=== PATIENT | female | born 1965 | race African-American/Black ===

== ENCOUNTER 2017-05-21 15:28 | Outpatient (CLI) | payer MEDICARE, MEDICAID ==
[2017-05-21 17:06] LABS: #Basophils 0.1 thou/uL (0.0-0.2); #Eosinphils 0.1 thou/uL (0.0-0.7); #Lymphocytes 2.8 thou/uL (1.20-3.40); #Monocytes 0.7 thou/uL (0.11-0.59); #Neutrophils 4.6 thou/uL (1.40-6.50); %Basophils 1.2 % (0.0-1.0); %Eosinophils 1.4 % (0.0-10.0); %Lymphocytes 33.3 % (21.0-51.0); %Monocytes 8.7 % (0.0-10.0); Hematocrit 37.4 % (36.0-47.0); Red Blood Cell (RBC) Count 3.72 mill/uL (4.20-5.40); White Blood Cell (WBC) Count 8.4 thou/uL (4.8-10.8)
[2017-05-21 17:27] LABS: Anion Gap 13 mmol/L (10-20); BUN (Urea Nitrogen) 23 mg/dL (9.8-20.1); Calc. Creatinine Clearance 0 mL/min (70-130); Calcium 8.7 mg/dL (7.8-10.44); Carbon Dioxide 30 mmol/L (22-29); Chloride 98 mmol/L (98-107); Estimated GFR-MDRD 5
== END 2017-05-21 15:29 | disposition home or self-care (01) ==
LOC: LABBT 15:28
PROVIDERS: ATTEND Specialist
DX: Z01.818 Encounter for other preprocedural examination (principal); T85.611A Breakdown (mechanical) of intraperitoneal dialysis catheter, initial encounter
CPT/HCPCS: 80048; 85025; 93005; 93010

== ENCOUNTER → 2017-05-23 | Day surgery (SDC) | payer MEDICARE, MEDICAID ==
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
[2017-05-21 15:40] VITALS: BMI 31.9
[~2017-05-23] MED LIST: Bupivacaine HCl 0.5%/Epinephrine 1:200,000/PF 30 ml Vial ONE; Fentanyl 100 MCG/2 ML VIAL ONE; Midazolam HCl 2 mg/2 ml Vial ONE; Propofol 500 MG/50 ML VIAL ONE
[2017-05-23 08:22] LABS: Prothrombin Time 13.1 SEC (12.0-14.7)
--- NOTE | 2017-05-23 12:40 | OP ---
DATE OF PROCEDURE: 05/23/2017 PREOPERATIVE DIAGNOSIS: Dysfunctional peritoneal dialysis catheter with extruded external cuff. POSTOPERATIVE DIAGNOSIS: Dysfunctional peritoneal dialysis catheter with extruded external cuff. PROCEDURE: Revision of peritoneal dialysis catheter external portion subcutaneous tissue, splicing a new segment of the catheter and retunneling it to a new exit site. SURGEON: Dr. Alan Rivera ANESTHESIA: TIVA. Local 0.5% Marcaine with epinephrine 30 mL mixed with 2% Xylocaine, 10 mL, 20 mL volume mixture used. PROCEDURE IN DETAIL: The patient was taken to the operating room where under intravenous sedation, her abdomen was prepared with chloraprep, draped in routine fashion. Local anesthetic infiltrated i nto skin and subcutaneous tissue about the operative site. Incision was made overlying the peritone al dialysis catheter in the subcutaneous tissue, left paramedian. Incision carried down through the skin and subcutaneous tissue and the tunnel catheter in the subcutaneous tissue, identified, dissec latoya free, and then transected and external portion removed and area reprepared with ChloraPrep. I t hen gained a new segment of catheter and spliced these together with a titanium splicer device secur ing both ends of the new catheter over the splicer device, securing them with 2-0 Prolene sutures. I then made a counter incision more superiorly and laterally, tunneling the catheter to this site an d then more inferiorly and laterally to a new exit site tunneling the catheter out the new exit site , closing the subcutaneous tissues with 3-0 Monocryl, skin with subdermal 4-0 Monocryl and DermaGlue applied. The catheter was then connected to the peritoneal dialysis extension and then flushed wit h heparinized saline solution. Sterile dressings applied. The patient tolerated the procedure well .
== END ==
LOC: SDC 07:38
PROVIDERS: ATTEND Specialist
PROC: 0WHG03Z Insertion of Infusion Device into Peritoneal Cavity, Open Approach (ICD-10-PCS; principal; 2017-05-23)
DX: T85.611A Breakdown (mechanical) of intraperitoneal dialysis catheter, initial encounter (principal); I12.0 Hypertensive chronic kidney disease with stage 5 chronic kidney disease or end stage renal disease; N18.6 End stage renal disease; D64.9 Anemia, unspecified; K21.9 Gastro-esophageal reflux disease without esophagitis; Z91.041 Radiographic dye allergy status; Z79.01 Long term (current) use of anticoagulants; Z79.899 Other long term (current) drug therapy; Z98.891 History of uterine scar from previous surgery; Z98.890 Other specified postprocedural states; Z99.2 Dependence on renal dialysis
CPT/HCPCS: 36415; 85610; J0131; J0670; J1642; J2250; J2704; J3010

== ENCOUNTER 2017-06-08 11:35 | Emergency (ER) | payer MEDICARE, MEDICAID ==
--- OUTSIDE RECORDS SUMMARY | 2017-06-08 11:37 | XMS | Clinical Summary ---
:1965 Author Organization [facility] Address [address] [place] [address] Phone Care Team Providers Name Role Phone , Primary Care Provider Unavailable Allergies Active Allergy Reactions Severity Noted Date Comments Iodine And Iodide Containing Products Rash High 10/11/2013 Current Medications Not on file Active Problems Patient Care Coordination Note Dr. Rowell, Family Medicine and [facility] [phone] Tel. 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
[2017-06-08 12:15] LABS: #Basophils 0.1 thou/uL (0.0-0.2); #Eosinphils 0.3 thou/uL (0.0-0.7); #Lymphocytes 3.3 thou/uL (1.20-3.40); #Monocytes 0.7 thou/uL (0.11-0.59); #Neutrophils 5.7 thou/uL (1.40-6.50); %Basophils 1.2 % (0.0-1.0); %Eosinophils 3.4 % (0.0-10.0); %Lymphocytes 32.5 % (21.0-51.0); %Monocytes 6.9 % (0.0-10.0); Hematocrit 32.4 % (36.0-47.0); Mean Platelet Volume 9.9 fL (7.4-10.4); Red Blood Cell (RBC) Count 3.12 mill/uL (4.20-5.40); White Blood Cell (WBC) Count 10.1 thou/uL (4.8-10.8)
[2017-06-08 12:37] LABS: ALT (SGPT) Less than 7 U/L (8-55); AST (SGOT) 16 U/L (5-34); Alkaline Phosphatase 81 U/L (40-150); Anion Gap 17 mmol/L (10-20); BUN (Urea Nitrogen) 49 mg/dL (9.8-20.1); Bilirubin, Total 0.6 mg/dL (0.2-1.2); CK (CPK) 103 U/L (29-168); Calc. Creatinine Clearance 0 mL/min (70-130); Calcium 9.1 mg/dL (7.8-10.44); Carbon Dioxide 22 mmol/L (22-29); Chloride 104 mmol/L (98-107); Estimated GFR-MDRD 3; Globulin 4.2 g/dL (2.4-3.5); Lipase 4 U/L (8-78); Protein, Total 7.3 g/dL (6.0-8.3)
[2017-06-08 12:42] LABS: Troponin I 0.012 ng/mL (< 0.028)
--- NOTE | 2017-06-08 12:42 | RAD ---
PORTABLE CHEST: Date: 06/08/17 HISTORY: Shortness of breath. Assess for fluid overload. Dialysis patient. COMPARISON: 06/07/15. FINDINGS: There is cardiomegaly. There is vascular engorgement. Some interstitial prominence is suspicious for mild interstitial edema/congestion. I cannot exclude small effusions. IMPRESSION: Cardiomegaly and mild congestive change noted. POS: [facility]
[2017-06-08] MEDS ORDERED: Nitroglycerin 0.1mg/Hour PATCH TOP SCH (14:45)
[2017-06-08] MEDS ORDERED: Ondansetron HCl/PF 4 MG/2 ML Vial ONE (14:59)
== END 2017-06-08 15:10 | disposition home or self-care (01) ==
LOC: ERS 11:35
DX: E87.70 Fluid overload, unspecified (principal); I10 Essential (primary) hypertension; F17.220 Nicotine dependence, chewing tobacco, uncomplicated; F31.9 Bipolar disorder, unspecified; Z79.899 Other long term (current) drug therapy
CPT/HCPCS: 71010; 80053; 82550; 82553; 83690; 83880; 84484; 85025; 93005; 96374; J2405

== ENCOUNTER 2017-06-09 19:34 | Observation (INO) | payer MEDICARE, MEDICAID ==
--- OUTSIDE RECORDS SUMMARY | 2017-06-09 19:36 | XMS | Clinical Summary ---
:[address] [facility] Address [address] [place] [address] Phone Care Team Providers Name Role Phone , Primary Care Provider Unavailable Allergies Active Allergy Reactions Severity Noted Date Comments Iodine And Iodide Containing Products Rash High 10/11/2013 Current Medications Not on file Active Problems Patient Care Coordination Note Dr. Rowell, Family Medicine and [facility] [phone] Tel. 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
[2017-06-09 20:28] LABS: #Basophils 0.1 thou/uL (0.0-0.2); #Eosinphils 0.4 thou/uL (0.0-0.7); #Lymphocytes 2.5 thou/uL (1.20-3.40); #Monocytes 0.7 thou/uL (0.11-0.59); #Neutrophils 4.8 thou/uL (1.40-6.50); %Basophils 1.6 % (0.0-1.0); %Eosinophils 4.2 % (0.0-10.0); %Lymphocytes 29.6 % (21.0-51.0); %Monocytes 7.9 % (0.0-10.0); Hematocrit 31.5 % (36.0-47.0); Mean Platelet Volume 10.2 fL (7.4-10.4); Red Blood Cell (RBC) Count 3.04 mill/uL (4.20-5.40); White Blood Cell (WBC) Count 8.5 thou/uL (4.8-10.8)
[2017-06-09 20:49] LABS: ALT (SGPT) Less than 7 U/L (8-55); AST (SGOT) 17 U/L (5-34); Alkaline Phosphatase 81 U/L (40-150); Anion Gap 15 mmol/L (10-20); BUN (Urea Nitrogen) 51 mg/dL (9.8-20.1); Bilirubin, Total 0.6 mg/dL (0.2-1.2); Calc. Creatinine Clearance 0 mL/min (70-130); Carbon Dioxide 23 mmol/L (22-29); Chloride 104 mmol/L (98-107); Estimated GFR-MDRD 3; Globulin 4.1 g/dL (2.4-3.5); Protein, Total 7.2 g/dL (6.0-8.3)
[2017-06-09 20:54] LABS: Troponin I 0.017 ng/mL (< 0.028)
--- NOTE | 2017-06-09 21:05 | RAD ---
SINGLE VIEW OF THE CHEST: Indication: High blood pressure, shortness of breath. Comparison: 06-08-16 IMPRESSION: Since the comparison examination the cardiomegaly, pulmonary vasculature congestion and small pleura l effusions persist. No pneumothorax is evident. ACDF is similar. Osseous structures are unchanged. POS: [facility]
[2017-06-09] MEDS ORDERED: Acetaminophen 500 MG TAB ONE (21:21)
[2017-06-09] MEDS ORDERED: Nitroglycerin 2% Ointment 1 INCH/1 GM Packet ONE (22:22)
[2017-06-09 22:51] LABS: Bilirubin Negative (Negative); Blood, Urine Trace (Negative); Glucose, Urine (Dipstick) Negative (Negative); Ketone, Urine Negative (Negative); Nitrite Negative (Negative); Protein, Urine (Dipstick) 100 mg/dL (Neg-Trace); Urobilinogen 0.2 mg/dL (0.2-1.0)
[2017-06-09 22:56] LABS: Bacteria/HPF Rare-Few HPF (None Seen); Hyaline Casts/LPF 0-3 HYALINE CAST LPF (0-3 Hyaline)
[2017-06-09] MEDS ORDERED: Dextrose 50% Abboject 50 ML SYRINGE ONE (23:57)
[2017-06-09] MEDS ORDERED: hydrALAZINE 25 MG TAB ONE (23:57)
[2017-06-09] MEDS ORDERED: Insulin Regular 300 UNITS/3 ML VIAL ONE (23:57)
[2017-06-10] MEDS ORDERED: Ondansetron ODT 4 MG TAB SL PRN (02:01)
[2017-06-10] MEDS ORDERED: Ondansetron HCl/PF 4 MG/2 ML Vial IVP PRN ×2 (02:01→02:15)
[2017-06-10] MEDS ORDERED: Acetaminophen 650 MG Suppository PR PRN (02:15)
[2017-06-10] MEDS ORDERED: Enoxaparin Sodium 40 MG/0.4 ML SYRINGE SC SCH (02:15)
[2017-06-10] MEDS ORDERED: Bisacodyl 10 MG SUPP PR PRN (02:15)
[2017-06-10] MEDS ORDERED: Bisacodyl 5 MG TAB PO PRN (02:15)
[2017-06-10] MEDS ORDERED: Nitroglycerin 0.4 MG TAB (25 Tab Bottle) SL PRN (02:15)
[2017-06-10] MEDS ORDERED: Ondansetron ODT 4 MG TAB PO PRN (02:15)
[2017-06-10 02:17] LABS: Troponin I 0.028 ng/mL (< 0.028)
[2017-06-10] MEDS ORDERED: Dextrose 50% Abboject 50 ML SYRINGE ONE ×2 (02:21→03:34)
[2017-06-10 03:36] LABS: #Basophils 0.2 thou/uL (0.0-0.2); #Eosinphils 0.4 thou/uL (0.0-0.7); #Lymphocytes 4.9 thou/uL (1.20-3.40); %Basophils 1.7 % (0.0-1.0); %Eosinophils 3.4 % (0.0-10.0); %Lymphocytes 42.9 % (21.0-51.0); Hematocrit 31.4 % (36.0-47.0); Mean Platelet Volume 10.2 fL (7.4-10.4); Red Blood Cell (RBC) Count 3.06 mill/uL (4.20-5.40); White Blood Cell (WBC) Count 11.5 thou/uL (4.8-10.8)
[2017-06-10 03:50] LABS: Anion Gap 19 mmol/L (10-20); BUN (Urea Nitrogen) 50 mg/dL (9.8-20.1); Calc. Creatinine Clearance 0 mL/min (70-130); Calcium 9.4 mg/dL (7.8-10.44); Carbon Dioxide 21 mmol/L (22-29); Chloride 105 mmol/L (98-107); Estimated GFR-MDRD 3
[2017-06-10 07:02] LABS: Troponin I 0.035 ng/mL (< 0.028)
[2017-06-10] MEDS: Sevelamer Carbonate 800 MG TAB PO SCH ×3 (08:05→18:53)
[2017-06-10] MEDS: hydrALAZINE 25 MG TAB PO SCH ×3 (08:43→21:29)
[2017-06-10] MEDS: Aspirin 81 mg Enteric Coated Tablet PO SCH (08:44)
[2017-06-10] MEDS: cloNIDine 0.2 MG TAB PO SCH ×2 (08:45→21:29)
[2017-06-10] MEDS: Potassium Chloride 20 MEQ TAB PO SCH ×2 (08:46→21:29)
[2017-06-10] MEDS: Folic Acid/Vit B Comp W-C PO SCH (08:46)
[2017-06-10] MEDS ORDERED: hydrALAZINE 25 MG TAB PO SCH (09:00)
[2017-06-10] MEDS ORDERED: Atenolol 50 MG TAB PO SCH (09:00)
[2017-06-10] MEDS ORDERED: VITAMIN B COMP W C PO SCH (09:00)
[2017-06-10] MEDS ORDERED: FOLIC ACID PO SCH (09:00)
[2017-06-10] MEDS ORDERED: Aspirin 325 MG TAB PO SCH (09:00)
--- NOTE | 2017-06-10 09:07 | HP-2 ---
DATE OF ADMISSION: 06/09/2017 CODE STATUS: Full. PRIMARY CARE PHYSICIAN: [facility] ATTENDING PHYSICIAN: Dr. Robert Phelps RESIDENT: Vishnu Gentile M.D., PGY1 SPECIALIST: Dr. Flores, Nephrology. CHIEF COMPLAINT: Shortness of breath and headaches. HISTORY OF PRESENT ILLNESS: This is a 52-year-old female that comes in with chief complaint of shortness of breath, hardly being able to breathe. She said that she was also having h eadaches. She said with every little movements at home, felt like her head was going to explode. S he said she had pain in her chest, did not radiate anywhere. Reported also having some nausea and h aving some chills, reported being dizzy as well. She said that her blood pressure was elevated, but she was told not to take her blood pressure medications for some reason. Per ER, she did put some nitro, but did swallow instead of keeping it under her tongue. Denies any other symptoms at this ti me. PAST MEDICAL HISTORY: Hypertension, kidney failure, end-stage renal disease on peritoneal dialysis, chronic anemia and bipolar. PAST SURGICAL HISTORY: Screws in her neck and she just had a new port put in her abdomen 2-3 weeks ago. ALLERGIES: She has allergy to IODINE in which she develops a rash. MEDICATIONS: She takes clonidine 0.2 mg 2 times a day, isosorbide mononitrate 30 mg 1 tab a day, se rtraline 50 mg 1 time a day, Diuride 1 tab daily; Renvela 800 mg daily, hydralazine 100 mg 3 times a day, pantoprazole 40 mg, KCl 20 mEq 2 times a day, atenolol 50 mg daily. FAMILY HISTORY: Mom and dad both had hypertension. SOCIAL HISTORY: No tobacco use, no alcohol use, no drug use. REVIEW OF SYSTEMS: All review of systems not listed in the HPI are otherwise negative at this time. PHYSICAL EXAMINATION: VITAL SIGNS: Blood pressure is 137/81, pulse 67, respirations 22, temperature 98.4, pulse ox 90% on 2 liters. Current weight is 86.64 kilograms. GENERAL: She is alert and oriented x3. Well-developed, obese, appropriately interactive. EYES: Conjunctivae within normal limits. ENT: Oropharynx within normal limits. NECK: Supple, no lymphadenopathy, no thyromegaly. No bruits. CARDIOVASCULAR: Regular rate and rhythm. No murmurs, no gallops. Radial pulses, pedal pulses palp ated bilaterally. RESPIRATORY: Normal breathing effort, no retractions. Lungs are clear to auscultation bilaterally. SKIN: Warm and dry. ABDOMEN: Soft, nontender to palpation. Bowel sounds heard in all 4 quadrants. MUSCULOSKELETAL: Structure normal, tone normal. She has full range of motion. NEUROLOGIC: No focal deficits. Sensation within normal limits. PSYCHIATRIC: Appropriate. LABORATORY DATA: White blood cell 8.5, hemoglobin 10.2, hematocrit 31.5, platelets 167, MCV 104. S odium 137, potassium 5.4, chloride 104, bicarbonate 23, BUN 51, creatinine 14.17, glucose 89, total protein 7.2, albumin 3.1, calcium 7.0, total bilirubin 0.6, alkaline phosphatase 81, AST is 17, ALT is less than 7. UA; trace blood, protein was 100, 4-6 white blood cells, squamous epithelial 7-11, CK-MB was 1.4, troponin was 0.17, everything else was negative. Chest x-ray showed cardiomegaly and pulmonary vascular congestion and small pleural effusions persist from last. No pneumothorax and o sseous structures unchanged. ASSESSMENT AND PLAN: 1. Atypical chest pain. We will admit her to tele observation overnight. We will keep her n.p.o. for now. We will get a stress test in the morning. We will start her on some aspirin. Give her ni tro p.r.n. Continue to keep the nitropatch on her for now. We will continue to trend troponins. 2. Hypertension emergency. We will restart home medications as she did not take them yesterday. W e will continue to monitor blood pressures and treat as needed. 3. End-stage renal disease on peritoneal dialysis. For her peritoneal dialysis we will consult Dr. Flores for help with management. 4. Hyperkalemia. She was given insulin and sugar in the ER. She is on peritoneal dialysis and dulce l continue to follow BMPs as we will need to correct. 5. Chronic anemia likely secondary to end-stage renal disease. She is on folic acid and B12. We w ill continue to monitor and adjust medicines as needed. Dr. Flores has been consulted as well. 6. Bipolar. We will continue her sertraline at this time.
[2017-06-10 10:30] LABS: Troponin I 0.015 ng/mL (< 0.028)
[2017-06-10] MEDS ORDERED: Calcium Carbonate 500 MG ChewTAB PO PRN (11:16)
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
--- NOTE | 2017-06-10 11:55 | PRG ---
DATE OF SERVICE: 06/10/2017 SUBJECTIVE: Manuela Estrada is a 52-year-old black female admitted this hospitalization today by Hospitalist because of dyspnea. She is having chest pain and headache. She is scheduled for a stre ss test today. I have been asked to see her regarding leakage around her peritoneal dialysis cathet er site. On 05/23/2017, for a dysfunctional peritoneal dialysis catheter with extruded external cuf f, I revised this with a new segment of catheter splicing it and retunneling it to a new exit site. She resumed dialysis immediately. She states she had some drainage from the catheter site initiall y, but this is diminished, thus it is minimal. OBJECTIVE: ABDOMEN: Soft, nontender and nondistended. Peritoneal dialysis catheter exit site is healthy. The re is no indication of infection. The old exit site is almost completely healed. The cuff of the new catheter is in proper positioning. ASSESSMENT AND PLAN: Recently revised peritoneal dialysis catheter. There is no indication of comp lication. No intervention necessary at this point. I will see the patient as needed this [facility] and she can follow up with me as needed.
[2017-06-10 11:59] VITALS: BMI 35.5
[2017-06-10 12:06] LABS: Amphetamine Not Detected (NotDetected); Methadone Not Detected (NotDetected); Methamphetamine Not Detected (NotDetected)
--- NOTE | 2017-06-10 12:39 | HP ---
I have reviewed the history and physical of Dr. Gentile and agree with his assessment and plan. PRESENT ILLNESS: Ms. Chavarria is a pleasant 52-year-old black female who was admitted through the [facility] room with shortness of breath and some atypical chest pain. PHYSICAL EXAMINATION: VITAL SIGNS: Her blood pressure was 140/80, pulse rate is 67, temperature 98.4, and pulse ox 90% on 2 liters. Respirations 16. GENERAL: She is awake, alert, in no distress. HEENT: Ears, nose and throat within normal limits. No JVD. CARDIAC: Heart rhythm regular, S4 gallop. No murmur or rub noted. LUNGS: Clear. No rales, rhonchi or wheezes. ABDOMEN: Flat and soft. NEUROLOGIC: No deficits. LABORATORY DATA: CBC: White count 8500, hemoglobin 10.2, hematocrit 31.5 with an MCV 104. Sodium 137, potassium 5.4, chloride 104, bicarbonate 23, BUN 51, creatinine is 14.17 as she is on peritonea l dialysis. Glucose was 89. EKG shows no acute ischemic changes. Her chest x-ray shows some degree of cardiomegaly, pulmonary vascular congestion. ASSESSMENT: Atypical chest pain and mild pulmonary congestion. PLAN: The patient will be admitted. We will trend her troponins and schedule a stress test. This morning she is pleasant, alert and chest pain free.
[2017-06-10] MEDS ORDERED: ADENOSINE 60 MG/20 ML VIAL ONE (15:36)
[2017-06-10] MEDS: Acetaminophen 325 MG TAB PO PRN (18:53)
[2017-06-11] MEDS: Acetaminophen 325 MG TAB PO PRN (00:59)
[2017-06-11 05:14] VITALS: TEMP 99.1
[2017-06-11] MEDS: Sevelamer Carbonate 800 MG TAB PO SCH ×2 (08:03→12:34)
[2017-06-11] MEDS: Aspirin 81 mg Enteric Coated Tablet PO SCH (08:04)
[2017-06-11] MEDS: cloNIDine 0.2 MG TAB PO SCH (08:04)
[2017-06-11] MEDS: Folic Acid/Vit B Comp W-C PO SCH (08:04)
[2017-06-11] MEDS: Potassium Chloride 20 MEQ TAB PO SCH (08:05)
[2017-06-11] MEDS: hydrALAZINE 25 MG TAB PO SCH (08:05)
--- NOTE | 2017-06-11 08:36 | PDOC.FM ---
- Subjective Subjective: Pt feels very well this morning and states that her headache and chest pain have resolved. All other symptoms in ROS were denied. Over night she was bradycardic, but stable and asymptomatic. She had the first day of her 2 day stress test yesterday without issue. - Objective MAR Reviewed: Yes Vital Signs & Weight: Vital Signs (12 hours) Temp Pulse Resp BP BP Pulse Ox 06/11/17 08:05 56 L 06/11/17 08:04 135/76 06/11/17 07:42 99.1 F 56 L 18 06/11/17 07:25 98.4 F 53 L 20 121/84 93 L 06/11/17 04:00 99.1 F 56 L 18 135/76 96 06/11/17 00:58 99.4 F 57 L 20 142/89 H 96 06/10/17 21:29 55 L 133/67 Weight Weight 100.743 kg I&O: 06/10/17 06/11/17 06/12/17 06:59 06:59 06:59 Intake Total 120 760 Output Total 300 Balance 120 460 Result Diagrams: 06/10/17 01:24 06/10/17 01:24 EKG Reviewed by me: Yes (sinus chelita) Phys Exam - Physical Examination Constitutional: NAD HEENT: PERRLA, moist MMs, oral pharynx no lesions Neck: no nodes, no JVD Respiratory: clear to auscultation bilateral Cardiovascular: RRR, no significant murmur Gastrointestinal: soft, non-tender, no distention, positive bowel sounds Musculoskeletal: no edema Neurological: non-focal, normal sensation, moves all 4 limbs Lymphatic: no nodes Psychiatric: normal affect, A&O x 3 Skin: no rash Dx/Plan (1) Chest pain Code(s): R07.9 - CHEST PAIN, UNSPECIFIED Status: Resolved Qualifiers: Chest pain type: other chest pain Qualified Code(s): R07.89 - Other chest pain (2) Hypertensive urgency Code(s): I16.0 - HYPERTENSIVE URGENCY Status: Resolved (3) Chronic anemia Code(s): D64.9 - ANEMIA, UNSPECIFIED Status: Chronic (4) ESRD on peritoneal dialysis Code(s): N18.6 - END STAGE RENAL DISEASE; Z99.2 - DEPENDENCE ON RENAL DIALYSIS Status: Chronic (5) Hypertension Code(s): I10 - ESSENTIAL (PRIMARY) HYPERTENSION Status: Chronic Qualifiers: Hypertension type: essential hypertension Qualified Code(s): I10 - Essential (primary) hypertension (6) Obesity (BMI 30.0-34.9) Code(s): E66.9 - OBESITY, UNSPECIFIED Status: Chronic (7) Hypoglycemia Code(s): E16.2 - HYPOGLYCEMIA, UNSPECIFIED Status: Resolved (8) Bipolar disorder in remission Code(s): F31.70 - BIPOLAR DISORD, CURRENTLY IN REMIS, MOST RECENT EPISODE UNSP Status: Chronic (9) Hyperkalemia Code(s): E87.5 - HYPERKALEMIA Status: Resolved - Plan Plan: 1. Chest pain -pain has resolved since admission. Most likely assd with her hypertensive urgency -troponins did have a slight bump, but trended down -on tele with no concerning patterns -will finish her stress test today and pending results will be ready for dc home. 2. Hypertensive urgency -resolved. Pt had not taken her meds on the day of admission and presented w/a BP over 200 -All systolic BP's have been at 160 or below since yesterday. Todays have been 120-130's systolic -Continue home meds and discuss importance of compliance with her meds 3. ESRD -On PD -Has been seen by Dr Flores -There was initially concern for a leaking catheter, however this was evaluate by gen surg and determined to not be an issue 4. Anemia -likely chronic 2/2 ESRD -Stable and asymptomatic 5. Bradycardia -Pt has generally been in the 50s since admission with a few drops into the 40s -She is asymptomatic, however this warrants following outpatient and a possible work up by cardiology -WV interval is 166 ms 6. Bipolar Disorder -Pt is currently controlled -Continue home meds 7. Hypoglycemia -Pt has been stable since the initial event -Continue checks ACHS 8. Hyperkalemia -Has resolved since admission -supplementation has been help by Dr Flores 9.HTN -currently controlled -continue home meds 10. Obesity -kaibab on weight loss
--- NOTE | 2017-06-11 09:20 | PRG ---
DATE OF SERVICE: 06/11/2017 RENAL MEDICINE SUBJECTIVE: Ms. Chavarria was admitted for chest pain. She is undergoing a cardiac stress test at the present time. She also had PD leak around the catheter site. Surgery has evaluated her. The plan is to continue conservative management. Continue low volume PD fluid infusion. No new complaints today. Denies any chest pain, shortness of breath. PHYSICAL EXAMINATION: VITAL SIGNS: Blood pressure is 135/76, heart rate 56, respiratory rate 18, temperature 99.1, and pu lse ox 93%. GENERAL: Awake, alert, comfortable, not in distress. SKIN: Adequate turgor. HEENT: Pinkish conjunctivae. Anicteric sclerae. LUNGS: Clear breath sounds. HEART: Normal sinus rhythm. No murmurs, no gallops, no rubs. ABDOMEN: Globular, soft, nontender, no masses. Positive for PD catheter. Dressing is dry and inta ct around the PD catheter site. EXTREMITIES: No edema. MEDICATIONS: Medications of 06/11/2017 was reviewed. LABORATORY DATA: Laboratories of 06/10/2017; hemoglobin 9.6. On 06/10/2017, glucose 95. ASSESSMENT AND PLAN: 1. Hyperkalemia, off potassium supplementation. 2. End-stage renal disease, stable. Tolerating current peritoneal dialysis regimen. Using 1 liter fill volume. No leakage noted around the peritoneal dialysis catheter site. Continue current felipe gement. Using 4.5% peritoneal dialysis solution/2.5% peritoneal dialysis solution. 3. Shortness of breath/congestive heart failure much improved. 4. Chest pain, resolved. Awaiting results of the cardiac stress test. Overall, agree with current management.
--- NOTE | 2017-06-11 11:18 | ADD-PRG ---
DATE OF SERVICE: 06/11/2017 ADDENDUM This is an addendum to the note of Dr. Harpal Fontana Ms. Chavarria is resting quietly in bed, undergoing her peritoneal dialysis. She is on day [address]s Myoview test with results pending. She has had some asymptomatic episodes of sinus bradycardia into the mid 40s and had been taking atenolol, but for reasons unknown to her. If the atenolol was used strictly for blood pressure control, I would recommend switching her to perhaps a nondihydropy ridine calcium channel shelia such as amlodipine. In the event if her stress Myoview is negative, she will be discharged later today.
[2017-06-11 12:54] VITALS: BP 121/77
--- NOTE | 2017-06-11 14:56 | NM ---
MYOCARDIAL PERFUSION SCAN: HISTORY: Chest pain. TECHNIQUE: The patient was given 31 millicuries of technetium sestamibi for rest imaging and 29 millicuries for stress imaging. The patient was stressed according to adenosine protocol. The left ventricle was imaged with SPECT imaging with CT attenuation. FINDINGS: No evidence of reversible ischemia. Wall motion appears normal. Ejection fraction recorded at 59%. IMPRESSION: No evidence of reversible ischemia. POS: GI
--- NOTE | 2017-06-12 12:01 | DIS-2 ---
DATE OF ADMISSION: 06/10/2017 DATE OF DISCHARGE: 06/11/2017 ADMITTING ATTENDING: Robert Phelps M.D. DISCHARGE ATTENDING: Robert Phelps M.D. RESIDENT PHYSICIAN: Harpal Fontana D.O. CONSULTATIONS: 1. Dr. Flores, Nephrology. 2. Dr. Alan Rivera PROCEDURES: 1. Peritoneal dialysis. 2. Nuclear stress test. DISCONTINUED MEDICATIONS: None. DISCHARGE MEDICATIONS: Clonidine 0.2 mg p.o. b.i.d. Renvela 800 mg p.o. t.i.d., pantoprazole 40 mg p.o. daily, atenolol 50 mg p.o. daily, potassium chloride 20 mEq p.o. b.i.d., sertraline 50 mg p.o. daily, folic acid and vitamin B complex p.o. daily, hydralazine 100 mg p.o. t.i.d., isosorbide monon itrate 30 mg p.o. daily. HOSPITAL COURSE: The patient was admitted for shortness of breath and atypical chest pain. While a dmitted the patient had an up trending troponins, one of which was positive at 0.035, it then trende d down. She also had complaint of a headache and very high blood pressures at home. She apparently had not taking blood pressure meds and had a systolic blood pressure over 200. The patient was wor ked up for her chest pain to rule out acute coronary syndrome. She while admitted underwent a nucle ar stress test. The findings on nuclear stress test were no irreversible ischemia with normal wall motion and ejection fraction of 59%. ACS was ruled out with the likely source of the chest pain carlos alberto ng her hypertension. While admitted the patient remained on peritoneal dialysis and was seen by her spent grain dryer, Dr. Flores. There was some concern that maybe her peritoneal dialysis catheter was leak ing. This was evaluated by Dr. Rivera who determined that no intervention needed to be had. While admitted the patient was given her meds and her blood pressure remained stable. Chest pain resolved as did all other symptoms and the patient was discharged home. DISCHARGE STATUS: Stable. DISCHARGE INSTRUCTIONS: 1. Location: Home. 2. Diet: As previously instructed a renal diet. 3. Activity: Ad ailyn. 4. Followup: Follow up with Dr. Flores within 1 week and with PCP within 1 week.
--- NOTE | 2017-06-14 18:14 | EKG ---
Test Reason : HTN CRISIS Blood Pressure : / mmHG Vent. Rate : 057 BPM Atrial Rate : 057 BPM P-R Int : 144 ms QRS Dur : 078 ms QT Int : 674 ms P-R-T Axes : 024 -23 127 degrees QTc Int : 656 ms Sinus bradycardia T wave abnormality, consider lateral ischemia Prolonged QT Abnormal ECG Confirmed by JOSE MIGUEL CASTILLO M.D. ([id number]), art editor JENNIFER SOLOMON ([id number]) on 06/14/2017 6:13:34 PM Referred By: Confirmed By:JOSE MIGUEL CASTILLO M.D.
--- NOTE | 2017-06-25 13:26 | STRESS ---
Acquisition Time: 2017-06-10 12:25:24 Total Exercise Time: 00:00:22 Test Indications: CHEST PAIN Medications: Protocol: ADENOSINE Max HR: 056 BPM 33% of Pred: 168 BPM Max BP: 140/092 mmHG Max Work Load: 1.0 METS RESTING ECG: SINUS BRADYCARDIA AT 56 BPM WITH NON-SPECIFIC T WAVE CHANGES SYMPTOMS: CHEST PAIN NORMAL BP RESPONSE ECTOPY: NONE ECG STRESS: NO SIGNIFICANT CHANGES INTERPRETATION: AWAIT NUCLEAR IMAGES FOR DEFINITIVE DIAGNOSIS Confirmed by SHAYY NORWOOD ([id number]), assistant editor RYAN JOHNSON ([id number]) on 06/25/2017 1:26:24 PM Referred By: MD Griselda HIGH Confirmed By:SHAYY NORWOOD
== END 2017-06-11 15:35 | disposition home or self-care (01) ==
LOC: ERS 19:34 → 2SW 06-10 00:52
PROVIDERS: ADMIT Family Medicine; ATTEND Family Medicine
DX: R07.89 Other chest pain (principal); R06.02 Shortness of breath; I12.0 Hypertensive chronic kidney disease with stage 5 chronic kidney disease or end stage renal disease; N18.6 End stage renal disease; F31.9 Bipolar disorder, unspecified; Z91.041 Radiographic dye allergy status; Z79.899 Other long term (current) drug therapy; Z82.49 Family history of ischemic heart disease and other diseases of the circulatory system; Z99.2 Dependence on renal dialysis
CPT/HCPCS: 71020; 78452; 80048; 80053; 80306; 82553 ×2; 82962; 84443; 84484 ×3; 85025 ×2; 87040; 93005; 93017; 96372; 96374; 96375; 96376; 99285; A9500; G0378; 36415; 36416; 81003; 81015; 90945; G0257; J0153; J1650; J1815; Q0162

== ENCOUNTER 2017-06-22 00:36 | Inpatient (IN) | payer MEDICARE, MEDICAID ==
--- OUTSIDE RECORDS SUMMARY | 2017-06-22 00:39 | XMS | Clinical Summary ---
:1965 Author Organization [facility] Address [address] [place] [address] Phone Care Team Providers Name Role Phone , Primary Care Provider Unavailable Allergies Active Allergy Reactions Severity Noted Date Comments Iodine And Iodide Containing Products Rash High 10/11/2013 Current Medications Not on file Active Problems Patient Care Coordination Note Dr. Rowell, Family Medicine and [facility] [phone] Tel. #: [phone] Problem Noted Date ESRD (end stage renal [...] Taken Blood Pressure 138/81 09/30/2013 10:12 AM LEACH TANK TENDER Pulse 55 09/30/2013 10:12 AM LEACH TANK TENDER Temperature 36.2 C (97.2 F) 09/30/2013 10:12 AM LEACH TANK TENDER Respiratory Rate 18 09/30/2013 10:12 AM LEACH TANK TENDER Oxygen Saturation - - Inhaled Oxygen Concentration - - Weight 88.9 kg (196 lb) 05/04/2014 10:00 AM CDT Height 165.1 cm (5' 5") 05/04/2014 10:00 AM CDT Body Mass Index 32.62 05/04/2014 10:00 AM CDT Plan of Treatment Health Maintenance Due Date Last Done Comments INFLUENZA VACCINE 05/11/2017 Results Not on filefrom Last 3 Months
[2017-06-22 03:08] LABS: #Basophils 0.1 thou/uL (0.0-0.2); #Eosinphils 0.2 thou/uL (0.0-0.7); #Lymphocytes 2.3 thou/uL (1.20-3.40); #Monocytes 1.5 thou/uL (0.11-0.59); #Neutrophils 7.5 thou/uL (1.40-6.50); %Basophils 0.5 % (0.0-1.0); %Eosinophils 1.6 % (0.0-10.0); %Lymphocytes 19.9 % (21.0-51.0); %Monocytes 12.9 % (0.0-10.0); Hematocrit 27.7 % (36.0-47.0); Mean Platelet Volume 10.3 fL (7.4-10.4); Red Blood Cell (RBC) Count 2.74 mill/uL (4.20-5.40); White Blood Cell (WBC) Count 11.6 thou/uL (4.8-10.8)
[2017-06-22 03:09] LABS: Lipase Less than 4 U/L (8-78)
[2017-06-22 03:22] LABS: Lactic Acid - Sepsis 0.8 mmol/L (0.5-2.2)
[2017-06-22 03:33] LABS: ALT (SGPT) Less than 7 U/L (8-55); AST (SGOT) 13 U/L (5-34); Alkaline Phosphatase 76 U/L (40-150); Anion Gap 17 mmol/L (10-20); BUN (Urea Nitrogen) 53 mg/dL (9.8-20.1); Bilirubin, Total 0.4 mg/dL (0.2-1.2); Calc. Creatinine Clearance 0 mL/min (70-130); Calcium 8.8 mg/dL (7.8-10.44); Carbon Dioxide 25 mmol/L (22-29); Chloride 97 mmol/L (98-107); Estimated GFR-MDRD 3; Protein, Total 6.8 g/dL (6.0-8.3)
[2017-06-22] MEDS ORDERED: Morphine 10 MG/ML VIAL ONE (03:41)
[2017-06-22] MEDS ORDERED: Ondansetron HCl/PF 4 MG/2 ML Vial ONE (03:56)
[2017-06-22] MEDS ORDERED: cefTRIAXone\\ROCEPHIN 2 GM in Sodium Chloride 0.9% 100 ML IVPB SCH (04:00)
[2017-06-22] MEDS ORDERED: Ondansetron ODT 4 MG TAB SL PRN (05:47)
[2017-06-22] MEDS ORDERED: Ondansetron HCl/PF 4 MG/2 ML Vial IVP PRN ×2 (05:47→19:34)
[2017-06-22 06:07] LABS: BF Reference Range Comment Note:
--- NOTE | 2017-06-22 06:26 | HP-2 ---
CODE STATUS: FULL. PRIMARY CARE PHYSICIAN: [facility]. ATTENDING: Dr. Mann. RESIDENT: Nithin Burch MD HISTORIAN: Patient. CHIEF COMPLAINT: Abdominal pain. HISTORY OF PRESENT ILLNESS: Manuela Chavarria is a 52-year-old female with past medical history of CKD, stage 5; hypertension; GERD; and depression; who presents with abdominal pain. The patient states that the pain started on Friday and she describes it as crampy or aching in nature. The patient also states that Dr. Rivera replaced her peritoneal dialysis catheter 3 weeks ago. Since then, she has not been feeling very well. The pain began yesterday, while she was watching TV. She states that it felt like her stomach balled up and got really crampy. The pain is located worse right in the middle of her abdomen. She denies any fevers, nausea, or vomiting. She states that she has been constipated. She has not had a bowel movement in 2.5 days. She tried MiraLax and had a very small bowel movement today. She states that massages and heat pads helped with the pain a little bit and the pain comes and goes and is 10/10 at its worst. PAST MEDICAL HISTORY: 1. Chronic kidney disease, stage 5, on peritoneal dialysis. 2. Hypertension. 3. Gastroesophageal reflux disease. 4. Depression. PAST SURGICAL HISTORY: 1. Peritoneal dialysis catheter placement x2. 2. Neck surgery. 3. x3. ALLERGIES: IODINE. MEDICATIONS: We will need home medication reconciliation, as the patient did not bring meds to the hospital and does not know what medication she takes. FAMILY HISTORY: Hypertension in mother and father. SOCIAL HISTORY: Denies tobacco and drug use. States that she occasionally drinks alcohol. She is not and she has 4 children. REVIEW OF SYSTEMS: Twelve-point review of systems including general, HEENT, respiratory, CV, GI, , skin, musculoskeletal, neuro, and psych were all negative with the exception of 2.5 days of constipation and abdominal pain as well as depression that was chronic. PHYSICAL EXAMINATION: VITAL SIGNS: Blood pressure 167/115, pulse 109, respiratory rate 16, T-max 98.8 , pulse ox 98% on room air, current weight is 94 kilograms. GENERAL: The patient is alert and oriented, in no acute distress. She is obese , appropriately interactive. HEENT: Pupils equal, round, reactive to light and accommodation. Extraocular muscles intact. Conjunctivae within normal limits. ENT: Tympanic membranes pearly stern without bulging or erythema. Nasal mucosa and oropharynx within normal limits. NECK: Supple, without lymphadenopathy or thyromegaly. CARDIOVASCULAR: Regular rate and rhythm. No murmurs or gallops. Radial pulses and pedal pulses equal. RESPIRATORY: Normal effort, no retraction. LUNGS: Clear to auscultation bilaterally. SKIN: Warm and dry without cyanosis or lesions. ABDOMEN: Soft, slightly distended. Diffuse tenderness to palpation. Bowel sounds x4 with no mass and no obvious masses and peritoneal dialysis catheter in place with no signs of cutaneous infection. EXTREMITIES: No cyanosis or edema or clubbing. MUSCULOSKELETAL: Structure and tone within normal limits. Full range of motion. NEUROLOGIC: No focal deficits. Sensation within normal limits. PSYCHIATRIC: Appropriate. LABORATORY DATA: White blood cell count 11.6, hemoglobin 8.9, hematocrit 27.7, MCV 101, and platelets 222. Sodium 134, potassium 5.2, chloride 97, bicarbonate 25, BUN 53, creatinine 14.51. Glucose 66, calcium 8.8, total protein 6.8, albumin 2.8, total bilirubin 0.4, AST 13, ALT less than 7, alkaline phosphatase 76, lactate 0.8. CRP 18.9, lipase less than 4. ASSESSMENT AND PLAN: Manuela Chavarria is a 52-year-old female with past medical history of chronic kidney disease, stage 5; hypertension; GERD; and depression; who presents with abdominal pain. 1. Constipation versus early onset peritonitis. Admit to medical inpatient. Symptoms began after placement of peritoneal dialysis catheter. Has not had a real bowel movement in 2.5 days. She has got an elevated CRP, but a normal lactate and normal white blood cell count. Start Dulcolax and docusate as well as MiraLax. Start Rocephin. Check blood and peritoneal fluid cultures, fluid gram stain, cell count. Consider consulting Dr. Rivera, as it seems that there is a scheduled procedure on Friday dealing with the peritoneal dialysis catheter. 2. Chronic kidney disease, stage 4. Consult Nephrology in the morning for peritoneal dialysis. 3. Hypertension. Continue home medications. Will need home medication reconciliation. 4. Macrocytic anemia. Check red blood cell, folate, and B12. 5. Gastroesophageal reflux disease. Continue home medications. 6. Depression. Continue home medications. 7. Activity: Ad ailyn. 8. Deep vein thrombosis prophylaxis, sequential compression devices. 9. Code status: FULL. DISPOSITION AND LENGTH OF HOSPITAL STAY: 2 days. Symptomatic medications will be provided. History and physical exam as well as management discussed with Dr. Mann. Patient seen on rounds. I agree with collado portions of H&P above and have written a brief note in the chart. Aspirate from catheter shows white cells and gram positive rods. I think she has peritonitis. We will consult Surgery, Nephrology and ID. Continue Rocephin for now. KRISTOFERD
[2017-06-22 07:59] VITALS: BMI 34.0
[2017-06-22 08:19] LABS: BF Color Yellow
[2017-06-22 08:39] LABS: Number Cells Counted-Fluids 100
[2017-06-22] MEDS: Polyethylene Glycol 3350 17 GM Packet PO SCH ×2 (08:46)
[2017-06-22] MEDS: Docusate 100 MG CAP PO SCH ×3 (08:46→19:52)
[2017-06-22] MEDS: Bisacodyl 10 MG SUPP PR SCH (08:48)
--- NOTE | 2017-06-22 09:35 | RAD ---
ABDOMEN 2 VIEWS AND CHEST 1 VIEW: HISTORY: A 52-year-old female with nausea and vomiting and abdominal pain. FINDINGS: There is cardiomegaly with bilateral vascular congestion and bilateral pleural effusions showing lit tle change from 103/0/17. Thee is a peritoneal dialysis catheter overlying the pelvis region. Ther e is scattered gas in the colon and nondilated small bowel. No evidence for bowel obstruction or fr ee intraperitoneal air or overt calculus or other acute process. IMPRESSION: Stable-appearing chest with cardiomegaly, vascular congestion, interstitial edema, and pleural effus ions. Nonspecific gas pattern with a few scattered air fluid levels in nondilated small bowel and r ight colon. Peritoneal dialysis catheter. No evidence for bowel obstruction. POS: O[facility]LL[facility]
[2017-06-22] MEDS ORDERED: Epoetin (ESRD) 20,000 UNITS/ML SC SCH (11:00)
--- NOTE | 2017-06-22 11:40 | PRG ---
DATE OF SERVICE: 06/22/2017 SERVICE: Renal Medicine. SUBJECTIVE: Ms. Chavarria is a 52-year-old black female with ESRD and admitted for abdominal pain. Angela lamar was found to have peritonitis. She has been empirically treated with IV ceftriaxone. In addition , IV vancomycin is to be added. Please note that this patient currently has an abdominal hernia caity und the PD catheter site area. There is a planned surgery to be done this coming week with her. Angela lamar is currently using a low-volume peritoneal dialysis fluid. My plan is to continue the low volume PD fluid exchanges due to the current abdominal hernia. Abdominal pain is actually improved. PHYSICAL EXAMINATION: VITAL SIGNS: BP is 156/89, heart rate 58, respiratory rate 20, temperature 98.6, pulse ox 93%. GENERAL EXAM: Noted to be awake, alert, comfortable, not in distress. SKIN: Adequate turgor. HEENT: Slightly pale conjunctivae. Anicteric sclerae. NECK: No neck mass. No carotid bruits. No JVD. CHEST: No deformities. LUNGS: Clear breath sounds. No wheezing and no crackles. HEART: Normal sinus rhythm. No murmur, no gallops, and no rubs. ABDOMEN: Globular, soft, nontender, no masses. Positive for PD catheter. Positive for mild abdomi nal hernia -- near the incision site. EXTREMITIES: No edema. MEDICATIONS: Medications of 06/22/2017 were reviewed. LABORATORY DATA: Laboratories of 06/22/2017, white count 11.6, hemoglobin 8.9, hematocrit 27.7. PD fluid shows WBC of 441 -- noted to be hazy. PD fluid culture is pending, but the Gram stain showed gram-positive rods. Chemistries of 06/22/2017, sodium 134, potassium 5.2, chloride 97, carbon diox mamadou 25, BUN 53, creatinine 14.51, calcium 8.8, albumin 2.8, lipase less than 4. ASSESSMENT AND PLAN: 1. Gram-positive benito peritonitis -- currently on IV ceftriaxone and IV vancomycin. Continue suppor tive care. Awaiting culture and sensitivity. 2. Abdominal hernia -- the patient has a planned surgery where the hernia will be repaired and PD c atheter will be placed on hold. She will be converted temporarily on hemodialysis. 3. End-stage renal disease. For the moment, continue low volume infusion -- 1 liter fill volume. We will be using alternating 4.25% and 2.5% PD solution with this patient. 4. Anemia -- resume Epogen 10,000 units subcutaneous every week. Overall, agree with current management.
[2017-06-22] MEDS ORDERED: Vancomycin HCl 1.5 GM in Sodium Chloride 0.9% 250 ML 300 ML IVPB SCH (12:00)
[2017-06-22] MEDS ORDERED: Epoetin (ESRD) 10,000 UNITS/ML VIAL SC SCH (12:00)
[2017-06-22] MEDS: cefTRIAXone\\ROCEPHIN 2 GM in Sodium Chloride 0.9% 100 ML IVPB SCH (16:53)
[2017-06-22] MEDS ORDERED: cefTRIAXone\\ROCEPHIN 2 GM, Admixture Fee 1 EACH in Sodium Chloride 0.9% 100 ML IVPB SCH (17:00)
[2017-06-22] MEDS ORDERED: Vancomycin HCl 1 GM in Premix Bag 1 BAG IVPB SCH (17:30)
[2017-06-22] MEDS ORDERED: hydrALAZINE 20 MG/ML VIAL SLOW IVP PRN (18:33)
[2017-06-22] MEDS ORDERED: Ibuprofen 600 MG TAB PO PRN (18:36)
[2017-06-22] MEDS ORDERED: cloNIDine 0.1 MG TAB PO SCH (18:45)
[2017-06-22] MEDS ORDERED: Atenolol 50 MG TAB PO SCH (18:45)
[2017-06-22] MEDS: Acetaminophen 325 MG TAB PO PRN (18:47)
[2017-06-22] MEDS: cloNIDine 0.1 MG TAB PO SCH (19:51)
[2017-06-22] MEDS ORDERED: Vancomycin HCl 1.25 GM in Sodium Chloride 0.9% 250 ML 250 ML IVPB SCH (21:00)
[2017-06-23] MEDS: Acetaminophen 325 MG TAB PO PRN (01:40)
[2017-06-23 05:06] LABS: #Basophils 0.1 thou/uL (0.0-0.2); #Eosinphils 0.2 thou/uL (0.0-0.7); #Lymphocytes 2.4 thou/uL (1.20-3.40); #Monocytes 1.2 thou/uL (0.11-0.59); #Neutrophils 5.8 thou/uL (1.40-6.50); %Basophils 0.7 % (0.0-1.0); %Eosinophils 1.6 % (0.0-10.0); %Lymphocytes 24.6 % (21.0-51.0); %Monocytes 12.7 % (0.0-10.0); Hematocrit 23.7 % (36.0-47.0); Mean Platelet Volume 9.1 fL (7.4-10.4); Red Blood Cell (RBC) Count 2.34 mill/uL (4.20-5.40); White Blood Cell (WBC) Count 9.6 thou/uL (4.8-10.8)
[2017-06-23] MEDS: cefTRIAXone\\ROCEPHIN 2 GM in Sodium Chloride 0.9% 100 ML IVPB SCH ×2 (05:06→16:13)
[2017-06-23] MEDS: Bisacodyl 10 MG SUPP PR SCH (05:06)
[2017-06-23] MEDS ORDERED: Sodium Chloride 0.9% 10 ML ONE (05:12)
[2017-06-23 05:27] LABS: Anion Gap 16 mmol/L (10-20); BUN (Urea Nitrogen) 53 mg/dL (9.8-20.1); Calc. Creatinine Clearance 7 mL/min (70-130); Calcium 8.2 mg/dL (7.8-10.44); Carbon Dioxide 24 mmol/L (22-29); Chloride 99 mmol/L (98-107); Estimated GFR-MDRD 3
[2017-06-23] MEDS: Docusate 100 MG CAP PO SCH ×3 (08:34→20:05)
[2017-06-23] MEDS: Polyethylene Glycol 3350 17 GM Packet PO SCH ×2 (08:34→09:33)
--- NOTE | 2017-06-23 08:51 | PDOC.FM ---
- Subjective Subjective: No acute events overnight. Pt still reports abdominal pain, but improved from yesterday. Denies CP, SOB, NVDC. - Objective Vital Signs & Weight: Vital Signs (12 hours) Temp Pulse Resp BP Pulse Ox 06/23/17 07:22 98.3 F 51 L 16 147/88 H 99 Weight Weight 95.799 kg I&O: 06/22/17 06/23/17 06/24/17 06:59 06:59 06:59 Intake Total 100 Balance 100 Result Diagrams: 06/23/17 04:27 06/23/17 04:27 <Morgan Milan - Last Filed: 06/23/17 08:49> - Objective Vital Signs & Weight: Vital Signs (12 hours) Temp Pulse Resp BP BP Pulse Ox 06/23/17 10:24 54 L 146/84 H 06/23/17 08:00 98.3 F 51 L 16 06/23/17 07:22 98.3 F 51 L 16 147/88 H 99 Weight Weight 95.799 kg I&O: 06/22/17 06/23/17 06/24/17 06:59 06:59 06:59 Intake Total 100 Balance 100 Result Diagrams: 06/23/17 04:27 06/23/17 04:27 <Yvon Wan - Last Filed: 06/23/17 12:33> Phys Exam - Physical Examination Constitutional: NAD HEENT: PERRLA, moist MMs, sclera anicteric Neck: no nodes, no JVD Respiratory: no wheezing, no rales, no rhonchi, clear to auscultation bilateral Cardiovascular: RRR, no significant murmur, no rub Gastrointestinal: soft, no distention, positive bowel sounds diffuse ttp, no rebound or guarding Musculoskeletal: no edema, pulses present Neurological: non-focal, normal sensation, moves all 4 limbs Psychiatric: normal affect <Morgan Milan - Last Filed: 06/23/17 08:49> Dx/Plan (1) Peritonitis associated with peritoneal dialysis Status: Acute (2) Chronic anemia Code(s): D64.9 - ANEMIA, UNSPECIFIED Status: Chronic (3) ESRD on peritoneal dialysis Code(s): N18.6 - END STAGE RENAL DISEASE; Z99.2 - DEPENDENCE ON RENAL DIALYSIS Status: Chronic - Plan Plan: culture growing corynebacterium; numerous WBCs and evidence for peritonitis pt was scheduled to have hernia repair @ PD site by Dr. Rivera this week, will consult surg today for ESRD on PD, Dr Flores has been consulted, appreciate recommendations for now, continue rocephin and Vancomycin VSS, afebrile and mild leukocytosis has resolved <Morgan Milan - Last Filed: 06/23/17 08:49> Attending Addendum - Attending Addendum I personally evaluated the patient and discussed the management with Dr. Milan. I agree with the History, Examination, Assessment and Plan documented above with any addition or exceptions noted below. Patient reports some improvement in pain this morning. Her WBC is improved and has been afebrile. She continues on Vanc and Rocephin. Due to her ESRD state, will have to monitor Vanc dosing very closely to prevent toxicity. Will check random vanc level today and adjust dose as necessary. Her neutrophil count is equivocal for peritonitis, but with her PD catheter placement, symptoms, and now positive cultures, will treat as such. Corynobacterium growing in culture, should be sensitive to current therapy. Awaiting further recs from Nephro and Gen Surg. <Yvon Wan - Last Filed: 06/23/17 12:33>
[2017-06-23] MEDS ORDERED: traMADol HCl 50 MG TAB PO SCH (09:15)
[2017-06-23] MEDS: cloNIDine 0.1 MG TAB PO SCH ×3 (09:33→20:05)
[2017-06-23] MEDS ORDERED: cefTRIAXone\\ROCEPHIN 2 GM in Sodium Chloride 0.9% 100 ML IVPB SCH (10:00)
[2017-06-23] MEDS: Atenolol 50 MG TAB PO SCH ×2 (10:24→20:58)
--- NOTE | 2017-06-23 10:40 | PRG ---
DATE OF SERVICE: 06/23/2017 RENAL MEDICINE SUBJECTIVE: Ms. hCavarria is a 52-year-old black female with ESRD - on maintenance peritoneal dialysis and admitted for abdominal pain. Initial PD fluid culture has showed gram positive cocci - growing corynebacterium at the present time. She has been empirically treated with IV antibiotics. She vo ices no new complaints today. She had tolerated peritoneal dialysis. Please note we are using [address] filled volume only with this patient due to the PD catheter site leak. In addition, she has als o abdominal hernia. Surgery has been consulted for a possible repair of the hernia as well as placi ng a temporary cuffed hemodialysis catheter. PHYSICAL EXAMINATION: VITAL SIGNS: Blood pressure is 147/88, heart rate 51, respiratory rate 16, temperature 98.3, pulse ox 97%. GENERAL: Awake, alert, comfortable, not in distress. SKIN: Adequate turgor. HEENT: Slightly pale conjunctivae, anicteric sclerae. No neck mass, no carotid bruits, no JVD. CHEST: No deformities. LUNGS: Clear breath sounds. No wheezing, no crackles. HEART: Normal sinus rhythm. No murmur, no gallops, no rubs. ABDOMEN: Globular, soft, nontender, no masses. Positive for PD catheter. EXTREMITIES: Trace edema. MEDICATIONS: Medications of 06/23/2017 was reviewed. LABORATORY DATA: Laboratories of 06/23/2017; white count 9.6, hemoglobin 7.7, sodium 134, potassium 4.9, chloride 99, carbon dioxide 24, BUN 53, creatinine 14.6, calcium 8.2. ASSESSMENT AND PLAN: 1. ? peritonitis - on empiric IV vancomycin. Recheck vancomycin level in a.m. Please note that th e patient's cultures showed corynebacterium suggesting this might be a contaminant. Continue empiri c treatment. 2. Abdominal hernia/peritoneal dialysis catheter leak - surgery consult. Possible repair of abdomi nal hernia and placement of a temporary hemodialysis catheter. 3. End-stage renal disease, tolerating current peritoneal dialysis regimen. We are only using low fill volume of 1 liter due to peritoneal dialysis like site as well as abdominal hernia. She eventu ally may be placed temporarily on hemodialysis after the hernia repair. 4. Anemia, continuing weekly Epogen. P.r.n. blood transfusion.
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
[2017-06-23] MEDS ORDERED: Morphine 4 MG/ML VIAL SLOW IVP SCH (11:45)
[2017-06-23] MEDS ORDERED: Sodium Chloride 0.9% 20 ML ONE (11:50)
[2017-06-23] MEDS ORDERED: Lidocaine 2% w/Epinephrine 1:200K 20 ML VIAL ONE (11:50)
[2017-06-23] MEDS ORDERED: Heparin 10,000 UNITS/1 ML VIAL ONE (11:50)
[2017-06-23] MEDS ORDERED: Bupivacaine 0.25% HCL 30 ML VIAL ONE (11:50)
[2017-06-23 12:15] LABS: Vancomycin, Trough 18.2 ug/mL
[2017-06-23] MEDS ORDERED: Propofol 500 MG/50 ML VIAL ONE (12:22)
[2017-06-23] MEDS ORDERED: Midazolam HCl 2 mg/2 ml Vial ONE (12:22)
[2017-06-23] MEDS ORDERED: Fentanyl 100 MCG/2 ML VIAL ONE ×2 (12:22→14:05)
[2017-06-23] MEDS ORDERED: Lidocaine 2% PF 10 ML AMP (For Epidural Use) ONE (12:44)
[2017-06-23] MEDS ORDERED: Propofol 200 MG/20 ML VIAL ONE (12:44)
[2017-06-23] MEDS ORDERED: Vancomycin HCl 500 MG in Sodium Chloride 0.9% 100 ML IVPB SCH (13:00)
[2017-06-23] MEDS ORDERED: Acetaminophen 500 MG TAB PO PRN (13:25)
[2017-06-23] MEDS ORDERED: traMADol HCl 50 MG TAB PO PRN (13:25)
[2017-06-23] MEDS ORDERED: Promethazine HCl 25 MG/ML VIAL SLOW IVP PRN (13:45)
[2017-06-23] MEDS ORDERED: Ondansetron HCl/PF 4 MG/2 ML Vial IVP PRN (13:45)
[2017-06-23] MEDS ORDERED: Promethazine HCl 25 MG/ML VIAL IM PRN (13:45)
--- NOTE | 2017-06-23 14:13 | ULT ---
BILATERAL UPPER EXTREMITY VENOUS ULTRASOUND FOR DIALYSIS ACCESS: Date: 06/23/17 HISTORY: End-stage renal disease. Vein mapping requested. COMPARISON: None. TECHNIQUE: Alfaro scale, color flow, and Doppler imaging with spectral waveforms performed of the left and right upper extremity venous system. FINDINGS: RIGHT UPPER EXTREMITY BRACHIAL ARTERY: 3.0 mm RADIAL ARTERY: 1.5 mm ULNAR ARTERY: 1.0 mm CEPHALIC VEIN Proximal Humerus: 2.8 mm Mid Humerus: 2.6 mm Distal Humerus: 2.1 mm Antecubital Fossa: 0.8 mm Proximal Forearm: Clot Mid Forearm: 2.1 mm Distal Forearm: 1.7 mm BASILIC VEIN Proximal Humerus: 3.9 mm Mid Humerus: 3.7 mm Distal Humerus: 3.5 mm Antecubital Fossa: 2.1 mm Proximal Forearm: 2.0 mm Mid Forearm: 1.5 mm Distal Forearm: 1.4 mm LEFT UPPER EXTREMITY BRACHIAL ARTERY: 3.0 mm RADIAL ARTERY: 2.0 mm ULNAR ARTERY: 1.2 mm CEPHALIC VEIN Proximal Humerus: 1.7 mm Mid Humerus: 1.7 mm Distal Humerus: 1.5 mm Antecubital Fossa: 1.2 mm Proximal Forearm: 2.3 mm Mid Forearm: 1.9 mm Distal Forearm: 1.6 mm BASILIC VEIN Proximal Humerus: 3.9 mm Mid Humerus: 3.9 mm Distal Humerus: 3.9 mm Antecubital Fossa: 2.2 mm Proximal Forearm: 1.8 mm Mid Forearm: 1.1 mm Distal Forearm: 1.0 mm IMPRESSION: Clot in the right cephalic vein at the level of the proximal forearm. POS: [facility]
--- NOTE | 2017-06-23 15:19 | HP ---
Manuela Chavarria is a 52-year-old black female with peritoneal dialysis, who I saw in my office on the 06/19/2017 because of dysfunctional peritoneal dialysis catheter. Patient had laparoscopic peritone al dialysis catheter placed in 01/2008 and this has been used for peritoneal dialysis since that . She has never had attempted a fistula. I saw her in my office on 06/19/2017, followup after rev ision of her PD catheter. She had an extruded external cuff. She had undergone revision of the PD catheter with splicing of a new segment with a new exit site. She developed swelling at the left lo wer quadrant paramedian surgical site occurring during dialysis, suspected to be leak at the spliced segment. She wished to have that peritoneal dialysis catheter removed and laparoscopic placement o f a new one and a hemodialysis catheter placed tomorrow. She, however, was admitted yesterday with peritonitis. Plain abdominal x-rays were obtained, but a CAT scan was not obtained. With her perit onitis would cultures reveal presumptive Corynebacterium species. At this point, I would recommend removal of her PD catheter, both the new and old segment, placement of hemodialysis catheter. I did obtain ultrasound vein mapping both arms. The patient initially was resistant to have a fistula, b ut she states that she would have one if indicated. Review of her official report is not back, but review of the ultrasound images revealed veins are po or. Unfortunately, this hospitalization, she has had phlebotomy draw blood from her antecubital are a where her veins are the best. Clinically, her vein is thrombosed. I have reiterated to the patie nt that all CKD patients and end stage renal disease patients should not allow phlebotomy blood acce ss in their ACs. Currently, I would not recommend exploration of her veins for fistula, as she is a t high risk for having to have a prosthetic graft. She wants to return to peritoneal dialysis and a t this time recommend removal of her old PD catheter, placed her hemodialysis catheter and return in the next [address] a laparoscopic new peritoneal dialysis catheter. She understands risks a nd benefits.
--- NOTE | 2017-06-23 16:33 | OP ---
DATE OF PROCEDURE: 06/23/2017 PREOPERATIVE DIAGNOSES: End-stage renal disease, poor veins for dialysis fistula, [place] vein; dysf unctional peritoneal dialysis catheter. POSTOPERATIVE DIAGNOSES: End-stage renal disease, poor veins for dialysis fistula, [place] vein; dys functional peritoneal dialysis catheter with occluded right and left internal jugular veins from pre vious dialysis access (both veins could be cannulated, but the J wire would not thread indicating re troclavicular occlusion). SURGEON: Alan Rivera M.D. ANESTHESIA: IV sedation, local 0.25% Marcaine with epinephrine, 30 mL, mixed with 2% Xylocaine, 10 mL. PROCEDURE PERFORMED: Removal of dysfunctional peritoneal dialysis catheter (leaking at the splice s ite due to catheter fracture). Plan was to place a hemodialysis catheter, but inventory was not pre sent to do that for femoral vein catheter today, will have to return to the operating room tomorrow when the catheters available. PROCEDURE IN DETAIL: Patient was taken to the operating room under intravenous sedation, neck and c hest, and abdomen were prepared with ChloraPrep, draped in routine fashion. Local anesthetic infilt rated into skin and subcutaneous tissue at the operative site. Under ultrasonic guidance, right and left internal jugular vein was cannulated with trocar catheter. J-wire could not be threaded. I loc branham turned my attention to removal of the PD catheter. The PD catheter was removed by anesthetizing the recent incision for revision and carried down through the skin and subcutaneous tissue and cath eter identified, dissected free, and removed. Where the splice had been performed, the catheter was fractured. The old and new catheters were removed. Skin approximated with interrupted subdermal 4 -0 Monocryl and sterile dressing applied. The patient tolerated the procedure well. Groins were then clipped of hair, groins, thighs and abdomen were prepared with ChloraPrep, draped i n routine fashion. It was at this point that it was realized that the femoral vein hemodialysis cat heter was not available in our inventory. Thus, this portion of the procedure was aborted and the p atient will have to be returned to the operating room tomorrow for placement of the catheter.
--- NOTE | 2017-06-23 16:57 | RAD ---
PORTABLE UPRIGHT FRONTAL CHEST RADIOGRAPH: 06/23/2017 COMPARISON: 06/08/2017 and 06/22/2017. HISTORY: Nausea, vomiting, and abdominal pain. FINDINGS: Since the 06/22/2017 exam, aeration within the perihilar regions in both lung bases has improved sig nificantly. Minimal residual pleural fluid suspected bilaterally. Cardiac silhouette is prominent. There is mild pulmonary vascular congestion, improved with mild interstitial prominence in the per ihilar regions which may signify mild residual interstitial edema. IMPRESSION: Prominent cardiac silhouette with findings suggesting improving interstitial pulmonary edema. POS: [facility]
[2017-06-23] MEDS: Sevelamer Carbonate 800 MG TAB PO SCH (17:10)
[2017-06-23] MEDS ORDERED: Morphine 4 MG/ML VIAL IV SCH (18:15)
[2017-06-23] MEDS: predniSONE 50 MG TAB PO SCH (18:16)
[2017-06-23] MEDS: hydrALAZINE 25 MG TAB PO SCH (20:04)
[2017-06-24] MEDS ORDERED: Sodium Chloride 0.9% 500 ML IV SCH (00:15)
[2017-06-24] MEDS: traMADol HCl 50 MG TAB PO PRN (00:31)
[2017-06-24] MEDS: predniSONE 50 MG TAB PO SCH ×2 (00:32→06:29)
--- NOTE | 2017-06-24 02:53 | PDOC.EVN ---
Event Note - Event Note Event Note: Patient has had consistently elevated HRs in the 120s since 1930, when they had been in the 50s to 60s. EKG was taken. EKG showed sinus tachycardia. Patient denies any chest pain, dyspnea, leg pain. Patient is in no distress on exam, relaxing comfortably in bed. No calf tenderness, lungs CTAB, tachycardic. O2 sats 93-94, which is consistent with O2 sats on admission. Wells Score: 1.5- low probability for PE Plan: resume home atenolol, 50 mg TID. Continue to monitor symptoms closely.
[2017-06-24] MEDS: Bisacodyl 10 MG SUPP PR SCH (03:19)
[2017-06-24 04:55] LABS: #Lymphocytes 0.7 thou/uL (1.20-3.40); #Monocytes 0.1 thou/uL (0.11-0.59); #Neutrophils 7.3 thou/uL (1.40-6.50); %Basophils 0.1 % (0.0-1.0); %Eosinophils 0.1 % (0.0-10.0); %Lymphocytes 8.3 % (21.0-51.0); %Monocytes 0.8 % (0.0-10.0); Mean Platelet Volume 9.1 fL (7.4-10.4); Red Blood Cell (RBC) Count 2.67 mill/uL (4.20-5.40); White Blood Cell (WBC) Count 8.1 thou/uL (4.8-10.8)
[2017-06-24] MEDS: cefTRIAXone\\ROCEPHIN 2 GM in Sodium Chloride 0.9% 100 ML IVPB SCH ×2 (04:57→18:40)
[2017-06-24 05:11] LABS: Anion Gap 19 mmol/L (10-20); BUN (Urea Nitrogen) 58 mg/dL (9.8-20.1); Calc. Creatinine Clearance 7 mL/min (70-130); Calcium 8.4 mg/dL (7.8-10.44); Carbon Dioxide 21 mmol/L (22-29); Chloride 99 mmol/L (98-107); Estimated GFR-MDRD 3
[2017-06-24 05:15] LABS: Vancomycin, Trough 24.5 ug/mL
[2017-06-24] MEDS ORDERED: diphenhydrAMINE 25 MG CAP PO SCH (06:00)
[2017-06-24] MEDS: Atenolol 50 MG TAB PO SCH ×3 (06:29→22:24)
[2017-06-24] MEDS: Polyethylene Glycol 3350 17 GM Packet PO SCH (08:00)
[2017-06-24] MEDS: Sevelamer Carbonate 800 MG TAB PO SCH ×3 (08:00→18:40)
[2017-06-24] MEDS: Docusate 100 MG CAP PO SCH ×2 (08:01→22:25)
[2017-06-24] MEDS: hydrALAZINE 25 MG TAB PO SCH ×2 (08:12→22:24)
[2017-06-24] MEDS: cloNIDine 0.1 MG TAB PO SCH ×3 (08:13→22:24)
--- NOTE | 2017-06-24 08:35 | PDOC.FM ---
- Subjective Subjective: Pt became tachycardic overnight, but remained entrirely asymptomatic. Given atenolol 100mg and continued on home atenolol does of 50mg tid. Will continue to monitor. Otherwise no complaints. Reports her abdominal pain is improved, denies cp, sob, nvdc. Pd catheter changed yesterday, scheduled for placement of dialysis catheter today. - Objective Vital Signs & Weight: Vital Signs (12 hours) Temp Pulse Resp BP BP Pulse Ox 06/24/17 07:59 97.7 F 119 H 22 H 151/113 H 95 06/24/17 06:29 123 H 151/88 H 06/24/17 05:32 151/88 H 06/24/17 04:16 98.1 F 123 H 20 93 L 06/24/17 02:26 124 H 20 148/97 H 98 06/24/17 00:04 120 H 06/23/17 20:58 123 H 149/99 H Weight Weight 95.799 kg I&O: 06/23/17 06/24/17 06/25/17 06:59 06:59 06:59 Intake Total 100 800 Balance 100 800 Result Diagrams: 06/24/17 04:00 06/24/17 04:00 <Morgan Milan - Last Filed: 06/24/17 08:32> - Objective Vital Signs & Weight: Vital Signs (12 hours) Temp Pulse Resp BP BP Pulse Ox 06/24/17 07:59 97.7 F 119 H 22 H 151/113 H 95 06/24/17 06:29 123 H 151/88 H 06/24/17 05:32 151/88 H 06/24/17 04:16 98.1 F 123 H 20 93 L 06/24/17 02:26 124 H 20 148/97 H 98 06/24/17 00:04 120 H Weight Weight 95.799 kg I&O: 06/23/17 06/24/17 06/25/17 06:59 06:59 06:59 Intake Total 100 800 Balance 100 800 Result Diagrams: 06/24/17 04:00 06/24/17 04:00 <Yvon Wan - Last Filed: 06/24/17 11:42> Phys Exam - Physical Examination Constitutional: NAD HEENT: PERRLA, moist MMs, sclera anicteric Neck: no nodes, no JVD Respiratory: no wheezing, no rales, no rhonchi, clear to auscultation bilateral Cardiovascular: no significant murmur, no rub tachycardic Gastrointestinal: soft, non-tender Musculoskeletal: pulses present Neurological: non-focal, normal sensation <Morgan Milan - Last Filed: 06/24/17 08:32> Dx/Plan (1) Peritonitis associated with peritoneal dialysis Status: Acute (2) Chronic anemia Code(s): D64.9 - ANEMIA, UNSPECIFIED Status: Chronic (3) ESRD on peritoneal dialysis Code(s): N18.6 - END STAGE RENAL DISEASE; Z99.2 - DEPENDENCE ON RENAL DIALYSIS Status: Chronic - Plan Plan: afebrile, wbc trended down and hgb stable. Pt had run of tachycardia, but was entirely asymptomatic. Her home medication was restarted and pt was given 100mg atenolol, will continue to monitor she is scheduled to have placement of dialysis catheter this afternoon surgery consulted, appreciate recs nephrology consulted, appreciate recs continue home atenolol, continue rocephin vancomycin <Morgan Milan - Last Filed: 06/24/17 08:32> Attending Addendum - Attending Addendum I personally evaluated the patient and discussed the management with Dr. Milan. I agree with the History, Examination, Assessment and Plan documented above with any addition or exceptions noted below. Patient doing well from peritonitis standpoint s/p catheter removal. She is currently without dialysis access, though she is going back to OR this afternoon for HD catheter placement. Electrolytes somewhat abnormal so will need HD after placement. She is feeling somewhat improved. She has been having EKG confirmed sinus tachycardia 110-120 since yesterday afternoon with no apparent cause. Low suspicion for PE, no EKG changes, and patient asymptomatic. Will give fluid bolus to see if improves. Consideration regarding medications given during surgery that could be hanging around due to her ESRD that could be to blame. Will watch through the day and address causes as they become apparent. No urgent need to bring heart rate down at this moment. <Yvon Wan - Last Filed: 06/24/17 11:42>
--- NOTE | 2017-06-24 08:50 | CT ---
CT ABDOMEN AND PELVIS WITH CONTRAST: Bilateral pleural effusions, larger on the right side. Cardiomegaly. Chronic pleural based parenchym al changes and old granulomatous disease. Evidence for ascites. Cholelithiasis without gallbladder w all thickening or pericholecystic fluid. Pancreas and spleen are unremarkable. Adrenal glands are un remarkable. The quechan kidneys are very small and atrophic with some chronic cystic changes without hydronephrosis. In the left anterior abdominal wall adjacent to the umbilicus there is some subcutan eous fluid and minimal air, probably the site of prior perioneal dialysis catheter which has been re moved. Some of the small bowel loops in the left lower quadrant have a somewhat well-defined margin of fascia around them, possibly some type of internal hernia or mesenteric hernia although the appea bria is stable and unchanged compared to the 02-12-16. No evidence of large or small bowel obstructio n. There is fluid throughout the colon. Normal appearing appendix. Unremarkable uterus and adnexa. D iffuse subcutaneous fat stranding, evidence for anasarca. IMPRESSION: Evidence for ascites and bilateral pleural effusions, greater on the right side. Gallstones without acute cholecystitis. Small atrophic chronic quechan kidneys with some cystic change, stable. Diffuse anasarca. Focal subcutaneous fluid and air density in the left periumbilical region, probably the si te of a prior peritoneal dialysis catheter removal. Somewhat circumscribed margination of a group of small bowel loops in the left lower abdomen, the appearance of which is stable when compared to 02-11 and no associated bowel obstruction. POS: [facility]
[2017-06-24] MEDS ORDERED: Vancomycin HCl 1 GM in Premix Bag 1 BAG IVPB SCH (10:45)
[2017-06-24] MEDS ORDERED: HOLD VANCOMYCIN FOR LEVEL >20 FS SCH (10:45)
[2017-06-24] MEDS ORDERED: Vancomycin HCl 1.25 GM in Sodium Chloride 0.9% 250 ML 250 ML IVPB SCH (10:45)
[2017-06-24] MEDS ORDERED: Vancomycin HCl 750 MG in Sodium Chloride 0.9% 250 ML 250 ML IVPB SCH (10:45)
[2017-06-24] MEDS ORDERED: Vancomycin HCl 500 MG in Sodium Chloride 0.9% 100 ML IVPB SCH (10:45)
--- NOTE | 2017-06-24 11:45 | PRG ---
DATE OF SERVICE: 06/24/2017 SUBJECTIVE: No new complaints today. The patient had her PD catheter which was dysfunction due to persistent PD leak around that site and this was removed by Dr. Rivera. It was explored and no evid ence of any abdominal hernia was noted. She also had a CT scan of the abdomen and pelvis which show ed evidence of ascites and bilateral pleural effusions. There was diffuse anasarca. There was a fo miguel subcutaneous fluid and air density in the left periumbilical region which was most likely from t he site of the previous peritoneal dialysis. Please note that during the peritoneal dialysis when s he increased her volume from 1 liter to 3 liters she had a big bulging abdomen. For that reason, we have discontinued the peritoneal dialysis temporarily. A planned cuffed dialysis catheter will be placed this morning. The patient has no new complaints. She denies any chest pain or shortness of breath. She is also being treated for presumptive peritonitis. The patient is currently on vancomy steven and ceftriaxone. PHYSICAL EXAMINATION: VITAL SIGNS: Blood pressure 151/113, heart rate 119, respiratory rate 22, temperature 97.7, pulse o x 95%. GENERAL: Noted to be awake, alert, comfortable, not in distress. SKIN: Adequate turgor. HEENT: She has slightly pale conjunctivae, anicteric sclerae. NECK: No neck mass, no carotid bruits, no JVD. CHEST: No deformities. LUNGS: Clear breath sounds. No wheezing, no crackles. HEART: Normal sinus rhythm. No murmur, no gallops or rubs. ABDOMEN: Globular, soft, nontender, no masses. Positive for bowel sounds. EXTREMITIES: No edema, no deformities. MEDICATIONS: 06/24/2017 - Reviewed. LABORATORY: 06/24/2017 - White count 8.1, hemoglobin 8.9, sodium 133, potassium 5.5, chloride 99, c arbon dioxide 21, BUN 58, creatinine 14.7, glucose 123, calcium 8.4. Vancomycin level is noted at 2 4.5. ASSESSMENT AND PLAN: 1. Peritonitis - on IV vancomycin. Hold vancomycin dosing for the moment due to a level of 24.5. 2. End-stage renal disease - will initiate hemodialysis once the cuffed dialysis, catheter, is plac ed today. Currently, off peritoneal dialysis due to dysfunctional PD catheter. Surgery is followin g. 3. Anemia, continuing weekly Epogen. 4. Mild hyperkalemia. Continue to observe.
[2017-06-24] MEDS ORDERED: Bupivacaine/Epinephrine 0.25% 30 ML VIAL ONE (13:55)
[2017-06-24] MEDS ORDERED: Heparin 10,000 UNITS/1 ML VIAL ONE (13:55)
[2017-06-24] MEDS ORDERED: Sodium Chloride 0.9% 10 ML ONE (13:55)
[2017-06-24] MEDS ORDERED: Fentanyl 100 MCG/2 ML VIAL ONE (13:57)
[2017-06-24] MEDS ORDERED: Midazolam HCl 2 mg/2 ml Vial ONE (13:57)
[2017-06-24 14:23] LABS: Folate,Hemolysate >620.0 ng/mL (Not Estab.); Hematocrit 25.8 % (34.0-46.6); RBC Folate Test Component Greater than 2403 ng/mL (>498)
[2017-06-24] MEDS ORDERED: Lidocaine 1% PF 5 ML VIAL ONE (14:23)
[2017-06-24] MEDS ORDERED: Propofol 200 MG/20 ML VIAL ONE (14:23)
--- NOTE | 2017-06-24 15:48 | OP ---
DATE OF PROCEDURE: 06/24/2017 PREOPERATIVE DIAGNOSES: End-stage renal disease, occluded bilateral internal jugular veins, dysfunc tional PD catheter requiring removal, and portal veins for dialysis access, iatrogenic right antecub ital vein thrombosis secondary to IV access this hospitalization. POSTOPERATIVE DIAGNOSES: End-stage renal disease, occluded bilateral internal jugular veins, dysfun ctional PD catheter requiring removal, and portal veins for dialysis access, iatrogenic right antecu bital vein thrombosis secondary to IV access this hospitalization. PROCEDURES: Right femoral vein cuffed tunnel hemodialysis catheter, angiodynamics of fluoroscopy us ed. SURGEON: Dr. Alan Rivera. ANESTHESIA: TIVA. Local 0.5% Marcaine with epinephrine, 30 mL mixed with 2% Xylocaine, 10 mL. PROCEDURE IN DETAIL: Patient was taken to the operating room where under intravenous sedation, lowe r abdomen, groins, thighs, prepared with chloraprep, draped in routine fashion. Local anesthetic in filtrated into skin and subcutaneous tissue about the operative site. Trocar catheter cannulated th e right femoral vein and J-wire threaded. Trocar catheter removed. Skin incised and enlarged sharp ly. Stab incision made over the mid anterior lateral right thigh and using the tunneling device, th e angiodynamics femoral vein catheter tunneled between the two incisions, placing the fabric cuff be neath the skin exit site and catheter secured with 2 interrupted sutures of 3-0 nylon. Smaller and medium sized dilators placed over the J-wire into the femoral vein removed. Dilator and pull-away s allison placed over the J-wire in the femoral vein, dilator and J-wire removed. Catheter placed with pull-away sheath. Pull-away sheath removed. Subcutaneous tissues approximated with 4-0 Monocryl, s kin with subdermal 4-0 Monocryl. [id number] aspirated blood and flushed with saline solution a nd heparinized saline solution 1000 units of heparin per mL indicated volume of the port. Fluorosco pic images revealed good line placement.
--- NOTE | 2017-06-24 16:16 | PRG ---
DATE OF SERVICE: 06/24/2017 I am currently at the bedside supervising her dialysis. She is undergoing a 2-hour hemodialysis toda y. Her right femoral dialysis catheter has been placed by Dr. Rivera this morning. We will attempt removal of 2-3 liters of fluid as tolerated. We will use no heparin. He will again reschedule her for a 4-hour hemodialysis in a.m.
[2017-06-24] MEDS ORDERED: Atenolol 50 MG TAB PO SCH (21:00)
--- NOTE | 2017-06-24 21:06 | EKG ---
Test Reason : Blood Pressure : / mmHG Vent. Rate : 125 BPM Atrial Rate : 125 BPM P-R Int : 148 ms QRS Dur : 078 ms QT Int : 318 ms P-R-T Axes : 091 004 129 degrees QTc Int : 458 ms Sinus tachycardia Nonspecific T wave abnormality Abnormal ECG When compared with ECG of 09-JUN-2017 22:34, Vent. rate has increased BY 68 BPM Nonspecific T wave abnormality no longer evident in Anterior leads Confirmed by JIMMY ANTUNEZ, SCarmen ([id number]) on 06/24/2017 9:06:37 PM Referred By: Confirmed By:DR. Mars MARQUEZ MD
[2017-06-25] MEDS: Bisacodyl 10 MG SUPP PR SCH (04:50)
[2017-06-25] MEDS: cefTRIAXone\\ROCEPHIN 2 GM in Sodium Chloride 0.9% 100 ML IVPB SCH ×2 (04:50→17:34)
[2017-06-25] MEDS: Sevelamer Carbonate 800 MG TAB PO SCH ×3 (04:55→17:40)
[2017-06-25 05:44] LABS: Vancomycin, Random 19.7 ug/mL (See Comment)
[2017-06-25 07:40] LABS: Hematocrit 25.2 % (36.0-47.0); Mean Platelet Volume 8.8 fL (7.4-10.4); Red Blood Cell (RBC) Count 2.45 mill/uL (4.20-5.40); White Blood Cell (WBC) Count 9.3 thou/uL (4.8-10.8)
[2017-06-25 07:57] LABS: Anion Gap 16 mmol/L (10-20); BUN (Urea Nitrogen) 78 mg/dL (9.8-20.1); Calc. Creatinine Clearance 29 mL/min (70-130); Calcium 8.5 mg/dL (7.8-10.44); Carbon Dioxide 19 mmol/L (22-29); Chloride 103 mmol/L (98-107); Estimated GFR-MDRD 17
[2017-06-25 07:59] LABS: Band 1 % (5-11); Macrocytosis SLIGHT = 6-15 cells (100X) (0-5/hpf); Neutrophil 76 % (42-75); Polychromasia SLIGHT = 2-3 cells (100X) (0-2/hpf)
--- NOTE | 2017-06-25 08:20 | PDOC.FM ---
- Subjective Subjective: No acute events overnight. Pt resting comfortably in chair, currently being dialyzed. Reports relief of abdominal pain with bm. States abd pain is better. Was dialyzed yesterday, will be dialyzed today. Rt dialysis catheter placed yesterday. Her tachycardia has resolved. - Objective Vital Signs & Weight: Vital Signs (12 hours) Temp Pulse Resp BP BP Pulse Ox 06/25/17 00:01 98.5 F 58 L 20 132/89 94 L 06/24/17 22:24 66 120/72 Weight Weight 95.799 kg I&O: 06/24/17 06/25/17 06/26/17 06:59 06:59 06:59 Intake Total 800 500 Balance 800 500 Result Diagrams: 06/25/17 04:26 06/25/17 04:26 <Morgan Milan - Last Filed: 06/25/17 08:19> - Objective Vital Signs & Weight: Vital Signs (12 hours) Temp Pulse Resp BP BP Pulse Ox 06/25/17 14:25 58 L 120/72 06/25/17 12:00 97.8 F 56 L 18 141/82 H 98 Weight Weight 95.799 kg I&O: 06/24/17 06/25/17 06/26/17 06:59 06:59 06:59 Intake Total 800 500 Balance 800 500 Result Diagrams: 06/25/17 04:26 06/25/17 04:26 <Yvon Wan - Last Filed: 06/25/17 15:20> Phys Exam - Physical Examination Constitutional: NAD HEENT: PERRLA, moist MMs, sclera anicteric Neck: no nodes, no JVD Respiratory: no wheezing, no rales, no rhonchi, clear to auscultation bilateral Cardiovascular: RRR, no rub krysta 2/6 Gastrointestinal: soft, non-tender, no distention, positive bowel sounds Musculoskeletal: no edema, pulses present Neurological: non-focal, normal sensation, moves all 4 limbs Psychiatric: normal affect Skin: normal turgor <Morgan Milan - Last Filed: 06/25/17 08:19> Dx/Plan (1) Peritonitis associated with peritoneal dialysis Status: Acute (2) Chronic anemia Code(s): D64.9 - ANEMIA, UNSPECIFIED Status: Chronic (3) ESRD on peritoneal dialysis Code(s): N18.6 - END STAGE RENAL DISEASE; Z99.2 - DEPENDENCE ON RENAL DIALYSIS Status: Chronic - Plan Plan: Pt pd catheter was removed and replpaced with rt groin HD catheter dialyzed last night and currently in dialysis this am to remove fluid her tachycardia has resolved repeat am cbc, bmp afebrile continue IV vanc and rocephin for peritonitis ABX day 4 hgb 7.9, stable pt asymptomatic, will trend <Morgan Milan - Last Filed: 06/25/17 08:19> Attending Addendum - Attending Addendum I personally evaluated the patient and discussed the management with Dr. Milan. I agree with the History, Examination, Assessment and Plan documented above with any addition or exceptions noted below. Patient is significantly better after removal of old PD catheter. She continues to be afebrile and WBC normal. Dr. Flores reports he will continue her on abx during dialysis sessions. She has been accepted for outpatient HD chair for MWF dialysis sessions. She is stable for discharge today. Her sinus tachycardia has completely resolved and she is back at baseline HR. She will follow with Dr. Rivera and Mark in the outpatient setting. <Yvon Wan - Last Filed: 06/25/17 15:20>
[2017-06-25 08:43] LABS: Vancomycin, Trough 13.7 ug/mL
[2017-06-25] MEDS ORDERED: Heparin 10,000 UNITS/ 10 ML VIAL ONE (09:00)
--- NOTE | 2017-06-25 10:21 | PRG ---
DATE OF SERVICE: 06/25/2017 SUBJECTIVE: Ms. Chavarria is a 52-year-old black female with ESRD. PD catheter has been removed and sh e has been converted to hemodialysis due to nonfunctioning PD catheter. She also has a peritonitis a nd currently receiving vancomycin. The patient denies any new complaints. No chest pain or shortness of breath. She feels better. She is at the dialysis and I am at her bedside supervising on dialysis. PHYSICAL EXAMINATION: VITAL SIGNS: Blood pressure 132/89, heart rate 58, respiratory rate 20, temperature 98.5, pulse ox 9 4%. GENERAL: Awake, alert, comfortable, not in distress. SKIN: Adequate turgor. HEENT: Pinkish conjunctivae, anicteric sclerae. NECK: No neck mass, no carotid bruits, no JVD. CHEST: No deformities. LUNGS: Clear breath sounds. No wheezing, no crackles. HEART: Normal sinus rhythm. No murmur, no gallops or rubs. ABDOMEN: Globular, soft, nontender, no masses. EXTREMITIES: No edema, no deformities. MEDICATIONS: 06/25/2017 - Reviewed. LABORATORY: 06/25/2017 - White count 9.3, hemoglobin 7.9, sodium 132, potassium 5.6, chloride 103, c arbon dioxide 19, BUN 78, creatinine 3.46, glucose 169, calcium 8.5. ASSESSMENT AND PLAN: 1. Anemia - on weekly Epogen 10,000 units subcutaneously every week. 2. End-stage renal disease, currently on hemodialysis. My plan is to do a 4-hour hemodialysis with this patient. Fluid removal as tolerated using no or minimal heparin at the present time. 3. Peritonitis - on IV vancomycin. 4. Dysfunctional PD catheter - this has been removed by Surgery. Currently on backup hemodialysis.
[2017-06-25] MEDS: Docusate 100 MG CAP PO SCH ×2 (14:25→22:38)
[2017-06-25] MEDS: cloNIDine 0.1 MG TAB PO SCH ×3 (14:25→22:37)
[2017-06-25] MEDS: Polyethylene Glycol 3350 17 GM Packet PO SCH (14:25)
[2017-06-25] MEDS: Atenolol 50 MG TAB PO SCH ×3 (14:25→22:37)
[2017-06-25] MEDS: hydrALAZINE 25 MG TAB PO SCH ×2 (14:25→22:36)
[2017-06-25] MEDS: traMADol HCl 50 MG TAB PO PRN (14:26)
[2017-06-26 04:39] LABS: #Basophils 0.1 thou/uL (0.0-0.2); #Eosinphils 0.2 thou/uL (0.0-0.7); #Lymphocytes 3.2 thou/uL (1.20-3.40); #Neutrophils 3.9 thou/uL (1.40-6.50); %Basophils 0.7 % (0.0-1.0); %Lymphocytes 38.5 % (21.0-51.0); Hematocrit 25.4 % (36.0-47.0); Mean Platelet Volume 8.1 fL (7.4-10.4); Red Blood Cell (RBC) Count 2.48 mill/uL (4.20-5.40); White Blood Cell (WBC) Count 8.4 thou/uL (4.8-10.8)
[2017-06-26 04:41] LABS: Anion Gap 11 mmol/L (10-20); BUN (Urea Nitrogen) 20 mg/dL (9.8-20.1); Calc. Creatinine Clearance 15 mL/min (70-130); Calcium 7.9 mg/dL (7.8-10.44); Carbon Dioxide 27 mmol/L (22-29); Chloride 102 mmol/L (98-107); Estimated GFR-MDRD 8
[2017-06-26] MEDS: cefTRIAXone\\ROCEPHIN 2 GM in Sodium Chloride 0.9% 100 ML IVPB SCH (05:09)
[2017-06-26] MEDS: Sevelamer Carbonate 800 MG TAB PO SCH (07:58)
[2017-06-26] MEDS: Bisacodyl 10 MG SUPP PR SCH (07:58)
[2017-06-26] MEDS: Atenolol 50 MG TAB PO SCH (08:00)
[2017-06-26] MEDS: hydrALAZINE 25 MG TAB PO SCH (08:02)
[2017-06-26] MEDS: Docusate 100 MG CAP PO SCH (08:02)
[2017-06-26] MEDS: cloNIDine 0.1 MG TAB PO SCH (08:02)
[2017-06-26] MEDS: Polyethylene Glycol 3350 17 GM Packet PO SCH (08:04)
--- NOTE | 2017-06-26 08:57 | PDOC.FM ---
- Subjective Subjective: Pt had no acute events overnight. States her abdominal pain is greatly improved and overall feels well. Denies CP, SOB, NVDC. - Objective Vital Signs & Weight: Vital Signs (12 hours) Pulse BP 06/26/17 08:02 56 L 116/69 06/26/17 08:00 54 L 116/69 06/25/17 22:37 64 137/83 06/25/17 22:36 64 137/83 Weight Weight 95.799 kg I&O: 06/25/17 06/26/17 06/27/17 06:59 06:59 06:59 Intake Total 500 180 Balance 500 180 Result Diagrams: 06/26/17 03:40 06/26/17 03:40 <Morgan Milan - Last Filed: 06/26/17 08:54> - Objective Vital Signs & Weight: Vital Signs (12 hours) Temp Pulse Resp BP Pulse Ox 06/26/17 08:02 56 L 116/69 06/26/17 08:00 97.9 F 56 L 16 116/69 97 Weight Weight 95.799 kg I&O: 06/25/17 06/26/17 06/27/17 06:59 06:59 06:59 Intake Total 500 180 180 Balance 500 180 180 Result Diagrams: 06/26/17 03:40 06/26/17 03:40 <Yvon Wan - Last Filed: 06/26/17 11:18> Phys Exam - Physical Examination Constitutional: NAD HEENT: PERRLA, moist MMs, sclera anicteric Neck: no nodes, no JVD Respiratory: no wheezing, no rales, no rhonchi, clear to auscultation bilateral Cardiovascular: RRR, no significant murmur, no rub Gastrointestinal: soft, non-tender, no distention, positive bowel sounds Musculoskeletal: no edema, pulses present Neurological: non-focal, normal sensation, moves all 4 limbs Psychiatric: normal affect <Morgan Milan - Last Filed: 06/26/17 08:54> Dx/Plan (1) Peritonitis associated with peritoneal dialysis Status: Acute (2) Chronic anemia Code(s): D64.9 - ANEMIA, UNSPECIFIED Status: Chronic (3) ESRD on peritoneal dialysis Code(s): N18.6 - END STAGE RENAL DISEASE; Z99.2 - DEPENDENCE ON RENAL DIALYSIS Status: Chronic - Plan Plan: pt has HD bed set up at [facility] [place] on Fri for 3rd shift spoke with Nephro, pt stable for DC continue IV abx while in hospital, nephrology to continue abx dosing/ administration with dialysis <Morgan Milan - Last Filed: 06/26/17 08:54> Attending Addendum - Attending Addendum I personally evaluated the patient and discussed the management with Dr. Milan. I agree with the History, Examination, Assessment and Plan documented above with any addition or exceptions noted below. Patient feels much better today. She has outpatient chair at HD center, and further abx regimen for her peritonitis will be managed by Nephro outpatient. She is ready to go home today and we will be discharging her. <Yvon Wan - Last Filed: 06/26/17 11:18>
[2017-06-26 13:02] VITALS: BP 124/77; TEMP 98
== END 2017-06-26 13:00 | disposition home or self-care (01) | DRG 981 ==
LOC: ERS 00:36 → T4-A 04:00
PROVIDERS: ADMIT Internal Medicine; ATTEND Internal Medicine
PROC: 5A1D70Z Performance of Urinary Filtration, Intermittent, Less than 6 Hours Per Day (ICD-10-PCS; 2017-06-22)
PROC: 0WPG03Z Removal of Infusion Device from Peritoneal Cavity, Open Approach (ICD-10-PCS; principal; 2017-06-23)
PROC: 06HM33Z Insertion of Infusion Device into Right Femoral Vein, Percutaneous Approach (ICD-10-PCS; 2017-06-24)
PROC: 0JHL3XZ Insertion of Tunneled Vascular Access Device into Right Upper Leg Subcutaneous Tissue and Fascia, Percutaneous Approach (ICD-10-PCS; 2017-06-24)
PROC: B51B1ZA Fluoroscopy of Right Lower Extremity Veins using Low Osmolar Contrast, Guidance (ICD-10-PCS; 2017-06-24)
DX: T85.71XA Infection and inflammatory reaction due to peritoneal dialysis catheter, initial encounter (principal); N18.6 End stage renal disease; K65.9 Peritonitis, unspecified; R18.8 Other ascites; I12.0 Hypertensive chronic kidney disease with stage 5 chronic kidney disease or end stage renal disease; I82.611 Acute embolism and thrombosis of superficial veins of right upper extremity; E87.5 Hyperkalemia; E66.01 Morbid (severe) obesity due to excess calories; Y83.8 Other surgical procedures as the cause of abnormal reaction of the patient, or of later complication, without mention of misadventure at the time of the procedure; Z99.2 Dependence on renal dialysis; K21.9 Gastro-esophageal reflux disease without esophagitis; D53.9 Nutritional anemia, unspecified; F32.9 Major depressive disorder, single episode, unspecified; B96.89 Other specified bacterial agents as the cause of diseases classified elsewhere; F31.9 Bipolar disorder, unspecified; Z68.34 Body mass index [BMI] 34.0-34.9, adult; T85.631A Leakage of intraperitoneal dialysis catheter, initial encounter; R00.0 Tachycardia, unspecified
CPT/HCPCS: 36415; 71010; 74022; 74177; 80048; 80053; 80202; 82607; 82747; 83605; 83690; 85025; 85060; 86140; 87040; 87070; 87205; 87340; 89051; 90935; 90945; 93005; 93010; 93970; 96365; 96375; 99406; A4216; C1752; C1769; G0257; G0365; J0696; J1644; J2001; J2250; J2270; J2405; J2704; J3010; J3370; J7050; Q4081; S0020

== ENCOUNTER 2017-07-18 08:12 | Day surgery (SDC) | payer MEDICARE, MEDICAID ==
[2017-07-17 17:22] VITALS: BMI 31.9
[2017-07-18] MEDS ORDERED: CEFAZOLIN/Water 2 GM/20 ML SYRINGE ONE (08:37)
[2017-07-18] MEDS ORDERED: Heparin 10,000 UNITS/1 ML VIAL ONE (08:52)
[2017-07-18] MEDS ORDERED: Bupivacaine/Epinephrine 0.25% 30 ML VIAL ONE (08:52)
[2017-07-18] MEDS ORDERED: Fentanyl 100 MCG/2 ML VIAL ONE (08:56)
[2017-07-18 08:58] LABS: #Basophils 0.1 thou/uL (0.0-0.2); #Eosinphils 1.5 thou/uL (0.0-0.7); #Lymphocytes 2.9 thou/uL (1.20-3.40); #Monocytes 0.9 thou/uL (0.11-0.59); #Neutrophils 4.1 thou/uL (1.40-6.50); %Basophils 1.4 % (0.0-1.0); %Eosinophils 15.1 % (0.0-10.0); %Lymphocytes 30.5 % (21.0-51.0); %Monocytes 9.8 % (0.0-10.0); Hematocrit 23.8 % (36.0-47.0); Mean Platelet Volume 7.6 fL (7.4-10.4); Red Blood Cell (RBC) Count 2.38 mill/uL (4.20-5.40); White Blood Cell (WBC) Count 9.6 thou/uL (4.8-10.8)
[2017-07-18 09:15] LABS: Anion Gap 12 mmol/L (10-20); BUN (Urea Nitrogen) 14 mg/dL (9.8-20.1); Calc. Creatinine Clearance 14 mL/min (70-130); Calcium 8.4 mg/dL (7.8-10.44); Carbon Dioxide 30 mmol/L (22-29); Chloride 100 mmol/L (98-107); Estimated GFR-MDRD 8
--- NOTE | 2017-07-18 10:11 | OP ---
DATE OF PROCEDURE: 07/18/2017 PREOPERATIVE DIAGNOSIS: End-stage renal disease, desires peritoneal dialysis. POSTOPERATIVE DIAGNOSIS: End-stage renal disease, desires peritoneal dialysis. PROCEDURE: Laparoscopic peritoneal dialysis catheter exiting right lower quadrant. SURGEON: Dr. Alan Rivera ANESTHESIA: General. Local 0.25% Marcaine with epinephrine, 30 mL, mixed with 2% Xylocaine, 10 mL. PROCEDURE IN DETAIL: Patient taken to the operating room where under general anesthesia, abdomen was prepared with ChloraPrep, draped in routine fashion. Local anesthetic infiltrated into skin and sub cutaneous tissue about all port sites. Bilateral subcostal far lateral incision was made and pneumop eritoneum to 15 mmHg obtained with the Veress needle, replacing it with a 5 port and the contralatera l 5 mm port placed. There was ascites fluid in the abdominal cavity, it was clear, approximately 700 evacuated. Liver appeared to be not cirrhotic, but firm and perhaps early fattier. Gallbladder wal l was thickened, but not inflamed. This has appeared no different from the remainder of the peritone um which was slightly thickened. Omentum was adhesed to the upper abdomen and omentopexy not necessa ry. Inspection of the left lower quadrant from her previous peritoneal dialysis catheter revealed ab sence of any hernia. Right lower quadrant area is free of adhesions. Counter incision made at umbil ical area right of midline and to accommodate 8 mm port, 8 mm port placed under laparoscopic visualiz ation through subcutaneous tissue directed caudally and into the rectus sheath visualized laparoscopi [place] and penetrating the peritoneum inferiorly draped in a double cuffed pigtail peritoneal dialysis catheter in the pelvis. Trocar catheter removed and as the internal cuff placed in the rectus sheat h. Incision was made in the right lower quadrant more inferior planned exit site and using the Maryl and dissector directed through this small incision towards the counterincision, the peritoneal dialys is catheter was grasped and brought out placing the external cuff and the skin excised. Subcutaneous tissues approximated with 3-0 Monocryl, skin with subdermal 4-0 Monocryl. Irrigation catheter tip d evice placed on the peritoneal dialysis catheter and it was flushed with heparinized saline solution 1000 units heparin per 20 mL. A cap applied. Irrigant and pneumoperitoneum evacuated. All instrume nts removed and all skin incisions approximated with interrupted subdermal 4-0 Monocryl and DermaGlue applied. The patient tolerated the procedure well. There were no hernias present. The patient bel ieves that she had a hernia from where her peritoneal dialysis catheter malfunctioned and it was spli darell in left lower quadrant and leaked. Clinically, there is no evidence of hernia and laparoscopical ly no evidence of hernia. The patient tolerated the procedure well as Dermabond and sterile dressing s applied.
[2017-07-18] MEDS ORDERED: Heparin 10,000 UNITS/ 10 ML VIAL ONE (12:49)
[2017-07-18] MEDS ORDERED: HYDROcodone/Acetaminophen 5/325 mg Tablet ONE (13:30)
[2017-07-18] MEDS ORDERED: Glycopyrrolate 0.2 MG/ML 5 ML SYRINGE ONE (16:10)
[2017-07-18] MEDS ORDERED: Propofol 200 MG/20 ML VIAL ONE (16:10)
[2017-07-18] MEDS ORDERED: Lidocaine 1% PF 5 ML VIAL ONE (16:10)
[2017-07-18] MEDS ORDERED: Ondansetron HCl/PF 4 MG/2 ML Vial ONE (16:10)
== END 2017-07-18 13:50 | disposition home or self-care (01) ==
LOC: SDC 08:12
PROVIDERS: ATTEND Specialist
PROC: 0WHG43Z Insertion of Infusion Device into Peritoneal Cavity, Percutaneous Endoscopic Approach (ICD-10-PCS; principal; 2017-07-18)
DX: I12.0 Hypertensive chronic kidney disease with stage 5 chronic kidney disease or end stage renal disease (principal); N18.6 End stage renal disease; K21.9 Gastro-esophageal reflux disease without esophagitis; Z79.899 Other long term (current) drug therapy; Z91.041 Radiographic dye allergy status; Z96.7 Presence of other bone and tendon implants; Z98.890 Other specified postprocedural states; Z87.891 Personal history of nicotine dependence
CPT/HCPCS: 80048; 85025; J1644; J2001; J2405; J2704; J3010

== ENCOUNTER 2017-09-06 04:49 | Emergency (ER) | payer MEDICARE, MEDICAID ==
[2017-09-06] MEDS ORDERED: Morphine 4 MG/ML Carpuject ONE (05:32)
[2017-09-06] MEDS ORDERED: Ondansetron HCl/PF 4 MG/2 ML Vial ONE (05:33)
[2017-09-06 05:50] LABS: #Basophils 0.1 thou/uL (0.0-0.2); #Eosinphils 0.1 thou/uL (0.0-0.7); #Monocytes 0.6 thou/uL (0.11-0.59); #Neutrophils 5.5 thou/uL (1.40-6.50); %Eosinophils 1.8 % (0.0-10.0); %Lymphocytes 24.4 % (21.0-51.0); %Monocytes 6.7 % (0.0-10.0); %Neutrophils 66.1 % (42.0-75.0); Hemoglobin 10.1 g/dL (12.0-16.0); Mean Corpuscular HGB CONC 31.7 g/dL (32.0-36.0); Mean Corpuscular Hemoglobin 30.8 pg (27.0-31.0); Mean Corpuscular Volume 96.9 fl (81.0-99.0); Mean Platelet Volume 8.1 fL (7.4-10.4); Platelet Count 293 thou/uL (130-400); RBC Distribution Width 15.6 % (11.5-14.5); Red Blood Cell (RBC) Count 3.29 mill/uL (4.20-5.40); White Blood Cell (WBC) Count 8.3 thou/uL (4.8-10.8)
[2017-09-06 06:02] LABS: CRP (Inflammatory) 2.63 mg/dL (= or < 0.5)
[2017-09-06 06:32] LABS: ALT (SGPT) 9 U/L (8-55); AST (SGOT) 40 U/L (5-34); Albumin 2.7 g/dL (3.5-5.0); Alkaline Phosphatase 107 U/L (40-150); Anion Gap 18 mmol/L (10-20); BUN (Urea Nitrogen) 29 mg/dL (9.8-20.1); Bilirubin, Total 0.6 mg/dL (0.2-1.2); Calc. Creatinine Clearance 0 mL/min (70-130); Calcium 8.2 mg/dL (7.8-10.44); Carbon Dioxide 22 mmol/L (22-29); Chloride 97 mmol/L (98-107); Estimated GFR-MDRD 5; Globulin 4.5 g/dL (2.4-3.5); Glucose 86 mg/dL (70-105); Potassium 4.8 mmol/L (3.5-5.1); Protein, Total 7.2 g/dL (6.0-8.3); Sodium 132 mmol/L (136-145)
[2017-09-06 08:36] LABS: Bilirubin Negative (Negative); Blood, Urine Negative (Negative); Clarity CLEAR (Clear); Glucose, Urine (Dipstick) Negative (Negative); Leukocyte Negative (Negative); Nitrite Negative (Negative); Protein, Urine (Dipstick) 100 mg/dL (Neg-Trace); Specific Gravity, Urine 1.009 (1.002-1.036); Urobilinogen 0.2 mg/dL (0.2-1.0); pH, Urine 7.5 (5.0-9.0)
[2017-09-06 08:37] LABS: Bacteria/HPF Rare-Few HPF (None Seen); Hyaline Casts/LPF 0-3 HYALINE CAST LPF (0-3 Hyaline); Pathc Cast-AUWi Flag 0.13 (0-2.49); RBC/HPF 0-3 HPF (0-3); Squamous Epithelial 0-3 HPF (0-3); WBC/HPF 0-3 HPF (0-3)
--- NOTE | 2017-09-06 09:35 | CT ---
CT ABDOMEN AND PELVIS WITHOUT CONTRAST: Date: 09/06/17 HISTORY: Upper abdominal pain. Nausea, vomiting, and diarrhea. COMPARISON: CT abdomen and pelvis dated 06/24/17. FINDINGS: There is a small right pleural effusion. Calcified granuloma in the right lung base. Heart size is en larged. No significant pericardial effusion. There is cholelithiasis. Although there are congestive changes of the colon, there is also some inflammatory change around the ascending and transverse colon. Moderate intraperitoneal ascites. A peritoneal dialysis catheter is in place. Reactive adenopathy in retroperitoneum. There is no kinking of the peritoneal dialysis catheter. No d ilated loops of large or small bowel. Skeleton is unremarkable. IMPRESSION: 1. Mild inflammatory stranding around the ascending colon and transverse colon, slightly greater michael n would be expected for congestive changes suggesting colitis. 2. Cholelithiasis without cholecystitis. 3. Very small volume ascites in the peritoneal cavity with indwelling peritoneal dialysis catheter. 4. Punctate foci of gas along the perihepatic space likely from dialysis catheter. POS: [facility]
[2017-09-06 09:44] LABS: Lactic Acid 1.1 mmol/L (0.5-2.2)
[2017-09-06] MEDS ORDERED: Morphine 2 MG/ML SYRINGE ONE (09:57)
--- NOTE | 2017-09-06 11:26 | ULT ---
ULTRASOUND GALLBLADDER RIGHT UPPER QUADRANT: Date: 09/06/17 HISTORY: Abdominal pain, nausea, vomiting, and diarrhea. COMPARISON: CT abdomen and pelvis from same date. FINDINGS: Visualized portions of the pancreas are unremarkable. There is cholelithiasis. No evidence of cholecy stitis. Sonographic Rodriguez's sign is negative. Hepatic echotexture is normal. Liver measures 17.1 cm in length. Portal vein is patent with antegrade flow. Common bile duct measure s 5.0 mm. The wall thickness of the gallbladder is 3.0 mm. The right kidney is small and echogenic. IMPRESSION: Cholelithiasis without cholecystitis. POS: [facility]
[2017-09-06] MEDS ORDERED: cloNIDine 0.1 MG TAB ONE (11:32)
[2017-09-06] MEDS ORDERED: Iopamidol 370 76% 50 ML VIAL FS ONE (14:28)
== END 2017-09-06 11:38 | disposition home or self-care (01) ==
LOC: ERS 04:49
DX: K80.20 Calculus of gallbladder without cholecystitis without obstruction (principal); K52.9 Noninfective gastroenteritis and colitis, unspecified; I10 Essential (primary) hypertension; F31.9 Bipolar disorder, unspecified; F17.210 Nicotine dependence, cigarettes, uncomplicated; Z79.899 Other long term (current) drug therapy
CPT/HCPCS: 36415; 74176; 76705; 80053; 81003; 81015; 83605; 83690; 85025; 86140; 87040; 87086; 96374; 96375; 96376; 99406; J2270; J2405

== ENCOUNTER 2017-09-13 00:55 | Inpatient (IN) | payer MEDICARE, MEDICAID ==
[2017-09-13] MEDS ORDERED: methylPREDNISolone Sod Succ/PF 125 MG/2 ML VIAL ONE (01:34)
[2017-09-13] MEDS ORDERED: diphenhydrAMINE 50 MG/ML VIAL ONE (01:34)
[2017-09-13 01:47] LABS: PTT 30.1 SEC (22.9-36.1); Prothrombin Time 13.4 SEC (12.0-14.7)
[2017-09-13 01:48] LABS: #Basophils 0.2 thou/uL (0.0-0.2); #Eosinphils 0.4 thou/uL (0.0-0.7); #Lymphocytes 3.5 thou/uL (1.20-3.40); #Monocytes 0.6 thou/uL (0.11-0.59); #Neutrophils 3.1 thou/uL (1.40-6.50); %Basophils 2.4 % (0.0-1.0); %Lymphocytes 45.6 % (21.0-51.0); %Monocytes 7.4 % (0.0-10.0); %Neutrophils 39.6 % (42.0-75.0); Hemoglobin 10.5 g/dL (12.0-16.0); Mean Corpuscular Hemoglobin 31.6 pg (27.0-31.0); Mean Corpuscular Volume 95.9 fl (81.0-99.0); Mean Platelet Volume 9.4 fL (7.4-10.4); Platelet Count 244 thou/uL (130-400); Red Blood Cell (RBC) Count 3.31 mill/uL (4.20-5.40); White Blood Cell (WBC) Count 7.7 thou/uL (4.8-10.8)
[2017-09-13 02:03] LABS: ALT (SGPT) 9 U/L (8-55); AST (SGOT) 31 U/L (5-34); Albumin 2.8 g/dL (3.5-5.0); Alkaline Phosphatase 126 U/L (40-150); Anion Gap 16 mmol/L (10-20); BUN (Urea Nitrogen) 21 mg/dL (9.8-20.1); Bilirubin, Total 0.5 mg/dL (0.2-1.2); CK (CPK) 74 U/L (29-168); Calc. Creatinine Clearance 0 mL/min (70-130); Calcium 8.5 mg/dL (7.8-10.44); Carbon Dioxide 24 mmol/L (22-29); Chloride 96 mmol/L (98-107); Estimated GFR-MDRD 5; Globulin 4.6 g/dL (2.4-3.5); Glucose 91 mg/dL (70-105); Protein, Total 7.4 g/dL (6.0-8.3); Sodium 133 mmol/L (136-145)
[2017-09-13 02:16] LABS: CKMB 1.5 ng/mL (0-6.6); Troponin I 0.296 ng/mL (< 0.028)
[2017-09-13] MEDS ORDERED: Ondansetron ODT 4 MG TAB PO PRN (03:30)
[2017-09-13] MEDS ORDERED: Acetaminophen 325 MG TAB PO PRN (03:30)
[2017-09-13] MEDS ORDERED: hydrALAZINE 20 MG/ML VIAL SLOW IVP PRN (03:30)
--- NOTE | 2017-09-13 04:17 | HP-2 ---
CODE STATUS: Full. PRIMARY CARE PHYSICIAN: [facility]. ATTENDING: Dr. Yvon Wan. RESIDENTS: Dr. Miller. CHIEF COMPLAINT: Altered mental status. HISTORY OF PRESENT ILLNESS: A 52-year-old female that presents with altered mental status while cook ing pork at roughly midnight with her daughter. Daughter states she suddenly started not making sens e and started staring blankly into space. She also notes that she stumbled, but did not fall. Daugh ter states she had a slight tremor on her right hand. She was completely normal prior to this episod e. Daughter states that this has never happened to her before. The biggest concern is that she was not making sense while talking, but it could not be determined if she was making words that were not incorrect order or if she was not making nonsensical sounds. She also endorses a headache and some d izziness at this time. No other complaints. In the ER, she was given aspirin, Solu-Medrol, and Silverpeak dryl. PAST MEDICAL HISTORY: End-stage renal disease on peritoneal dialysis, hypertension, bipolar disorder . PAST SURGICAL HISTORY: C-sections, cervical spine surgery, tubal ligation and a dialysis port placem ent. ALLERGIES: IODINE. MEDICATIONS: 1. Ultram 50 mg. 2. Clonidine 0.2 mg b.i.d. 3. Calcitriol 0.5 mcg. 4. Sertraline 50 mg daily. 5. Hydralazine 100 mg t.i.d. 6. Renvela 800 mg b.i.d. 7. Pantoprazole 40 mg daily. 8. Potassium chloride 20 mEq. 9. Atenolol 50 mg. FAMILY HISTORY: Noncontributory. SOCIAL HISTORY: She is a current every day smoker and chewing tobacco user. She denies alcohol or d rug use. REVIEW OF SYSTEMS: GENERAL: Denies fevers or chills. EYES: Denies vision changes. ENT: Denies nasal congestion or rhinorrhea. RESPIRATORY: Denies cough or congestion. CARDIOVASCULAR: Denies chest pain or palpitation. She does admit to edema on her lower extremities. GASTROINTESTINAL: She denies any nausea or vomiting. GENITOURINARY: Denies incontinence, dysuria. SKIN: Denies any rashes or lesions. MUSCULOSKELETAL: Denies pain or tenderness. NEUROLOGIC: She does admit to weakness, headache and dizziness. Denies any numbness. PSYCHIATRIC: Denies anxiety or depression. PHYSICAL EXAMINATION: VITAL SIGNS: BP was 168/100, pulse was 53, respirations 18, temperature max 98.4, pulse ox 100% on r oom air. Current weight is 92 kilos. GENERAL: She is alert and oriented. She is appropriate, interactive. EYES: PERRLA. Conjunctivae within normal limits. ENT: Tympanic membranes pearly stern without bulging or erythema. Nasal mucosa and oropharynx within normal limits. NECK: Supple, no lymphadenopathy, no thyromegaly. CARDIOVASCULAR: Bradycardic rate, regular rhythm, no murmurs. Radial and pedal pulses equal bilater ally. RESPIRATORY: Normal effort, no retractions. Clear lungs to auscultation bilaterally. ABDOMEN: Soft, nontender to palpation. Bowel sounds are present x4. No mass or distention. EXTREMITIES: No clubbing or cyanosis. She does have 3+ pitting edema up to her knees. MUSCULOSKELETAL: Structure, tone, muscle strength and range of motion within normal limits. NEUROLOGIC: No focal neurologic deficits. Sensation within normal limits. Cranial nerves II-XII gr ossly intact. GCS was 15. Her daughter does state that her speech is not back to baseline as of yet . PSYCHIATRIC: She was appropriate. LABORATORY DATA: She has a white blood cell count of 3.31, platelet count of 244, hemoglobin 10.5, h ematocrit 31.7, MCV 95.9%, neutrophils 39.6. CK was 74. A sodium was 133, potassium 3.0, chloride w as 96, bicarbonate was 24, BUN 21, creatinine 9.19. Glucose is 91. Calcium was 8.5, total protein 7 .4, albumin 2.8, total bilirubin 0.5, AST was 31, ALT was 9. Alkaline phosphatase was 126. PTT was 30.1. PT was 13.4, INR is 1.0. EKG showed sinus bradycardia with left axis deviation and QT prolong ation. She had a CT head imaging that was pending at time of dictation. ASSESSMENT AND PLAN: A 52-year-old female. 1. Acute ischemic neurovascular event. We are going to rule out cerebrovascular accident versus tra nsient ischemic attack for which she had a perfusion scan pending as well. We are going to continue her neuro checks. Give her an aspirin. Allow for permissive hypertension up to systolic blood press ure greater than 220 and we are also going to initiate statin therapy. 2. Bradycardia. We will put her on tele monitoring and consider pacemaker placement evaluation as s he has had bradycardia during her previous hospital visits. 3. End-stage renal disease on peritoneal dialysis. Dr. Flores has been consulted. We will continue he r regimen and her schedule going forward. 4. Chronic anemia secondary to #3. We will monitor that. 5. Hypokalemia. We will replete with potassium and track with BMP. 6. Leukopenia. We will monitor CBC. Unsure of unknown etiology. Disposition and length of hospital stay will be stroke and 2. Symptomatic medications will be provid ed. History and physical exam as well as management has been discussed with Dr. Wan.
[2017-09-13 04:54] LABS: #Basophils 0.1 thou/uL (0.0-0.2); #Eosinphils 0.1 thou/uL (0.0-0.7); #Monocytes 0.2 thou/uL (0.11-0.59); #Neutrophils 4.2 thou/uL (1.40-6.50); %Basophils 0.9 % (0.0-1.0); %Lymphocytes 18.2 % (21.0-51.0); %Monocytes 2.7 % (0.0-10.0); %Neutrophils 77.2 % (42.0-75.0); Hemoglobin 8.6 g/dL (12.0-16.0); Mean Corpuscular HGB CONC 32.2 g/dL (32.0-36.0); Mean Corpuscular Hemoglobin 30.7 pg (27.0-31.0); Mean Corpuscular Volume 95.2 fl (81.0-99.0); Mean Platelet Volume 8.3 fL (7.4-10.4); Platelet Count 207 thou/uL (130-400); RBC Distribution Width 14.8 % (11.5-14.5); White Blood Cell (WBC) Count 5.4 thou/uL (4.8-10.8)
[2017-09-13 05:20] LABS: Anion Gap 13 mmol/L (10-20); BUN (Urea Nitrogen) 23 mg/dL (9.8-20.1); Calc. Creatinine Clearance 0 mL/min (70-130); Calcium 8.2 mg/dL (7.8-10.44); Carbon Dioxide 26 mmol/L (22-29); Cardiac Risk 2.9 (Less than 4.5); Chloride 97 mmol/L (98-107); Cholesterol 156 mg/dl (< 200 Desired); Estimated GFR-MDRD 5; Glucose 80 mg/dL (70-105); HDL Cholesterol 54 mg/dL (>60 Neg Risk); LDL Cholesterol, Calculated 88 mg/dL; Sodium 133 mmol/L (136-145); Triglycerides 72 mg/dL (Less than 150)
[2017-09-13 05:22] LABS: Potassium 2.9 mmol/L (3.5-5.1)
--- NOTE | 2017-09-13 08:13 | ADD-ER ---
DATE OF SERVICE: 09/13/2017 Please refer to the patient's electronic medical record for further details of her visit. In summary, the patient presented with acute onset right-sided weakness and expressive aphasia. She was cooking with her daughter when her daughter noticed her having difficulty speaking and moving her right upper and lower extremities. Her daughter helped her to a chair, and she did not sustain a fa ll or any traumatic injury. On arrival, the patient was having difficulty speaking, but maintaining her airway well. She was in no respiratory distress, not hypoxic, and breath sounds were normal bila terally. She had strong pulses in all extremities. Her initial neurologic exam revealed right upper and lower extremity weakness, lower greater than upp er. She was able to move her right leg off the bed several inches, but this was clearly asymmetric c ompared with the left. She had difficulty speaking and was unsure of the year. Initial CT shows no acute findings. However, by the time the patient was returned to her room from the CT scanner, where her initial evaluation was performed, she had recovered a significant amount of her lower and upper extremities strength as well as speech. She remained confused concerning the year, but otherwise clarisa ws marked improvement in her ability to speak and find words. She reports subjectively feeling impro nadeem strength. She required rapid prep for CT angiogram due to her contrast allergy, she states is a rash. CT perfusion of the brain shows an ischemic area, but not infarcted in the left temporal regio n. I discussed the case with Dr. Joshua Marie, who agrees that she is not a good candidate for invasive in tervention at this time, due to her rapidly progressing symptoms and relatively low NIH stroke scale. Because of these reasons as well, she was not given thrombolytics. She was treated with aspirin an d will be admitted to the stroke floor. I discussed findings and results with the patient and her da yandyhter, and she is stable at the time of admission. Blood pressure was controlled.
--- NOTE | 2017-09-13 08:56 | CT ---
PRELIMINARY REPORT/[facility]/EMERGENCY AFTER HOURS PROCEDURE: Addendum created by Devorah Moffett MD on 09/13/2017 1:31 AM Central Time ([place] & [place]) THIS REPORT CONTAINS FINDINGS THAT MAY BE CRITICAL TO PATIENT CARE. The findings were verbally commun icated via telephone conference with MARYCHUY Javier by Dr. 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 Initial Report created on 09/13/2017 1:13 AM Central Time ([place] & [place]) EXAM: CT Head Without Intravenous Contrast CLINICAL HISTORY: 52 years old, female; Signs and symptoms; Altered mental status/memory loss; Confusion or disorientat ion; Patient HX: AMS, stroke alert TECHNIQUE: Axial computed tomography images of the head/brain without intravenous contrast. COMPARISON: No relevant prior studies available. FINDINGS: Brain: There is no evidence for acute stroke or bleed. There are mild foci of decreased attenuation in the p eriventricular and subcortical white matter, nonspecific, but most consistent with chronic small vess el ischemic changes in patient of this age. Ventricles / cisterns / extra-axial spaces: There is no hydrocephalus, midline shift, or acute extra-axial fluid collection. There is no sulcal e ffacement. Sinuses: No findings of acute sinusitis or suspicious sinus mass. Bone: No acute fracture or displacement. Impression: Chronic changes without evidence for acute, intracranial pathology by CT criteria. Thank you for allowing us to participate in the care of your patient. Dictated and Authenticated by: Devorah Moffett MD 09/13/2017 1:13 AM Central Time ([place] & [place]) FINAL REPORT BRAIN CT WITHOUT IV CONTRAST: EMERGENCY AFTER HOURS EXAMINATION TIME: 1:00 a.m. DATE: 09/13/17. No mass or bleed or other acute process. No CT evidence for stroke. Stable from prior study. POS: [facility]
--- NOTE | 2017-09-13 10:29 | PDOC.EVN ---
Attending Addendum - Attending Addendum I personally evaluated the patient and discussed the management with Dr. Miller. I agree with the History, Examination, Assessment and Plan documented in his H& P with any addition or exceptions noted below. Patient with history of ESRD, HTN presented to ER after mentation changes, slurred speech, and R sided weakness. Her deficits improved significantly during ER visit. Currently, she has no complaints and feels well. Her CT angiogram shows an area of ischemia but no current infarction. She is not a candidate for tPA. She has been given ASA. She will be admitted for likely CVA, neurology consult, therapy consult, and risk factor stratification/treatment as needed. Allow permissive HTN for 24 hours then resume therapy. Will need nephrology on board for her PD, and she did miss her nightly session last night. No current urgent indication for dialysis.
--- NOTE | 2017-09-13 10:39 | CT ---
PRELIMINARY REPORT/[facility]/EMERGENCY AFTER HOURS PROCEDURE: Addendum created by Devorah Moffett MD on 09/13/2017 4:10 AM Central Time ([place] & [place]) THIS REPORT CONTAINS FINDINGS THAT MAY BE CRITICAL TO PATIENT CARE. The findings were verbally commun icated via telephone conference with MARYCHUY Javier by Dr. 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 Initial Report created on 09/13/2017 3:40 AM Central Time ([place] & [place]) EXAM: CT Angiography Head With Intravenous Contrast CLINICAL HISTORY: 52 years old, female; Syncope and collapse; Patient HX: Stroke alert TECHNIQUE: Axial computed tomographic angiography images of the head with intravenous contrast using CT angiogra phy protocol. CONTRAST: 140 mL of ISOVUE administered intravenously. COMPARISON: No relevant prior studies available. FINDINGS: Right internal carotid artery: No acute findings. Intracranial segment is patent with no significant stenosis. No aneurysm. Right anterior cerebral artery: No acute findings. No occlusion or significant stenosis. No aneurysm. Right middle cerebral artery: No acute findings. No occlusion or significant stenosis. No aneurysm. Right posterior cerebral artery: No acute findings. No occlusion or significant stenosis. No aneurysm . Right vertebral artery: Unremarkable as visualized. Left internal carotid artery: No acute findings. Intracranial segment is patent with no significant s tenosis. No aneurysm. Left anterior cerebral artery: No acute findings. No occlusion or significant stenosis. No aneurysm. Left middle cerebral artery: No acute findings. No occlusion or significant stenosis. No aneurysm. Left posterior cerebral artery: No acute findings. No occlusion or significant stenosis. No aneurysm. Left vertebral artery: Unremarkable as visualized. Basilar artery: No acute findings. No occlusion or significant stenosis. No aneurysm. IMPRESSION: No acute findings. No occlusion or significant stenosis. No aneurysm. EXAM: CT Angiography Neck With Intravenous Contrast CLINICAL HISTORY: 52 years old, female; Signs and symptoms; Syncope and collapse; Patient HX: Stroke alert TECHNIQUE: Axial computed tomographic angiography images of the neck with intravenous contrast using CT angiogra phy protocol. CONTRAST: 140 mL of ISOVUE administered intravenously. COMPARISON: CT Brain WO Con 2017-09-13 00:59 FINDINGS: VASCULATURE: Right common carotid artery: No acute findings. No significant stenosis. No dissection or occlusion. Right internal carotid artery: No acute findings. Extracranial segment is patent with no significant stenosis. No dissection or occlusion. Right external carotid artery: No acute findings. No occlusion. Right vertebral artery: No acute findings. No significant stenosis. No dissection or occlusion. Left common carotid artery: No acute findings. No significant stenosis. No dissection or occlusion. Left internal carotid artery: No acute findings. Extracranial segment is patent with no significant s tenosis. No dissection or occlusion. Left external carotid artery: No acute findings. No occlusion. Left vertebral artery: No acute findings. No significant stenosis. No dissection or occlusion. NECK: Bones/joints: Chronic degenerative and postoperative spinal changes without acute fracture or disloca tion. Soft tissues: Unremarkable as visualized. No mass. CAROTID STENOSIS REFERENCE USING NASCET CRITERIA: % ICA stenosis = <5 percent. IMPRESSION: No acute findings. No occlusion or significant stenosis. No aneurysm. Thank you for allowing us to participate in the care of your patient. Dictated and Authenticated by: Devorah Moffett MD 09/13/2017 3:40 AM Central Time ([place] & [place]) Addendum created by Seth Samuel MD on 09/13/2017 4:47 AM Central Time ([place] & [place]) Findings discussed with MARYCHUY GUADALUPE MD at time of interpretation. Initial Report created on 09/13/2017 4:34 AM Central Time ([place] & [place]) EXAM: CT Brain Perfusion With Intravenous Contrast EXAM DATE/TIME: Exam ordered 09/13/2017 2:32 AM CLINICAL HISTORY: 52 years old, female; Signs and symptoms; Syncope and collapse; Patient HX: Stroke alert TECHNIQUE: Axial computed tomography images of the brain with intravenous contrast using cerebral perfusion prot ocol. Post-processing parametric maps were created and reviewed. These include cerebral blood flow, c erebral blood volume and mean transit time. COMPARISON: CT Brain [facility] 2017-09-13 00:59 FINDINGS: There is increased mean transit time in the posterior left temporal lobe and left parietal lobe with corresponding decrease in cerebral blood flow but no significant alteration of cerebral blood volume consistent with ischemic penumbra. No evidence of core infarction. IMPRESSION: There is increased mean transit time in the posterior left temporal lobe and left parietal lobe with corresponding decrease in cerebral blood flow but no significant alteration of cerebral blood volume consistent with ischemic penumbra. No evidence of core infarction. Thank you for allowing us to participate in the care of your patient. Dictated and Authenticated by: Seth Samuel MD 09/13/2017 4:34 AM Central Time ([place] & [place]) FINAL REPORT HEAD CTA WITH 3D RENDERING NECK CTA WITH 3D RENDERING BRAIN PERFUSION WITH IV CONTRAST: FINDINGS: HEAD CT ANGIOGRAM WITH 3D RENDERING: No evidence for major branch occlusion. No evidence for aneurysm. IMPRESSION: No acute findings. NECK CTA WITH 3D RENDERING: No evidence for occlusion or significant stenosis. No evidence for dissection. CT BRAIN PERFUSION WITH IV CONTRAST: There is some minimal increase in the mean transit time in the left posterior temporal and parietal l obes with decrease in the cerebral blood flow, but no abnormality in the cerebral blood volume indica ting ischemia penumbra without evidence for overt infarction. POS: [facility]
[2017-09-13 11:12] LABS: CKMB 1.1 ng/mL (0-6.6)
--- NOTE | 2017-09-13 12:03 | MRI ---
BRAIN MRI WITHOUT IV CONTRAST: HISTORY: A 52-year-old female with a history of CVA, altered mental status, facial droop. FINDINGS: There is a small, approximately 0.4 x 1.0 cm diameter focal area of increased diffusion in the left p eriventricular region adjacent to the body of the left lateral ventricle with associated decreased si gnal on the ADC map, evidence for a small punctate lacunar infarct. There are some scattered areas o f chronic white matter ischemic change noted bilaterally. No evidence for other acute infarct change s. There are normal expected flow voids. No mass or midline shift. No acute hemorrhage. There is a tiny low signal focus in the lateral right basal ganglia on gradient echo sequence, possibly a smal l cavernoma. IMPRESSION: Small acute lacunar infarct in the left periventricular region at the level of the body of the latera l ventricle. Mild chronic white matter ischemic changes. No mass or bleed. Tiny punctate low-signa l focus in the right basal ganglia on gradient echo sequence, possibly a small cavernoma. No other s ignificant acute process. POS: GI
[2017-09-13 13:24] LABS: Potassium 3.3 mmol/L (3.5-5.1)
[2017-09-13] MEDS ORDERED: ISOVUE-370 76%-LOCM 1 ML ONE (13:24)
[2017-09-13 14:32] LABS: Potassium 3.7 mmol/L (3.5-5.1)
[2017-09-13 17:36] VITALS: BMI 32.2
[2017-09-13] MEDS: Aspirin 81 mg Enteric Coated Tablet PO SCH (18:55)
[2017-09-13] MEDS: Atorvastatin Calcium 40 MG TAB PO SCH (20:07)
--- NOTE | 2017-09-13 22:59 | CON ---
DATE OF CONSULTATION: 09/13/2017 REASON FOR CONSULTATION: Stroke. REFERRING PHYSICIAN: Stan Miller MD HISTORY OF PRESENT ILLNESS: Ms. Chavarria is a pleasant 52-year-old - Pakistani female who has been concerned for evaluation of stroke. Her history is obtained from the patient who is a good historian. She reports that she was helping with cooking with her daughter on last night, she suddenly started noticing numbness in her right upper extremity. She also felt that she was not able to flip her meat on the stove and her daughter noticed that her speech did not make any sense. She felt that she was talking normal, but her daughter noted that her speech was not appropriate which concerned her that so she was brought to this emergency room for further evaluation. She notes that her symptoms are now resolved. She denies any headache, chest pain, palpitation, lightheadedness, dizziness, numbness, tingling, weakness, dysarthria, or dysphagia. PAST MEDICAL HISTORY: Significant for hypertension; end-stage renal disease, on peritoneal dialysis; and bipolar disorder. PAST SURGICAL HISTORY: Significant for C-sections, cervical spine surgery, tubal ligation, and dialysis port placement. CURRENT MEDICATIONS: Please review MAR. ALLERGIES: Include IODINE. FAMILY HISTORY: Noncontributory. SOCIAL HISTORY: She denies smoking, alcohol use, or illicit drug use. REVIEW OF SYSTEMS: As mentioned in the HPI, otherwise negative. PHYSICAL EXAMINATION: VITAL SIGNS: Blood pressure 168/100, pulse of 53, respirations of 18, O2 sats of 100% on room air, temperature of 98.4. GENERAL: A well-developed, well-nourished -Pakistani female, in no apparent distress. RESPIRATORY: Clear to auscultation bilaterally. CARDIOVASCULAR: Regular rate and rhythm. NEUROLOGIC: Mental status: The patient is awake, alert, oriented x3. Speech and language: Fluent speech. Cranial nerves: Pupils are 3 mm and reactive. Visual johnson are intact. Extraocular muscles are intact. No nystagmus is noted. Face is symmetric. Tongue and uvula are midline. Motor exam showed normal tone and bulk with 5/5 strength in both lower extremities. Sensory: Sensation is intact and symmetric. Deep tendon reflexes 2+ reflexes in both upper and lower extremities. Babinski: Plantar responses flexion bilaterally. Coordination intact to [id number] tapping bilaterally. LABORATORY DATA: Reviewed, which included CBC, coag panel, CMP, lipid profile, which is significant for hemoglobin 8.6, hematocrit 26.6. Potassium of 3.3, sodium 133, BUN of 23, creatinine 1.28. Troponin 0.270, total cholesterol 156, LDL of 88, HDL of 54, and triglycerides 72, otherwise unremarkable. IMAGING STUDIES: MRI brain without contrast was reviewed, which showed small acute left lacunar infarct. CT angiogram of the head and neck was reviewed, which showed no acute intracranial or extracranial vascular abnormality. IMPRESSION: 1. Acute left lacunar infarct. 2. Hypertension. 3. End-stage renal disease. ASSESSMENT AND PLAN: Ms. Chavarria is a pleasant 52-year-old -Pakistani female with multiple medical problems, who presented with acute changes in speech and understanding as well as right upper extremity numbness and heaviness that has now since resolved. Her MRI did show acute ischemic event involving the left periventricular region. This is likely secondary to high blood pressure. At this time, I would recommend starting her on aspirin 325 mg daily for secondary stroke prevention. I agree with continuing her on atorvastatin 40 mg at bedtime. Consult PT, OT, speech therapy for stroke workup. I would also recommend obtaining an echocardiogram; if the echocardiogram is unremarkable, patient is okay to be discharged to home if okay from rehabilitation standpoint. MYA
[2017-09-14 03:11] LABS: Amphetamine Not Detected (NotDetected); Barbiturates Screen Not Detected (NotDetected); Benzodiazepine Screen Not Detected (NotDetected); Cocaine Metabolite Screen Not Detected (NotDetected); Medtox Control Line Valid? VALID (VALID); Medtox Reader # READER 1; Methadone Not Detected (NotDetected); Methamphetamine Not Detected (NotDetected); Opiate Screen Detected (NotDetected); Oxycodone Screen Not Detected (NotDetected); Phencyclidine (PCP) Not Detected (NotDetected); THC/Cannabinoid Screen Not Detected (NotDetected); Tricyclic Screen Not Detected (NotDetected)
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
--- NOTE | 2017-09-14 07:26 | PDOC.FM ---
- Subjective Subjective: Patient resting comfortably this morning. She denies BURDEN or any FND. VSS overnight, afebrile. Currently undergoing peritoneal dialysis - Objective MAR Reviewed: Yes Vital Signs & Weight: Vital Signs (12 hours) Temp Pulse Resp BP Pulse Ox 09/14/17 04:50 98.6 F 51 L 18 156/92 H 98 09/14/17 00:53 98.2 F 51 L 18 159/94 H 99 09/13/17 20:05 98.5 F 55 L 16 99 09/13/17 20:00 98.5 F 55 L 16 164/85 H 99 Weight Weight 93.758 kg I&O: 09/13/17 09/14/17 09/15/17 06:59 06:59 06:59 Intake Total 220 Output Total 200 Balance 20 Result Diagrams: 09/13/17 04:45 09/13/17 14:17 <Ebenezer Bansal C - Last Filed: 09/14/17 07:24> - Objective Vital Signs & Weight: Vital Signs (12 hours) Temp Pulse Resp BP Pulse Ox 09/14/17 08:00 97.5 F L 50 L 16 128/70 98 09/14/17 04:50 98.6 F 51 L 18 156/92 H 98 09/14/17 00:53 98.2 F 51 L 18 159/94 H 99 Weight Weight 93.758 kg I&O: 09/13/17 09/14/17 09/15/17 06:59 06:59 06:59 Intake Total 220 Output Total 200 Balance 20 Result Diagrams: 09/14/17 07:38 09/14/17 07:38 <Yvon Wan - Last Filed: 09/14/17 10:06> Phys Exam - Physical Examination Constitutional: NAD HEENT: moist MMs Neck: no JVD Respiratory: no wheezing, no rales Cardiovascular: RRR, no significant murmur Gastrointestinal: soft, non-tender Neurological: moves all 4 limbs Psychiatric: normal affect, A&O x 3 <Ebenezer Bansal - Last Filed: 09/14/17 07:24> Dx/Plan (1) Lacunar stroke Code(s): I63.9 - CEREBRAL INFARCTION, UNSPECIFIED Status: Acute Plan: acute lacunar infarct in left periventricular region on MRI Neurology has evaluated patient and agrees with management Continue secondary stroke prevention (2) ESRD on peritoneal dialysis Code(s): N18.6 - END STAGE RENAL DISEASE; Z99.2 - DEPENDENCE ON RENAL DIALYSIS Status: Chronic Plan: Continue PD no metabolic abnormalities on admission Nephrology is managing (3) Hypertension Code(s): I10 - ESSENTIAL (PRIMARY) HYPERTENSION Status: Chronic QualifierTitle: Hypertension type: essential hypertension Qualified Code( s): I10 - Essential (primary) hypertension Plan: Continue home medications (4) Bradycardia Code(s): R00.1 - BRADYCARDIA, UNSPECIFIED Status: Acute Plan: Possible need for pacemaker Rate steady overnight, asymptomatic (5) Bipolar disorder in remission Code(s): F31.70 - BIPOLAR DISORD, CURRENTLY IN REMIS, MOST RECENT EPISODE UNSP Status: Chronic - Plan Plan: TTE today with possible discharge if normal <Ebenezer Bansal C - Last Filed: 09/14/17 07:24> Attending Addendum - Attending Addendum I personally evaluated the patient and discussed the management with Dr. Bansal. I agree with the History, Examination, Assessment and Plan documented above with any addition or exceptions noted below. Patient found to have acute infarct of Lacunar region, likely 2/2 HTN. Deficits appear to be mostly resolved. Risk stratify and treat as necessary. Await further Neuro recs. Therapy services consulted. Continue PD as per Renal. Permissive HTN over, will add BP meds today and obtain max control as tolerated. Echo pending. <Yvon Wan - Last Filed: 09/14/17 10:06>
[2017-09-14 07:57] LABS: #Basophils 0.1 thou/uL (0.0-0.2); #Lymphocytes 2.9 thou/uL (1.20-3.40); %Eosinophils 0.5 % (0.0-10.0); %Monocytes 14.3 % (0.0-10.0); %Neutrophils 42.2 % (42.0-75.0); Hemoglobin 8.1 g/dL (12.0-16.0); Mean Corpuscular HGB CONC 31.7 g/dL (32.0-36.0); Mean Corpuscular Hemoglobin 30.4 pg (27.0-31.0); Mean Corpuscular Volume 95.9 fl (81.0-99.0); Mean Platelet Volume 8.4 fL (7.4-10.4); Platelet Count 220 thou/uL (130-400); RBC Distribution Width 14.8 % (11.5-14.5); Red Blood Cell (RBC) Count 2.65 mill/uL (4.20-5.40); White Blood Cell (WBC) Count 7.1 thou/uL (4.8-10.8)
[2017-09-14 08:15] LABS: Anion Gap 11 mmol/L (10-20); BUN (Urea Nitrogen) 23 mg/dL (9.8-20.1); Calc. Creatinine Clearance 11 mL/min (70-130); Calcium 8.5 mg/dL (7.8-10.44); Carbon Dioxide 29 mmol/L (22-29); Chloride 95 mmol/L (98-107); Estimated GFR-MDRD 5; Glucose 71 mg/dL (70-105); Sodium 132 mmol/L (136-145)
[2017-09-14 08:19] LABS: Potassium 2.9 mmol/L (3.5-5.1)
[2017-09-14] MEDS ORDERED: Aspirin 325 mg Enteric Coated Tablet PO SCH (10:30)
[2017-09-14] MEDS ORDERED: Potassium Chloride 20 MEQ TAB PO SCH (10:30)
[2017-09-14] MEDS: Aspirin 81 mg Enteric Coated Tablet PO SCH (10:47)
--- NOTE | 2017-09-14 11:56 | PRG ---
DATE OF SERVICE: 09/14/2017 RENAL MEDICINE SUBJECTIVE: Ms. Chavarria is a 52-year-old black female with ESRD admitted for TIA. CAT scan of the brain initially showed no lesions; however, MRI of the brain showed left lacunar infarct. Neurology has seen the patient and recommendations have been made. In addition, the patient underwent peritoneal dialysis last night without any difficulty. Patient denies any chest pain, shortness of breath, nausea, vomiting or diarrhea. OBJECTIVE: VITAL SIGNS: Blood pressure is 128/70, heart rate 50, respiratory rate 16, temperature 97.5, pulse oximetry 98% on room air. GENERAL: Awake, alert, comfortable, not in distress. SKIN: Adequate turgor. HEENT: She has slightly pale conjunctivae, anicteric sclerae. NECK: No neck mass, no carotid bruits, no JVD. CHEST: No deformities. LUNGS: Clear breath sounds. No wheezing, no crackles. HEART: Normal sinus rhythm. No murmur, no gallops or rubs. ABDOMEN: Globular, soft, nontender, no masses. Positive for PD catheter. EXTREMITIES: No edema, no deformities. MEDICATIONS: Of 09/14/2017 was reviewed. LABORATORY DATA: 09/14/2017. White count 7.4, hemoglobin 8.1, sodium 132, potassium 2.9, chloride 95, carbon dioxide 29, BUN 23, creatinine 9.13, calcium 8.5. MRI of the brain shows left lacunar infarct. ASSESSMENT AND PLAN: 1. Status post cerebrovascular accident, status post lacunar infarct, stable. Neurology is following the patient. Recommendations have been noted. 2. End-stage renal disease, stable. We will continue current CCPD regimen of 11 hours treatment planning. No changes will be made with her current PD regimen. 3. Mild hypokalemia - supportive care, p.r.n. replacement. 4. Anemia - patient will get blood transfusion only if hemoglobin is less than 7. We will continue Procrit shots at the outpatient clinic. Overall, agree with current management. MTDD
[2017-09-14] MEDS ORDERED: Atenolol 50 MG TAB PO SCH (13:00)
[2017-09-14] MEDS ORDERED: Lisinopril 5 MG TAB PO SCH (16:15)
[2017-09-14] MEDS: Atorvastatin Calcium 40 MG TAB PO SCH (21:46)
[2017-09-15 07:27] LABS: Anion Gap 14 mmol/L (10-20); BUN (Urea Nitrogen) 22 mg/dL (9.8-20.1); Calc. Creatinine Clearance 11 mL/min (70-130); Carbon Dioxide 24 mmol/L (22-29); Chloride 97 mmol/L (98-107); Estimated GFR-MDRD 6; Glucose 88 mg/dL (70-105); Sodium 132 mmol/L (136-145)
[2017-09-15 07:57] LABS: Eosinophils 3 % (0-10); Hemoglobin 8.3 g/dL (12.0-16.0); Hypochromia SLIGHT = 6-15 cells (100X) (0-5/hpf); Lymphocytes 60 % (21-51); MDiff Complete? YES; Mean Corpuscular Hemoglobin 30.2 pg (27.0-31.0); Mean Corpuscular Volume 94.5 fl (81.0-99.0); Mean Platelet Volume 8.8 fL (7.4-10.4); Monocytes 5 % (0-10); Neutrophil 30 % (42-75); Platelet Count 239 thou/uL (130-400); RBC Distribution Width 14.8 % (11.5-14.5); RBC Morphology 1; Reactive Lymphocytes 1 % (0-10); Red Blood Cell (RBC) Count 2.73 mill/uL (4.20-5.40); White Blood Cell (WBC) Count 8.2 thou/uL (4.8-10.8)
--- NOTE | 2017-09-15 08:35 | PDOC.FM ---
- Subjective Subjective: Patient resting comfortably this morning. She is asking to go home once again. VSS overnight, afebrile. No acute events per nursing. - Objective MAR Reviewed: Yes Vital Signs & Weight: Vital Signs (12 hours) Temp Pulse Resp BP BP Pulse Ox 09/15/17 08:18 54 L 166/101 H 09/15/17 08:00 98.9 F 54 L 16 166/103 H 99 09/15/17 04:00 98.5 F 53 L 16 135/72 97 09/15/17 00:45 98.8 F 54 L 18 167/96 H 94 L Weight Weight 93.758 kg I&O: 09/14/17 09/15/17 09/16/17 06:59 06:59 06:59 Intake Total 220 1060 Output Total 200 416 Balance 20 644 Result Diagrams: 09/15/17 07:02 09/15/17 07:02 <Ebenezer Bansal - Last Filed: 09/15/17 08:33> - Objective Vital Signs & Weight: Vital Signs (12 hours) Temp Pulse Pulse Pulse Resp BP BP 09/15/17 11:51 97.4 F L 53 L 16 09/15/17 08:52 51 L 54 L 119/70 09/15/17 08:18 54 L 166/101 H 09/15/17 08:00 98.9 F 54 L 16 09/15/17 04:00 98.5 F 53 L 16 09/15/17 00:45 98.8 F 54 L 18 BP BP Pulse Ox 09/15/17 11:51 137/73 98 09/15/17 08:52 127/72 09/15/17 08:18 09/15/17 08:00 166/103 H 99 09/15/17 04:00 135/72 97 09/15/17 00:45 167/96 H 94 L Weight Weight 93.758 kg I&O: 09/14/17 09/15/17 09/16/17 06:59 06:59 06:59 Intake Total 220 1060 Output Total 200 416 Balance 20 644 Result Diagrams: 09/15/17 07:02 09/15/17 07:02 <Carlos Neves - Last Filed: 09/15/17 12:10> Phys Exam - Physical Examination Constitutional: NAD HEENT: moist MMs Respiratory: no wheezing, no rales Cardiovascular: RRR, no significant murmur Gastrointestinal: soft, non-tender Neurological: moves all 4 limbs Psychiatric: normal affect, A&O x 3 <Ebenezer Bansal - Last Filed: 09/15/17 08:33> Dx/Plan (1) Lacunar stroke Code(s): I63.9 - CEREBRAL INFARCTION, UNSPECIFIED Status: Acute Plan: acute lacunar infarct in left periventricular region on MRI Neurology has evaluated patient and agrees with management Continue secondary stroke prevention (2) ESRD on peritoneal dialysis Code(s): N18.6 - END STAGE RENAL DISEASE; Z99.2 - DEPENDENCE ON RENAL DIALYSIS Status: Chronic Plan: Continue PD low potassium this morning, repleted appropriately Nephrology is managing (3) Hypertension Code(s): I10 - ESSENTIAL (PRIMARY) HYPERTENSION Status: Chronic QualifierTitle: Hypertension type: essential hypertension Qualified Code( s): I10 - Essential (primary) hypertension Plan: Continue home medications Will likely d/c atenolol and continue lisinopril given patients HR Well controlled overnight (4) Bradycardia Code(s): R00.1 - BRADYCARDIA, UNSPECIFIED Status: Acute Plan: Possible need for pacemaker Rate steady overnight, asymptomatic (5) Bipolar disorder in remission Code(s): F31.70 - BIPOLAR DISORD, CURRENTLY IN REMIS, MOST RECENT EPISODE UNSP Status: Chronic - Plan Plan: Plan: -discharge today <Ebenezer Bansal - Last Filed: 09/15/17 08:33> Attending Addendum - Attending Addendum I personally evaluated the patient and discussed the management with Dr. Bansal. I agree with and repeated the History, Examination, Assessment and Plan documented above with any addition or exceptions noted below. Patient wants to go home. No numbness/tingling/dysphagia/n/v/f/c/weakness/ headache. RRR with soft 2/6 SUPRIYA at [facility], scant BLE edema CTAB s w/r/r BS+, NTTP, no palp organomegaly CN II-XII intact and symmetric, motor 5/5 BUE/BLE, SILT throughout Risk factor management. Close follow up with renal as an outpatient. <Carlos Neves - Last Filed: 09/15/17 12:10>
[2017-09-15] MEDS ORDERED: Potassium Chloride 20 MEQ TAB PO SCH (09:00)
[2017-09-15] MEDS ORDERED: Aspirin 325 mg Enteric Coated Tablet PO SCH (09:00)
[2017-09-15] MEDS ORDERED: Lisinopril 5 MG TAB PO SCH (09:00)
--- NOTE | 2017-09-15 09:49 | PRG ---
DATE OF SERVICE: 09/15/2017 SUBJECTIVE: Ms. Chavarria is a 52-year-old black female with ESRD - on maintenance peritoneal dialysis, who was admitted due to TIA. She was found to have left lacunar infarct. Supportive care is being done. We are following her up for her maintenance peritoneal dialysis. She did well with her peritoneal dialysis last night. She is on maximal regimen. The concern is her ultrafiltration is somewhat decreased at 400 mL last night. No other complaints. No chest pain, no shortness of breath. PHYSICAL EXAMINATION: VITAL SIGNS: Blood pressure is 166/101, heart rate 54, respiratory rate 16, temperature 98.9, and pulse ox 99%. GENERAL: Noted to be awake, alert, comfortable, not in overt distress. SKIN: Adequate turgor. HEENT: She has slightly pale conjunctivae, anicteric sclerae. NECK: No neck mass, no carotid bruits, no JVD. CHEST: No deformities. LUNGS: Clear breath sounds. No wheezing, no crackles. HEART: Normal sinus rhythm. No murmur, no gallops, or rubs. ABDOMEN: Globular, soft, nontender, no masses. Positive for PD catheter. EXTREMITIES: No edema, no deformities. MEDICATIONS: 09/15/2017 was reviewed. LABORATORY DATA: 09/15/2017 - Sodium 132, potassium 3, chloride 97, carbon dioxide 24, BUN 22, creatinine 8.76, glucose 88, and calcium 8.0. ASSESSMENT AND PLAN: 1. Lacunar infarct. Continue supportive care. Neurology is following. 2. End-stage renal disease - stable. Continue current continuous cycling peritoneal dialysis regimen. My last Kt/V shows she is below therapeutic range for Kt/V. We are maxing out peritoneal dialysis regimen with this patient using a 13-hour treatment time and maximal 3 liter fill volume. Continue current management. Continue to observe. 3. Anemia - P.r.n. blood transfusion. This is to be done when the hemoglobin is less than 7. She will be placed on a weekly Epogen, and her next dosing is being given as an outpatient. Overall, prognosis remains guarded. I agree with current management, recheck basic metabolic panel and CBC in a.m. MTDD
[2017-09-15 11:51] VITALS: BP 137/73; TEMP 97.4
--- NOTE | 2017-09-16 13:21 | DIS-2 ---
DATE OF ADMISSION: 09/13/2017 DATE OF DISCHARGE: 09/15/2017 RESIDENT: Ebenezer Bansal M.D. ADMITTING ATTENDING: Yvon Wan MD DISCHARGE ATTENDING: Carlos Neves MD CONSULTATIONS: 1. Nephrology. 2. Neurology. 3. Physical therapy/Occupational therapy. PROCEDURES: 1. CTA showing increased mean transit time in the posterior left temporal lobe and left parietal lob e with corresponding decreased cerebral blood flow, but no significant alteration of cerebral blood v olume consistent with ischemic penumbra. 2. CT of the brain showing chronic changes without evidence for acute intracranial pathology. 3. Transthoracic echocardiogram showing left ventricular ejection fraction estimated at 50-55%, mode rate to severe mitral regurgitation and severe tricuspid regurgitation. 4. Brain MRI showing small acute lacunar infarct in the left periventricular region with a level of the body of the lateral ventricle. PRIMARY DIAGNOSIS: Cerebrovascular accident. SECONDARY DIAGNOSES: 1. Hyperkalemia. 2. End-stage renal disease, on peritoneal dialysis. 3. Hypertension. 4. Bipolar disorder type 1. DISCHARGE MEDICATIONS: 1. Lisinopril 5 mg p.o. daily. 2. Atorvastatin 40 mg p.o. at bedtime. 3. Aspirin 325 mg p.o. daily. 4. Isosorbide mononitrate 30 mg p.o. daily. DISCONTINUED MEDICATION: Atenolol p.o. daily. HISTORY OF PRESENT ILLNESS AND HOSPITAL COURSE: A 52-year-old female presenting with altered mental status. The patient was found to be aphasic and stumbling by family and was sent to the ER. Evaluat ed in the ER for possible cerebrovascular accident versus transient ischemic attack. Initial CT of t he head ruled out hemorrhage. However fallopian rash showed infarcts in the left periventricular reg ion. Neurology was consulted and recommended increasing her aspirin to 325 mg daily as well as contr olling other risk factors. The patient was monitored for several days with no lasting focal neurolog ical deficits. Neuro exam eventually turned to normal. The patient has end-stage renal disease on p eritoneal dialysis slightly, managed by Dr. Flores. Her dialysis was continued while in hospital withou t any complications. CBCs and BMPs were checked, found to be normal throughout admission. Patient's hypertension, bipolar disorder were well controlled throughout hospital stay. DISPOSITION: Stable. DISCHARGE INSTRUCTIONS: 1. Location: Home. 2. Diet: Renal. 3. Activity: As tolerated. 4. Follow up with Nephrology in 5-7 days. 5. Follow up with PCP in 7-10 days.
== END 2017-09-15 14:55 | disposition home or self-care (01) | DRG 64 ==
LOC: ERS 00:55 → ERHOLD 01:41 → 2SE 17:08
PROVIDERS: ADMIT Student in an Organized Health Care Education/Training Program; ATTEND Student in an Organized Health Care Education/Training Program
PROC: 3E1M39Z Irrigation of Peritoneal Cavity using Dialysate, Percutaneous Approach (ICD-10-PCS; principal; 2017-09-14)
DX: I63.9 Cerebral infarction, unspecified (principal); N18.6 End stage renal disease; I12.0 Hypertensive chronic kidney disease with stage 5 chronic kidney disease or end stage renal disease; Z99.2 Dependence on renal dialysis; F31.9 Bipolar disorder, unspecified; R00.1 Bradycardia, unspecified; D63.1 Anemia in chronic kidney disease; E87.6 Hypokalemia; F17.210 Nicotine dependence, cigarettes, uncomplicated; F17.220 Nicotine dependence, chewing tobacco, uncomplicated; R47.01 Aphasia; Z88.8 Allergy status to other drugs, medicaments and biological substances; Z79.899 Other long term (current) drug therapy
CPT/HCPCS: 0042T; 36415; 36416; 70450; 70496; 70498; 70551; 80048; 80053; 80061; 80306; 82553; 84484; 85025; 85610; 85730; 90945; 93005; 93306; 96374; 96375; G0257; G8978-GP-CL; G8979-GP-CL; G8980-GP-CL; G8987-GO-CI; G8988-GO-CI; G8989-GO-CI; G8996-GN-CH; G8997-GN-CH; J1200; J2930

== ENCOUNTER 2017-10-11 21:40 | Inpatient (IN) | payer MEDICARE, MEDICAID ==
[2017-10-11 22:07] LABS: Hemoglobin 11.5 g/dL (12.0-16.0); Mean Corpuscular HGB CONC 32.2 g/dL (32.0-36.0); Mean Corpuscular Hemoglobin 30.6 pg (27.0-31.0); Mean Platelet Volume 9.4 fL (7.4-10.4); Platelet Count 160 thou/uL (130-400); RBC Distribution Width 16.1 % (11.5-14.5); Red Blood Cell (RBC) Count 3.76 mill/uL (4.20-5.40); White Blood Cell (WBC) Count 11.6 thou/uL (4.8-10.8)
[2017-10-11 22:12] LABS: INR-International Normal Ratio 1.1; PTT 27.1 SEC (22.9-36.1); Prothrombin Time 13.8 SEC (12.0-14.7)
[2017-10-11] MEDS ORDERED: Dextrose 50% Abboject 50 ML SYRINGE ONE (22:14)
[2017-10-11] MEDS ORDERED: Metoclopramide HCl 10 MG/2 ML VIAL ONE (22:14)
[2017-10-11 22:15] LABS: Base Excess-Venous 2.5 mmol/L (-30.0-30.0); CO2 Tension (PvCO2) 40.4 mmHg (41.0-51.0); Calcium, Ionized 0.96 mmol/L (1.12-1.32); Hemoglobin - Calc 13.2 g/dL (12.0-18.0); Lactate 1.46 mmol/L (0.50-2.20); O2 Tension (PvO2) 40.4 mmHg (35.0-45.0); Potassium 2.7 mmol/L (3.4-4.7); T. Carbon Dioxide 28.2 mmol/L (1.0-85.0); pH (Venous) 7.433 (7.35-7.45); vO2 Saturation-calc 77.1 % (0.0-100.0)
[2017-10-11 22:19] LABS: ALT (SGPT) 13 U/L (8-55); AST (SGOT) 31 U/L (5-34); Albumin 2.8 g/dL (3.5-5.0); Alkaline Phosphatase 101 U/L (40-150); Anion Gap 12 mmol/L (10-20); BUN (Urea Nitrogen) 23 mg/dL (9.8-20.1); Bilirubin, Total 0.4 mg/dL (0.2-1.2); Calc. Creatinine Clearance 0 mL/min (70-130); Calcium 8.1 mg/dL (7.8-10.44); Carbon Dioxide 28 mmol/L (22-29); Chloride 95 mmol/L (98-107); Estimated GFR-MDRD 7; Globulin 4.1 g/dL (2.4-3.5); Glucose 75 mg/dL (70-105); Protein, Total 6.9 g/dL (6.0-8.3); Sodium 132 mmol/L (136-145)
[2017-10-11 22:21] LABS: Potassium 2.8 mmol/L (3.5-5.1)
[2017-10-11 22:23] LABS: CKMB 1.1 ng/mL (0-6.6); Troponin I 0.216 ng/mL (< 0.028)
[2017-10-11 22:25] LABS: CK (CPK) 73 U/L (29-168); Lipase 64 U/L (8-78)
[2017-10-11 22:25] LABS: Eosinophils 2 % (0-10); Lymphocytes 51 % (21-51); MDiff Complete? YES; Monocytes 7 % (0-10); Neutrophil 40 % (42-75)
[2017-10-11 22:42] LABS: Acetaminophen Less than 6.0 mcg/mL (10.0-30.0); Alcohol Less than 10 mg/dL (Less than 10); Salicylate Less than 8.0 mg/dL (15.0-30.0)
--- NOTE | 2017-10-11 22:55 | RAD ---
PORTABLE AP CHEST X-RAY 10/11/17 HISTORY: Cough, weakness, nausea and lightheadedness. Twitching in left arm, vomiting. COMPARISON: 06/23/17. FINDINGS: The cardiac silhouette remains markedly enlarged. The pulmonary vasculature is within normal limits. The lungs are clear. Postsurgical changes related to anterior cervical fusion are partially imaged. IMPRESSION: 1. No acute cardiopulmonary process. 2. Stable marked cardiomegaly without overt CHF. POS: ODE[facility]
[2017-10-11] MEDS ORDERED: Magnesium Sulfate 2 GM/100 ML BAG ONE (22:58)
--- NOTE | 2017-10-11 23:07 | CT ---
NONCONTRAST CT HEAD 10/11/17 HISTORY: Weakness, nausea, lightheadedness, headache. Vomiting. High blood pressure. COMPARISON: 09/13/17. FINDINGS: Low density areas are again seen in the periventricular and subcortical white matter, nonspecific, li mario reflective of chronic small vessel ischemic changes. Low density areas are also seen in the ante rior limbs of each internal capsule likely related to the remote lacunar infarctions and chronic isch emic change. There is no evidence of an acute cortical infarction, hemorrhage, mass effect or midline shift. Ventricular system is normal in size, shape and position. CT scan of the head is stable elizabet red to the prior exam. IMPRESSION: 1. No acute intracranial abnormality is demonstrated. 2. Above findings discussed with Dr. Corona in the Emergency Department on 10/11/17 at 2206 hours . POS: GI
--- NOTE | 2017-10-12 00:34 | PDOC.FPRHP ---
- History of Present Illness Chief Complaint: weakness, dizziness, headache, tremor History of Present Illness: 52 yo F w/ pmh of ckd V on PD nightly and recent cva presents for new onset weakness, left UE tremor, dizziness, tinnitus and headache. She reports these symptoms started suddenly earlier today when she was sitting in her living room. Pt also reports cough/congestion for 2 weeks, one episode of nausea and vomiting. She denies cp, sob, changes in vision, localized weakness, numbness, tingling, syncopal/pre-syncopal episodes. Per er records pt called family earlier today c/o headache weakness and was taken to the ER shortly after. En route pt was found to elevated BP of 220s systolic. A ct of the brain was performed which showed NAD and a stable studt from prior. She was recently hospitalized one month ago for CVA. MRI at that time showed an acute infarct; however, upon discharge the pt had no focal neurologic deficits. ED Course: 10mg Reglan 1 amp d50 2gm mag sulfate - Allergies/Adverse Reactions Allergies Allergy/AdvReac Type Severity Reaction Status Date / Time iodine Allergy Intermediate Rash Verified 07/17/17 17:22 - Home Medications Medication Instructions Recorded Confirmed Type Isosorbide Mononitrate [Isosorbide 30 mg PO DAILY 09/13/17 10/12/17 History Mononitrate ER] Aspirin [Ecotrin Regular Strength] 325 mg PO DAILY #30 tab 09/15/17 10/12/17 Rx Atorvastatin Calcium [Lipitor] 40 mg PO HS #30 tab 09/15/17 10/12/17 Rx Calcitriol 0.5 mcg PO DAILY 10/12/17 10/12/17 History Lisinopril [Zestril] 10 mg PO DAILY 10/12/17 10/12/17 History Pantoprazole Sodium 40 mg DAILY 10/12/17 10/12/17 History Potassium Chloride [K-Dur] 20 meq PO BID 10/12/17 10/12/17 History Sertraline HCl 50 mg PO DAILY 10/12/17 10/12/17 History Sevelamer Carbonate [Renvela] 800 mg PO BID-WM 10/12/17 10/12/17 History cloNIDine HCl 0.2 mg PO BID 10/12/17 10/12/17 History hydrALAZINE HCl 100 mg PO TID 10/12/17 10/12/17 History - History PMHx: CKD V on PD, recent cva/tia, HTN, bipolar 1 disorder PSHx: cervical fusion, peritoneal dialysis catheter placement FHx: cousin DMII Social: current everyday smoker, non drinker, no drugs - Review of Systems General: reports: fatigue. denies: fever/chills, weight/appetite/sleep changes Eyes: denies: eye pain, vision changes ENT: denies: nasal congestion, rhinorrhea Respiratory: reports: cough, congestion. denies: shortness of breath, exercise intolerance Cardiovascular: denies: chest pain, palpitation, edema Gastrointestinal: reports: nausea, vomiting. denies: diarrhea, constipation Genitourinary: reports: other (pt still making urine. Urinating 2x/day on average). denies: polyuria Skin: denies: rashes, lesions Musculoskeletal: reports: swelling. denies: pain, arthritis/arthralgias Neurological: reports: weakness. denies: numbness, syncope - Vital signs BP: 183/119 HR: 78 RR: 18 Tmax: 98.3 Pox: 99% on RA Wt: 104Kg - Physical Exam Constitutional: NAD, awake, alert and oriented, well developed HEENT: normocephalic and atraumatic, PERRLA, EOMI, no scleral icterus, grossly normal vision, TM's clear and intact, grossly normal hearing, MMM, oropharynx clear Neck: supple, trachea midline, no LAD, no JVD, no thyromegaly, other (well healed transverse scar) Chest: no-tender to palpation Heart: RRR, normal S1/S2, no murmurs/rubs/gallops, pulses present, other (2+ pitting edema b/l LE) Lungs: no respiratory distress, good air movement, no retractions, other (end expiratoy wheezes rt middle/lower lobe) Abdomen: soft, non-tender, bowel sounds present, no masses/distention Musculoskeletal: normal tone, ROM grossly normal Neurological: no focal deficit, CN II-XII intact, normal sensation, other (LUE ataxia. Unidirectional horizontal nystagmus. Normal heel to mckeon.) Skin: no rash/lesions, good turgor, capillary refill <2 seconds Heme/Lymphatic: no purpura, no petechia Psychiatric: normal mood and affect FMR H&P: Results - Labs Result Diagrams: 10/12/17 01:44 10/12/17 01:44 Lab results: WBC 11.6 thou/uL (4.8-10.8) H 10/11/17 21:55 Hgb 11.5 g/dL (12.0-16.0) L 10/11/17 21:55 Hct 35.7 % (36.0-47.0) L 10/11/17 21:55 MCV 95.0 fl (81.0-99.0) 10/11/17 21:55 Plt Count 160 thou/uL (130-400) 10/11/17 21:55 VBG pCO2 40.4 mmHg (41.0-51.0) L 10/11/17 21:57 VBG pO2 40.4 mmHg (35.0-45.0) 10/11/17 21:57 Sodium 132 mmol/L (136-145) L 10/11/17 21:55 Potassium 2.8 mmol/L (3.5-5.1) L* 10/11/17 21:55 Chloride 95 mmol/L (98-107) L 10/11/17 21:55 Carbon Dioxide 28 mmol/L (22-29) 10/11/17 21:55 BUN 23 mg/dL (9.8-20.1) H 10/11/17 21:55 Creatinine 7.22 mg/dL (0.6-1.1) H 10/11/17 21:55 Glucose 75 mg/dL (70-105) 10/11/17 21:55 Lactic Acid 1.5 mmol/L (0.5-2.2) 10/11/17 21:56 Calcium 8.1 mg/dL (7.8-10.44) 10/11/17 21:55 Total Bilirubin 0.4 mg/dL (0.2-1.2) 10/11/17 21:55 AST 31 U/L (5-34) 10/11/17 21:55 ALT 13 U/L (8-55) 10/11/17 21:55 Alkaline Phosphatase 101 U/L (40-150) 10/11/17 21:55 Creatine Kinase 73 U/L (29-168) 10/11/17 21:56 CK-MB (CK-2) 1.1 ng/mL (0-6.6) 10/11/17 21:55 B-Natriuretic Peptide 2246.4 pg/mL (0-100) H 10/11/17 21:55 Serum Total Protein 6.9 g/dL (6.0-8.3) 10/11/17 21:55 Albumin 2.8 g/dL (3.5-5.0) L 10/11/17 21:55 Lipase 64 U/L (8-78) 10/11/17 21:56 - EKG Interpretation EKG: NSR rate 64. Occasional PVC. LAD. - Radiology Interpretation Chest x-ray Status: report reviewed by me (NAD.) CT scan - head Status: report reviewed by me (No interval changes since prior study. Stable exam.) FMR H&P: A/P - Problem List (1) TIA (transient ischemic attack) Current Visit: Yes Status: Suspected Assessment and Plan: - Suspected vs htn urgency - admit stroke obs - MRA head w & w.o ordered for tomorrow - given pts symptoms concern for posterior circulation stroke/tia - will allow for permissive htn and hold home BP meds for now and give prn hydralizine for BP >220/110 - ct brain negative for henorrhage or acute infarct (2) ESRD on peritoneal dialysis Current Visit: No Status: Chronic Code(s): N18.6 - END STAGE RENAL DISEASE; Z99.2 - DEPENDENCE ON RENAL DIALYSIS Assessment and Plan: -Will consult nephro in am, appreciate recs (3) Hypertension Current Visit: No Status: Chronic Code(s): I10 - ESSENTIAL (PRIMARY) HYPERTENSION Qualifiers: Hypertension type: essential hypertension Qualified Code(s): I10 - Essential (primary) hypertension Assessment and Plan: chronic - will hold home BP meds for now as concern for tia - hydralazine prn for bp >220/110 - possibly component of volume overload; bnp , consult nephro in the am (4) Elevated brain natriuretic peptide (BNP) level Current Visit: Yes Status: Acute Code(s): R79.89 - OTHER SPECIFIED ABNORMAL FINDINGS OF BLOOD CHEMISTRY Assessment and Plan: likely 2/2 volume overload - consult nephro in am, appreciate recs - fluid restriction diet (5) Hypokalemia Current Visit: Yes Status: Acute Code(s): E87.6 - HYPOKALEMIA Assessment and Plan: chronic , on PD nightly 2/2 ESRD - consult nephron in am, appreciate recs - cont K+ 20 BID (6) Hyponatremia Current Visit: Yes Status: Acute Code(s): E87.1 - HYPO-OSMOLALITY AND HYPONATREMIA Assessment and Plan: chronic on PD 2/2 ESRD nightly - will consult nephro in am - unchanged from baseline (7) Leukocytosis Current Visit: Yes Status: Acute Code(s): D72.829 - ELEVATED WHITE BLOOD CELL COUNT, UNSPECIFIED Assessment and Plan: unknown etiology - possibly stress response - no s/s of infection - check rapid flu and UA to r/o infection - no abd pain - cxr negative (8) Elevated TSH Current Visit: Yes Status: Acute Code(s): R94.6 - ABNORMAL RESULTS OF THYROID FUNCTION STUDIES Assessment and Plan: - Normal free t4 - Recheck tsh - Plan Disposition/LOS: stable, </= 2 days. Symptomatic meds will be provided. FMR H&P: Upper Level - Pertinent history [id number] with recent hx of lacunar CVA of periventricular region p/w dizziness, BURDEN , and left upper extremity weakness. These symptoms started abruptly around 21: 00 this evening. Her left arm became noticeably weaker with a resting tremor for several minutes. Since that time, she has had an excruciating generalized headache with photophobia and phonophobia. She denies lower extremity involvement and slurred speech. She was recently discharged from the hospital after suffering a CVA. She was evaluated by Neurology who recommended taking a daily aspirin 325 mg and risk factor control. Patient also has ESRD and requires nightly peritoneal dialysis. - Pertinent findings CBC and CMP show multiple abnormalities that are at patients baseline and can be attributed to her ESRD. Patient has unilateral horizontal nystagmus but full neurological exam is otherwise negative, including cerebellar assessment. CT head negative for acute hemorrhage. - Plan Date/Time: 10/12/1730 I, Ebenezer Bansal, have evaluated this patient and agree with findings/plan as outlined by international marketing executive resident. Pertinent changes/additions are listed here. 1. Suspected TIA: given patients very recent history of CVA we will need to r/o at this time. No current FND but still has persistent BURDEN and nystagmus. Admit to stroke/obs. MRA of head/neck. Allow permissive HTN to 220/110 mmHg and hold home antihypertensive medications. Symptoms may be attributed to hypertensive encephalopathy given patients history of frequent hospitalizations for hypertensive urgency/emergency with AMS. 2. ESRD on PD: Consult Dr. Flores in the morning and resume nightly PD regimen. No indications for urgent dialysis at this time. 3. Hypokalemia: Will replace with 20mEq BID and have Nephro assess tomorrow. No EKG changes currently 4. Elevated TSH: Free T4 is low, but TSH grossly elevated. Recheck in AM and treat accordingly Attending Addendum - Attending Addendum Date/Time: 10/12/17 1122 I personally evaluated the patient and discussed the management with Dr. Milan. I agree with the History, Examination, Assessment and Plan documented above with any addition or exceptions noted below. Patient admitted with headache and some subjective LUE clumsiness. Her blood pressures are highly elevated, and she has a bump in cardiac enzymes. She also had a run of vtach overnight. Cardiology on board. She will obtain MRA due to this concern for TIA versus CVA. Will need to get blood pressures down to a safer level since she does not have any neurological deficit. Potassium will need to be repleted. Await further cardiology recs.
[2017-10-12 01:26] LABS: Troponin I 0.245 ng/mL (< 0.028)
[2017-10-12] MEDS ORDERED: Ondansetron ODT 4 MG TAB PO PRN (01:27)
[2017-10-12] MEDS ORDERED: Ondansetron HCl/PF 4 MG/2 ML Vial IVP PRN (01:27)
[2017-10-12] MEDS ORDERED: hydrALAZINE 20 MG/ML VIAL SLOW IVP PRN (01:27)
[2017-10-12 01:57] VITALS: BMI 32.4
[2017-10-12 02:35] LABS: Anion Gap 16 mmol/L (10-20); BUN (Urea Nitrogen) 23 mg/dL (9.8-20.1); Calc. Creatinine Clearance 13 mL/min (70-130); Calcium 8.1 mg/dL (7.8-10.44); Carbon Dioxide 23 mmol/L (22-29); Cardiac Risk 2.3 (Less than 4.5); Chloride 97 mmol/L (98-107); Cholesterol 124 mg/dl (< 200 Desired); Estimated GFR-MDRD 7; Glucose 73 mg/dL (70-105); HDL Cholesterol 53 mg/dL (>60 Neg Risk); LDL Cholesterol, Calculated 55 mg/dL; Sodium 133 mmol/L (136-145); Triglycerides 82 mg/dL (Less than 150)
[2017-10-12 02:38] LABS: Potassium 2.7 mmol/L (3.5-5.1)
[2017-10-12 03:03] LABS: #Basophils 0.1 thou/uL (0.0-0.2); #Eosinphils 0.1 thou/uL (0.0-0.7); #Lymphocytes 3.1 thou/uL (1.20-3.40); #Monocytes 1.1 thou/uL (0.11-0.59); #Neutrophils 7.9 thou/uL (1.40-6.50); %Basophils 0.8 % (0.0-1.0); %Eosinophils 0.9 % (0.0-10.0); %Lymphocytes 25.4 % (21.0-51.0); %Monocytes 8.8 % (0.0-10.0); Hemoglobin 11.1 g/dL (12.0-16.0); Mean Corpuscular HGB CONC 32.1 g/dL (32.0-36.0); Mean Corpuscular Volume 93.3 fl (81.0-99.0); Mean Platelet Volume 9.4 fL (7.4-10.4); Platelet Count 161 thou/uL (130-400); RBC Distribution Width 16.6 % (11.5-14.5); Red Blood Cell (RBC) Count 3.72 mill/uL (4.20-5.40); White Blood Cell (WBC) Count 12.3 thou/uL (4.8-10.8)
[2017-10-12 03:04] LABS: Anisocytosis SLIGHT = 6-15 cells (100X) (0-5/hpf); MDiff Complete? YES
[2017-10-12] MEDS ORDERED: Potassium Chloride 20 MEQ TAB PO SCH (04:45)
[2017-10-12 06:06] LABS: Troponin I 0.445 ng/mL (< 0.028)
[2017-10-12] MEDS: Acetaminophen 325 MG TAB PO PRN ×2 (06:43→13:18)
[2017-10-12 08:46] LABS: Troponin I 0.885 ng/mL (< 0.028)
[2017-10-12] MEDS: Calcitriol 0.25 MCG CAP PO SCH (08:58)
[2017-10-12] MEDS: Sevelamer Carbonate 800 MG TAB PO SCH ×2 (08:58→17:15)
[2017-10-12] MEDS: Potassium Chloride 20 MEQ TAB PO SCH ×2 (08:59→21:20)
[2017-10-12] MEDS: Aspirin 325 mg Enteric Coated Tablet PO SCH (08:59)
[2017-10-12] MEDS ORDERED: Famotidine 20 MG TAB PO SCH (09:00)
[2017-10-12] MEDS ORDERED: Aspirin 325 mg Enteric Coated Tablet PO SCH (09:00)
[2017-10-12] MEDS: Labetalol HCl 100 MG/20 ML VIAL SLOW IVP PRN ×2 (09:02→13:18)
[2017-10-12 09:19] LABS: CKMB 4.6 ng/mL (0-6.6)
[2017-10-12] MEDS ORDERED: Promethazine HCl 25 MG/ML VIAL SLOW IVP PRN (09:51)
[2017-10-12 11:53] LABS: CKMB 5.4 ng/mL (0-6.6)
[2017-10-12 11:54] LABS: Bilirubin Negative (Negative); Blood, Urine Negative (Negative); Clarity TURBID (Clear); Glucose, Urine (Dipstick) Negative (Negative); Leukocyte Negative (Negative); Nitrite Negative (Negative); Protein, Urine (Dipstick) 100 mg/dL (Neg-Trace); Specific Gravity, Urine 1.015 (1.002-1.036); Urobilinogen 0.2 mg/dL (0.2-1.0)
[2017-10-12 11:56] LABS: Bacteria/HPF 4+ HPF (None Seen); Hyaline Casts/LPF 4-6 HYALINE CAST LPF (0-3 Hyaline); Pathc Cast-AUWi Flag 1.26 (0-2.49); Squamous Epithelial 21-50 HPF (0-3)
[2017-10-12 12:06] LABS: RBC/HPF None Seen HPF (0-3); Yeast-All Forms None Seen HPF (None Seen)
--- NOTE | 2017-10-12 12:44 | PRG ---
DATE OF SERVICE: 10/12/2017 SUBJECTIVE: Ms. Chavarria is a 52-year-old black female with ESRD - currently on peritoneal dialysis an d admitted for left-sided weakness with some confusion. She is being ruled out for CVA. She is sche duled for a CAT scan of the head today. We are being consulted for maintenance peritoneal dialysis. Please note that the patient's KT/V is not adequate with regards to her current peritoneal dialysis regimen. We have advised and counseled her to convert to hemodialysis, but she is declining at the p resent time. No new complaints today. She still has left-sided weakness and shakiness on the left side part of th e body. PHYSICAL EXAMINATION: VITAL SIGNS: Blood pressure 170/114, heart rate 122, respiratory rate 16, temperature 98.2, pulse ox 99%. GENERAL: She is awake, sitting comfortable, not in distress. SKIN: Adequate turgor. HEENT: She has pinkish conjunctivae, anicteric sclerae. NECK: No neck mass, no carotid bruits, no JVD. CHEST: No deformities. LUNGS: Clear breath sounds. HEART: Normal sinus rhythm. No murmurs, no gallops, no rubs. ABDOMEN: Globular, soft, nontender, no masses. EXTREMITIES: No edema, no deformities. NEUROLOGIC: Oriented to 3 spheres. Moving all extremities except for decreased weakness on the left side of the body. MEDICATIONS: Medications of 10/12/2017 reviewed. LABORATORY DATA: Laboratories of 10/12/2017; sodium 133, potassium 2.7, chloride 97, carbon dioxide 23, BUN 23, creatinine 7.08, troponin I 0.885, white count 12.3, hemoglobin 11.1. IMAGING DATA: CT scan of the brain done on 10/11/2017 shows no acute intracranial abnormality. ASSESSMENT AND PLAN: 1. End-stage renal disease - stable. We will continue current CCPD regimen of 13 hours using 3 lite r fill volume and using a 2.5% PD solution. No changes will be made with the current peritoneal dial ysis. 2. Transient ischemic attack versus cerebrovascular accident - continue supportive care. Initial CA T scan was negative. A repeat imaging of the brain is being scheduled - she is now scheduled for an MRA of the brain. 3. Hypertension. Continue current blood pressure medications. 4. Mild hypokalemia, p.r.n. potassium supplementation. Overall, prognosis remains guarded.
--- NOTE | 2017-10-12 13:31 | MRI ---
MAGNETIC RESONANCE ANGIOGRAM MRA OF NECK NONCONTRAST: DATE: 10/12/17. HISTORY: A 52-year-old female with symptoms of acute stroke: weakness, nausea, and lightheadedness. TECHNIQUE: Two-D [id number] axial acquisition from top of aortic arch to skull base. Source images and 3D M IP reconstructions performed. FINDINGS: There is no high-grade stenosis in the proximal portions of bilateral internal carotid arteries or in the distal portions of the common carotid arteries. In areas of tortuosity, including mid cervical portions of bilateral internal carotid arteries, where there is in-plane signal loss, and also at the craniocervical junction, the degree of stenosis cannot be evaluated. The bilateral vertebral arteri es are codominant. No evidence of high-grade stenosis in the visualized mid cervical portions of the vertebral arteries (their proximal portions cannot be evaluated). IMPRESSION: 1. Limited evaluation. 2. No evidence of high-grade stenosis in the proximal portions of the bilateral internal carotid art eries or in the mid cervical portions of the bilateral vertebral arteries. POS: GI
--- NOTE | 2017-10-12 13:38 | MRI ---
MAGNETIC RESONANCE ANGIOGRAM MRA OF HEAD NONCONTRAST: HISTORY: A 52-year-old female with acute stroke symptoms. TECHNIQUE: Three-D [id number] MRA acquired in multiple axial slabs through the squaxin of Bernstein. Source mariluz ges and 3D MIP reconstruction images evaluated. FINDINGS: Anterior and posterior circulation arteries have caliber within normal limits. No evidence of high-g rade stenosis, occlusion, or aneurysm greater than 3 mm. IMPRESSION: 1. No abnormality identified. 2. An MRA of the head is considered incomplete (with potential for misdiagnosis) without a conco mitant MRI of the brain. POS: GI
[2017-10-12 14:43] LABS: CKMB 4.9 ng/mL (0-6.6)
[2017-10-12 14:47] LABS: Troponin I 1.404 ng/mL (< 0.028)
[2017-10-12] MEDS ORDERED: cloNIDine 0.1 MG TAB PO SCH (16:30)
[2017-10-12 17:22] LABS: CKMB 5.3 ng/mL (0-6.6)
[2017-10-12 17:25] LABS: Troponin I 1.693 ng/mL (< 0.028)
[2017-10-12] MEDS ORDERED: Atorvastatin Calcium 40 MG TAB PO SCH (21:00)
[2017-10-12 21:09] LABS: CKMB 4.4 ng/mL (0-6.6)
[2017-10-12 21:13] LABS: Troponin I 1.902 ng/mL (< 0.028)
[2017-10-12] MEDS: Atorvastatin Calcium 40 MG TAB PO SCH (21:21)
[2017-10-12] MEDS: cloNIDine 0.2 MG TAB PO SCH (21:21)
[2017-10-12] MEDS ORDERED: Labetalol HCl 100 MG/20 ML VIAL SLOW IVP PRN (22:48)
[2017-10-12] MEDS ORDERED: hydrALAZINE 25 MG TAB PO SCH (23:00)
[2017-10-13 00:24] LABS: Troponin I 1.984 ng/mL (< 0.028)
[2017-10-13 02:33] LABS: Troponin I 1.996 ng/mL (< 0.028)
--- NOTE | 2017-10-13 05:57 | ADD-CON ---
ADDENDUM DATE OF CONSULTATION: 10/12/2017 Please refer to the notes dictated by my nurse practitioner, Damaris. This is an addendum to that note . The patient was seen and evaluated by me. I have discussed the patient with my nurse practitioner . INDICATION FOR CONSULTATION: A 52-year-old female with possible symptomatic bradycardia with mental status changes. HISTORY OF PRESENT ILLNESS: This is a very pleasant 52-year-old female who has been evaluated by Dr. Zheng in the past due to chest pain. She at that time had a negative evaluation. She has been at home. She apparently has had intermittent atrial fibrillation and suffered a CVA in the past. She h as also end-stage renal disease, has been on hemodialysis. According to her family, she was sitting at home and her left hand became uncontrollable and also her head was nodding back and forth and she has some mental status changes. She was brought to the emergency room and then admitted to the [facility]. She since that time has been somewhat lethargic. She awakens and will answer a few questions. She has been given medications for nausea and vomiting and has been very lethargic since that time. The family says she does sleep a lot, especially during the day she sleeps, but at night she slept q uite a bit is on the phone. She has a history of hypertension as well as her end-stage renal disease . She has been seen by Dr. Flores as she does have peritoneal dialysis and this is being arranged by dequan adamson. There is also possibility that this patient had a TIA. I believe she has had an MRI which does n ot show any acute new findings. She has had an MRI as well as a neck MRA and there was no evidence o f high grade stenosis in the internal carotid arteries or of the vertebrals. MRI of the brain did no t show any other significant abnormalities either a somewhat incomplete since then has not had an MRI earlier. Even though she had some acute stroke symptoms, there has been no indication that she has suffered another stroke, but could be just something small and the study may need to be repeated late r. Since being here, she has had no significant bradycardia that I am aware of, but she has had what appear to be SVT and even possibly ventricular tachycardia on the EKG and the monitor. At this time , she has a heart rate in the 70s, which shows a sinus rhythm. She did have an echocardiogram in Sep of this year which showed ejection fraction of 50% to 55% with left atrial dilatation and moder ate to severe mitral valve regurgitation as well as moderate aortic valve regurgitation and severe tr icuspid valve regurgitation. PHYSICAL EXAMINATION: GENERAL: Reveals a middle-aged female who is lethargic. VITAL SIGNS: Blood pressure to be 170/118 at this time. She is afebrile. Heart rates in the 70s, r espiratory rate in the 20s. HEENT: Unremarkable. Carotid pulses are present. CHEST: Clear. CARDIOVASCULAR: Exam reveals a regular rate and rhythm. ABDOMEN: Shows obesity. Positive bowel sounds are present. EXTREMITIES: Show no clubbing, cyanosis or edema. Pedal pulses are also present. NEUROLOGIC: The patient is very lethargic. LABORATORY DATA: Shows hemoglobin of 11.1, white blood cell count of 12.3. Her troponin I's, howeve r, have been slightly elevated with the last one 2:00 this afternoon. Her troponin I was 1.4; on adm ission, the troponin I was 0.44. This may be indicative of some type of neurological event. Her MBs have been negative. Her potassium was 3.0. Her creatinine is 7.08 with a BUN of 23. Her potassium level was 2.7 and this will all be dealt by Dr. Flores. IMPRESSION: Arrhythmias with associated supraventricular tachycardia as well as ventricular tachycar manuela in a patient with possible neurologic events and uncertain of the etiology of the ventricular tac hycardia; however, she may eventually need to undergo some type of stress testing or cardiac catheter ization. There was no evidence of ST segment elevation. We will discuss these tracings with the karin ctrophysiologist. The patient had heart rates up to 210. Her vital signs show blood pressure to be hypertensive. She did not have any episodes of hypotension. She may need to undergo electrophysiolo gical evaluation due to the tachycardia, but there is no significant bradycardia. I do not see any h eart rates even in the 50s, heart rates at least in the 60s. Further discussion or care of the patie nt will be by Dr. Zheng when he sees the patient tomorrow. As noted above, we will need to evaluate further due to her arrhythmias with the atrial arrhythmias a s well as what appear to be ventricular tachycardia. It is possible this could be supraventricular t achycardia with aberration due to the conduction. This may be some bundle branch block associated wi th the tachycardia, but further evaluation would obviously be indicated, especially in view of her me ntal status changes. End-stage renal disease: She will continue her peritoneal dialysis. This will be dealt by Dr. Flores. As far as her other medical problems, these will be dealt with by the primary care service. We will await the results of a repeat echocardiogram.
[2017-10-13 06:08] LABS: CKMB 3.5 ng/mL (0-6.6)
[2017-10-13 06:13] LABS: Troponin I 2.044 ng/mL (< 0.028)
[2017-10-13 07:23] LABS: #Basophils 0.1 thou/uL (0.0-0.2); #Eosinphils 0.3 thou/uL (0.0-0.7); #Lymphocytes 2.9 thou/uL (1.20-3.40); #Monocytes 0.8 thou/uL (0.11-0.59); #Neutrophils 4.7 thou/uL (1.40-6.50); %Basophils 0.7 % (0.0-1.0); %Eosinophils 3.1 % (0.0-10.0); %Lymphocytes 33.6 % (21.0-51.0); %Monocytes 8.9 % (0.0-10.0); %Neutrophils 53.7 % (42.0-75.0); Hemoglobin 9.7 g/dL (12.0-16.0); Mean Corpuscular Hemoglobin 29.5 pg (27.0-31.0); Mean Corpuscular Volume 95.1 fl (81.0-99.0); Mean Platelet Volume 10.5 fL (7.4-10.4); Platelet Count 130 thou/uL (130-400); RBC Distribution Width 16.1 % (11.5-14.5); White Blood Cell (WBC) Count 8.8 thou/uL (4.8-10.8)
[2017-10-13 07:39] LABS: Anion Gap 16 mmol/L (10-20); BUN (Urea Nitrogen) 26 mg/dL (9.8-20.1); Calc. Creatinine Clearance 12 mL/min (70-130); Carbon Dioxide 24 mmol/L (22-29); Chloride 96 mmol/L (98-107); Estimated GFR-MDRD 7; Glucose 88 mg/dL (70-105); Sodium 133 mmol/L (136-145)
[2017-10-13] MEDS ORDERED: Potassium Chloride 20 MEQ TAB PO SCH (08:45)
--- NOTE | 2017-10-13 08:48 | PDOC.FM ---
- Subjective Subjective: Patient reports that she is feeling a little better today. She was very sleepy on my exam. She reports that she tried to eat dinner last night and had an episode of vomiting. She reports that her L arm is still "flapping" on it's own. She denies a headache this AM. She denies any Chest pain, SOB. - Objective MAR Reviewed: Yes Vital Signs & Weight: Vital Signs (12 hours) Temp Pulse Resp BP BP Pulse Ox 10/13/17 08:00 99 F 57 L 14 125/82 94 L 10/13/17 00:26 60 120/84 10/12/17 23:32 64 152/104 H 10/12/17 22:40 64 152/104 H 10/12/17 21:21 99.4 F 64 18 164/117 H 95 10/12/17 20:46 99.4 F 79 18 164/117 H 95 Weight Weight 91.036 kg I&O: 10/12/17 10/13/17 10/14/17 06:59 06:59 06:59 Intake Total 120 Output Total 0 Balance 120 Result Diagrams: 10/13/17 05:07 10/13/17 05:07 <Loly Carmichael - Last Filed: 10/13/17 08:45> - Objective Vital Signs & Weight: Vital Signs (12 hours) Temp Pulse Resp BP BP Pulse Ox 10/13/17 12:00 99.7 F H 67 16 146/108 H 96 10/13/17 10:02 125/93 H 10/13/17 08:00 99 F 57 L 14 125/82 94 L Weight Weight 91.036 kg I&O: 10/12/17 10/13/17 10/14/17 06:59 06:59 06:59 Intake Total 120 Output Total 0 Balance 120 Result Diagrams: 10/13/17 05:07 10/13/17 05:07 <Shar Hall - Last Filed: 10/13/17 15:40> Phys Exam - Physical Examination Constitutional: NAD HEENT: moist MMs Respiratory: no wheezing, no rales, no rhonchi, clear to auscultation bilateral Cardiovascular: RRR, no significant murmur, no rub Gastrointestinal: soft, non-tender, no distention, positive bowel sounds Musculoskeletal: no edema, pulses present Neurological: non-focal, moves all 4 limbs Psychiatric: normal affect, A&O x 3 <Loly Carmichael - Last Filed: 10/13/17 08:45> Dx/Plan (1) Hypertensive emergency Code(s): I16.1 - HYPERTENSIVE EMERGENCY Status: Acute (2) Ventricular tachycardia Code(s): I47.2 - VENTRICULAR TACHYCARDIA Status: Acute (3) Hypokalemia Code(s): E87.6 - HYPOKALEMIA Status: Acute (4) TIA (transient ischemic attack) Status: Suspected QualifierTitle: Transient cerebral ischemia type: unspecified Qualified Code(s): G45.9 - Transient cerebral ischemic attack, unspecified (5) Bradycardia Code(s): R00.1 - BRADYCARDIA, UNSPECIFIED Status: Acute (6) Chronic anemia Code(s): D64.9 - ANEMIA, UNSPECIFIED Status: Chronic (7) ESRD on peritoneal dialysis Code(s): N18.6 - END STAGE RENAL DISEASE; Z99.2 - DEPENDENCE ON RENAL DIALYSIS Status: Chronic (8) Hypertension Code(s): I10 - ESSENTIAL (PRIMARY) HYPERTENSION Status: Chronic QualifierTitle: Hypertension type: essential hypertension Qualified Code( s): I10 - Essential (primary) hypertension - Plan Plan: 1. Hypertensive Emergency The patient had BP elevated to 200s/120s. She had associated N/V, headache, elevated troponins. There was concern for TIA as well so did not bring BP down very quickly, but tried to keep it below 180/90, but it is now WNL. -Restarted home BP meds -PRN labetalol 2. NSTEMI The patient developed elevated troponins that have continued to trend up, this could be 2/2 HTN emergency vs a true NSTEMI. The patient also had a 6 minute run of SVT with intermittent v-tach as well as sinus tachycardia to the 120s. She was reported by the ED physician to be in sinus bradycardia to the 40's intially. This could be contributing to her elevated troponins. -Cardiology has been consulted, appreciate recs -Trend CE -Monitor on tele -Repeat EKG for any new CP 3. TIA CT head, MRI/MRA head/neck were all within normal limits and stable from prior. The patient does have a h/o prior CVA. - Suspected vs htn urgency -admit stroke obs -Aspirin -High dose statin 4. V-tach The patient also had a 6 minute run of SVT with intermittent v-tach as well as sinus tachycardia to the 120s. She was reported by the ED physician to be in sinus bradycardia to the 40's intially. -EP has been consulted, appreciate recs -Monitor on tele 5. 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 Hypokalemia chronic , on PD nightly 2/2 ESRD -Nephrology on board, appreciate recs -cont K+ 20 BID 7. Hyponatremia chronic, on PD 2/2 ESRD nightly -Nephro on board, appreciate recs -unchanged from baseline <Loly Carmichael - Last Filed: 10/13/17 08:45> Attending Addendum - Attending Addendum Date/Time: 10/13/17 1540 I personally evaluated the patient and discussed the management with Dr. Carmichael. I agree with the History, Examination, Assessment and Plan documented above with any addition or exceptions noted below. No evidence of recent ischemia on CT/MRI. Neuro has signed off. Cardiology consulted. <Shar Hall - Last Filed: 10/13/17 15:40>
[2017-10-13] MEDS ORDERED: Potassium Chloride 40 MEQ in Premix Bag 1 BAG IVPB SCH (09:00)
[2017-10-13] MEDS: Potassium Chloride 20 MEQ TAB PO SCH ×2 (09:42→21:34)
[2017-10-13] MEDS: Calcitriol 0.25 MCG CAP PO SCH (09:42)
[2017-10-13] MEDS: Sevelamer Carbonate 800 MG TAB PO SCH ×3 (09:43→19:24)
[2017-10-13] MEDS: hydrALAZINE 25 MG TAB PO SCH ×3 (09:44→21:34)
[2017-10-13] MEDS: cloNIDine 0.2 MG TAB PO SCH ×2 (09:45→10:02)
[2017-10-13] MEDS: Lisinopril 10 MG TAB PO SCH (09:45)
[2017-10-13] MEDS: Aspirin 325 mg Enteric Coated Tablet PO SCH (09:45)
[2017-10-13] MEDS ORDERED: Communication Order-Pharmacy FS SCH (10:00)
--- NOTE | 2017-10-13 10:04 | PRG ---
DATE OF SERVICE: 10/13/2017 SUBJECTIVE: Ms. Chavarria is feeling okay now, but she has continued to have some tachycardia, but none like what she had yesterday from what I can tell on the rhythm strips. Most of the tachycardia occu rred yesterday morning. Some that looked like SVT, although some was wide complex, either SVT with aberrancy or V-tach, would have to assume it is V-tach as it was extremely wide at the rate of over 200. Echocardiogram showed severely depressed left ventricular function. The patient is also allergic to IODINE. The echocardiogram revealed ejection fraction of 25-30% with apex akinetic. ASSESSMENT: 1. End-stage renal disease. She said she has been on dialysis for about 12 years. 2. Congestive heart failure with ejection fraction of 25-30%. 3. Supraventricular tachycardia and also wide complex tachycardia, probably ventricular in origin. 4. IODINE allergy. PLAN: 1. Proceed to cardiac catheterization. Will need to pretreat with steroids to prevent iodine reacti on. 2. Discussed risks of stroke, heart attack, iodine allergy, loss of blood supply to leg or kidney, s tent thrombosis, stent restenosis. She understands and wishes to proceed. 3. Will need Electrophysiologic consultation. May need SVT ablation versus defibrillator. Prognosis terminologist is likely poor, multiple medical problems, severe heart disease along with renal failure. Short term prognosis is guarded.
--- NOTE | 2017-10-13 10:06 | PRG ---
DATE OF SERVICE: 10/13/2017 RENAL MEDICINE SUBJECTIVE: Ms. Chavarria is a 52-year-old black female with ESRD and currently on maintenance peritone al dialysis. We were following this patient for her peritoneal dialysis regimen. She underwent dial ysis last night without any difficulty. She also was admitted for a possible CVA. She went for an M RA of the head and no acute abnormality was noted. She subsequently had a neck MRI as well as a head MRI again with no evidence of any high-grade stenosis in the proximal portions of the bilateral inte rnal carotid arteries. No other complaints today. PHYSICAL EXAMINATION: VITAL SIGNS: Blood pressure is 125/82, heart rate 57, respiratory rate 14, temperature 99, pulse ox 94%. GENERAL: Awake, supine, comfortable, not in distress. SKIN: Adequate turgor. HEENT: She has slightly pale conjunctivae, anicteric sclerae. NECK: No neck mass, no carotid bruits, no JVD. CHEST: No deformities. LUNGS: Clear breath sounds, no wheezing, no crackles. HEART: Normal sinus rhythm. No murmur, no gallops, no rubs. ABDOMEN: Globular, soft, nontender. Positive for PD catheter. EXTREMITIES: Positive for edema. NEUROLOGIC: The patient is awake, oriented, moving all extremities. MEDICATIONS: Of 10/13/2017 reviewed. LABORATORY DATA: Of 10/13/2017, white count 8.1, hemoglobin 9.7, sodium 133, potassium 3, chloride 9 6, carbon dioxide 24, BUN 26, creatinine 7.74. Troponin I is noted at 2.044. ASSESSMENT AND PLAN: 1. End-stage renal disease, stable. Tolerating current peritoneal dialysis regimen. No changes dulce l be made with the current continuous cycling peritoneal dialysis regimen. The patient is hesitant t o proceed to conversion of hemodialysis. She has been offered for hemodialysis due to the fact that she is not getting adequate clearance with her current continuous cycling peritoneal dialysis regimen . She is still thinking about the conversion. 2. Generalized weakness - MRI/MRA of the brain was essentially negative. 3. Elevated troponin I - consider cardiac workup/cardiology consult. We will recheck base met and CBC in a.m.
--- NOTE | 2017-10-13 11:32 | EKG ---
Test Reason : Blood Pressure : / mmHG Vent. Rate : 119 BPM Atrial Rate : 119 BPM P-R Int : 138 ms QRS Dur : 090 ms QT Int : 286 ms P-R-T Axes : 071 -72 127 degrees QTc Int : 402 ms Sinus tachycardia Left anterior fascicular block Anterolateral infarct (cited on or before 13-SEP-2017) Nonspecific ST-T changes Abnormal ECG When compared with ECG of 13-SEP-2017 01:47, (Unconfirmed) Premature ventricular complexes are no longer Present Vent. rate has increased BY 65 BPM Questionable change in initial forces of Lateral leads Nonspecific T wave abnormality now evident in Inferior leads Confirmed by DR. Mayi DUTTON (3) on 10/13/2017 11:32:17 AM Referred By: WILLIAM Confirmed By:DR. Mayi DUTTON
--- NOTE | 2017-10-13 11:33 | EKG ---
Test Reason : ELEV TROP Blood Pressure : / mmHG Vent. Rate : 064 BPM Atrial Rate : 064 BPM P-R Int : 178 ms QRS Dur : 082 ms QT Int : 488 ms P-R-T Axes : 034 -53 198 degrees QTc Int : 503 ms Normal sinus rhythm Left axis deviation Low voltage QRS Possible Anterolateral infarct (cited on or before 13-SEP-2017) T wave abnormality, consider inferior ischemia Prolonged QT Abnormal ECG When compared with ECG of 12-OCT-2017 09:08, (Unconfirmed) Vent. rate has decreased BY 55 BPM Inverted T waves have replaced nonspecific T wave abnormality in Inferior leads Inverted T waves have replaced nonspecific T wave abnormality in Lateral leads Confirmed by DR. Mayi DUTTON (3) on 10/13/2017 11:32:42 AM Referred By: WILLIAM Confirmed By:DR. Mayi DUTTON
[2017-10-13] MEDS: predniSONE 20 MG TAB PO SCH (16:24)
[2017-10-13] MEDS: Famotidine 20 MG TAB PO SCH (16:25)
--- NOTE | 2017-10-13 17:10 | CON ---
DATE OF CONSULTATION: 10/13/2017 REFERRING PHYSICIAN: Mari Rizo M.D. REASON FOR CONSULTATION: SVT and possible ventricular tachycardia with associated neurologic changes. HISTORY OF PRESENT ILLNESS: Ms. Chavarria is a pleasant 52-year-old female recently admitted on 10/12/2017 for reported symptomatic bradycardia and altered mental status. According to her daughter, who is at bedside and the patient, Ms. Chavarria is sitting at home, at some point her left hand began to shake uncontrollably and her head was nodding back and forth and she had some associated mental status changes. She denied any bowel or bladder incontinence associated with this episode. She was brought to the emergency room and admitted and was somewhat lethargic and minimally interactive for the following day. Reportedly, she is quite lethargic and sleeps quite a bit at home. She reports having a history of hypertension, intermittent atrial fibrillation, stroke, end-stage renal disease and has a peritoneal dialysis, managed by Dr. Flores. It was felt that she likely had a TIA and an MRI was performed, which did not show any acute new findings. MRI of the neck did not suggest any high- grade stenosis in the internal carotids or vertebral. She has not had any additional acute stroke symptoms. Since she has been hospitalized, she has had one particular significant arrhythmia events, which appeared to be SVT and possibly ventricular tachycardia. An echocardiogram was done and her ejection fraction, which was previously preserved at 50% to 55%, has changed significantly and is now estimated at 25% to 30%. Ms. Chavarria today reports that she is feeling much better. She has not had any heart racing, or palpitations. She denies any new stroke or stroke like symptoms including unilateral weakness, speech changes, vision changes, paresthesias, or facial droop. She has been up moving around the room and reports a good appetite. Patient denies chest pain or pressure, syncope or near syncope. ALLERGIES: Patient is allergic to IODINE. HOME MEDICATIONS: Aspirin 325 mg and atorvastatin 40 mg p.o. at bedtime. REVIEW OF SYSTEMS: A 12-point review of systems was conducted and is negative except that listed in the HPI. PAST MEDICAL HISTORY: 1. End-stage renal disease on peritoneal dialysis. 2. Hypertension. 3. Bipolar 1 disorder. 4. Cervical fusion. 5. Paroxysmal atrial fibrillation. FAMILY HISTORY: Cousin with type 2 diabetes, negative arrhythmias, sudden cardiac and early onset coronary artery disease. SOCIAL HISTORY: Everyday smoker, does not drink alcohol currently, but had high consumption in the remote past. Negative for illicit drug use. PHYSICAL EXAMINATION: VITAL SIGNS: Most recent vital signs 99.7 degrees Fahrenheit, pulse 67, blood pressure 125/93, respirations are 16, 96% oxygen saturation on room air. GENERAL: Alert, oriented, and in no acute distress. She is sitting upright in bed and conversing easily. Her speech is clear. Her affect is appropriate. NECK: Supple without jugular venous distention and carotids are clear without bruit bilaterally. HEENT: Sclerae anicteric. EOMs are intact. Her oral mucosa is moist and pink and with adequate dentition. PULMONARY: Her lungs are clear to auscultation bilaterally without wheezes, crackles, or rhonchi. Respirations are even and unlabored with good bilateral excursion. CARDIOVASCULAR: Heart rate is regularly regular. EXTREMITIES: Warm and dry to touch without clubbing or cyanosis. GASTROINTESTINAL: Abdomen is soft, large, nontender. There is a peritoneal dialysis catheter present. NEUROLOGIC: Cranial nerves II-XII is grossly intact and exam is nonfocal. PERTINENT LABORATORY AND X-RAYS: Hematology from today WBC 8.8, hemoglobin 9.7 , hematocrit 31.4, platelet count is 130. Coagulation panel on 10/11/2017, PT 13.8, INR 1.1. Chemistry on 10/13, sodium 133, potassium 3.0, chloride 9.6, carbon dioxide 24, BUN 26, creatinine 7.7. Serial troponins were started on admission on 10/11/2017 and continue to trend upward with most recent result on 10/13/2017 at 5:00 a.m. be in 2.044. CK-MB results have all been within normal limits. BNP on 10/11/2017 was 2246. EKG and telemetry: Telemetry and EKG strips are personally reviewed and currently, the patient is maintaining sinus rhythm. The patient had an episode of SVT with aberrancy versus a nonsustained ventricular tachycardia on 10/12/2017 with rates in the low 200 range. It does appear that it was atrial fibrillation/atrial tachycardia with aberrancy. Echocardiogram done 10/12/2017, EF of 25% to 30%. Jasper is akinetic. Normal RV size and function. Left atrium is moderately dilated. Right atrium is mildly enlarged. There is severe mitral regurgitation, mild aortic regurgitation. Moderate to severe TR. ASSESSMENT: 1. Paroxysmal atrial fibrillation/atrial tachycardia with intermittent aberrancy versus nonsustained ventricular tachycardia in the setting of hyperkalemia had 2.7 millimoles per liter. 2. Newly diagnosed cardiomyopathy, possibly ischemic with congestive heart failure symptoms, ejection fraction currently 25% to 30%. Previously documented in the 50% to 55% range. 3. End-stage renal disease on peritoneal dialysis for approximately 11 years now. 4. Troponin I elevated and continuing to trend upward with ST elevations on EKG or associated chest pain symptoms. PLAN: Patient is scheduled to undergo left heart catheterization tomorrow with Dr. Zheng. We will await these results and determine course of action given her newly found cardiomyopathy pending these results. It is likely the patient will need to be discharged on a LifeVest, have a long-term plan of undergoing an electrophysiology study with possible ICD implantation. We will look for left heart catheterization results tomorrow. Thank you for allowing me to participate in the care of this patient. MYA
[2017-10-13] MEDS: Atorvastatin Calcium 40 MG TAB PO SCH (21:33)
[2017-10-13] MEDS: Benzonatate 100 MG CAP PO PRN (21:34)
[2017-10-14] MEDS: Famotidine 20 MG TAB PO SCH ×3 (00:13→12:48)
[2017-10-14] MEDS: predniSONE 20 MG TAB PO SCH ×3 (00:14→12:48)
[2017-10-14] MEDS: Aspirin 325 mg Enteric Coated Tablet PO SCH (05:42)
[2017-10-14] MEDS: Calcitriol 0.25 MCG CAP PO SCH (05:43)
[2017-10-14] MEDS: hydrALAZINE 25 MG TAB PO SCH ×4 (05:46→21:59)
[2017-10-14] MEDS: Lisinopril 10 MG TAB PO SCH (05:47)
[2017-10-14] MEDS: Potassium Chloride 20 MEQ TAB PO SCH ×2 (05:48→21:59)
[2017-10-14 06:01] LABS: #Monocytes 0.1 thou/uL (0.11-0.59); %Basophils 0.7 % (0.0-1.0); %Eosinophils 0.2 % (0.0-10.0); %Lymphocytes 16.8 % (21.0-51.0); %Monocytes 1.7 % (0.0-10.0); %Neutrophils 80.5 % (42.0-75.0); Hemoglobin 9.8 g/dL (12.0-16.0); Mean Corpuscular HGB CONC 31.6 g/dL (32.0-36.0); Mean Corpuscular Hemoglobin 30.1 pg (27.0-31.0); Mean Corpuscular Volume 95.1 fl (81.0-99.0); Mean Platelet Volume 10.5 fL (7.4-10.4); Platelet Count 150 thou/uL (130-400); RBC Distribution Width 16.1 % (11.5-14.5); Red Blood Cell (RBC) Count 3.26 mill/uL (4.20-5.40); White Blood Cell (WBC) Count 6.2 thou/uL (4.8-10.8)
[2017-10-14 06:05] LABS: Anion Gap 16 mmol/L (10-20); BUN (Urea Nitrogen) 27 mg/dL (9.8-20.1); Calc. Creatinine Clearance 12 mL/min (70-130); Calcium 8.2 mg/dL (7.8-10.44); Carbon Dioxide 23 mmol/L (22-29); Chloride 94 mmol/L (98-107); Estimated GFR-MDRD 7; Glucose 123 mg/dL (70-105); Potassium 3.5 mmol/L (3.5-5.1); Sodium 129 mmol/L (136-145)
[2017-10-14] MEDS ORDERED: Diazepam 5 MG TAB PO SCH (07:00)
[2017-10-14] MEDS: Sodium Chloride 0.9% 1,000 ML IV SCH (07:37)
--- NOTE | 2017-10-14 07:48 | PDOC.FM ---
- Subjective Subjective: Patient feels much better this AM. She reports that her H/A and dizziness have improved. She still has some N/V after eating, but reports that it is getting better. She denies CP, SOB, palpitations. - Objective MAR Reviewed: Yes Vital Signs & Weight: Vital Signs (12 hours) Temp Pulse Resp BP BP Pulse Ox 10/14/17 07:26 98.7 F 56 L 20 10/14/17 05:47 161/98 H 10/14/17 05:46 56 L 161/98 H 10/14/17 04:00 98.7 F 56 L 20 161/98 H 97 10/14/17 00:00 98.0 F 62 18 153/88 H 98 10/13/17 21:34 65 137/65 10/13/17 20:00 99.3 F 65 18 137/65 94 L Weight Weight 89.358 kg I&O: 10/13/17 10/14/17 10/15/17 06:59 06:59 06:59 Intake Total 120 1440 Output Total 0 100 Balance 120 1340 Result Diagrams: 10/14/17 05:21 10/14/17 05:21 <Loly Carmichael - Last Filed: 10/14/17 11:39> - Objective Vital Signs & Weight: Vital Signs (12 hours) Temp Pulse Resp BP BP Pulse Ox 10/14/17 16:24 63 161/98 H 10/14/17 16:22 63 10/14/17 15:52 97.8 F 63 20 125/74 100 10/14/17 12:49 161/98 H 10/14/17 09:58 97.7 F 56 L 16 136/94 H 100 10/14/17 08:00 98.3 F 56 L 20 168/112 H 98 10/14/17 07:26 98.7 F 56 L 20 10/14/17 05:47 161/98 H 10/14/17 05:46 56 L 161/98 H Weight Weight 89.358 kg I&O: 10/13/17 10/14/17 10/15/17 06:59 06:59 06:59 Intake Total 120 1440 Output Total 0 100 Balance 120 1340 Result Diagrams: 10/14/17 05:21 10/14/17 05:21 <Genesis De Jesus - Last Filed: 10/14/17 16:43> Phys Exam - Physical Examination Constitutional: NAD HEENT: moist MMs Respiratory: no wheezing, no rales, no rhonchi, clear to auscultation bilateral Cardiovascular: RRR, no significant murmur, no rub Gastrointestinal: soft, non-tender, no distention, positive bowel sounds Musculoskeletal: no edema, pulses present Neurological: non-focal, moves all 4 limbs Psychiatric: normal affect, A&O x 3 Skin: normal turgor, cap refill <2 seconds <Loly Carmichael - Last Filed: 10/14/17 11:39> Dx/Plan (1) Hypertensive emergency Code(s): I16.1 - HYPERTENSIVE EMERGENCY Status: Acute (2) Ventricular tachycardia Code(s): I47.2 - VENTRICULAR TACHYCARDIA Status: Acute (3) Hypokalemia Code(s): E87.6 - HYPOKALEMIA Status: Acute (4) TIA (transient ischemic attack) Status: Suspected QualifierTitle: Transient cerebral ischemia type: unspecified Qualified Code(s): G45.9 - Transient cerebral ischemic attack, unspecified (5) Bradycardia Code(s): R00.1 - BRADYCARDIA, UNSPECIFIED Status: Acute (6) Chronic anemia Code(s): D64.9 - ANEMIA, UNSPECIFIED Status: Chronic (7) ESRD on peritoneal dialysis Code(s): N18.6 - END STAGE RENAL DISEASE; Z99.2 - DEPENDENCE ON RENAL DIALYSIS Status: Chronic (8) Hypertension Code(s): I10 - ESSENTIAL (PRIMARY) HYPERTENSION Status: Chronic QualifierTitle: Hypertension type: essential hypertension Qualified Code( s): I10 - Essential (primary) hypertension - Plan Plan: 1. Hypertensive Emergency The patient had BP elevated to 200s/120s. She had associated N/V, headache, elevated troponins. There was concern for TIA as well so did not bring BP down very quickly, but tried to keep it below 180/90, but it is now WNL. Her BP has been 137/65-161/98 in the past 24 hours. -Restarted home BP meds, except clonidine has been held due to bradycardia -PRN labetalol 2. NSTEMI The patient developed elevated troponins that have continued to trend up, this could be 2/2 HTN emergency vs a true NSTEMI. The patient also had a 6 minute run of SVT with intermittent v-tach as well as sinus tachycardia to the 120s. She was reported by the ED physician to be in sinus bradycardia to the 40's intially. This could be contributing to her elevated troponins. -Cardiology has been consulted, plan for cardiac cath today -Monitor on tele -Repeat EKG for any new CP 3. TIA CT head, MRI/MRA head/neck were all within normal limits and stable from prior. The patient does have a h/o prior CVA. Her symptoms were likely related to HTN Emergency, but the patient has had a recent CVA and has many risk factors. -admit stroke obs -Aspirin -High dose statin 4. V-tach The patient also had a 6 minute run of SVT with intermittent v-tach as well as sinus tachycardia to the 120s. She was reported by the ED physician to be in sinus bradycardia to the 40's intially. -EP has been consulted, appreciate recs -Monitor on tele 5. 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 Hypokalemia chronic, on PD nightly 2/2 ESRD -Nephrology on board, appreciate recs -cont K+ 20 BID 7. Hyponatremia chronic, on PD 2/2 ESRD nightly -Nephro on board, appreciate recs -slightly lower than baseline today, likely 2/2 N/V <Loly Carmichael - Last Filed: 10/14/17 11:39> Attending Addendum - Attending Addendum Date/Time: 10/14/17 1641 I personally evaluated the patient and discussed the management with Dr. Carmichael on 10/14/17. I agree with the History, Examination, Assessment and Plan documented above with any addition or exceptions noted below. Patient s/p cath. Per patient, cath was "normal." Pending recs from EP, will likely go home with LifeVest. <Genesis De Jesus - Last Filed: 10/14/17 16:43>
[2017-10-14] MEDS ORDERED: Lidocaine 1% (PF) 30 ML VIAL ONE (08:18)
--- NOTE | 2017-10-14 08:59 | PRG ---
DATE OF SERVICE: 10/14/2017 SUBJECTIVE: Ms. Chavarria is a 52-year-old black female with ESRD and currently on maintenance nocturna l peritoneal dialysis. She was admitted for headache and dizziness. She was ruled out for CVA. How ever, she has an elevated troponin I. For that reason, cardiology was consulted and she is to underg o cardiac catheterization this morning. The patient denies any chest pain or shortness of breath. PHYSICAL EXAMINATION: VITAL SIGNS: Blood pressure is ranging from 161/98-168/112, heart rate 56, respiratory rate 20, temp erature 98.3, and pulse oximetry 98% - room air. GENERAL: Awake, alert, comfortable, not in distress. SKIN: Adequate turgor. HEENT: She has a slightly pale conjunctivae, anicteric sclerae. NECK: No neck mass, no carotid bruits, no JVD. CHEST: No deformities. LUNGS: Clear breath sounds. HEART: Normal sinus rhythm. No murmur, no gallops, no rubs. ABDOMEN: Globular, soft, nontender, no masses. EXTREMITIES: No edema. MEDICATIONS: On 10/14/2017 reviewed. LABORATORY DATA: On 10/14/2017 - white count 6.2, hemoglobin 9.8. Sodium 129, potassium 3.5, chlori de 94, carbon dioxide 23, BUN 27, creatinine 7.56, glucose 123, calcium 8.2. On 10/13/2017, troponin I was 2.044. ASSESSMENT AND PLAN: 1. Elevated troponin I - patient is scheduled for cardiac catheterization. Cardiology is following. 2. Hypertension. Adjust blood pressure medications as needed. I will probably increase that lisino pril from 10 to 20 mg tab once a day. 3. End-stage renal disease, stable. Tolerating current hemodialysis regimen. Continue current cont inuous cycling peritoneal dialysis regimen. No changes to be made. 4. Mild hyponatremia. This is most likely dilutional. Hopefully, we can correct this with dialysis . We will check base met and CBC in a.m.
[2017-10-14] MEDS ORDERED: Lisinopril 10 MG TAB PO SCH (09:00)
[2017-10-14] MEDS ORDERED: Fentanyl 250 MCG/5 ML VIAL ONE (09:06)
[2017-10-14] MEDS ORDERED: Midazolam HCl 2 mg/2 ml Vial ONE (09:06)
[2017-10-14] MEDS ORDERED: diphenhydrAMINE 50 MG/ML VIAL ONE (09:36)
[2017-10-14] MEDS ORDERED: Metoprolol Tartrate 5 MG/5 ML VIAL ONE ×7 (09:36→14:21)
[2017-10-14] MEDS ORDERED: traMADol HCl 50 MG TAB PO PRN (09:58)
[2017-10-14] MEDS ORDERED: Nitroglycerin 0.4 MG TAB (25 Tab Bottle) SL PRN (09:58)
[2017-10-14] MEDS ORDERED: Acetaminophen/Codeine 30-300mg Tablet PO PRN ×2 (09:58)
[2017-10-14] MEDS ORDERED: Sodium Chloride 0.9% 200 ML IV SCH (10:00)
[2017-10-14] MEDS ORDERED: cloNIDine 0.1 MG TAB ONE ×2 (10:16→11:02)
[2017-10-14] MEDS ORDERED: Nitroglycerin 2% Ointment 1 INCH/1 GM Packet ONE (10:16)
[2017-10-14] MEDS ORDERED: cloNIDine 0.1 MG TAB PO SCH (10:45)
[2017-10-14] MEDS ORDERED: Nitroglycerin 2% Ointment 1 INCH/1 GM Packet TOP SCH (10:45)
[2017-10-14] MEDS ORDERED: Metoprolol Tartrate 5 MG/5 ML VIAL IVP SCH (10:45)
[2017-10-14] MEDS: Sevelamer Carbonate 800 MG TAB PO SCH ×2 (12:48→16:25)
[2017-10-14] MEDS ORDERED: predniSONE 20 MG TAB PO SCH (16:00)
[2017-10-14] MEDS ORDERED: Iopamidol 370 76% 100 ML VIAL ONE (16:22)
[2017-10-14] MEDS: Carvedilol 6.25 MG TAB PO SCH (16:24)
[2017-10-14] MEDS: Atorvastatin Calcium 40 MG TAB PO SCH (22:00)
[2017-10-14] MEDS: Benzonatate 100 MG CAP PO PRN (22:24)
[2017-10-15 06:06] LABS: Anion Gap 13 mmol/L (10-20); BUN (Urea Nitrogen) 27 mg/dL (9.8-20.1); Calc. Creatinine Clearance 13 mL/min (70-130); Calcium 8.4 mg/dL (7.8-10.44); Carbon Dioxide 24 mmol/L (22-29); Chloride 97 mmol/L (98-107); Estimated GFR-MDRD 7; Glucose 111 mg/dL (70-105); Potassium 3.8 mmol/L (3.5-5.1); Sodium 130 mmol/L (136-145)
[2017-10-15 06:30] LABS: Hemoglobin 9.2 g/dL (12.0-16.0); MDiff Complete? YES; Mean Corpuscular HGB CONC 31.3 g/dL (32.0-36.0); Mean Corpuscular Hemoglobin 30.1 pg (27.0-31.0); Mean Corpuscular Volume 96.2 fl (81.0-99.0); Mean Platelet Volume 10.5 fL (7.4-10.4); Platelet Count 127 thou/uL (130-400); RBC Distribution Width 16.3 % (11.5-14.5); Red Blood Cell (RBC) Count 3.05 mill/uL (4.20-5.40); White Blood Cell (WBC) Count 5.8 thou/uL (4.8-10.8)
[2017-10-15 06:31] LABS: Lymphocytes 20 % (21-51); Monocytes 1 % (0-10); Neutrophil 79 % (42-75)
[2017-10-15] MEDS: Sodium Chloride 0.9% 1,000 ML IV SCH (07:36)
--- NOTE | 2017-10-15 09:09 | PDOC.FM ---
- Subjective Subjective: Patient doing well this AM. She reports feeling tired, but otherwise denies CP, SOB, N/V, F/C, headache, dizziness. She has no complaints this AM. - Objective MAR Reviewed: Yes Vital Signs & Weight: Vital Signs (12 hours) Temp Pulse Resp BP BP Pulse Ox 10/15/17 07:56 98.8 F 61 18 126/81 98 10/15/17 03:55 98.5 F 59 L 18 139/87 100 10/14/17 23:36 98.4 F 61 20 147/88 H 98 10/14/17 21:59 58 L 150/92 H Weight Weight 91.172 kg I&O: 10/14/17 10/15/17 10/16/17 06:59 06:59 06:59 Intake Total 1440 2248 Output Total 100 Balance 1340 2248 Result Diagrams: 10/15/17 05:27 10/15/17 05:27 <Loly Carmichael - Last Filed: 10/15/17 09:10> - Objective Vital Signs & Weight: Vital Signs (12 hours) Temp Pulse Pulse Pulse Resp BP BP 10/15/17 17:00 61 126/81 10/15/17 15:54 98.3 F 61 16 10/15/17 12:00 98.4 F 125 H 16 10/15/17 09:14 126 H 138 H 152/92 H 10/15/17 09:13 126/81 10/15/17 09:12 61 126/81 10/15/17 09:10 150/92 H 10/15/17 07:56 98.8 F 61 18 10/15/17 07:51 98.8 F 61 18 BP BP Pulse Ox Pulse Ox Pulse Ox 10/15/17 17:00 10/15/17 15:54 129/96 H 98 10/15/17 12:00 153/110 H 100 10/15/17 09:14 172/118 H 99 99 10/15/17 09:13 10/15/17 09:12 10/15/17 09:10 10/15/17 07:56 126/81 98 10/15/17 07:51 96 Weight Weight 91.172 kg I&O: 10/14/17 10/15/17 10/16/17 06:59 06:59 06:59 Intake Total 1440 2248 Output Total 100 Balance 1340 2248 Result Diagrams: 10/15/17 05:27 10/15/17 05:27 <Shar Hall - Last Filed: 10/15/17 17:17> Phys Exam - Physical Examination Constitutional: NAD HEENT: moist MMs Respiratory: no wheezing, no rales, no rhonchi, clear to auscultation bilateral Cardiovascular: no significant murmur, no rub bradycardic Gastrointestinal: soft, non-tender, no distention, positive bowel sounds Musculoskeletal: no edema, pulses present Neurological: non-focal, moves all 4 limbs Psychiatric: normal affect, A&O x 3 Skin: no rash, cap refill <2 seconds <Loly Carmichael - Last Filed: 10/15/17 09:10> Dx/Plan (1) Hypertensive emergency Code(s): I16.1 - HYPERTENSIVE EMERGENCY Status: Acute (2) Ventricular tachycardia Code(s): I47.2 - VENTRICULAR TACHYCARDIA Status: Acute (3) Hypokalemia Code(s): E87.6 - HYPOKALEMIA Status: Acute (4) TIA (transient ischemic attack) Status: Suspected QualifierTitle: Transient cerebral ischemia type: unspecified Qualified Code(s): G45.9 - Transient cerebral ischemic attack, unspecified (5) Bradycardia Code(s): R00.1 - BRADYCARDIA, UNSPECIFIED Status: Acute (6) Chronic anemia Code(s): D64.9 - ANEMIA, UNSPECIFIED Status: Chronic (7) ESRD on peritoneal dialysis Code(s): N18.6 - END STAGE RENAL DISEASE; Z99.2 - DEPENDENCE ON RENAL DIALYSIS Status: Chronic (8) Hypertension Code(s): I10 - ESSENTIAL (PRIMARY) HYPERTENSION Status: Chronic QualifierTitle: Hypertension type: essential hypertension Qualified Code( s): I10 - Essential (primary) hypertension - Plan Plan: 1. Hypertensive Emergency The patient had BP elevated to 200s/120s. She had associated N/V, headache, elevated troponins. There was concern for TIA as well so did not bring BP down very quickly, but tried to keep it below 180/90, but it is now WNL. Her BP has been 137/65-161/98 in the past 24 hours. -Restarted home BP meds, except clonidine has been held due to bradycardia -Lisinopril was increased from 10mg-20mg -PRN labetalol 2. NSTEMI, suspect Takutsubo's Cardiomyopathy The patient developed elevated troponins that have continued to trend up, this could be 2/2 HTN emergency vs a true NSTEMI. The patient also had a 6 minute run of SVT with intermittent v-tach as well as sinus tachycardia to the 120s. She was reported by the ED physician to be in sinus bradycardia to the 40's intially. Cardiac cath on 10/14 showed normal coronary arteries with LVEF of 25%, which is markedly reduced from her normal EF one month ago. She also had akinesis of mid and distal anterior wall, apex, mid and distal inferior wall. -Cardiology has been consulted, appreciate recs -Coreg added -Monitor on tele -Repeat EKG for any new CP 3. TIA CT head, MRI/MRA head/neck were all within normal limits and stable from prior. The patient does have a h/o prior CVA. Her symptoms were likely related to HTN Emergency, but the patient has had a recent CVA and has many risk factors. -admit stroke obs -Aspirin -High dose statin 4. V-tach The patient also had a 6 minute run of SVT with intermittent v-tach as well as sinus tachycardia to the 120s. She was reported by the ED physician to be in sinus bradycardia to the 40's intially. -EP has been consulted, appreciate recs -Monitor on tele 5. ESRD on PD Dr. Flores is plate maker zinc -Nephro has been consulted, appreciate recs -Continue PD nightly 6. Hypokalemia chronic, on PD nightly 2/2 ESRD -Nephrology on board, appreciate recs -cont K+ 20 BID 7. Hyponatremia chronic, on PD 2/2 ESRD nightly -Nephro on board, appreciate recs -slightly lower than baseline today, likely 2/2 N/V <Loly Carmichael - Last Filed: 10/15/17 09:10> Attending Addendum - Attending Addendum Date/Time: 10/15/17 1127 I personally evaluated the patient and discussed the management with Dr. Carmichael. I agree with the History, Examination, Assessment and Plan documented above with any addition or exceptions noted below. <Shar Hall - Last Filed: 10/15/17 17:17>
[2017-10-15] MEDS: Carvedilol 6.25 MG TAB PO SCH ×2 (09:10→17:00)
[2017-10-15] MEDS: Sevelamer Carbonate 800 MG TAB PO SCH ×2 (09:11→17:00)
[2017-10-15] MEDS: Calcitriol 0.25 MCG CAP PO SCH (09:11)
[2017-10-15] MEDS: Aspirin 325 mg Enteric Coated Tablet PO SCH (09:11)
[2017-10-15] MEDS: hydrALAZINE 25 MG TAB PO SCH ×3 (09:12→21:30)
[2017-10-15] MEDS: Lisinopril 20 MG TAB PO SCH (09:13)
[2017-10-15] MEDS: Potassium Chloride 20 MEQ TAB PO SCH ×2 (09:13→21:31)
--- NOTE | 2017-10-15 09:30 | PRG ---
DATE OF SERVICE: 10/15/2017 RENAL MEDICINE SUBJECTIVE: Ms. Chavarria is a 52-year-old black female followed up for her maintenance peritoneal dial ysis, doing well. She has had a cardiac catheterization recently which showed cardiomyopathy with no rmal coronary arteries. She has been referred to Dr. Regalado, EP communication center operator. The plan is eventually to work her up further more and place an AICD. She has declined this. She has no new complaints today. No chest pain or shortness of breath. PHYSICAL EXAMINATION: VITAL SIGNS: Blood pressure is 126/81, heart rate 61, respiratory rate 18, temperature 98.8, pulse o x 98%. GENERAL: Noted to be awake, supine, comfortable, not in distress. SKIN: Adequate turgor. HEENT: Slightly pale conjunctivae, anicteric sclerae. NECK: No neck mass, no carotid bruits, no JVD. CHEST: No deformities. LUNGS: Clear breath sounds. HEART: Normal sinus rhythm. No murmurs, no gallops, no rubs. ABDOMEN: Globular, soft, nontender, no masses. EXTREMITIES: No edema, no deformities. Positive for PD catheter. MEDICATIONS: Medications of 10/15/2017 reviewed. LABORATORY DATA: Laboratories of 10/15/2017; white count 5.8, hemoglobin 9.2. Sodium 130, potassium 3.8, chloride 97, carbon dioxide 24, BUN 27, creatinine 7.23, glucose 111, and calcium 8.4. ASSESSMENT AND PLAN: 1. Cardiomyopathy - supportive care. Cardiology is following. 2. End-stage renal disease, stable. Continue current CCPD regimen. The patient is not ready to be converted to hemodialysis. For the moment, we will continue current peritoneal dialysis. Agree with current management.
[2017-10-15] MEDS ORDERED: Metoprolol Tartrate 5 MG/5 ML VIAL IVP SCH (10:15)
[2017-10-15] MEDS ORDERED: Amiodarone 200 MG TAB PO SCH ×2 (10:30→15:00)
--- NOTE | 2017-10-15 11:48 | PRG ---
DATE OF SERVICE: 10/15/2017 SUBJECTIVE: Ms. Chavarria was up walking in the [place] today, but her heart rates are very fast at 140 be ats per minute, earlier today it was 60. OBJECTIVE: VITAL SIGNS: Blood pressure 126/80. LUNGS: Clear. CARDIAC: She is very tachycardic. ABDOMEN: Soft, nontender. EXTREMITIES: No edema. ASSESSMENT: 1. Depressed left ventricular function, probably Takotsubo's cardiomyopathy, terms of the distributi on of the wall motion abnormalities. 2. End-stage renal disease. 3. Recurrent atrial arrhythmias, not well controlled. PLAN: 1. Discussed with Dr. Regalado, he recommended antiarrhythmic therapy as opposed to an ablation at this point. 2. May need Coumadin therapy versus reduced dose to Eliquis. 3. She will likely be going home soon with a LifeVest, but will certainly not go home today, needs t o be loaded with amiodarone.
--- NOTE | 2017-10-15 15:54 | PDOC.CTH ---
<Micaela Hilton - Last Filed: 10/15/17 15:51> Cardiology Progress Note - Subjective EP progress note: Patient resting and has done well overnight but is having cough and some chest congestion. She has also had some heart racing intermittently. No chest pain or dizziness. Otherwise no new complaints. - Objective Vital Signs Temp Pulse Pulse Pulse Resp BP BP 10/15/17 12:00 98.4 F 125 H 16 10/15/17 09:14 126 H 138 H 152/92 H 10/15/17 09:13 126/81 10/15/17 09:12 61 126/81 10/15/17 09:10 150/92 H 10/15/17 07:56 98.8 F 61 18 10/15/17 07:51 98.8 F 61 18 10/15/17 03:55 98.5 F 59 L 18 BP BP Pulse Ox Pulse Ox Pulse Ox 10/15/17 12:00 153/110 H 100 10/15/17 09:14 172/118 H 99 99 10/15/17 09:13 10/15/17 09:12 10/15/17 09:10 10/15/17 07:56 126/81 98 10/15/17 07:51 96 10/15/17 03:55 139/87 100 Weight 201 lb 10/14/17 10/15/17 10/16/17 06:59 06:59 06:59 Intake Total 1440 2248 Output Total 100 Balance 1340 2248 - Physical Examination General/Neuro: alert & oriented x3, NAD Neck: no JVD present Lungs: unlabored respirations, other: (coarse lung sounds bilaterally) Abdomen: no HSM, NT/ND - Telemetry Telemetry Rhythm: SB - Labs Result Diagrams: 10/15/17 05:27 10/15/17 05:27 Troponin/CKMB CK-MB (CK-2) 3.5 ng/mL (0-6.6) 10/13/17 05:04 Troponin I 2.044 ng/mL (< 0.028) H* 10/13/17 05:04 - Assessment/Plan 1. Non ischemic cardiomyopathy- new onset with LVEF 25-30%. Normal coronary arteries by [facility] on 10.14.17, possible Takotsubo CM. Patient will need to discharge with lifevest in place and follow up with EP after 3 months for ICD implantation. 2. Atrial arrhythmias- Paroxysmal AF/AT with RVR, amiodarone initiated. 3. Paroxysmal ventricular tachycardia- in setting of hypokalemia (K+2.7) 4. Oral anticoagulation- recommend warfarin in the setting of ESRD over Eliquis 5mg BID. Low dose Eliquis could be considered but she does not meet clinical guidelines for reduced dose so I would encourage warfarin. <Chris Regalado - Last Filed: 10/15/17 19:08> Cardiology Progress Note - Objective Vital Signs Temp Pulse Pulse Pulse Resp BP BP 10/15/17 17:00 61 126/81 10/15/17 15:54 98.3 F 61 16 10/15/17 12:00 98.4 F 125 H 16 10/15/17 09:14 126 H 138 H 152/92 H 10/15/17 09:13 126/81 10/15/17 09:12 61 126/81 10/15/17 09:10 150/92 H 10/15/17 07:56 98.8 F 61 18 10/15/17 07:51 98.8 F 61 18 BP BP Pulse Ox Pulse Ox Pulse Ox 10/15/17 17:00 10/15/17 15:54 129/96 H 98 10/15/17 12:00 153/110 H 100 10/15/17 09:14 172/118 H 99 99 10/15/17 09:13 10/15/17 09:12 10/15/17 09:10 10/15/17 07:56 126/81 98 10/15/17 07:51 96 Weight 201 lb 10/14/17 10/15/17 10/16/17 06:59 06:59 06:59 Intake Total 1440 2248 1150 Output Total 100 Balance 1340 2248 1150 - Labs Result Diagrams: 10/15/17 05:27 10/15/17 05:27 Troponin/CKMB CK-MB (CK-2) 3.5 ng/mL (0-6.6) 10/13/17 05:04 Troponin I 2.044 ng/mL (< 0.028) H* 10/13/17 05:04 Attending Addendum - Attending Addendum Date/Time: 10/15/17 190 I personally evaluated the patient and discussed the management with Ms Hilton. I agree with the History, Examination, Assessment and Plan documented above with any addition or exceptions noted below.
[2017-10-15] MEDS: Amiodarone 200 MG TAB PO SCH (21:29)
[2017-10-15] MEDS: Atorvastatin Calcium 40 MG TAB PO SCH (21:29)
[2017-10-15] MEDS: Benzonatate 100 MG CAP PO PRN (21:31)
[2017-10-16] MEDS: Sodium Chloride 0.9% 1,000 ML IV SCH (01:37)
[2017-10-16 06:16] LABS: Anion Gap 16 mmol/L (10-20); BUN (Urea Nitrogen) 32 mg/dL (9.8-20.1); Calc. Creatinine Clearance 14 mL/min (70-130); Calcium 8.5 mg/dL (7.8-10.44); Carbon Dioxide 22 mmol/L (22-29); Chloride 98 mmol/L (98-107); Estimated GFR-MDRD 7; Glucose 101 mg/dL (70-105); Potassium 3.6 mmol/L (3.5-5.1); Sodium 132 mmol/L (136-145)
[2017-10-16 06:23] LABS: Eosinophils 1 % (0-10); Hemoglobin 9.8 g/dL (12.0-16.0); Lymphocytes 44 % (21-51); MDiff Complete? YES; Mean Corpuscular HGB CONC 30.9 g/dL (32.0-36.0); Mean Corpuscular Hemoglobin 29.4 pg (27.0-31.0); Mean Platelet Volume 9.9 fL (7.4-10.4); Metamyelocyte 1 % (0-0); Monocytes 5 % (0-10); Neutrophil 49 % (42-75); PLT Morphology Comment Appears Adequate; Platelet Count 157 thou/uL (130-400); Red Blood Cell (RBC) Count 3.33 mill/uL (4.20-5.40); White Blood Cell (WBC) Count 8.8 thou/uL (4.8-10.8)
--- NOTE | 2017-10-16 07:29 | PDOC.FM ---
Addendum entered and electronically signed by Loly Carmichael MD 10/16/17 13:41: Had a lengthy discussion with the patient and her daughter discussing the risks and benefits of anticoagulation as well as the risk associated with refusing anticoagulation. The patient made the informed decision to not be on anticoagulation at this time. The patient is aware of the risks associated with this decision and her daughter was present throughout the conversation and is also in understanding of the risks. It was reinforced that it is important for her to follow-up closely with Dr. Zheng, Dr. Regalado, and her PCP. She was also counseled on lifestyle modifications including medication compliance. Original Note: - Subjective Subjective: The patient reports no chest pain. She is no longer having any episodes of flapping in her left arm. She denies any headache, N/V, numbness. She reports that her aunt 3 weeks ago and she was really close to her, but other than that there has been no increased stress in her life. - Objective MAR Reviewed: Yes Vital Signs & Weight: Vital Signs (12 hours) Temp Pulse Resp BP BP Pulse Ox 10/16/17 03:10 98.2 F 63 16 157/105 H 100 10/16/17 00:08 158/105 H 10/15/17 23:23 98.2 F 60 16 165/101 H 98 10/15/17 21:30 57 L 134/100 H 10/15/17 21:28 99.3 F 57 L 16 99 Weight Weight 103.056 kg I&O: 10/15/17 10/16/17 10/17/17 06:59 06:59 06:59 Intake Total 2248 1470 Balance 2248 1470 Result Diagrams: 10/16/17 05:51 10/16/17 05:51 <Loly Carmichael - Last Filed: 10/16/17 11:52> - Objective Vital Signs & Weight: Vital Signs (12 hours) Temp Pulse Resp BP BP Pulse Ox 10/16/17 12:00 97.6 F 64 16 182/106 H 98 10/16/17 11:31 182/106 H 10/16/17 11:30 60 182/106 H 10/16/17 11:15 97.6 F 64 16 174/105 H 98 10/16/17 07:59 98.6 F 60 16 140/87 97 10/16/17 03:10 98.2 F 63 16 157/105 H 100 Weight Weight 103.056 kg I&O: 10/15/17 10/16/17 10/17/17 06:59 06:59 06:59 Intake Total 2248 1470 Balance 2248 1470 Result Diagrams: 10/16/17 05:51 10/16/17 05:51 <RafaelShar A - Last Filed: 10/16/17 13:49> Phys Exam - Physical Examination Constitutional: NAD HEENT: moist MMs Respiratory: no wheezing, no rales, no rhonchi, clear to auscultation bilateral Cardiovascular: RRR, no significant murmur, no rub Gastrointestinal: soft, non-tender, no distention, positive bowel sounds Musculoskeletal: no edema, pulses present Neurological: non-focal, moves all 4 limbs Psychiatric: normal affect, A&O x 3 <Loly Carmichael - Last Filed: 10/16/17 11:52> Dx/Plan (1) Hypertensive emergency Code(s): I16.1 - HYPERTENSIVE EMERGENCY Status: Acute (2) Non-ischemic cardiomyopathy Code(s): I42.8 - OTHER CARDIOMYOPATHIES Status: Acute (3) Ventricular tachycardia Code(s): I47.2 - VENTRICULAR TACHYCARDIA Status: Acute (4) Hypokalemia Code(s): E87.6 - HYPOKALEMIA Status: Chronic (5) TIA (transient ischemic attack) Status: Suspected QualifierTitle: Transient cerebral ischemia type: unspecified Qualified Code(s): G45.9 - Transient cerebral ischemic attack, unspecified (6) Bradycardia Code(s): R00.1 - BRADYCARDIA, UNSPECIFIED Status: Acute (7) Chronic anemia Code(s): D64.9 - ANEMIA, UNSPECIFIED Status: Chronic (8) ESRD on peritoneal dialysis Code(s): N18.6 - END STAGE RENAL DISEASE; Z99.2 - DEPENDENCE ON RENAL DIALYSIS Status: Chronic (9) Hypertension Code(s): I10 - ESSENTIAL (PRIMARY) HYPERTENSION Status: Chronic QualifierTitle: Hypertension type: essential hypertension Qualified Code( s): I10 - Essential (primary) hypertension - Plan Plan: 1. Hypertensive Emergency The patient had BP elevated to 200s/120s. She had associated N/V, headache, elevated troponins. There was concern for TIA as well so did not bring BP down very quickly, but tried to keep it below 180/90. Her BP has been 129/96-172/118 in the past 24 hours. The patient is asymptomatic with these BP's -Restarted home BP meds, except clonidine has been held due to bradycardia -Lisinopril was increased from 10mg-20mg -PRN labetalol 2. Non-ischemic Cardiomyopathy, suspect Takutsubo's Cardiomyopathy The patient developed elevated troponins that have continued to trend up, this could be 2/2 HTN emergency vs a true NSTEMI. The patient also had a 6 minute run of SVT with intermittent v-tach as well as sinus tachycardia to the 120s. She was reported by the ED physician to be in sinus bradycardia to the 40's intially. Cardiac cath on 10/14 showed normal coronary arteries with LVEF of 25%, which is markedly reduced from her normal EF one month ago. She also had akinesis of mid and distal anterior wall, apex, mid and distal inferior wall. -Cardiology has been consulted, appreciate recs -Coreg added -Monitor on tele -Patient will be d/c'd home with a lifevest and will f/u with Dr. Regalado in 3 months for ICD placement 3. Paroxysmal atrial arrthymias with RVR -Dr. Regalado with EP has been consulted, appreciate recs -Started on amiodarone and coreg -Per EP, patient would benefit from coumadin for anticoagulation. Her CHADS- Vasc score is 5 and her HAS-BLED is 3. The patient is high risk either way. A conversation will be had with the patient so that the patient can make an educated and informed decision regarding whether or not she wants to be anticoagulated. 4. TIA CT head, MRI/MRA head/neck were all within normal limits and stable from prior. The patient does have a h/o prior CVA. Her symptoms were likely related to HTN Emergency, but the patient has had a recent CVA and has many risk factors. -admit stroke obs -Aspirin -High dose statin 5. V-tach, resolved The patient also had a 6 minute run of SVT with intermittent v-tach as well as sinus tachycardia to the 120s. She was reported by the ED physician to be in sinus bradycardia to the 40's intially. Likely 2/2 hypokalemia -EP has been consulted, appreciate recs -Monitor on tele 6. ESRD on PD Dr. Flores is helpdesk administrator -Nephro has been consulted, appreciate recs -Continue PD nightly 7. Hypokalemia chronic, on PD nightly 2/2 ESRD -Nephrology on board, appreciate recs -cont K+ 20 BID 8. Hyponatremia chronic, on PD 2/2 ESRD nightly -Nephro on board, appreciate recs -slightly lower than baseline today, likely 2/2 N/V <Loly Carmichael - Last Filed: 10/16/17 11:52> Attending Addendum - Attending Addendum Date/Time: 10/16/17 4452 I personally evaluated the patient and discussed the management with Dr. Carmichael. I agree with the History, Examination, Assessment and Plan documented above with any addition or exceptions noted below. <Shar Hall - Last Filed: 10/16/17 13:49>
--- NOTE | 2017-10-16 09:02 | PRG ---
DATE OF SERVICE: 10/16/2017 RENAL MEDICINE SUBJECTIVE: Ms. Chavarria is a 52-year-old black female with ESRD and being followed up for her nocturn al peritoneal dialysis. She is doing well with the peritoneal dialysis. We are going to continue e current PD regimen. No new complaints. Recently, she underwent a cardiac catheterization with nor mal coronaries, but she was found to have a stress induced cardiomyopathy. She has also developed ar rhythmia post-cardiac catheterization. For this reason, Dr. Regalado, the marketing performance analyst was consul latoya and the plan is to place an AICD with a few months after discharge. She is declining any invasiv e procedure at the present time. She will be sent home on a LifeVest. Recommendation by Dr. Regalado is to anticoagulate her with Coumadin rather than Eliquis. PHYSICAL EXAMINATION: VITAL SIGNS: Blood pressure 140/87, heart rate 60, respiratory rate 16, temperature 98.6, pulse ox 9 7%. GENERAL: Noted to be awake, alert, comfortable, not in distress. SKIN: Adequate turgor. HEENT: She has slightly pale conjunctivae, anicteric sclerae. NECK: No neck mass, no carotid bruits, no JVD. CHEST: No deformities. LUNGS: Clear breath sounds. HEART: Normal sinus rhythm. No murmurs, no gallops, no rubs. ABDOMEN: Globular, soft, nontender, no masses. EXTREMITIES: No edema, no deformities. MEDICATIONS: Medications of 10/16/2017 reviewed. LABORATORY DATA: Laboratories of 10/16/3017; white count 8.8, hemoglobin 9.8, hematocrit 31.7, sodiu m 132, potassium 3.6, chloride 98, carbon dioxide 22, BUN 32, creatinine 7.4, glucose 101, and calciu m 8.5. ASSESSMENT AND PLAN: 1. Cardiomyopathy - eventual AICD placement after discharge. Took home on LifeVest. 2. Paroxysmal atrial fibrillation - recommendation to anticoagulate her with Coumadin per Cardiology . 3. End-stage renal disease, stable. Continue current peritoneal dialysis. No changes will be made with current peritoneal dialysis regimen. 4. Borderline anemia. We will continue to observe. We will resume Epogen in the outpatient setting . Agree with current management.
--- NOTE | 2017-10-16 10:25 | PRG ---
DATE OF SERVICE: 10/16/2017 SUBJECTIVE: Ms. Chavarria seems to be doing well today. No recurrent palpitations or arrhythmias are noted. She was started on amiodarone yesterday after a prolonged episode of atypical flutter/tachycardia. OBJECTIVE DATA: VITAL SIGNS: Blood pressure is 140/87, heart rate 60, respirations 16, temperature 98.6 degrees Fahrenheit. GENERAL: Alert and oriented woman in no apparent distress. NECK: Supple. Jugular veins not distended. CHEST: Coarse without crackles. CARDIOVASCULAR: Heart sounds are regular to rate and rhythm. No murmur or gallop. ABDOMEN: Benign. Bowel sounds positive. EXTREMITIES: Lower extremities with no edema, clubbing or cyanosis. DATABASE: The left heart catheterization results reviewed revealing LVEF 25% with akinesis and mid septal and distal anterior wall apex and mid and distal inferior wall typical for Takotsubo type of cardiomyopathy. The coronary arteries seems to be patent. LABORATORY DATA: Hemoglobin 9.8, white cells 8.8, platelet count is 157. INR 1.1. BUN is 32, creatinine 7.43 HISTORY OF PRESENT ILLNESS: Ms. Chavarria is a pleasant 52-year-old woman with history of end-stage renal disease who has peritoneal dialysis, was admitted with some altered mental status. She was noted to have a markedly reduced LV function on the workup. She also has been noted to have tachyarrhythmia's, to be atrial fibrillation, but also later atypical atrial flutters are also seen. Wide complex arrhythmia run during her atrial fibrillation was noted which could have been due to aberrant conduction of atrial fibrillation versus ventricular tachycardia. Thsi was in the setting of low potassium. Her left heart catheterization reveals a possible Takotsubo type cardiomyopathy. We discussed these issues. She has nonischemic cardiomyopathy, possibly though with a vasospastic Takotsubo type of component. It will be reasonable for medical therapy at this time. Hence to improve the chance of recovery without atrial arrhythmias, amiodarone could be considered, although might need to be monitored for bradycardia. If her paroxysmal wide complex tachycardia and the atrial fibrillation was in the setting of markedly decreased potassium. Potassium needs to be tried to be kept in normal range. Nevertheless, she still has some chance of ventricular arrhythmia recurrence, as we reviewed the LVEF and we recommended a LifeVest. She could be considered for anticoagulation, possibly warfarin, has end-stage renal disease. [facility]
[2017-10-16] MEDS: Calcitriol 0.25 MCG CAP PO SCH (11:29)
[2017-10-16] MEDS: Sevelamer Carbonate 800 MG TAB PO SCH (11:30)
[2017-10-16] MEDS: hydrALAZINE 25 MG TAB PO SCH (11:30)
[2017-10-16] MEDS: Lisinopril 20 MG TAB PO SCH (11:30)
[2017-10-16] MEDS: Amiodarone 200 MG TAB PO SCH (11:30)
[2017-10-16] MEDS: Aspirin 325 mg Enteric Coated Tablet PO SCH (11:31)
[2017-10-16] MEDS: Carvedilol 6.25 MG TAB PO SCH (11:31)
[2017-10-16] MEDS: Potassium Chloride 20 MEQ TAB PO SCH (11:31)
[2017-10-16 12:00] VITALS: TEMP 97.6
[2017-10-16] MEDS ORDERED: Amlodipine 5 MG TAB PO SCH (13:15)
--- NOTE | 2017-10-16 13:22 | PRG ---
DATE OF SERVICE: 10/16/2017 Ms. Chavarria is doing well. She has had no further atrial arrhythmias. She is doing well at the present time. No chest pain or pressure. Her blood pressure is high at 182 /106, but she was kind of late getting her medicines. The nurse said that she was sleepy and did not want to take the medicines earlier. PHYSICAL EXAMINATION: VITAL SIGNS: Blood pressures have been variable. The pulse is 60, sinus. LUNGS: Clear. CARDIAC: Normal S1, normal S2. ABDOMEN: Soft, nontender. EXTREMITIES: There is no edema. ASSESSMENT: 1. Status post Takotsubo cardiomyopathy. 2. Supraventricular arrhythmias which became a wide complex tachycardia, likely ventricular tachycar manuela, currently controlled. 3. Sinus rhythm and sinus bradycardia, heart rate of 60. 4. End-stage renal disease on peritoneal dialysis. 5. History of hypokalemia. 6. Hypertension, labile. PLAN: 1. She is going to go home on LifeVest for at least a month. Recommend an echocardiogram in a month . If ejection fraction is over 40% we will not need to continue LifeVest. 2. She is on amiodarone. Heart rate has been relatively low. We will reduce amiodarone to 200 mg t wice a day. 3. Cannot take a beta shelia other than amiodarone for now. Cannot take Coreg due to relatively lo w heart rate. 4. She is on PANKAJ inhibitor, lisinopril. 5. She is on potassium. 6. Atorvastatin. 7. Aspirin 81 mg daily. 8. Isosorbide 30 mg a day. 9. At this time, I do not recommend anticoagulation. She has had only brief episodes of atrial fibr illation. I think the risk of anticoagulation in this patient on dialysis is quite significant. The benefit is questionable in view of the fact that she has really not had any atrial fibrillation more than a few minutes at a time. If we did start detecting atrial fibrillation as an outpatient antico agulation could be considered, but at this time, I do think the risk-benefit ratio favors anticoagula tion. She has had very little atrial fibrillation, probably only a few minutes total, a lot of it webster s been supraventricular arrhythmias, in fact that the vast majority of it. 10. She will see us in the office in about 3 weeks. Consider echo in 4 weeks as outlined above and bring all medicines.
[2017-10-16] MEDS ORDERED: hydrALAZINE 25 MG TAB PO SCH ×2 (15:00)
[2017-10-16 16:15] VITALS: BP 140/102
--- NOTE | 2017-10-16 17:35 | EKG ---
Test Reason : TACHTCARDIA Blood Pressure : / mmHG Vent. Rate : 114 BPM Atrial Rate : 119 BPM P-R Int : 000 ms QRS Dur : 080 ms QT Int : 368 ms P-R-T Axes : 065 -12 197 degrees QTc Int : 507 ms Probable atrial tachycardia T wave abnormality, consider inferolateral ischemia Abnormal ECG When compared with ECG of 12-OCT-2017 17:44, Vent. rate has increased BY 50 BPM QRS axis Shifted right Confirmed by DR. Griselda WADE ([id number]) on 10/16/2017 5:35:32 PM Referred By: MAURO Confirmed By:DR. Griselda WADE
--- NOTE | 2017-10-16 17:41 | EKG ---
Test Reason : Blood Pressure : / mmHG Vent. Rate : 131 BPM Atrial Rate : 131 BPM P-R Int : 134 ms QRS Dur : 082 ms QT Int : 312 ms P-R-T Axes : 068 -19 165 degrees QTc Int : 460 ms Sinus tachycardia Abnormal ECG When compared with ECG of 14-OCT-2017 12:08, (Unconfirmed) Sinus rhythm is no longer with 2nd degree A-V block (Mobitz I) Nonspecific T wave abnormality, improved in Inferior leads Confirmed by DR. Griselda WADE ([id number]) on 10/16/2017 5:41:00 PM Referred By: MAURO Confirmed By:DR. Griselda WADE
--- NOTE | 2017-10-16 20:08 | DIS-2 ---
DATE OF ADMISSION: 10/12/2017 DATE OF DISCHARGE: 10/16/2017 ADMITTING RESIDENT: Morgan Milan D.O. DISCHARGE RESIDENT: Loly Carmichael M.D. ADMITTING ATTENDING: Yvon Wan M.D. DISCHARGE ATTENDING: Shar Hall M.D. CONSULTATIONS 1. Dr. Zheng with Cardiology. 2. Dr. Perez with Electrophysiology. 3. Dr. Flores with Nephrology. PROCEDURES: Cardiac catheterization on 10/14/2017 that showed ejection fraction of 25%, akinesis of the mid and distal anterior wall, apex, mid and distal inferior wall, normal coronary arteries. PRIMARY DIAGNOSES: 1. Hypertensive emergency. 2. Nonischemic cardiomyopathy, suspect Takotsubo's cardiomyopathy. 3. Paroxysmal atrial fibrillation with rapid ventricular response. 4. Nonsustained ventricular tachycardia. 5. Transient ischemic attack, suspected. 6. Hypokalemia. 7. Hyponatremia. 8. End-stage renal disease on peritoneal dialysis. 9. Intermittent bradycardia. SECONDARY DIAGNOSES: 1. History of lacunar cerebrovascular accident. 2. Gastroesophageal reflux disease. 3. Tobacco abuse. DISCHARGE MEDICATIONS: 1. Calcitriol 0.5 mcg p.o. daily. 2. Isosorbide mononitrate 30 mg p.o. daily. 3. Pantoprazole 40 mg p.o. daily. 4. Potassium chloride 20 mEq p.o. b.i.d. 5. Sertraline 50 mg p.o. daily. 6. Sevelamer carbonate 800 mg p.o. b.i.d. with meals. 7. Amiodarone 200 mg p.o. b.i.d. 8. Amlodipine 5 mg p.o. daily. 9. Aspirin 81 mg p.o. daily. 10. Atorvastatin 40 mg p.o. at bedtime. 11. Hydralazine 100 mg p.o. t.i.d. 12. Lisinopril 20 mg p.o. daily. DISCONTINUED MEDICATIONS: Clonidine. HISTORY OF PRESENT ILLNESS AND HOSPITAL COURSE: This is a 52-year-old female with past medical histo ry of end-stage renal disease on peritoneal dialysis and a history of lacunar CVA, who presented with left-sided neurologic symptoms including left upper extremity tremor as well as dizziness and headac he. The patient was found to have significantly elevated blood pressures in the 220 systolic. The p atient had initially negative CT head and the rest of her workup for CVA was negative. The patient's blood pressure was brought down slowly in the setting of concern for cerebrovascular accident versus hypertensive emergency. The patient was found also to have an elevated troponin initially 0.216. T his up trended into the positive range and got as high as 2.044. Cardiology was consulted and electe d to do a cardiac catheterization. This revealed a significantly decreased ejection fraction from 1 month prior from a normal ejection fraction to left ventricular ejection fraction of 25% as well as a kinesis of parts of the heart as mentioned above. The patient had suspected Takotsubo's cardiomyopat hy due to normal coronary arteries. The patient's blood pressure was controlled; however, her clonid ine was discontinued due to episodes of bradycardia as well as atrial arrhythmias including atrial fi brillation with RVR into the 150s and she had an episode of nonsustained ventricular tachycardia, so Dr. Regalado with EP was consulted and he recommended that the patient potentially have an ICD placed in 3 months and follow up with him as an outpatient, but have a LifeVest placed at this time. The patie nt was loaded on amiodarone and due to the clonidine being discontinued, her lisinopril was increased by Dr. Flores and she was started on amlodipine by Dr. Zheng. The patient continued peritoneal dialys is through her entire hospitalization as managed by Dr. Flores. Towards the end of her hospitalization discussion came up whether or not the patient was a candidate for anticoagulation. This discussion w as brought up with the patient and she was educated about the risks and benefits of anticoagulation v ersus not being anticoagulated for her paroxysmal atrial fibrillation. The patient elected to not be anticoagulated at this time. The patient was asymptomatic. Her last couple of days in the hospital ; however, she stayed to receive a LifeVest and have her blood pressure better controlled. She was e ducated about the LifeVest as well as her family. On the day of discharge and expressed understandin g. The patient will follow up with Dr. Zheng and Dr. Regalado as an outpatient. DISPOSITION: Guarded due to the patient's significant comorbidities; however, stable from the standp oint of her current hospitalization. DISCHARGE INSTRUCTIONS: 1. Location: Home. 2. Diet: Renal, high protein, heart healthy and fluid restricted. 3. Activity: As tolerated. 4. Follow up with [facility] physicians within [address] Flores within [address] Regalado within [address] Zheng within 3-4 weeks.
[2017-10-16] MEDS ORDERED: Amiodarone 200 MG TAB PO SCH (21:00)
[2017-10-17] MEDS ORDERED: Aspirin 81 mg Enteric Coated Tablet PO SCH (09:00)
[2017-10-17] MEDS ORDERED: Amlodipine 5 MG TAB PO SCH (09:00)
--- NOTE | 2017-10-18 15:13 | EKG ---
Test Reason : Blood Pressure : / mmHG Vent. Rate : 064 BPM Atrial Rate : 064 BPM P-R Int : 164 ms QRS Dur : 096 ms QT Int : 480 ms P-R-T Axes : 040 -44 060 degrees QTc Int : 495 ms Sinus rhythm with occasional Premature ventricular complexes Left axis deviation Cannot rule out Anterior infarct , age undetermined Abnormal ECG Confirmed by SPARKLE SOTO ([id number]), supervising film or videotape editor JENNIFER SOLOMON ([id number]) on 10/18/2017 3:12:51 PM Referred By: Confirmed By:SPARKLE SOTO
[2017-10-18 20:42] LABS: Critical Call Chem Troponin I RESULT DECREASING; Troponin I 0.698 ng/mL (< 0.028)
[2017-10-19 00:24] LABS: Troponin I 0.701 ng/mL (< 0.028)
== END 2017-10-16 16:04 | disposition home or self-care (01) | DRG 69 ==
LOC: ERS 21:40 → 2SE 10-12 00:14 → OBSVTOIN 10-12 18:43
PROVIDERS: ADMIT Student in an Organized Health Care Education/Training Program; ATTEND Student in an Organized Health Care Education/Training Program
PROC: 3E1M39Z Irrigation of Peritoneal Cavity using Dialysate, Percutaneous Approach (ICD-10-PCS; principal; 2017-10-12)
PROC: 4A023N7 Measurement of Cardiac Sampling and Pressure, Left Heart, Percutaneous Approach (ICD-10-PCS; 2017-10-14)
PROC: B2111ZZ Fluoroscopy of Multiple Coronary Arteries using Low Osmolar Contrast (ICD-10-PCS; 2017-10-14)
PROC: B2151ZZ Fluoroscopy of Left Heart using Low Osmolar Contrast (ICD-10-PCS; 2017-10-14)
DX: G45.9 Transient cerebral ischemic attack, unspecified (principal); I47.2 Ventricular tachycardia; I13.11 Hypertensive heart and chronic kidney disease without heart failure, with stage 5 chronic kidney disease, or end stage renal disease; E87.1 Hypo-osmolality and hyponatremia; N18.6 End stage renal disease; I51.81 Takotsubo syndrome; I48.0 Paroxysmal atrial fibrillation; Z99.2 Dependence on renal dialysis; Z79.82 Long term (current) use of aspirin; Z98.1 Arthrodesis status; F17.210 Nicotine dependence, cigarettes, uncomplicated; E87.6 Hypokalemia; Z86.73 Personal history of transient ischemic attack (TIA), and cerebral infarction without residual deficits; I16.0 Hypertensive urgency; K21.9 Gastro-esophageal reflux disease without esophagitis
CPT/HCPCS: 36415; 36416; 70450; 70544; 70547; 71045; 76942; 80048; 80053; 80061; 80307; 81003; 81015; 82330; 82553; 82803; 83605; 83690; 83735; 83880; 84439; 84443; 84484; 85025; 85610; 85730; 87804; 90945; 93005; 93010; 93306; 93458; 93798; 96365; 96375; 99152; 99406; A4216; C1769; G0257; J0360; J1200; J1644; J2001; J2250; J2405; J2550; J2765; J3010; J3475; J7506

== ENCOUNTER 2017-10-18 12:33 | Inpatient (IN) | payer MEDICARE, MEDICAID ==
[2017-10-18] MEDS ORDERED: Ondansetron ODT 4 MG TAB ONE (12:55)
[2017-10-18 13:21] LABS: #Basophils 0.1 thou/uL (0.0-0.2); #Eosinphils 0.3 thou/uL (0.0-0.7); #Lymphocytes 2.2 thou/uL (1.20-3.40); #Monocytes 0.8 thou/uL (0.11-0.59); #Neutrophils 7.1 thou/uL (1.40-6.50); %Basophils 1.2 % (0.0-1.0); %Eosinophils 2.6 % (0.0-10.0); %Lymphocytes 20.9 % (21.0-51.0); %Monocytes 7.6 % (0.0-10.0); %Neutrophils 67.8 % (42.0-75.0); Hemoglobin 10.3 g/dL (12.0-16.0); Mean Corpuscular HGB CONC 32.5 g/dL (32.0-36.0); Mean Corpuscular Hemoglobin 29.9 pg (27.0-31.0); Mean Corpuscular Volume 92.1 fl (81.0-99.0); Mean Platelet Volume 9.4 fL (7.4-10.4); Platelet Count 162 thou/uL (130-400); RBC Distribution Width 16.1 % (11.5-14.5); Red Blood Cell (RBC) Count 3.44 mill/uL (4.20-5.40); White Blood Cell (WBC) Count 10.4 thou/uL (4.8-10.8)
[2017-10-18 13:46] LABS: ALT (SGPT) 14 U/L (8-55); AST (SGOT) 19 U/L (5-34); Albumin 2.9 g/dL (3.5-5.0); Alkaline Phosphatase 98 U/L (40-150); Anion Gap 14 mmol/L (10-20); BUN (Urea Nitrogen) 34 mg/dL (9.8-20.1); Bilirubin, Total 0.4 mg/dL (0.2-1.2); CK (CPK) 64 U/L (29-168); Calc. Creatinine Clearance 0 mL/min (70-130); Calcium 8.7 mg/dL (7.8-10.44); Carbon Dioxide 26 mmol/L (22-29); Chloride 96 mmol/L (98-107); Estimated GFR-MDRD 6; Globulin 3.5 g/dL (2.4-3.5); Glucose 86 mg/dL (70-105); Lipase 46 U/L (8-78); Potassium 3.8 mmol/L (3.5-5.1); Protein, Total 6.4 g/dL (6.0-8.3); Sodium 132 mmol/L (136-145)
[2017-10-18 13:50] LABS: CKMB 6.4 ng/mL (0-6.6)
[2017-10-18 13:58] LABS: Troponin I 0.766 ng/mL (< 0.028)
[2017-10-18] MEDS ORDERED: Nitroglycerin 2% Ointment 1 INCH/1 GM Packet ONE (14:51)
--- NOTE | 2017-10-18 15:01 | RAD ---
PORTABLE CHEST: Date: 10/18/17 PROVIDED CLINICAL HISTORY: Weakness. FINDINGS: Comparison with 10/11/17. The cardiac silhouette remains prominent enlarged. Prominence of the pulmonary vasculature and pulmon rae interstitium are noted. The left lung base is poorly evaluated on the basis of cardiomegaly. Give n this limitation, no focal consolidation, pleural fluid, or pneumothorax apparent. IMPRESSION: Cardiomegaly and findings suggesting congestive failure. POS: ODELL
--- NOTE | 2017-10-18 15:22 | PDOC.FPRHP ---
- History of Present Illness Chief Complaint: Nausea History of Present Illness: 52 yo female presents with chief complaint of nausea. She was discharged from the hospital 2 days ago for Hypertensive Emergency. She now complains of two days of fatigue, myalgias, nausea, and weakness. She states it basically began the day that she was discharged from the hospital. She denies any worsening cough, sob, vomiting, or diarrhea. She denies sick contacts. She denies chest pain, headaches, or vision changes. She was discharged from the hospital with a life vest, but has been inconsistent in wearing it. She states that she also had a fall today where she could not get back up. She states that she did not hurt herself or lose consciousness. No other complaints offered today. ED Course: -Nitrobid -Aspirin -Zofran - Allergies/Adverse Reactions Allergies Allergy/AdvReac Type Severity Reaction Status Date / Time iodine Allergy Intermediate Rash Verified 07/17/17 17:22 - Home Medications Medication Instructions Recorded Confirmed Type Isosorbide Mononitrate [Isosorbide 30 mg PO DAILY 09/13/17 10/18/17 History Mononitrate ER] Atorvastatin Calcium [Lipitor] 40 mg PO HS #30 tab 09/15/17 10/18/17 Rx Calcitriol 0.5 mcg PO DAILY 10/12/17 10/18/17 History Pantoprazole Sodium 40 mg DAILY 10/12/17 10/18/17 History Potassium Chloride [K-Dur] 20 meq PO BID 10/12/17 10/18/17 History Sertraline HCl 50 mg PO DAILY 10/12/17 10/18/17 History Sevelamer Carbonate [Renvela] 800 mg PO BID-WM 10/12/17 10/18/17 History hydrALAZINE HCl 100 mg PO TID 10/12/17 10/18/17 History Amiodarone [Cordarone] 200 mg PO BID tab 10/16/17 10/18/17 Rx Amlodipine [Norvasc] 5 mg PO DAILY #30 tab 10/16/17 10/18/17 Rx Aspirin [Ecotrin Low Strength] 81 mg PO DAILY #30 tab 10/16/17 10/18/17 Rx Lisinopril [Zestril] 20 mg PO DAILY #30 tab 10/16/17 10/18/17 Rx - History PMHx: CKD V on PD, recent cva/tia, HTN, bipolar 1 disorder, systolic CHF, Paroxysmal A-fib. PSHx: cervical fusion, peritoneal dialysis catheter placement, , Tubal ligation FHx: cousin DMII Social: current everyday smoker, non drinker, no drugs - Review of Systems General: denies: fever/chills Eyes: denies: eye pain, vision changes ENT: denies: nasal congestion, rhinorrhea Respiratory: denies: cough, shortness of breath Cardiovascular: denies: chest pain, palpitation Gastrointestinal: reports: nausea. denies: vomiting, diarrhea, constipation Skin: denies: rashes, lesions, jaundice Neurological: denies: numbness, syncope, seizure, weakness - Vital signs BP: [169/108] HR: [74] RR: [22] Tmax: [98.6] Pox: [97]% on [RmAir] Wt: [92 kg ] - Physical Exam Constitutional: NAD, awake, alert and oriented HEENT: normocephalic and atraumatic, PERRLA, conjunctiva clear, no scleral icterus, TM's clear and intact, grossly normal hearing, normal nasal mucosa, oropharynx clear Neck: supple, trachea midline Heart: RRR, normal S1/S2, no murmurs/rubs/gallops -Heart: 1+ pitting edema bilaterally. Lungs: CTAB, no wheezing Abdomen: soft, non-tender, bowel sounds present, no masses/distention Musculoskeletal: normal structure, normal tone, ROM grossly normal Neurological: no focal deficit, CN II-XII intact, normal sensation Skin: no rash/lesions Heme/Lymphatic: no unusual bruising or bleeding Psychiatric: normal mood and affect, good judgment and insight, intact recent and remote memory FMR H&P: Results - Labs Result Diagrams: 10/18/17 13:16 10/19/17 04:57 Lab results: WBC 10.4 thou/uL (4.8-10.8) 10/18/17 13:16 Hgb 10.3 g/dL (12.0-16.0) L 10/18/17 13:16 Hct 31.7 % (36.0-47.0) L 10/18/17 13:16 MCV 92.1 fl (81.0-99.0) 10/18/17 13:16 Plt Count 162 thou/uL (130-400) 10/18/17 13:16 Neutrophils % 67.8 % (42.0-75.0) 10/18/17 13:16 Sodium 132 mmol/L (136-145) L 10/18/17 13:16 Potassium 3.8 mmol/L (3.5-5.1) 10/18/17 13:16 Chloride 96 mmol/L (98-107) L 10/18/17 13:16 Carbon Dioxide 26 mmol/L (22-29) 10/18/17 13:16 BUN 34 mg/dL (9.8-20.1) H 10/18/17 13:16 Creatinine 8.42 mg/dL (0.6-1.1) H 10/18/17 13:16 Glucose 86 mg/dL (70-105) 10/18/17 13:16 Calcium 8.7 mg/dL (7.8-10.44) 10/18/17 13:16 Total Bilirubin 0.4 mg/dL (0.2-1.2) 10/18/17 13:16 AST 19 U/L (5-34) 10/18/17 13:16 ALT 14 U/L (8-55) 10/18/17 13:16 Alkaline Phosphatase 98 U/L (40-150) 10/18/17 13:16 Creatine Kinase 64 U/L (29-168) 10/18/17 13:16 CK-MB (CK-2) 6.4 ng/mL (0-6.6) 10/18/17 13:16 B-Natriuretic Peptide 6466.4 pg/mL (0-100) H 10/18/17 13:16 Serum Total Protein 6.4 g/dL (6.0-8.3) 10/18/17 13:16 Albumin 2.9 g/dL (3.5-5.0) L 10/18/17 13:16 Lipase 46 U/L (8-78) 10/18/17 13:16 - EKG Interpretation EKG: Normal sinus rhythm. Rate 81, Prolonged QT 503 FMR H&P: A/P - Problem List (1) Acute exacerbation of CHF (congestive heart failure) Current Visit: Yes Status: Acute Code(s): I50.9 - HEART FAILURE, UNSPECIFIED (2) Non-ischemic cardiomyopathy Current Visit: No Status: Acute Code(s): I42.8 - OTHER CARDIOMYOPATHIES (3) ESRD on peritoneal dialysis Current Visit: No Status: Chronic Code(s): N18.6 - END STAGE RENAL DISEASE; Z99.2 - DEPENDENCE ON RENAL DIALYSIS (4) Hypertension Current Visit: No Status: Chronic Code(s): I10 - ESSENTIAL (PRIMARY) HYPERTENSION Qualifiers: Hypertension type: essential hypertension Qualified Code(s): I10 - Essential (primary) hypertension (5) Tobacco abuse Current Visit: No Status: Chronic Code(s): Z72.0 - TOBACCO USE (6) Elevated troponin Current Visit: Yes Status: Acute Code(s): R74.8 - ABNORMAL LEVELS OF OTHER SERUM ENZYMES (7) Elevated brain natriuretic peptide (BNP) level Current Visit: No Status: Acute Code(s): R79.89 - OTHER SPECIFIED ABNORMAL FINDINGS OF BLOOD CHEMISTRY (8) Hyponatremia Current Visit: No Status: Acute Code(s): E87.1 - HYPO-OSMOLALITY AND HYPONATREMIA (9) Chronic anemia Current Visit: No Status: Chronic Code(s): D64.9 - ANEMIA, UNSPECIFIED - Plan 1. Acute CHF exacerbation - Last ECHO on 10/12/17 showed EF of 25-30% - Will trend BNP - Fluid restriction - Continue PD 2. Non-ischemic cardiomyopathy - Recommend wearing life vest device - Continue home medications 3. ESRD on PD - Consult Nephrology, Appreciate recs - Dr. Flores has recommended HD, but patient resistant 4. HTN - Continue home meds 5. Tobacco abuse - Still current everyday smoker - Counseled on cessation 6. Hyponatremia - Likely secondary to PD - At baseline - Monitor with BMP 7. Elevated BNP - 6600 on admission - Significant increase from last hospitalization - Likely secondary to #1 8. Elevated Troponin - Decreased from last hospitalization - Will trend to ensure decrease - Will repeat EKG if symptomatic 9. Chronic Anemia - At baseline CODE STATUS: FULL CODE Disposition: Guarded, Will await Nephrology recs. Also counseled patient on polls or surveys interviewer placement and patient is agreeable. FMR H&P: Upper Level - Pertinent history 52 yo female here for nausea, myalgias "not feeling well all over." Hx ESRD on PD, CHF, HTN. Was discharged 2 days ago and was ruled out for CP and elevated troponins. Since that time, patient has been feeling bad with increased abdomen and leg swelling. Denies CP, SOB. - Pertinent findings GEN: NAD, AAOx3 CV: RRR, trace pitting edema b/l legs, pain with firm squeezing Pulm: CTAb GI: BSx4, NT - Plan Date/Time: 10/18/17 [id number] I, Luis Ty DO, have evaluated this patient and agree with findings/plan as outlined by post graduate intern resident. Pertinent changes/additions are listed here. 1. ESRD on PD fluid overloaded Discuss with Mark to see if patient would be candidate for HD fluid restriction 2. CHF exacerbation worsening, patient already on medical management continue to monitor 3. HTN continue to monitor with home medications 4. non-ischemic cardiomyopathy 5. Elevated troponin continue to trend 6. Elevated BNP fluid restriction elevated compared to value last week 7. Hyponatremia recheck in AM, limited in fluid to replace 2/[address] Flores consulted, recs appreciated 8. Tobacco abuse 9. Deconditioning PT/OT placement in rehab, CM consult SCDs Full code Attending Addendum - Attending Addendum Date/Time: 10/19/17 7904 I personally evaluated the patient and discussed the management with Dr. Miller today. I discussed the care plan with Dr Miller at the time of admission yesterday as well. I agree with the History, Examination, Assessment and Plan documented above with any addition or exceptions noted below.
[2017-10-18 19:29] LABS: Critical Call Chem Troponin I RESULT DECREASING; Troponin I 0.719 ng/mL (< 0.028)
[2017-10-18] MEDS ORDERED: Nitroglycerin 2% Ointment 1 INCH/1 GM Packet TOP SCH (21:00)
[2017-10-18] MEDS: Heparin 5,000 UNITS/ML VIAL SC SCH (22:07)
[2017-10-18] MEDS: Acetaminophen 325 MG TAB PO PRN (22:07)
[2017-10-19 05:53] LABS: Anion Gap 14 mmol/L (10-20); BUN (Urea Nitrogen) 33 mg/dL (9.8-20.1); Calc. Creatinine Clearance 13 mL/min (70-130); Calcium 8.5 mg/dL (7.8-10.44); Carbon Dioxide 24 mmol/L (22-29); Chloride 97 mmol/L (98-107); Estimated GFR-MDRD 6; Glucose 112 mg/dL (70-105); Potassium 3.3 mmol/L (3.5-5.1); Sodium 132 mmol/L (136-145)
[2017-10-19 07:15] LABS: Troponin I 0.678 ng/mL (< 0.028)
--- NOTE | 2017-10-19 07:27 | PDOC.FM ---
- Subjective Subjective: This morning patient states she is still feeling weak overall. She states she is having a mild productive cough. She denies swelling. She states she her exercise tolerance is decreased and she does not feel like she would be able to walk to the bathroom. She has been considering whether or not to pursue hemodialysis but does not like the idea of having to go to a dialysis center. She is interested in inpatient rehab. - Objective Vital Signs & Weight: Vital Signs (12 hours) Temp Pulse Resp BP Pulse Ox 10/19/17 04:00 97.8 F 64 18 170/108 H 96 10/18/17 23:42 97.9 F 79 18 159/92 H 96 10/18/17 21:05 98.9 F 70 19 96 Weight Weight 100.516 kg I&O: 10/18/17 10/19/17 10/20/17 05:59 06:59 06:59 Intake Total Balance Result Diagrams: 10/18/17 13:16 10/19/17 04:57 <Luis Mike - Last Filed: 10/19/17 07:25> - Objective Vital Signs & Weight: Vital Signs (12 hours) Temp Pulse Resp BP BP Pulse Ox 10/19/17 08:41 65 10/19/17 08:38 98.3 F 65 19 197/117 H 99 10/19/17 04:00 97.8 F 64 18 170/108 H 96 10/18/17 23:42 97.9 F 79 18 159/92 H 96 Weight Weight 100.516 kg I&O: 10/18/17 10/19/17 10/20/17 05:59 06:59 06:59 Intake Total Balance Result Diagrams: 10/18/17 13:16 10/19/17 04:57 <Shar Hall - Last Filed: 10/19/17 10:21> Phys Exam - Physical Examination Constitutional: NAD HEENT: PERRLA, moist MMs Neck: no nodes, full ROM Respiratory: no wheezing mild decreased breath sounds at the bases bilaterally Cardiovascular: RRR, no significant murmur Gastrointestinal: soft, non-tender, no distention, positive bowel sounds Musculoskeletal: no edema, pulses present Neurological: non-focal, moves all 4 limbs Lymphatic: no nodes Psychiatric: normal affect, A&O x 3 Skin: no rash, cap refill <2 seconds <Luis Mike - Last Filed: 10/19/17 07:25> Dx/Plan (1) Acute exacerbation of CHF (congestive heart failure) Code(s): I50.9 - HEART FAILURE, UNSPECIFIED Status: Acute (2) Elevated troponin Code(s): R74.8 - ABNORMAL LEVELS OF OTHER SERUM ENZYMES Status: Acute (3) Atrial fibrillation Code(s): I48.91 - UNSPECIFIED ATRIAL FIBRILLATION Status: Acute (4) Elevated brain natriuretic peptide (BNP) level Code(s): R79.89 - OTHER SPECIFIED ABNORMAL FINDINGS OF BLOOD CHEMISTRY Status : Acute (5) Hyponatremia Code(s): E87.1 - HYPO-OSMOLALITY AND HYPONATREMIA Status: Acute (6) Non-ischemic cardiomyopathy Code(s): I42.8 - OTHER CARDIOMYOPATHIES Status: Acute (7) Bipolar disorder in remission Code(s): F31.70 - BIPOLAR DISORD, CURRENTLY IN REMIS, MOST RECENT EPISODE UNSP Status: Chronic (8) ESRD on peritoneal dialysis Code(s): N18.6 - END STAGE RENAL DISEASE; Z99.2 - DEPENDENCE ON RENAL DIALYSIS Status: Chronic (9) Hypertension Code(s): I10 - ESSENTIAL (PRIMARY) HYPERTENSION Status: Chronic QualifierTitle: Hypertension type: essential hypertension Qualified Code( s): I10 - Essential (primary) hypertension (10) TIA (transient ischemic attack) Status: Suspected QualifierTitle: Transient cerebral ischemia type: unspecified Qualified Code(s): G45.9 - Transient cerebral ischemic attack, unspecified - Plan Plan: # Acute CHF exacerbation - Last ECHO on 10/12/17 showed EF of 25-30% - BNP 6,800 -> 4,800 - Fluid restriction 1500L, strict I&Os - Continue PD # ESRD on PD - Consult Nephrology, Appreciate recs - Dr. Flores has recommended HD, but patient resistant # Non-ischemic cardiomyopathy - Recommend wearing life vest device - home meds #QT prolongation - Qtc 503 on presentation - avoid QT prolonging medications # HTN - Continue home meds, will titrate after PD if necessary - hydralazine PRN # Tobacco abuse - Still current everyday smoker - Counseled on cessation # Hyponatremia - Likely secondary to PD - at her baseline # Elevated BNP - 6600 -> 4800 - Significant increase from last hospitalization - PD # Elevated Troponin - 2.04 on 10/13 - .79 -> .69 -> .70 -> .67 - repeat EKG if symptomatic # Chronic Anemia - At baseline # Code - full Disposition: will work for inpatient rehab placement <Luis Mike - Last Filed: 10/19/17 07:25> (1) Acute exacerbation of CHF (congestive heart failure) Code(s): I50.9 - HEART FAILURE, UNSPECIFIED Status: Acute (2) Non-ischemic cardiomyopathy Code(s): I42.8 - OTHER CARDIOMYOPATHIES Status: Acute (3) ESRD on peritoneal dialysis Code(s): N18.6 - END STAGE RENAL DISEASE; Z99.2 - DEPENDENCE ON RENAL DIALYSIS Status: Chronic (4) Hypertension Code(s): I10 - ESSENTIAL (PRIMARY) HYPERTENSION Status: Chronic Qualifiers: Hypertension type: essential hypertension Qualified Code(s): I10 - Essential (primary) hypertension (5) Tobacco abuse Code(s): Z72.0 - TOBACCO USE Status: Chronic (6) Elevated troponin Code(s): R74.8 - ABNORMAL LEVELS OF OTHER SERUM ENZYMES Status: Acute (7) Elevated brain natriuretic peptide (BNP) level Code(s): R79.89 - OTHER SPECIFIED ABNORMAL FINDINGS OF BLOOD CHEMISTRY Status : Acute (8) Hyponatremia Code(s): E87.1 - HYPO-OSMOLALITY AND HYPONATREMIA Status: Acute (9) Chronic anemia Code(s): D64.9 - ANEMIA, UNSPECIFIED Status: Chronic <Shar Hall - Last Filed: 10/19/17 10:21> Attending Addendum - Attending Addendum Date/Time: 10/19/17 1020 I personally evaluated the patient and discussed the management with Dr. Mike. I agree with the History, Examination, Assessment and Plan documented above with any addition or exceptions noted below. Amiodarone held for QT prolongation. Arrange Inpt rehab. Failed outpt management of CHF. <Shar Hall - Last Filed: 10/19/17 10:21>
[2017-10-19] MEDS ORDERED: Sevelamer Carbonate 800 MG TAB PO SCH ×2 (08:00→16:15)
[2017-10-19] MEDS: hydrALAZINE 25 MG TAB PO SCH ×3 (08:40→21:26)
[2017-10-19] MEDS: Aspirin 81 mg Enteric Coated Tablet PO SCH (08:40)
[2017-10-19] MEDS: Heparin 5,000 UNITS/ML VIAL SC SCH ×3 (08:41→21:26)
[2017-10-19] MEDS: Amlodipine 5 MG TAB PO SCH (08:41)
[2017-10-19] MEDS ORDERED: Non-Formulary Item 1 EACH (Hydralazine Hcl [Hydralazine Hcl] 100 MG) PO SCH (09:00)
[2017-10-19] MEDS ORDERED: Non-Formulary Item 1 EACH (Sertraline Hcl [Sertraline Hcl] 50 MG) PO SCH (09:00)
[2017-10-19] MEDS ORDERED: hydrALAZINE 20 MG/ML VIAL SLOW IVP PRN (09:43)
--- NOTE | 2017-10-19 12:37 | PRG ---
DATE OF SERVICE: 10/19/2017 SUBJECTIVE: Ms. Chavarria is a 52-year-old black female with ESRD, currently on maintenance peritoneal dialysis. This patient was recently admitted at the hospital. She underwent a cardiac catheterizati on, and she developed some arrhythmia post-cardiac catheterization. She was seen by Dr. Leung with the EP service. The plan is to eventually do an EP study with her a few weeks after her last dischar ge. We are being consulted for her maintenance peritoneal dialysis. She was admitted due to the cli nical evidence of volume overload/congestive heart failure. The patient was telling me that she has been growing short of breath and has been having more leg edema. OBJECTIVE: VITAL SIGNS: Blood pressure is noted at 170/108, heart rate 64, respiratory rate 18, temperature 97. 8, pulse ox 96%. Repeat BP showed 197/117 - before pressure meds. GENERAL: The patient is sleepy but arousable, not in distress. SKIN: Adequate turgor. HEENT: The patient has pinkish conjunctivae, anicteric sclera. NECK: No neck mass, no carotid bruits, no JVD. CHEST: No deformities. LUNGS: Clear breath sounds, no wheezing, no crackles. HEART: Normal sinus rhythm. No murmur, no gallops, no rubs. ABDOMEN: Globular, soft, nontender, no masses. Positive for PD catheter. EXTREMITIES: Positive for edema, but no deformities. Chest x-ray of 10/18/2017 shows CHF. Laboratories of 10/18/2017, white count 10.4, hemoglobin 10.3. Sodium 132, potassium 3.3, chloride 9 7, carbon dioxide 24, BUN 33, creatinine 8.15, glucose 112, calcium 8.5. ASSESSMENT AND PLAN: 1. Congestive heart failure - the patient ran out of 4.25% PD solution at home and for that reason, she has gained more fluid. I have started her last night on 4.25% in the hope of improving her ultra filtration and subsequently improving her congestive heart failure. 2. I have discussed the issue with the patient about converting to hemodialysis since she is not get ting good clearance with her current peritoneal dialysis. My plan is to continue current peritoneal dialysis regimen. 3. End-stage renal disease, as previously mentioned, continue current CCPD regimen using 4.25% PD so lution and running here for at least 13 hours at 3-liter fill volume. 4. Shortness of breath - secondary to congestive heart failure. Continue current management. Reche ck base met and CBC in a.m. Start Epogen.
[2017-10-19] MEDS: Acetaminophen 325 MG TAB PO PRN (13:37)
[2017-10-19] MEDS: Sevelamer Carbonate 800 MG TAB PO SCH (19:35)
[2017-10-19] MEDS: Atorvastatin Calcium 40 MG TAB PO SCH (21:25)
[2017-10-20 06:03] LABS: Anion Gap 13 mmol/L (10-20); BUN (Urea Nitrogen) 30 mg/dL (9.8-20.1); Calc. Creatinine Clearance 12 mL/min (70-130); Calcium 8.3 mg/dL (7.8-10.44); Carbon Dioxide 26 mmol/L (22-29); Chloride 97 mmol/L (98-107); Estimated GFR-MDRD 6; Glucose 90 mg/dL (70-105); Potassium 3.1 mmol/L (3.5-5.1); Sodium 133 mmol/L (136-145)
[2017-10-20] MEDS: Acetaminophen 325 MG TAB PO PRN ×2 (06:09→21:06)
--- NOTE | 2017-10-20 06:09 | PDOC.FM ---
- Subjective Subjective: This morning patient is complaining of abdominal bloating secondary to constipation. She states last BM was >2 d ago. She denies any sharp pains just aches. She states she did complete PD last night. Denies fevers, chills, sweats , nausea, or vomiting. She states she was able to eat supper without issues. - Objective Vital Signs & Weight: Vital Signs (12 hours) Temp Pulse Resp BP BP BP Pulse Ox 10/20/17 04:20 98.6 F 76 20 175/109 H 99 10/19/17 23:55 98.8 F 73 18 172/101 H 99 10/19/17 21:26 98.8 F 73 18 171/109 H 171/109 H 97 Weight Weight 95.254 kg I&O: 10/18/17 10/19/17 10/20/17 05:59 06:59 06:59 Intake Total 660 Output Total 100 Balance 560 Result Diagrams: 10/20/17 05:22 10/20/17 05:22 <Luis Mike - Last Filed: 10/20/17 08:34> - Objective Vital Signs & Weight: Vital Signs (12 hours) Temp Pulse Resp BP BP Pulse Ox 10/20/17 07:42 98.1 F 72 19 175/114 H 98 10/20/17 04:20 98.6 F 76 20 175/109 H 99 10/19/17 23:55 98.8 F 73 18 172/101 H 99 Weight Weight 95.254 kg I&O: 10/19/17 10/20/17 10/21/17 06:59 06:59 06:59 Intake Total 660 Output Total 100 100 Balance 560 -100 Result Diagrams: 10/20/17 05:22 10/20/17 05:22 <Ta Bui - Last Filed: 10/20/17 11:03> Phys Exam - Physical Examination Constitutional: NAD HEENT: PERRLA, moist MMs Neck: no nodes, full ROM Respiratory: no wheezing, clear to auscultation bilateral Cardiovascular: RRR, no significant murmur Gastrointestinal: soft, non-tender, positive bowel sounds mild distension trace edema of lower extremities Neurological: non-focal, moves all 4 limbs Lymphatic: no nodes Skin: no rash, cap refill <2 seconds Deviation from normal: petechiae <Luis Mike - Last Filed: 10/20/17 08:34> Dx/Plan (1) Acute exacerbation of CHF (congestive heart failure) Code(s): I50.9 - HEART FAILURE, UNSPECIFIED Status: Acute (2) Elevated troponin Code(s): R74.8 - ABNORMAL LEVELS OF OTHER SERUM ENZYMES Status: Acute (3) Atrial fibrillation Code(s): I48.91 - UNSPECIFIED ATRIAL FIBRILLATION Status: Acute (4) Elevated brain natriuretic peptide (BNP) level Code(s): R79.89 - OTHER SPECIFIED ABNORMAL FINDINGS OF BLOOD CHEMISTRY Status : Acute (5) Hyponatremia Code(s): E87.1 - HYPO-OSMOLALITY AND HYPONATREMIA Status: Acute (6) Non-ischemic cardiomyopathy Code(s): I42.8 - OTHER CARDIOMYOPATHIES Status: Acute (7) Bipolar disorder in remission Code(s): F31.70 - BIPOLAR DISORD, CURRENTLY IN REMIS, MOST RECENT EPISODE UNSP Status: Chronic (8) ESRD on peritoneal dialysis Code(s): N18.6 - END STAGE RENAL DISEASE; Z99.2 - DEPENDENCE ON RENAL DIALYSIS Status: Chronic (9) Hypertension Code(s): I10 - ESSENTIAL (PRIMARY) HYPERTENSION Status: Chronic QualifierTitle: Hypertension type: essential hypertension Qualified Code( s): I10 - Essential (primary) hypertension (10) TIA (transient ischemic attack) Status: Suspected QualifierTitle: Transient cerebral ischemia type: unspecified Qualified Code(s): G45.9 - Transient cerebral ischemic attack, unspecified - Plan Plan: # Acute CHF exacerbation - Last ECHO on 10/12/17 showed EF of 25-30% - BNP 6,800 -> 4,800 - Fluid restriction 1500L, strict I&Os - decreased 1kg from admission - Continue PD # ESRD on PD - Consult Nephrology, Appreciate recs - Dr. Flores has recommended HD, but patient resistant - start epogen - PD with 4.25% fluid to draw fluid off # Non-ischemic cardiomyopathy - Recommend wearing life vest device - home meds #QT prolongation - Qtc 503 on presentation - Qt interval down to .44 yesterday - will restart amio 2/2 recent arrhythmia and monitor QT # HTN - Increased Amlodipine dose to 10mg - hydralazine PRN # Tobacco abuse - Still current everyday smoker - Counseled on cessation # Hypokalemia - supplement PO K, 40meq PO - re-check tomorrow # Hyponatremia - Likely secondary to PD - at her baseline, improving # Elevated BNP - 6600 -> 4800 - Significant increase from last hospitalization - PD # Elevated Troponin - 2.04 on 10/13 - .79 -> .69 -> .70 -> .67 - repeat EKG if symptomatic # Chronic Anemia - At baseline # Code - full Disposition: will work for inpatient rehab placement <Luis Mike - Last Filed: 10/20/17 08:34> Attending Addendum - Attending Addendum Date/Time: 10/20/17 1102 I personally evaluated the patient and discussed the management with Dr. Mike I agree with the History, Examination, Assessment and Plan documented above with any addition or exceptions noted below. <Ta Bui - Last Filed: 10/20/17 11:03>
[2017-10-20 06:13] LABS: Band 1 % (5-11); Eosinophils 12 % (0-10); Hemoglobin 9.3 g/dL (12.0-16.0); Lymphocytes 33 % (21-51); MDiff Complete? YES; Mean Corpuscular HGB CONC 32.9 g/dL (32.0-36.0); Mean Corpuscular Volume 91.2 fl (81.0-99.0); Mean Platelet Volume 9.1 fL (7.4-10.4); Monocytes 10 % (0-10); Neutrophil 43 % (42-75); PLT Morphology Comment Appears Adequate; Platelet Count 147 thou/uL (130-400); Red Blood Cell (RBC) Count 3.11 mill/uL (4.20-5.40); White Blood Cell (WBC) Count 9.6 thou/uL (4.8-10.8)
[2017-10-20] MEDS: Amlodipine 5 MG TAB PO SCH (08:25)
[2017-10-20] MEDS: Aspirin 81 mg Enteric Coated Tablet PO SCH (08:25)
[2017-10-20] MEDS: hydrALAZINE 25 MG TAB PO SCH ×3 (08:25→20:59)
[2017-10-20] MEDS: Heparin 5,000 UNITS/ML VIAL SC SCH ×3 (08:26→20:59)
[2017-10-20] MEDS ORDERED: Potassium Chloride 20 MEQ TAB PO SCH (08:30)
[2017-10-20] MEDS ORDERED: Epoetin (ESRD) 20,000 UNITS/ML SC SCH (09:00)
[2017-10-20] MEDS ORDERED: Amlodipine 10 MG TAB PO SCH (09:00)
--- NOTE | 2017-10-20 09:13 | PRG ---
DATE OF SERVICE: 10/20/2017 SERVICE: Renal Medicine. SUBJECTIVE: Ms. Chavarria is a 52-year-old black female with ESRD - currently on peritoneal dialysis an d was admitted for volume overload. She was in mild CHF. We changed her peritoneal dialysis regimen . We are using a 4.25% PD solution at 3 liter fill volume and running for about 3747-3341 hours. He r fluid is much improved. She is less edematous. Her leg edema is resolved and the shortness of john ath is improved. Please note, the patient ran out of her 4.25% PD solution at home. For this reason, she was counsele d to get in touch with the PD unit. No other complaints today. PHYSICAL EXAMINATION: VITAL SIGNS: Blood pressure ranging from 175/109-175/114, heart rate 72, respiratory rate 19, temper ature 98.1, pulse ox 98%. GENERAL EXAM: Noted to be awake, alert, comfortable, not in overt distress. SKIN: Adequate turgor. HEENT: Slightly pale conjunctivae, anicteric sclerae. NECK: No neck mass, no carotid bruits. No JVD. CHEST: No deformities. LUNGS: Clear breath sounds, no wheezing, no crackles. HEART: Normal sinus rhythm. No murmur, no gallops, no rubs. ABDOMEN: Globular, soft, nontender, no masses. EXTREMITIES: No edema, no deformities. MEDICATIONS: 10/20/2017, reviewed. LABORATORY DATA: Laboratories of 10/20/2017, white count 9.6, hemoglobin 9.3. Sodium 133, potassium 3.1, chloride 97, carbon dioxide 26, BUN 30, creatinine 8.28, glucose 90, calcium 8.3. BNP is 4794. ASSESSMENT AND PLAN: 1. Mild hypokalemia. Continuing K-Dur 40 mEq once a day. 2. Anemia - start Epogen at 7500 units subcutaneously every week. 3. Congestive heart failure/volume overload, clinically improved with the use of 4.25% PD solution - this is enhancing ultrafiltration. Continue current dialysis regimen. 4. Anemia. To start weekly Epogen.
[2017-10-20] MEDS ORDERED: Amlodipine 5 MG TAB PO SCH (09:30)
[2017-10-20] MEDS: Polyethylene Glycol 3350 17 GM Packet PO SCH (10:26)
[2017-10-20] MEDS: Amiodarone 200 MG TAB PO SCH ×2 (10:27→20:59)
[2017-10-20] MEDS: Sevelamer Carbonate 800 MG TAB PO SCH ×4 (10:27→19:37)
[2017-10-20] MEDS: Atorvastatin Calcium 40 MG TAB PO SCH (20:59)
[2017-10-21] MEDS ORDERED: Melatonin 3 MG TAB PO PRN (00:32)
[2017-10-21] MEDS: Acetaminophen 325 MG TAB PO PRN (01:12)
[2017-10-21 05:27] LABS: #Basophils 0.1 thou/uL (0.0-0.2); #Eosinphils 0.6 thou/uL (0.0-0.7); #Lymphocytes 2.4 thou/uL (1.20-3.40); #Monocytes 0.9 thou/uL (0.11-0.59); #Neutrophils 4.3 thou/uL (1.40-6.50); %Basophils 1.3 % (0.0-1.0); %Eosinophils 6.9 % (0.0-10.0); %Lymphocytes 29.4 % (21.0-51.0); %Monocytes 10.6 % (0.0-10.0); %Neutrophils 51.8 % (42.0-75.0); Hemoglobin 9.4 g/dL (12.0-16.0); Mean Corpuscular HGB CONC 32.5 g/dL (32.0-36.0); Mean Corpuscular Hemoglobin 29.6 pg (27.0-31.0); Mean Platelet Volume 8.7 fL (7.4-10.4); Platelet Count 139 thou/uL (130-400); RBC Distribution Width 16.1 % (11.5-14.5); Red Blood Cell (RBC) Count 3.18 mill/uL (4.20-5.40); White Blood Cell (WBC) Count 8.2 thou/uL (4.8-10.8)
[2017-10-21 05:42] LABS: Anion Gap 14 mmol/L (10-20); BUN (Urea Nitrogen) 29 mg/dL (9.8-20.1); Calc. Creatinine Clearance 12 mL/min (70-130); Calcium 8.5 mg/dL (7.8-10.44); Carbon Dioxide 24 mmol/L (22-29); Chloride 98 mmol/L (98-107); Estimated GFR-MDRD 6; Glucose 115 mg/dL (70-105); Potassium 3.4 mmol/L (3.5-5.1); Sodium 133 mmol/L (136-145)
--- NOTE | 2017-10-21 07:57 | PDOC.FM ---
Addendum entered and electronically signed by Luis Mike MD 10/21/17 08:38: Spoke to Dr. Flores, he recommends consulting Dr. Rivera for HD access. Will make patient NPO. Original Note: - Subjective Subjective: This morning patient states she is feeling well overall. She states she still has not had a bowel movement as of yet. She denies any chest pain or shortness of breath. She thinks her swelling has improved. She is anxious to go to rehab. Had a long discussion with family yesterday about goals of care. Patient states she feels ready to try HD. Family is in understanding of reasoning for waiting for placement of ICD and the importance of using the lifevest. Patient states she will try to get used to it. 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 Family agreed that it would be best to complete inpatient rehab course before pursuing 2nd opinion if that is indeed what they desire. - Objective Vital Signs & Weight: Vital Signs (12 hours) Temp Pulse Resp BP BP Pulse Ox 10/21/17 04:00 97.9 F 68 18 165/98 H 99 10/21/17 01:14 98.2 F 69 18 142/88 H 10/20/17 20:59 82 157/102 H 10/20/17 20:00 98 F 82 18 157/102 H 99 Weight Weight 95.254 kg I&O: 10/20/17 10/21/17 10/22/17 06:59 06:59 06:59 Intake Total 660 970 Output Total 100 400 Balance 560 570 Result Diagrams: 10/21/17 05:14 10/21/17 05:14 <Luis Mike - Last Filed: 10/21/17 08:05> - Objective Vital Signs & Weight: Vital Signs (12 hours) Temp Pulse Resp BP Pulse Ox 10/21/17 07:58 98.6 F 64 20 148/92 H 99 10/21/17 04:00 97.9 F 68 18 165/98 H 99 10/21/17 01:14 98.2 F 69 18 142/88 H Weight Weight 95.254 kg I&O: 10/20/17 10/21/17 10/22/17 06:59 06:59 06:59 Intake Total 660 970 Output Total 100 400 Balance 560 570 Result Diagrams: 10/21/17 05:14 10/21/17 05:14 <Ta Bui - Last Filed: 10/21/17 11:19> Phys Exam - Physical Examination Constitutional: NAD HEENT: PERRLA, moist MMs Neck: no nodes, full ROM Respiratory: no wheezing, clear to auscultation bilateral Cardiovascular: RRR, no significant murmur Gastrointestinal: soft, non-tender, no distention, positive bowel sounds Musculoskeletal: no edema, pulses present Neurological: non-focal, moves all 4 limbs Lymphatic: no nodes Psychiatric: normal affect, A&O x 3 Skin: no rash, cap refill <2 seconds <Luis Mike - Last Filed: 10/21/17 08:05> Dx/Plan (1) Acute exacerbation of CHF (congestive heart failure) Code(s): I50.9 - HEART FAILURE, UNSPECIFIED Status: Acute (2) Elevated troponin Code(s): R74.8 - ABNORMAL LEVELS OF OTHER SERUM ENZYMES Status: Acute (3) Atrial fibrillation Code(s): I48.91 - UNSPECIFIED ATRIAL FIBRILLATION Status: Acute (4) Elevated brain natriuretic peptide (BNP) level Code(s): R79.89 - OTHER SPECIFIED ABNORMAL FINDINGS OF BLOOD CHEMISTRY Status : Acute (5) Hyponatremia Code(s): E87.1 - HYPO-OSMOLALITY AND HYPONATREMIA Status: Acute (6) Non-ischemic cardiomyopathy Code(s): I42.8 - OTHER CARDIOMYOPATHIES Status: Acute (7) Bipolar disorder in remission Code(s): F31.70 - BIPOLAR DISORD, CURRENTLY IN REMIS, MOST RECENT EPISODE UNSP Status: Chronic (8) ESRD on peritoneal dialysis Code(s): N18.6 - END STAGE RENAL DISEASE; Z99.2 - DEPENDENCE ON RENAL DIALYSIS Status: Chronic (9) Hypertension Code(s): I10 - ESSENTIAL (PRIMARY) HYPERTENSION Status: Chronic QualifierTitle: Hypertension type: essential hypertension Qualified Code( s): I10 - Essential (primary) hypertension (10) TIA (transient ischemic attack) Status: Suspected QualifierTitle: Transient cerebral ischemia type: unspecified Qualified Code(s): G45.9 - Transient cerebral ischemic attack, unspecified - Plan Plan: # Acute CHF exacerbation - Last ECHO on 10/12/17 showed EF of 25-30% - BNP 6,800 -> 4,800 - Fluid restriction 1500L, strict I&Os - patient does not appear to be regarding diet, family members bringing in fast food from outside restaurants - Continue PD # ESRD on PD - Consult Nephrology, Appreciate recs - Dr. Flores has recommended HD, but patient resistant - patient is ready to start trying HD if this is Dr. Flores's rec - start epogen weekly - PD with 4.25% fluid to draw fluid off # Non-ischemic cardiomyopathy - Recommend wearing life vest device - ICD in [address] Regalado - home meds #QT prolongation - Qtc 503 on presentation - Qt down to .44 10/19, qtc 530 on 10/20 - restarted Amio 10/20 - trend EKG # HTN - Increased Amlodipine dose to 10mg on 10/20 - hydralazine PRN # Tobacco abuse - Still current everyday smoker - Counseled on cessation # Hypokalemia - supplement PO K, 40meq PO - re-check tomorrow # Hyponatremia - Likely secondary to PD - at her baseline, improving # Elevated BNP - 6600 -> 4800 - Significant increase from last hospitalization - PD # Elevated Troponin - 2.04 on 10/13 - .79 -> .69 -> .70 -> .67 - repeat EKG if symptomatic # Chronic Anemia - At baseline # Code - full Disposition: anticipate rehab placement soon <Luis Mike - Last Filed: 10/21/17 08:05> Attending Addendum - Attending Addendum Date/Time: 10/21/17 1119 I personally evaluated the patient and discussed the management with Dr. Miek I agree with the History, Examination, Assessment and Plan documented above with any addition or exceptions noted below. <Ta Bui - Last Filed: 10/21/17 11:19>
[2017-10-21] MEDS: Sevelamer Carbonate 800 MG TAB PO SCH ×3 (08:00→18:39)
[2017-10-21] MEDS: hydrALAZINE 25 MG TAB PO SCH ×3 (09:00→21:04)
--- NOTE | 2017-10-21 09:27 | PRG ---
DATE OF SERVICE: 10/21/2017 RENAL MEDICINE SUBJECTIVE: Ms. Chavarria is a 52-year-old black female with ESRD - currently on CCPD regimen. She cam e in with volume overload and CHF. I did adjust the peritoneal dialysis last night. We used 4.25%. We were able to get down titration of 3 liters. No other complaints. She has also decided to conve rt to hemodialysis. We have encouraged her in the past to convert to hemodialysis due to poor KT/V w ith her or renal clearance. PHYSICAL EXAMINATION: VITAL SIGNS: Blood pressure is 148/92, heart rate 64, respiratory rate 20, temperature 98.6, pulse o x 99%. GENERAL: Awake, alert, comfortable, not in distress. SKIN: Adequate turgor. HEENT: She has slightly pale conjunctivae, anicteric sclerae. NECK: No neck mass, no carotid bruits, no JVD. CHEST: No deformities. LUNGS: Clear breath sounds. HEART: Normal sinus rhythm. No murmurs, no gallops, no rubs. ABDOMEN: Globular, soft, nontender, no masses. EXTREMITIES: No edema, no deformities. Positive for PD catheter. MEDICATIONS: Medications of 10/21/2017 reviewed. LABORATORY DATA: Laboratories of 10/21/2017; white count 8.2, hemoglobin 9.4. Sodium 133, potassium 3.4, chloride 98, carbon dioxide 24, BUN 29, creatinine 8.4, glucose 115, calcium 8.5. On 10/19/2017, BNP 4704. ASSESSMENT AND PLAN: 1. Volume overload/congestive heart failure - we removed 3 liters of fluid with her. I will convert her back to a 2.5% PD solution. 2. End-stage renal disease, stable. Tolerating current peritoneal dialysis. I have discussed the c ase with Dr. Rivera about converting her hemodialysis. She has agreed with that. Overall, agree wit h current management. 3. Anemia. Continue weekly Epogen. Recheck basic metabolic panel and CBC in a.m.
[2017-10-21] MEDS: Heparin 5,000 UNITS/ML VIAL SC SCH ×3 (10:09→21:07)
[2017-10-21] MEDS: Aspirin 81 mg Enteric Coated Tablet PO SCH (10:09)
[2017-10-21] MEDS: Amiodarone 200 MG TAB PO SCH ×2 (10:09→21:06)
[2017-10-21] MEDS: Amlodipine 10 MG TAB PO SCH (10:09)
--- NOTE | 2017-10-21 13:22 | ULT ---
BILATERAL UPPER EXTREMITY VESSEL MAPPING: History: Endstage renal disease, vascular access needed. Date: 10-21-17 Technique: Multiple longitudinal and transverse images of the right and left upper extremity venous s ystems and arterial systems were obtained using a multihertz linear array transducer. Real-time, colo r flow, and spectral waveform doppler analysis was used to evaluate both upper extremities. VEIN MAPPING OF UPPER EXTREMITIES FOR DIALYSIS ACCESS: RIGHT UPPER EXTREMITY: The right brachial artery is patent having a diameter of 4.1 mm. The right radial artery has a diamet er of 2.9 mm and the right ulnar artery 1.6 mm. The right upper extremity venous measurements are as follows. Right cephalic vein proximal humeral is patent having a diameter of 1.2 mm. Mid humeral right cephalic vein is patent having a diameter of 1.3 mm. The right cephalic vein has no ncompressible clot within it with a diameter of 1.5 mm in the distal right humeral region with clot e xtending into the right antecubital region and proximal forearm. Antecubital diameter measures 2.8 mm and right forearm cephalic measurement is 1.9 mm. Right basilic veins has a proximal humeral measurement of 2.7 mm, mid humeral measurement of 3.0 mm, distal humeral measurement of 2.5 mm and antecubital diameter of 1.3 mm. The right basilic vein has sub millimeter diameter from the antecubital region distally. LEFT UPPER EXTREMITY: Left brachial arterial diameter of 4.1 mm. Left radial arterial diameter of 2.8 mm and left ulnar manuela meter of 1.5 mm. Venous measurements are as follows in the left upper extremity. There is flow seen in the left proximal, humeral, cephalic vein diameter measuring approximately 1 mm . Diameter in the mid humeral region of the cephalic vein measures 1.2 mm and distal humeral region o f 2.2 mm. Antecubital left cephalic vein has a diameter of 2 mm. There is thrombus in the proximal fo rearm portion of the left cephalic vein diameter, however, measures 4.2 mm. In the mid forearm the ce phalic vein has a diameter of 2.8 mm and distal forearm 2.2 mm. Left basilic vein is patent along the visualized course. Proximal humeral 2.9 mm, mid humeral 3.6 mm, distal humeral 4.0 mm, antecubital 1.0 mm. Proximal forearm 1.1 mm, distal forearm and midforearm le ss than 1 mm. IMPRESSION: Right and left upper extremity venous and arterial measurements as above. POS: GI
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
[2017-10-21] MEDS: Polyethylene Glycol 3350 17 GM Packet PO SCH (15:01)
[2017-10-21] MEDS: Bisacodyl 5 MG TAB PO PRN ×2 (15:03→21:06)
[2017-10-21] MEDS: Atorvastatin Calcium 40 MG TAB PO SCH (21:04)
[2017-10-21] MEDS ORDERED: Ondansetron HCl/PF 4 MG/2 ML Vial SLOW IVP PRN (22:09)
[2017-10-22 05:26] LABS: #Basophils 0.1 thou/uL (0.0-0.2); #Eosinphils 0.4 thou/uL (0.0-0.7); #Monocytes 0.7 thou/uL (0.11-0.59); %Eosinophils 4.5 % (0.0-10.0); %Lymphocytes 24.7 % (21.0-51.0); %Monocytes 8.8 % (0.0-10.0); Mean Corpuscular HGB CONC 32.6 g/dL (32.0-36.0); Mean Corpuscular Hemoglobin 30.9 pg (27.0-31.0); Mean Corpuscular Volume 94.7 fl (81.0-99.0); Mean Platelet Volume 10.3 fL (7.4-10.4); Platelet Count 160 thou/uL (130-400); RBC Distribution Width 16.7 % (11.5-14.5); Red Blood Cell (RBC) Count 3.23 mill/uL (4.20-5.40); White Blood Cell (WBC) Count 8.2 thou/uL (4.8-10.8)
[2017-10-22 05:43] LABS: Anion Gap 17 mmol/L (10-20); BUN (Urea Nitrogen) 32 mg/dL (9.8-20.1); Calc. Creatinine Clearance 11 mL/min (70-130); Calcium 8.6 mg/dL (7.8-10.44); Carbon Dioxide 21 mmol/L (22-29); Chloride 100 mmol/L (98-107); Estimated GFR-MDRD 5; Glucose 68 mg/dL (70-105); Potassium 4.5 mmol/L (3.5-5.1); Sodium 133 mmol/L (136-145)
[2017-10-22] MEDS ORDERED: Fentanyl 250 MCG/5 ML VIAL ONE ×2 (06:50→10:40)
[2017-10-22] MEDS ORDERED: Heparin 10,000 UNITS/1 ML VIAL ONE (07:01)
[2017-10-22] MEDS ORDERED: Protamine Sulfate 50 MG/5 ML VIAL ONE (07:01)
[2017-10-22] MEDS ORDERED: Heparin 5,000 UNITS/ML VIAL ONE (07:01)
[2017-10-22] MEDS ORDERED: Bupivacaine HCl 0.5%/Epinephrine 1:200,000/PF 30 ml Vial ONE ×2 (07:01→08:43)
[2017-10-22] MEDS ORDERED: Sodium Chloride 0.9% 20 ML ONE (07:01)
[2017-10-22] MEDS ORDERED: CEFAZOLIN/Water 2 GM/20 ML SYRINGE ONE (07:10)
[2017-10-22] MEDS ORDERED: Norepinephrine 4 MG/4 ML VIAL ONE (07:26)
[2017-10-22] MEDS ORDERED: Phenylephrine HCL 10 MG/ML VIAL ONE (07:27)
[2017-10-22] MEDS ORDERED: Acetaminophen 500 MG TAB PO PRN (10:14)
[2017-10-22] MEDS ORDERED: traMADol HCl 50 MG TAB PO PRN (10:14)
[2017-10-22] MEDS ORDERED: Ondansetron HCl/PF 4 MG/2 ML Vial IVP PRN (10:34)
[2017-10-22] MEDS ORDERED: Promethazine HCl 25 MG/ML VIAL IM PRN (10:34)
[2017-10-22] MEDS ORDERED: Morphine Sulfate 2 MG/ML SYRINGE SLOW IVP PRN (10:34)
--- NOTE | 2017-10-22 11:27 | OP ---
DATE OF PROCEDURE: 10/22/2017 PREOPERATIVE DIAGNOSIS: End-stage renal disease, inadequate peritoneal dialysis in need of hemodialy sis access, previously unsuccessful access to her internal jugular veins due to repeat catheters, poo r IV access, thrombus both arms antecubital area and forearms from previous IV access both arms, fail ed attempts ER in a known end-stage renal disease patient on dialysis. PROCEDURE: Left femoral vein triple lumen catheter, right femoral vein angiodynamics cuffed tunnel h emodialysis catheter, left arm primary fistula with thrombectomy of the basilic vein. Note, cephalic vein, small, probably inadequate. Perforating branch antecubital vein too small to use and ligated, antecubital vein forearm used for arterial inflow from the proximal radial artery. Fogerty thrombec flores of the basilic vein, removing thrombus from the basilic vein, antecubital vein. Exploration of the left wrist noting cephalic vein at the wrist inadequate for a Jihan fistula, a very large antecu bital vein for arterial inflow. The patient will need a basilic vein transposition fistula in the fu ture outflow primary basilic vein, although stump to the cephalic vein left intact for possible use d uring transposition. Removal of peritoneal dialysis catheter. SURGEON: Dr. Alan Rivera ANESTHESIA: General. Local 0.25% Marcaine with epinephrine 60 mL mixed with 2% Xylocaine, 10 mL. PROCEDURE: The patient was taken to the operating room where under general anesthesia her IV right E J was lost and thus a left femoral vein triple lumen catheter was placed by clipping the left groin, ChloraPrepping it, draping it in a routine fashion. Sterile technique used settling her to place a l eft femoral vein triple lumen catheter, removing the J-wire, securing the catheter with 3-0 nylon sut ure. Biopatch sterile dressing applied. Right groin was then prepared with ChloraPrep, draped in routine fashion. Local anesthetic infiltrat ed in skin and subcutaneous tissue about the operative site. Trocar catheter cannulated the femoral vein. J-wire threaded. Trocar catheter removed. Skin incised, enlarged sharply, both the J wire en trance site and the catheter exit site. Tunneling device used to tunnel angiodynamics cuffed tunnel dialysis catheter placed in the right groin by accessing the right femoral vein. J-wire threaded. T rocar catheter removed. Skin incised and enlarged sharply at the planned exit site and the J wire en trance site and using the tunneling device, the angiodynamics cuffed tunnel hemodialysis catheter, an giodynamics tunneled between the two incisions, placing the fabric cuff beneath the skin exit site an d catheter secured with 2 interrupted sutures of 3-0 nylon. Biopatch sterile dressing applied. Smal ler medium size dilators placed over the J-wire into the femoral vein removed. Dilator and pull-away sheath placed over the J-wire into the femoral vein and J-wire dilator removed. Catheter placed thr ough pull-away sheath. Pull-away sheath removed. Fluoroscopically, catheter noted to be in good pos ition. Each port aspirated blood and flushed with saline solution. Heparinized saline solution 1000 units heparin per mL indicated on the port. Subcutaneous tissues approximated with 4-0 Monocryl, sk in with subdermal 4-0 Monocryl. DermaGlue and sterile dressing applied. The left upper extremity and axilla and right lower quadrant were prepared with ChloraPrep, draped in routine fashion. Attention was first turned to the left arm. Incision was made in the left arm bet ween the radial artery and cephalic vein at the wrist finding the cephalic vein at the wrist to be in adequate, the vein was inadequate thus, this wound was closed by approximately subcutaneous tissue, 3 -0 Monocryl, skin with subdermal 4-0 Monocryl and DermaGlue applied. Left proximal forearm incision made below the antecubital fossa carried down skin and subcutaneous ti ssue and the antecubital vein and cephalic vein, proximal forearm dissected free. A perforating bran ch dissected free down towards the proximal radial artery. Branches divided between 4-0 silk ties an d clips. At a branch point the perforating branch antecubital vein was spatulated and interrogated w ith a 5 April catheter. The perforating branch was small, thus, it was ligated. The cephalic vein in the proximal forearm was dissected free and stump ligated with 3-0 silk suture, transected and th ere was noted to be thrombus in the antecubital vein and distal basilic vein. There was also clot in the antecubital vein towards the cephalic vein. A 5 April catheter was passed multiple times, ret rieving thrombus, apparently clearing all thrombus and then this was flushed with heparinized saline solution. The patient was given 6000 units heparin intravenously. At this point, the proximal radia l artery was clamped proximally and distally as well as the ulnar artery with atraumatic vascular cla mps. Longitudinal arteriotomy made sharply and elongated with Flores scissors and antecubital vein to the proximal radial artery was approximated with continuous suture of 6-0 Prolene. Vascular clamps were released and there was good flow in the outflow fistula interrogated by Doppler. There was some distention of the distal cephalic vein, but it was small and did not have good flow. It was left in tact for future use should it distend. At this point, good hemostasis was noted. Surgicel was place d. The patient given protamine by Anesthesia. Subcutaneous tissues approximated with 3-0 Monocryl, skin with subdermal 4-0 Monocryl and DermaGlue applied. The patient tolerated the procedure well wit hout complications. The patient will need a basilic vein transposition fistula in the future.
[2017-10-22] MEDS: Heparin 5,000 UNITS/ML VIAL SC SCH ×2 (11:45→22:29)
[2017-10-22] MEDS: Sevelamer Carbonate 800 MG TAB PO SCH ×3 (11:45→20:10)
[2017-10-22] MEDS: Aspirin 81 mg Enteric Coated Tablet PO SCH (11:47)
[2017-10-22] MEDS: Amlodipine 10 MG TAB PO SCH (11:48)
[2017-10-22] MEDS: hydrALAZINE 25 MG TAB PO SCH ×3 (11:49→22:28)
[2017-10-22] MEDS: Amiodarone 200 MG TAB PO SCH ×2 (11:51→22:29)
[2017-10-22] MEDS: Polyethylene Glycol 3350 17 GM Packet PO SCH (11:51)
[2017-10-22] MEDS: traMADol HCl 50 MG TAB PO PRN ×2 (12:02→19:15)
--- NOTE | 2017-10-22 13:03 | PDOC.FM ---
- Subjective Subjective: Saw patient after surgery. Says she is having some aching pain at the left femoral artery. She denies N/V/D. She is still planning on HD. - Objective Vital Signs & Weight: Vital Signs (12 hours) Temp Pulse Resp BP Pulse Ox 10/22/17 11:49 75 10/22/17 11:48 76 10/22/17 11:30 75 18 139/85 10/22/17 04:00 98.3 F 74 18 135/86 98 Weight Weight 95.254 kg I&O: 10/21/17 10/22/17 10/23/17 06:59 06:59 06:59 Intake Total 970 600 Output Total 400 400 Balance 570 200 Result Diagrams: 10/22/17 04:56 10/22/17 04:56 <Luis Mike - Last Filed: 10/22/17 13:05> - Objective Vital Signs & Weight: Vital Signs (12 hours) Pulse Pulse Pulse Resp BP BP BP 10/22/17 14:36 79 79 131/82 137/77 10/22/17 11:49 75 10/22/17 11:48 76 10/22/17 11:30 75 18 139/85 Pulse Ox Pulse Ox 10/22/17 14:36 100 100 10/22/17 11:49 10/22/17 11:48 10/22/17 11:30 Weight Weight 93.712 kg I&O: 10/21/17 10/22/17 10/23/17 06:59 06:59 06:59 Intake Total 970 600 Output Total 400 400 Balance 570 200 Result Diagrams: 10/22/17 04:56 10/22/17 04:56 <Ta Bui - Last Filed: 10/22/17 20:58> Phys Exam - Physical Examination Constitutional: NAD HEENT: PERRLA, moist MMs Neck: no nodes, full ROM Respiratory: no wheezing, clear to auscultation bilateral Cardiovascular: RRR, no significant murmur Gastrointestinal: soft, non-tender, no distention, positive bowel sounds Musculoskeletal: no edema, pulses present central line in left femoral artery, dialysis catheter in R fem artery Fistula in L forearm Neurological: non-focal, moves all 4 limbs Lymphatic: no nodes Psychiatric: normal affect, A&O x 3 Skin: no rash, cap refill <2 seconds <Luis Mike - Last Filed: 10/22/17 13:05> Dx/Plan (1) Acute exacerbation of CHF (congestive heart failure) Code(s): I50.9 - HEART FAILURE, UNSPECIFIED Status: Acute (2) Elevated troponin Code(s): R74.8 - ABNORMAL LEVELS OF OTHER SERUM ENZYMES Status: Acute (3) Atrial fibrillation Code(s): I48.91 - UNSPECIFIED ATRIAL FIBRILLATION Status: Acute (4) Elevated brain natriuretic peptide (BNP) level Code(s): R79.89 - OTHER SPECIFIED ABNORMAL FINDINGS OF BLOOD CHEMISTRY Status : Acute (5) Hyponatremia Code(s): E87.1 - HYPO-OSMOLALITY AND HYPONATREMIA Status: Acute (6) Non-ischemic cardiomyopathy Code(s): I42.8 - OTHER CARDIOMYOPATHIES Status: Acute (7) Bipolar disorder in remission Code(s): F31.70 - BIPOLAR DISORD, CURRENTLY IN REMIS, MOST RECENT EPISODE UNSP Status: Chronic (8) ESRD on peritoneal dialysis Code(s): N18.6 - END STAGE RENAL DISEASE; Z99.2 - DEPENDENCE ON RENAL DIALYSIS Status: Chronic (9) Hypertension Code(s): I10 - ESSENTIAL (PRIMARY) HYPERTENSION Status: Chronic QualifierTitle: Hypertension type: essential hypertension Qualified Code( s): I10 - Essential (primary) hypertension (10) TIA (transient ischemic attack) Status: Suspected QualifierTitle: Transient cerebral ischemia type: unspecified Qualified Code(s): G45.9 - Transient cerebral ischemic attack, unspecified - Plan Plan: # Acute CHF exacerbation - Last ECHO on 10/12/17 showed EF of 25-30% - BNP 6,800 -> 4,800 - Fluid restriction 1500L, strict I&Os - patient does not appear to be regarding diet, family members bringing in fast food from outside restaurants - Continue PD # ESRD on PD - Consult Nephrology, Appreciate recs - Dr. Flores has recommended HD, but patient resistant - patient is ready to start trying HD if this is Dr. Flores's rec - start epogen weekly - PD with 2.5% last night - HD access placed by Dr. Rivera this AM # Non-ischemic cardiomyopathy - Recommend wearing life vest device - ICD in [address] Regalado - home meds #QT prolongation - Qtc 503 on presentation - Qt down to .44 10/19, qtc 530 on 10/20 - restarted Amio 10/20 - trend EKG # HTN - Increased Amlodipine dose to 10mg on 10/20 - hydralazine PRN # Tobacco abuse - Still current everyday smoker - Counseled on cessation # Hypokalemia - supplement PO K, 40meq PO - re-check tomorrow # Hyponatremia - Likely secondary to PD - at her baseline, improving # Elevated BNP - 6600 -> 4800 - Significant increase from last hospitalization - PD # Elevated Troponin - 2.04 on 10/13 - .79 -> .69 -> .70 -> .67 - repeat EKG if symptomatic # Chronic Anemia - At baseline # Code - full Disposition: in next 1-2 days <Luis Mike - Last Filed: 10/22/17 13:05> Attending Addendum - Attending Addendum Date/Time: 10/22/172057 I personally evaluated the patient and discussed the management with Dr. Mike I agree with the History, Examination, Assessment and Plan documented above with any addition or exceptions noted below. <Ta Bui - Last Filed: 10/22/17 20:58>
[2017-10-22 13:05] LABS: HBSAg Index 0.24 S/CO (0-0.99); Hep B Core Total Ab Non-Reactive (NonReactive); Hep B Surf Ag Non-Reactive S/CO (NonReactive); Hep C IgG Ab Non-Reactive (NonReactive)
[2017-10-22] MEDS ORDERED: Morphine 2 MG/ML SYRINGE SLOW IVP SCH (13:15)
--- NOTE | 2017-10-22 13:18 | PRG ---
DATE OF SERVICE: 10/22/2017 SUBJECTIVE: Manuela Chavarria this morning underwent a hemodialysis catheter placement right femoral vei n, central line, left femoral vein. Removal of her peritoneal dialysis catheter and left arm primary AV fistula outflow primary basilic vein as well as thrombectomy from iatrogenic access in the ER. T his fistula will need a staged basilic vein transposition in 3-4 weeks. She should follow up with me in 3-4 weeks as an outpatient. She can be discharged home any time when stable from a medical stand point. Remove her PD catheter right lower quadrant abdomen has an open wound. She will need to wash this daily with soap and water and apply antibiotic ointment and gauze and/or Band-Aid. At this poi nt, I will see her as needed. I will be out the next few days. Dr. Colindres is covering. Please miguel l if needed.
[2017-10-22] MEDS ORDERED: ePHEDrine/0.9% NaCl/PF SYRINGE 50 mg/10 ml ONE (14:23)
[2017-10-22] MEDS ORDERED: Heparin 10,000 UNITS/ 10 ML VIAL ONE (14:23)
[2017-10-22] MEDS ORDERED: Dexamethasone 20 MG/5 ML VIAL ONE (14:23)
[2017-10-22] MEDS ORDERED: Ondansetron HCl/PF 4 MG/2 ML Vial ONE (14:23)
[2017-10-22] MEDS ORDERED: PROPOFOL 200 MG/20 ML VIAL ONE (14:23)
[2017-10-22] MEDS ORDERED: Glycopyrrolate 0.2 MG/ML 5 ML SYRINGE ONE (14:23)
[2017-10-22] MEDS ORDERED: Lidocaine 1% PF 5 ML VIAL ONE (14:23)
[2017-10-22] MEDS ORDERED: PHENYLEPHRINE-NS 100 MCG/ML 10 ML SYRINGE ONE (14:23)
[2017-10-22 14:57] LABS: HBSAB Concentration 26517.17 mIU/mL; Hep B Surf AB Reactive (NonReactive)
[2017-10-22] MEDS ORDERED: Morphine 5 MG/ML SYRINGE SLOW IVP SCH (16:45)
--- NOTE | 2017-10-22 16:55 | PDOC.EVN ---
Event Note - Event Note Event Note: Called to dialysis room to eval pain at site of removed peritoneal dialysis catheter. Patient is complaining of aching pain at this abdominal site. On exam there appears to be a hematoma developing. Spoke to Dr. Rivera who recommends changing packing and applying pressure. Will michael the margins.
[2017-10-22] MEDS ORDERED: Morphine 2 MG/ML SYRINGE SLOW IVP PRN (21:38)
[2017-10-22 22:28] LABS: Hemoglobin 7.3 g/dL (12.0-16.0); Mean Corpuscular HGB CONC 32.8 g/dL (32.0-36.0); Mean Corpuscular Hemoglobin 30.1 pg (27.0-31.0); Mean Corpuscular Volume 91.7 fl (81.0-99.0); Mean Platelet Volume 9.1 fL (7.4-10.4); Platelet Count 151 thou/uL (130-400); RBC Distribution Width 16.2 % (11.5-14.5); Red Blood Cell (RBC) Count 2.41 mill/uL (4.20-5.40); White Blood Cell (WBC) Count 12.3 thou/uL (4.8-10.8)
[2017-10-23] MEDS: Atorvastatin Calcium 40 MG TAB PO SCH (01:45)
--- NOTE | 2017-10-23 06:01 | PDOC.FM ---
- Subjective Subjective: This morning the patient states that she is feeling much better. At first she is apprehensive about going to inpatient rehab, but discussed the benefits with her and she agrees to go to inpatient rehab. She denies N/V/D. She states the pain in her abdomen is completely resolved, it has not been bothering her at all this AM. - Objective Vital Signs & Weight: Vital Signs (12 hours) Temp Pulse Resp BP BP Pulse Ox 10/23/17 00:00 98.3 F 64 20 109/64 97 10/22/17 22:28 84 125/66 Weight Weight 93.712 kg I&O: 10/21/17 10/22/17 10/23/17 06:59 06:59 06:59 Intake Total 970 600 Output Total 400 400 Balance 570 200 Result Diagrams: 10/23/17 06:39 10/23/17 06:15 <Luis Mike - Last Filed: 10/23/17 10:59> - Objective Vital Signs & Weight: Vital Signs (12 hours) Temp Pulse Pulse Resp BP BP Pulse Ox 10/23/17 11:00 98.8 F 70 18 117/70 10/23/17 10:45 98.4 F 67 16 117/72 10/23/17 10:30 98.1 F 70 18 155/61 H 10/23/17 10:18 98.1 F 70 18 131/58 L 10/23/17 10:00 98.8 F 77 18 108/75 10/23/17 09:45 98.7 F 78 18 138/76 10/23/17 09:30 98.7 F 71 18 123/53 L 10/23/17 09:22 98.7 F 68 18 100/64 10/23/17 04:40 98.3 F 62 16 103/59 L 99 10/23/17 00:00 98.3 F 64 20 109/64 97 Weight Weight 93.259 kg I&O: 10/22/17 10/23/17 10/24/17 06:59 06:59 06:59 Intake Total 600 700 Output Total 400 Balance 200 700 Result Diagrams: 10/23/17 06:39 10/23/17 06:15 <Ta Bui - Last Filed: 10/23/17 12:13> Phys Exam - Physical Examination Constitutional: NAD HEENT: PERRLA, moist MMs Neck: no nodes, full ROM Respiratory: no wheezing, clear to auscultation bilateral Cardiovascular: RRR, no significant murmur Gastrointestinal: soft, non-tender, no distention, positive bowel sounds Hematoma clearly decreased in size from sharpie marked edges last night no pain to palpation of the abdomen Musculoskeletal: no edema, pulses present Neurological: non-focal, moves all 4 limbs Lymphatic: no nodes Psychiatric: normal affect, A&O x 3 Skin: no rash, cap refill <2 seconds <Luis Mike - Last Filed: 10/23/17 10:59> Dx/Plan (1) Acute exacerbation of CHF (congestive heart failure) Code(s): I50.9 - HEART FAILURE, UNSPECIFIED Status: Acute (2) Elevated troponin Code(s): R74.8 - ABNORMAL LEVELS OF OTHER SERUM ENZYMES Status: Acute (3) Atrial fibrillation Code(s): I48.91 - UNSPECIFIED ATRIAL FIBRILLATION Status: Acute (4) Elevated brain natriuretic peptide (BNP) level Code(s): R79.89 - OTHER SPECIFIED ABNORMAL FINDINGS OF BLOOD CHEMISTRY Status : Acute (5) Hyponatremia Code(s): E87.1 - HYPO-OSMOLALITY AND HYPONATREMIA Status: Acute (6) Non-ischemic cardiomyopathy Code(s): I42.8 - OTHER CARDIOMYOPATHIES Status: Acute (7) Bipolar disorder in remission Code(s): F31.70 - BIPOLAR DISORD, CURRENTLY IN REMIS, MOST RECENT EPISODE UNSP Status: Chronic (8) ESRD on peritoneal dialysis Code(s): N18.6 - END STAGE RENAL DISEASE; Z99.2 - DEPENDENCE ON RENAL DIALYSIS Status: Chronic (9) Hypertension Code(s): I10 - ESSENTIAL (PRIMARY) HYPERTENSION Status: Chronic QualifierTitle: Hypertension type: essential hypertension Qualified Code( s): I10 - Essential (primary) hypertension (10) TIA (transient ischemic attack) Status: Suspected QualifierTitle: Transient cerebral ischemia type: unspecified Qualified Code(s): G45.9 - Transient cerebral ischemic attack, unspecified - Plan Plan: # Acute CHF exacerbation - Last ECHO on 10/12/17 showed EF of 25-30% - BNP 6,800 -> 4,800 - Fluid restriction 1500L, strict I&Os - patient does not appear to be regarding diet, family members bringing in fast food from outside restaurants - Continue PD # ESRD on PD - Consult Nephrology, Appreciate recs - Dr. Flores has recommended HD, but patient resistant - patient is ready to start trying HD if this is Dr. Flores's rec - start epogen weekly - PD with 2.5% last night - HD access placed by Dr. Rivera - Was anemic this AM, gave 2 U with dialysis, Dr. Flores ok with D/c and f/u for outpatient dialysis # Non-ischemic cardiomyopathy - Recommend wearing life vest device - ICD in [address] 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, agrees with stopping on d/c # HTN - Increased Amlodipine dose to 10mg on 10/20 - hydralazine PRN # Tobacco abuse - Still current everyday smoker - Counseled on cessation # Hypokalemia - supplement PO K, 40meq PO - re-check tomorrow # Hyponatremia - Likely secondary to PD - at her baseline, improving # Elevated BNP - 6600 -> 4800 - Significant increase from last hospitalization - PD # Elevated Troponin - 2.04 on 10/13 - .79 -> .69 -> .70 -> .67 - repeat EKG if symptomatic # Chronic Anemia - At baseline # Code - full Disposition: discharge to rehab today <Luis Mike - Last Filed: 10/23/17 10:59> Attending Addendum - Attending Addendum Date/Time: 10/23/17 [id number] I personally evaluated the patient and discussed the management with Dr. Mike I agree with the History, Examination, Assessment and Plan documented above with any addition or exceptions noted below. Adbominal wall hematoma stable not expanding ,tolerating dialysis s/p transfusion 2 units PRBC's. Patient should be stable for discharge to rehab and anticipate she will benefit from a structured environment for continued recovery. <Ta Bui - Last Filed: 10/23/17 12:13>
[2017-10-23 06:51] LABS: Anion Gap 14 mmol/L (10-20); BUN (Urea Nitrogen) 25 mg/dL (9.8-20.1); Calc. Creatinine Clearance 13 mL/min (70-130); Calcium 7.7 mg/dL (7.8-10.44); Carbon Dioxide 23 mmol/L (22-29); Chloride 102 mmol/L (98-107); Estimated GFR-MDRD 7; Glucose 74 mg/dL (70-105); Potassium 4.5 mmol/L (3.5-5.1); Sodium 134 mmol/L (136-145)
[2017-10-23 06:53] LABS: Hemoglobin 6.5 g/dL (12.0-16.0); Mean Corpuscular HGB CONC 32.5 g/dL (32.0-36.0); Mean Corpuscular Volume 92.2 fl (81.0-99.0); Mean Platelet Volume 8.6 fL (7.4-10.4); Platelet Count 148 thou/uL (130-400); RBC Distribution Width 16.3 % (11.5-14.5); Red Blood Cell (RBC) Count 2.17 mill/uL (4.20-5.40)
[2017-10-23] MEDS: traMADol HCl 50 MG TAB PO PRN (07:23)
--- NOTE | 2017-10-23 08:21 | PRG ---
DATE OF SERVICE: 10/23/2017 RENAL MEDICINE SUBJECTIVE: Ms. Chavarria is a 52-year-old black female with ESRD. She is now converted to hemodialysi s from peritoneal dialysis. She has not been getting adequate KT/V clearances with peritoneal dialys is. She agreed to have hemodialysis catheter placed. She underwent with her first hemodialysis for 2 hours, she tolerated it. There was some bleeding around the PD site where the previous PD catheter was. The bleeding is now much improved. We planned to do hemodialysis without heparin. No other c omplaints, no chest pain or shortness of breath. PHYSICAL EXAMINATION: VITAL SIGNS: Blood pressure is 137/77, heart rate 64, respiratory rate 20, temperature 98.3, pulse o x 97%. GENERAL: Awake, alert, comfortable, not in distress. SKIN: Adequate turgor. HEENT: She has pale conjunctivae, anicteric sclerae. NECK: No neck mass, no carotid bruits, no JVD. CHEST: No deformities. LUNGS: Clear breath sounds. No wheezing, no crackles. HEART: Normal sinus rhythm. No murmur, no gallops, no rubs. ABDOMEN: Globular, soft, nontender, no masses. EXTREMITIES: No edema. MEDICATIONS: Medications of 10/23/2017 reviewed. LABORATORY DATA: Laboratories of 10/23/2017; white count 10, hemoglobin 6.5, hematocrit 20, sodium 1 34, potassium 4.5, chloride 102, carbon dioxide 23, BUN 25, creatinine 7.38, glucose 74, and calcium 7.7. ASSESSMENT AND PLAN: 1. Shortness of breath, much improved with fluid removal via PD and hemodialysis. 2. End-stage renal disease, stable. New hemodialysis catheter was placed and the PD catheter was re moved. She tolerated 2-hour dialysis today. My plan is to do a 3-hour hemodialysis without any hepa rin with her. Fluid removal only as tolerated. The patient requesting to go home today. I told her we can still observe another day. She is declining to go for rehabilitation. 3. Anemia. We will give her 2 units of packed red blood cells. Continue weekly Epogen.
[2017-10-23 08:28] VITALS: BMI 34.2
[2017-10-23] MEDS: Sevelamer Carbonate 800 MG TAB PO SCH ×2 (08:33→12:14)
[2017-10-23] MEDS: Heparin 5,000 UNITS/ML VIAL SC SCH (09:00)
[2017-10-23] MEDS: Amlodipine 10 MG TAB PO SCH (12:12)
[2017-10-23] MEDS: Amiodarone 200 MG TAB PO SCH (12:12)
[2017-10-23] MEDS: Bisacodyl 5 MG TAB PO PRN (12:13)
[2017-10-23] MEDS: hydrALAZINE 25 MG TAB PO SCH (12:14)
[2017-10-23] MEDS: Polyethylene Glycol 3350 17 GM Packet PO SCH (12:16)
[2017-10-23] MEDS: Aspirin 81 mg Enteric Coated Tablet PO SCH (12:28)
[2017-10-23 12:37] VITALS: BP 115/70; TEMP 98.9
[2017-10-23] MEDS ORDERED: Heparin 10,000 UNITS/ 10 ML VIAL ONE (13:46)
--- NOTE | 2017-10-23 18:31 | DIS-2 ---
DATE OF ADMISSION: 10/18/2017 DATE OF DISCHARGE: 10/23/2017 RESIDENT: Dr. Luis Sagastume. ADMITTING ATTENDING: Dr. Shar Hall. DISCHARGE ATTENDING: Dr. Ta Bui. CONSULTATIONS: Nephrology, General Surgery. PROCEDURES: Removal of peritoneal dialysis catheter, placement of AV shunt, right forearm, central l ine left femoral, dialysis catheter, right femoral. ADMISSION DIAGNOSIS: Congestive heart failure exacerbation. DISCHARGE DIAGNOSES: End-stage renal disease, congestive heart failure exacerbation. DISCHARGE MEDICATIONS: Amlodipine 10 mg daily, aspirin 81 mg, atorvastatin 40 mg, epoetin weekly, hydralazine 100 mg p.o. t.i.d., pantoprazole daily, sertraline 50 mg daily, Renvela 800 mg b.i.d., li sinopril 20 mg daily, potassium 20 mEq p.o. b.i.d. DISCONTINUED MEDICATIONS: Amiodarone. HISTORY OF PRESENT ILLNESS AND HOSPITAL COURSE: This 52-year-old female who presented with chief com plaint of nausea and shortness of breath. She stated that she was fatigued and had weakness since be ing discharged from the hospital. She denied chest pain, headache or visual changes. She was discha rged with a LifeVest, but has been refusing to wear because she says it is uncomfortable. She had a fall on the date of presentation to the ER and she could not get back up, which brought her back into the ED. She did not hit her head. She did not lose consciousness. She was recently discharged bef ore this admission for hypertensive emergency and NSTEMI, she refused inpatient rehabilitation at [facility]. The patient was found to be in acute CHF exacerbation. She was put on a fluid restriction and diures ed through peritoneal dialysis. After discussion with Nephrology, the decision was decided that hemo dialysis would be more effective for her in the future so as to remove more fluid. The patient was h esitant to this at first, but eventually agreed with her family that this would be the best course of action. She had AV shunt placed in right forearm as well as central line and left femoral and dialy sis catheter placed in right femoral vein. She was started on Epogen weekly by Dr. Flores. She was ane yoly after her AV shunt procedure and was given 2 units of blood with dialysis the following day. Her amiodarone was discontinued due to lengthening QTC interval. This was discussed with Dr. Regalado's [facility] practitioner who agrees with the plan and says they will follow up with her. The patient is disch arged to inpatient rehabilitation, she is not on beta shelia because of issues with bradycardia duri ng the last hospitalization. Future issues for this patient will be continuing hemodialysis for her ESRD. Placement of ICD in the next 2-[address] Regalado's recommendations. Possible kidney t ransplant pending finding a donor and the patient's ability to endure surgery. DISPOSITION: Stable, but guarded, patient needs to be compliant with inpatient rehab as well as usin g her medications and her LifeVest. DISCHARGE INSTRUCTIONS: 1. Location: Inpatient rehabilitation. 2. Diet: Regular. 3. Activity: As tolerated. 4. Followup: Cardiac rehab, Dr. Rivera in 3-4 weeks, primary care provider in 2-3 days, Dr. Flores in 14 days, hemodialysis, Dr. Regalado in 7-14 days.
--- NOTE | 2017-10-25 12:36 | EKG ---
Test Reason : Blood Pressure : / mmHG Vent. Rate : 081 BPM Atrial Rate : 081 BPM P-R Int : 156 ms QRS Dur : 082 ms QT Int : 436 ms P-R-T Axes : 041 -23 178 degrees QTc Int : 506 ms Normal sinus rhythm T wave abnormality, consider inferolateral ischemia Prolonged QT Abnormal ECG Confirmed by SHANNAN ANTUNEZ, MARYCHUY ([id number]), marketing editor JENNIFER SOLOMON ([id number]) on 10/25/2017 12:36:02 PM Referred By: Confirmed By:MARYCHUY CAMPBELL MD
--- NOTE | 2017-10-28 19:41 | EKG ---
Test Reason : Blood Pressure : / mmHG Vent. Rate : 065 BPM Atrial Rate : 065 BPM P-R Int : 146 ms QRS Dur : 088 ms QT Int : 506 ms P-R-T Axes : 027 -11 194 degrees QTc Int : 526 ms Normal sinus rhythm T wave abnormality, consider inferior ischemia T wave abnormality, consider anterolateral ischemia Prolonged QT Abnormal ECG When compared with ECG of 18-OCT-2017 12:47, (Unconfirmed) T wave inversion now evident in Anterior leads Confirmed by SHAYY NORWOOD (2) on 10/28/2017 7:41:06 PM Referred By: SANDY Confirmed By:SHAYY NORWOOD
--- NOTE | 2017-10-28 19:45 | EKG ---
Test Reason : REPEAT Blood Pressure : / mmHG Vent. Rate : 072 BPM Atrial Rate : 072 BPM P-R Int : 150 ms QRS Dur : 084 ms QT Int : 488 ms P-R-T Axes : 031 -10 190 degrees QTc Int : 534 ms Normal sinus rhythm T wave abnormality, consider inferior ischemia T wave abnormality, consider anterolateral ischemia Prolonged QT Abnormal ECG When compared with ECG of 20-OCT-2017 07:08, (Unconfirmed) No significant change was found Confirmed by SHAYY NORWOOD (2) on 10/28/2017 7:45:07 PM Referred By: SANDY Confirmed By:SHAYY NORWOOD
--- NOTE | 2017-10-28 19:56 | EKG ---
Test Reason : Blood Pressure : / mmHG Vent. Rate : 066 BPM Atrial Rate : 066 BPM P-R Int : 156 ms QRS Dur : 086 ms QT Int : 514 ms P-R-T Axes : 014 -20 177 degrees QTc Int : 538 ms Normal sinus rhythm T wave abnormality, consider inferior ischemia T wave abnormality, consider anterolateral ischemia Prolonged QT Abnormal ECG When compared with ECG of 20-OCT-2017 09:32, (Unconfirmed) No significant change was found Confirmed by SHAYY NORWOOD (2) on 10/28/2017 7:56:07 PM Referred By: SANDY Confirmed By:SHAYY NORWOOD
== END 2017-10-23 15:27 | disposition home or self-care (01) | DRG 252 ==
LOC: ERS 12:33 → 2NO 15:05
PROVIDERS: ADMIT Family Medicine; ATTEND Family Medicine
PROC: 3E1M39Z Irrigation of Peritoneal Cavity using Dialysate, Percutaneous Approach (ICD-10-PCS; 2017-10-21)
PROC: 05CC0ZZ Extirpation of Matter from Left Basilic Vein, Open Approach (ICD-10-PCS; principal; 2017-10-22)
PROC: 06HY33Z Insertion of Infusion Device into Lower Vein, Percutaneous Approach (ICD-10-PCS; 2017-10-22)
PROC: 031C0ZF Bypass Left Radial Artery to Lower Arm Vein, Open Approach (ICD-10-PCS; 2017-10-22)
PROC: 05CY0ZZ Extirpation of Matter from Upper Vein, Open Approach (ICD-10-PCS; 2017-10-22)
PROC: 0WPG33Z Removal of Infusion Device from Peritoneal Cavity, Percutaneous Approach (ICD-10-PCS; 2017-10-22)
PROC: 5A1D70Z Performance of Urinary Filtration, Intermittent, Less than 6 Hours Per Day (ICD-10-PCS; 2017-10-22)
PROC: 5A1D70Z Performance of Urinary Filtration, Intermittent, Less than 6 Hours Per Day (ICD-10-PCS; 2017-10-23)
PROC: 30233N1 Transfusion of Nonautologous Red Blood Cells into Peripheral Vein, Percutaneous Approach (ICD-10-PCS; 2017-10-23)
DX: I13.2 Hypertensive heart and chronic kidney disease with heart failure and with stage 5 chronic kidney disease, or end stage renal disease (principal); N18.6 End stage renal disease; I47.2 Ventricular tachycardia; E11.22 Type 2 diabetes mellitus with diabetic chronic kidney disease; E66.01 Morbid (severe) obesity due to excess calories; I08.3 Combined rheumatic disorders of mitral, aortic and tricuspid valves; E87.1 Hypo-osmolality and hyponatremia; I42.8 Other cardiomyopathies; I50.23 Acute on chronic systolic (congestive) heart failure; G45.9 Transient cerebral ischemic attack, unspecified; I82.711 Chronic embolism and thrombosis of superficial veins of right upper extremity; T85.898A Other specified complication of other internal prosthetic devices, implants and grafts, initial encounter; Z99.2 Dependence on renal dialysis; Z79.82 Long term (current) use of aspirin; Z91.041 Radiographic dye allergy status; D63.1 Anemia in chronic kidney disease; Z68.34 Body mass index [BMI] 34.0-34.9, adult; E87.6 Hypokalemia; I25.2 Old myocardial infarction; I48.2 Chronic atrial fibrillation; F31.70 Bipolar disorder, currently in remission, most recent episode unspecified; F17.210 Nicotine dependence, cigarettes, uncomplicated; Z86.73 Personal history of transient ischemic attack (TIA), and cerebral infarction without residual deficits
CPT/HCPCS: 36415; 36430; 71045; 80048; 80053; 82550; 82553; 83690; 83880; 84484; 85025; 85027; 86704; 86706; 86803; 86850; 86900; 86901; 87340; 90935; 90945; 93005; 93010; 93970; 94760; J2270; A4216; C1752; C1769; G0257; G0365; G8978-GP-CK; G8979-GP-CJ; G8987-GO-CJ; G8988-GO-CI; J0670; J1100; J1644; J2001; J2370; J2405; J2704; J2720; J3010; P9016; Q0162; Q4081

== ENCOUNTER 2018-01-08 06:09 | Inpatient (IN) | payer MEDICARE, MEDICAID ==
[2018-01-08] MEDS ORDERED: Ondansetron ODT 8 MG TAB ONE (07:26)
[2018-01-08 07:27] LABS: #Basophils 0.1 thou/uL (0.0-0.2); #Eosinphils 0.8 thou/uL (0.0-0.7); #Lymphocytes 2.3 thou/uL (1.20-3.40); #Monocytes 0.7 thou/uL (0.11-0.59); #Neutrophils 4.7 thou/uL (1.40-6.50); %Basophils 0.9 % (0.0-1.0); %Lymphocytes 26.6 % (21.0-51.0); %Monocytes 7.7 % (0.0-10.0); %Neutrophils 55.8 % (42.0-75.0)
[2018-01-08 07:29] LABS: ALT (SGPT) Less than 7 U/L (8-55); AST (SGOT) 13 U/L (5-34); Albumin 2.4 g/dL (3.5-5.0); Alkaline Phosphatase 102 U/L (40-150); Anion Gap 14 mmol/L (10-20); BUN (Urea Nitrogen) 23 mg/dL (9.8-20.1); Bilirubin, Total 0.4 mg/dL (0.2-1.2); Calc. Creatinine Clearance 0 mL/min (70-130); Calcium 8.4 mg/dL (7.8-10.44); Carbon Dioxide 28 mmol/L (22-29); Chloride 100 mmol/L (98-107); Estimated GFR-MDRD 7; Globulin 3.9 g/dL (2.4-3.5); Glucose 78 mg/dL (70-105); Lipase 12 U/L (8-78); Potassium 3.2 mmol/L (3.5-5.1); Protein, Total 6.3 g/dL (6.0-8.3); Sodium 139 mmol/L (136-145)
[2018-01-08 07:30] LABS: Hemoglobin 12.9 g/dL (12.0-16.0); Mean Corpuscular HGB CONC 31.9 g/dL (32.0-36.0); Mean Platelet Volume 8.1 fL (7.4-10.4); Platelet Count 250 thou/uL (130-400); RBC Distribution Width 17.5 % (11.5-14.5); Red Blood Cell (RBC) Count 4.02 mill/uL (4.20-5.40); White Blood Cell (WBC) Count 8.5 thou/uL (4.8-10.8)
--- NOTE | 2018-01-08 07:46 | RAD ---
2 VIEW CHEST: Date: 01/08/18 HISTORY: Vomiting. Nausea. COMPARISON: Portable exam of 10/18/17. FINDINGS: There is hazy infiltrate in the right lower lung. Lungs are otherwise well aerated and clear. Heart s ize upper normal and stable. Vascular markings are normal. IMPRESSION: There is evidence of right lower lobe infiltrate. Follow-up recommended. CODE T. POS: [facility]
[2018-01-08 07:48] LABS: Bilirubin Negative (Negative); Blood, Urine Negative (Negative); Clarity CLOUDY (Clear); Glucose, Urine (Dipstick) Negative (Negative); Leukocyte Negative (Negative); Nitrite Negative (Negative); Protein, Urine (Dipstick) 100 mg/dL (Neg-Trace); Specific Gravity, Urine 1.012 (1.002-1.036); Urobilinogen 0.2 mg/dL (0.2-1.0)
[2018-01-08] MEDS ORDERED: Metoclopramide HCl 10 MG/2 ML VIAL ONE (07:49)
[2018-01-08 07:51] LABS: Bacteria/HPF Rare-Few HPF (None Seen); Hyaline Casts/LPF 0-3 HYALINE CAST LPF (0-3 Hyaline); Pathc Cast-AUWi Flag 0.87 (0-2.49)
[2018-01-08 08:18] LABS: RBC/HPF 0-3 HPF (0-3); Renal Epithelial 0-3 HPF (0-3); Transitional Epithelial 0-3 HPF (0-3)
[2018-01-08] MEDS ORDERED: Morphine 4 MG/ML VIAL ONE (08:48)
--- NOTE | 2018-01-08 09:08 | CT ---
CT OF ABDOMEN AND PELVIS PERFORMED WITHOUT CONTRAST ENHANCEMENT: HISTORY: Abdominal pain with nausea and vomiting, onset 2 days ago. The patient is on dialysis. FINDINGS: CT OF THE ABDOMEN PERFORMED WITHOUT CONTRAST ENHANCEMENT: The lung bases are clear of any infiltrative process. The liver and spleen are within normal limits of size. A slightly nodular appearance to the liver putnam rface is seen. Cannot exclude this is some cirrhotic change, although the remainder of the liver par enchyma appears fairly normal. Pancreas region is unremarkable. Gallstones were present. Right and left adrenal glands are normal in appearance. Atrophic kidneys are again identified. No o bstruction. There is no significant periaortic adenopathy. There is some moderate ascites with a slightly locula latoya appearance being more along the anterior abdominal wall and the majority of it in or around the l iver region. There is some mild dilatation of a group of small bowel loops seen in the midline and s lightly to the right of midline in the mid to upper abdomen. Jejunum proximal to this is nondilated and the more distal ileal bowel loops were less dilated. This could be transitory but may indicate s ome type of partial obstruction perhaps related to some type of internal hernia. There is a fluid de nsity collection within the subcutaneous tissue along the right abdominal wall. It measures approxim ately 6 cm in diameter. This is near the location of previous dialysis catheter and may just represe nt a persistent communication despite the catheter withdrawal and this superficial fluid is just rela latoya to the ascites. CT OF PELVIS PERFORMED WITHOUT CONTRAST ENHANCEMENT: A dialysis catheter is seen in the right femoral vein. The tip of the catheter is at the level of th e junction of the iliac veins to form the IVC. IMPRESSION: 1. Gallstones. 2. Moderate ascites. 3. Slight dilatation to some of the mid ileal small bowel loops. This is a collection of bowel loop s which are somewhat displaced anteriorly and to the right in the upper abdomen raising the possibili ty of some type of internal hernia and perhaps minimal obstruction associated with this. There is al so some fat stranding within the mesentery, somewhat difficult to assess given the presence of ascite s and could solely be related to the ascites rather than a mesenteric edema process. I cannot apprec iate definite bowel wall thickening associated with this group of very mildly dilated small bowel. 4. Atrophic kidneys. POS: [facility]
--- NOTE | 2018-01-08 10:51 | RAD ---
CHEST ONE VIEW: HISTORY: Emergency exam. Chest pain. COMPARISON: Chest radiograph from 10/18/2017. FINDINGS: An enteric tube has been placed with the tip in the gastric body. Heart size is enlarged. No pneumo thorax. No significant effusion. IMPRESSION: 1. Moderate cardiomegaly. 2. Enteric tube tip in the gastric body. POS: [facility]
[2018-01-08 11:09] LABS: INR-International Normal Ratio 1.1; PTT 30.6 SEC (22.9-36.1); Prothrombin Time 14.2 SEC (12.0-14.7)
[2018-01-08] MEDS ORDERED: Ondansetron ODT 4 MG TAB SL PRN (11:26)
[2018-01-08] MEDS ORDERED: Ondansetron HCl/PF 4 MG/2 ML Vial IVP PRN (11:26)
[2018-01-08 11:40] VITALS: BMI 30.8
[2018-01-08] MEDS ORDERED: MD-Gastroview 120 ML BOT ONE (11:47)
[2018-01-08] MEDS ORDERED: Prevnar 13-Val Conj/PF 0.5 ML SYRINGE IM ONE (12:15)
[2018-01-08] MEDS ORDERED: Dextrose 5%-Lactated Ringers 1,000 ML IV SCH (12:45)
[2018-01-08] MEDS: Morphine 4 MG/ML VIAL IV PRN ×2 (14:25→20:36)
--- NOTE | 2018-01-08 14:44 | ULT ---
ULTRASOUND DIRECTED PARACENTESIS: History: Patient has ascites and question of bacterial peritonitis. Technique: After informed consent was obtained, the patient was prepped and draped in normal sterile fashion. Lo miguel anesthesia was obtained with 1% Xylocaine mixed with sodium bicarb. Largest pocket of fluid was i n the right side of the abdomen. This was chosen for the paracentesis. A small skin incision was made with a #11 scalpel blade. A 6 Thai Yueh catheter was introduced without difficulty. Approximately 1600 cc of blood tinged ascites was obtained. This was sent to lab for analysis. No immediate complic ations of the procedure. IMPRESSION: Ultrasound guided paracentesis as discussed above. POS: [facility]
--- NOTE | 2018-01-08 15:41 | RAD ---
GASTROGRAFIN SMALL BOWEL FOLLOW THROUGH: 01/08/18 INDICATION: Rule out small bowel obstruction. FINDINGS: The property assessment monitor image demonstrates a long right femoral dialysis catheter that projects in the region of t he right aspect of the lower IVC. Bowel gas pattern is nonspecific but without overt evidence of obst ruction. There are a few mildly prominent loops of small bowel within the central abdomen that measur e up to 2.5 cm which is upper limits of normal. There is a mild amount of retained stool within the c olon. The initial image at 30 minutes demonstrates contrast within the stomach and filling nondilated loops of normal appearing proximal small bowel. There is subsequent opacification of the jejunum in the 45 minute and one hour time. At the two hour time michael, there is some filling of mildly dilated loops of small bowel within the ri ght lower quadrant of the abdomen in the region of the ileum. There is eventual passage of contrast w ithin the right hemicolon and proximal transverse colon by the three hour time michael. The remaining op acified jejunum and ileum appear within normal limits. IMPRESSION: Mildly prominent loops of distal ileum are present transiently on the two hour image and appear to sl ightly decompress on the three hour image. Findings may reflect a resolved mild partial small bowel o bstruction. No high grade obstruction demonstrated. Recommend clinical correlation and followup. Small bowel transit time of three hours. POS: [facility]
[2018-01-08] MEDS: cefTRIAXone\\ROCEPHIN 1 GM in Sodium Chloride 0.9% 100 ML IVPB SCH (16:02)
--- NOTE | 2018-01-08 17:12 | CON ---
DATE OF CONSULTATION: 01/08/2018 REQUESTING PHYSICIAN: Jose Luis Rodriguez M.D. HISTORY OF PRESENT ILLNESS: This is a 52-year-old -[place] woman with history of end-stage r enal disease who presented with insidious onset nonspecific abdominal pain associated with three bout s of emesis. The patient reported small volume bilious emesis at that time. She denies any fevers o r chills. She had normal bowel movement this morning [facility] She rates the pain as 7/10. PAST MEDICAL HISTORY: Significant for end-stage renal disease, previously on failed peritoneal dialy sis, now on hemodialysis through a right femoral dialysis catheter. Other pertinent past medical his tory includes chronic cardiomyopathy, essential hypertension, chronic anemia, and bipolar disorder. PAST SURGICAL HISTORY: Significant for peritoneal dialysis catheter placement, subsequent revision a nd ultimately removal of the said peritoneal dialysis catheter. Other surgical history includes C-se ction, cervical spinal surgery and the most recent placement of right femoral dialysis catheter. FAMILY HISTORY: Noncontributory for this patient's age. PREHOSPITALIZATION MEDICATIONS: Atorvastatin 40 mg p.o. at bedtime, calcitriol 0.25 mcg p.o. daily, clonidine 0.2 mg p.o. b.i.d., hydralazine 100 mg p.o. t.i.d., lisinopril 10 mg p.o. daily, pantoprazo le 40 mg p.o. daily, sertraline 50 mg p.o. daily, and Renvela 800 mg p.o. b.i.d. ALLERGIES: IODINE. REVIEW OF SYSTEMS: A 10-point review of systems essentially unremarkable except for as stated in pas t medical history and chief complaint. PHYSICAL EXAMINATION: GENERAL: This reveals a 52-year-old normally developed woman who is otherwise coherent and interacti ve and appears stated age. The patient is alert and oriented x3, appears to be in no significant acu te distress at the time of my evaluation. VITAL SIGNS: Includes blood pressure 162/104, pulse 87, respiratory rate is 16, temperature 97.4 deg rikki Fahrenheit, oxygen saturation 98% on room air. HEENT: Reveals normocephalic and atraumatic. Pupils are equal, round, and reactive to light and acc ommodation. HEART: Reveals regular rate and rhythm, no murmurs or gallops auscultated. LUNGS: Clear to auscultation bilaterally. Breathing regular and unlabored. ABDOMEN: Soft and moderately distended. She has moderate tenderness to palpation with no gross rebo und tenderness present. Bowel sounds in all four quadrants appear normoactive. Liver and spleen non palpable below costal margin. She has healed scars consistent with multiple peritoneal dialysis cath eter placements. EXTREMITIES: Reveal 2+ radial and pedal pulses bilaterally. She has no ankle edema present. NEUROLOGIC: Reveals no focal deficits present. LABORATORY FINDINGS: Today includes a CBC with 8500 white blood cells, hemoglobin and hematocrit 12. 9 and 40.3 respectively. Platelet count is 250,000. Metabolic profile today; sodium 139, potassium is 3.2, chloride is 100, bicarbonate is 28, BUN 23, creatinine 7.58, glucose 78, total bilirubin 0.4, AST and ALT 13 and less than 7 respectively. Lipase is normal at 12. I have personally reviewed the CT scan of the abdomen and pelvis which reveals a large amount of asci tic fluid collection within the abdominal cavity. There is scattered nonspecific gas pattern in the small and large bowel. There is definite gas in the colon and rectum. Radiology report, however, does raise concerns of a possible internal hernia and associated small-bow el obstruction. IMPRESSION: 1. Acute abdominal pain, likely secondary to acute spontaneous bacterial peritonitis. 2. Massive ascites, likely secondary to failed peritoneal dialysis. 3. Chronic end-stage renal disease with dialysis dependent, chronic renal failure. RECOMMENDATIONS: 1. Ultrasound-guided paracentesis, both for diagnostic and therapeutic purposes. 2. Initiate broad spectrum antibiotic therapy for spontaneous bacterial peritonitis. 3. We will initiate small bowel follow through to definitively rule out acute small-bowel obstructio n. 4. There is no acute surgical indication for this patient at this time. I will continue to follow a long and make further recommendations as necessary.
[2018-01-08] MEDS: D5 NS w/ 40 mEq KCl 1,000 ML IV SCH (20:25)
[2018-01-08] MEDS: Atorvastatin Calcium 40 MG TAB PO SCH (20:39)
[2018-01-08] MEDS: hydrALAZINE 25 MG TAB PO SCH (20:39)
[2018-01-08] MEDS: cloNIDine 0.2 MG TAB PO SCH (20:39)
[2018-01-08 22:24] LABS: BF Color Red; Body Fluid Source PERITONEAL FLUID; Clarity Cloudy/Turbid (Clear); RBC Background Count 0.001; RBC Count-Automated 198000 /cumm; Tube # EDTA; WBC/NonHematic-Auto 497 /cumm
[2018-01-08 22:25] LABS: Fluid, Protein 2.1 g/dL (Not Available)
[2018-01-08 23:02] LABS: BF Segmented Neutrophils 18 %; Cell Count Non Hematic 8 %; Eosinophils 1 %; Lymphocytes 73 %
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
--- NOTE | 2018-01-09 04:47 | PDOC.EVN ---
Event Note - Event Note Event Note: Patient was seen and examined. Plan of care discussed with resident team. Please see resident H&P for completeness. Mrs Chavarria is a pleasant 52 yo female admitted for abdominal pain. Patient has a past medical history of ESRD complicated by cardiomyopathy, HTN, and bipolar disorder. Patient with a recent history of failed peritoneal dialysis now undergoing hemodialysis. Upon initial evaluation, was determine patients presented complain likely related to SBP with possible complicating SBO. Paracentesis has been performed. NG tube was placed and small bowel follow through is pending. Gen surg is following alongside the case and has seen the patient. Recommendations appreciated. Due to ESRD, nephrology has also been consulted and has seen the patient. Recommendations also appreciated. Upon my arrival to the room patient's pain has greatly improved since presentation. She has had 2 bowel movements. NG tube was removed due to discomfort before my exam per patient. Patient in NAD. RRR. CTA bilaterally. Mild tenderness with deep palpation but patient reports improved. Will continue IV antibiotics. Awaiting final imaging report. Will continue to treat pain as needed. Adjust home meds as needed. Full code. Place on DVT ppx. Consider GI ppx due to pain meds and antibiotic use. Trend labs. Follow specialist recs. Jose R
--- NOTE | 2018-01-09 07:04 | PDOC.FM ---
- Subjective Subjective: Pt seen at bedside in NAD. TROY overnight. Pt notes her abdominal pain and nausea is much better and endorses an appetite. Pt had multiple well formed BMs over last 24 hours. Pt denies BURDEN, CP, SOB, NVD. Pt requesting a glass of cold milk. - Objective MAR Reviewed: Yes Vital Signs & Weight: Vital Signs (12 hours) Temp Pulse Resp BP Pulse Ox 01/09/18 04:00 98.7 F 61 18 116/74 95 01/09/18 00:00 98.5 F 71 18 126/83 94 L 01/08/18 20:39 68 01/08/18 20:00 98.7 F 68 20 01/08/18 19:50 98.7 F 68 20 127/76 93 L Weight Weight 83.915 kg I&O: 01/08/18 01/09/18 01/10/18 06:59 06:59 06:59 Intake Total 100 Output Total 300 Balance -200 Result Diagrams: 01/08/18 06:58 01/08/18 06:58 <Harpal Belle - Last Filed: 01/09/18 09:40> - Objective Vital Signs & Weight: Vital Signs (12 hours) Temp Pulse Resp BP Pulse Ox 01/09/18 07:30 98.2 F 81 16 94 L 01/09/18 07:21 98.2 F 81 16 132/79 94 L 01/09/18 04:00 98.7 F 61 18 116/74 95 Weight Weight 83.915 kg I&O: 01/08/18 01/09/18 01/10/18 06:59 06:59 06:59 Intake Total 100 Output Total 300 Balance -200 Result Diagrams: 01/08/18 06:58 01/08/18 06:58 <Carlos Neves - Last Filed: 01/09/18 12:08> Phys Exam - Physical Examination Constitutional: NAD HEENT: moist MMs, sclera anicteric Respiratory: no wheezing, clear to auscultation bilateral Cardiovascular: RRR 3/6 systolic murmur at LSB Gastrointestinal: soft, non-tender, positive bowel sounds mildly distended, reducible hernia Musculoskeletal: no edema, pulses present Neurological: non-focal, moves all 4 limbs Psychiatric: normal affect, A&O x 3 Skin: cap refill <2 seconds <Harpal Belle - Last Filed: 01/09/18 09:40> Dx/Plan (1) SBP (spontaneous bacterial peritonitis) Code(s): K65.2 - SPONTANEOUS BACTERIAL PERITONITIS Status: Acute Plan: -pt presented with worsening abdominal pain, nausea/vomiting, and inability to tolerate PO -initial evaluation in ED revealed moderate amount of ascites and concern for SBO -pt has ESRD and was previously on PD with history of fungal infection and therefore transitioned to HD -pt endorses missing her Friday dialysis session this week -general surgery consulted by ED, recommendations greatly appreciated -IR performed paracentesis on 01/08 and removed 1600cc of fluid -initial fluid analysis shows WBC 497 consistent with SBP. continue ceftriaxone and await further fluid studies/culture. -thus far, gram stain shows no organisms, possible culture-negative neutrocytic ascites still causing SBP. (2) SBO (small bowel obstruction) Code(s): K56.609 - UNSP INTESTNL OBST, UNSP TO PARTIAL VERSUS COMPLETE OBST Status: Acute Plan: -small bowel follow through showed very mild partial SBO. pt had NGT removed yesterday due to discomfort. -pt has since had multiple well formed BMs and endorses having an appetite -advance diet this AM (3) ESRD (end stage renal disease) on dialysis Code(s): N18.6 - END STAGE RENAL DISEASE; Z99.2 - DEPENDENCE ON RENAL DIALYSIS Status: Acute Plan: -HD MWF -nephrology on board, recommendations greatly appreciated (4) Systolic CHF Code(s): I50.20 - UNSPECIFIED SYSTOLIC (CONGESTIVE) HEART FAILURE Status: Chronic QualifierTitle: Heart failure chronicity: chronic Qualified Code(s): I50.22 - Chronic systolic (congestive) heart failure Plan: -TTE this year showed EF 25-30% -pt discharged from last hospitalization with life vest that she is intermittently compliant with -no evidence of CHF exacerbation at this time -continue home medications and continue to monitor (5) Hypertension Code(s): I10 - ESSENTIAL (PRIMARY) HYPERTENSION Status: Chronic Plan: -continue home medications - Plan Plan: disposition: Pt improving. Currently being treated for SBP with ceftriaxone. Specialist recommendations greatly appreciated. Advance diet today as tolerated and continue to monitor closely. Consider discharge in the next 1-2 days. <Harpal Belle - Last Filed: 01/09/18 09:40> Attending Addendum - Attending Addendum Date/Time: 01/09/18 1206 I personally evaluated the patient and discussed the management with Dr. Belle. I agree with and repeated the History, Examination, Assessment and Plan documented above with any addition or exceptions noted below. Pt feeling great this AM, no complaints. Denies f/c/n/v/abd pain. RRR s M for me, CTAB s w/r/r, no edema, abd soft, NTTP, no guarding or rigidity EF <35% last hospitalization, with a relatively normal EF 1 month previous to that. Suspicion was for stress induced CM. Was to be wearing life vest. Some CT evidence of cirrhosis, ?cardiogenic. Will monitor her closely, query more about life vest, consider repeat TTE and appropriate consultations if indicated. Appreciate renal's assistance. <Carlos Neves - Last Filed: 01/09/18 12:08>
--- NOTE | 2018-01-09 07:53 | HP-2 ---
DATE OF ADMISSION: 01/08/2018 CODE STATUS: FULL CODE. HISTORY OF PRESENT ILLNESS: This is a 52-year-old female presenting to the ED with a 2-day history o f severe abdominal pain, nausea, and vomiting. The patient endorses multiple bouts of nonbloody, non bilious emesis. She has been unable to tolerate p.o. for several days. The patient has extensive hi story of abdominal surgeries including prior and prior peritoneal dialysis for end-stage re nal disease. While in the ER, the patient underwent a CT of the abdomen and pelvis, which showed mil d dilation of small bowel loops, but no small bowel wall thickening. CT scan also showed a questiona ble internal hernia as well as possible obstruction. The patient endorses normal bowel movements ove r the last week with no obvious distention of her abdomen. However, she is exquisitely tender in the epigastric region and periumbilical region. Bowel movements were normal with no diarrhea. She itz es any sick contacts at home. She denies any chest pain, headaches, or vision changes. In the ER, the patient received vancomycin 1250 mg, Rocephin 1 gram, morphine 8 mg, Reglan 10 mg, and 1 liter normal saline. PAST MEDICAL HISTORY: 1. End-stage renal disease on hemodialysis Friday, Friday, and Friday. 2. History of CVA with very mild residual numbness of left upper extremity. 3. Hypertension. 4. Bipolar 1 disorder. 5. Systolic congestive heart failure with ejection fraction 25%-30% secondary to nonischemic cardiom yopathy. 6. Paroxysmal atrial fibrillation. 7. Gastroesophageal reflux disease. PAST SURGICAL HISTORY: 1. with vertical skin incision. 2. Peritoneal dialysis catheter placement and revision with subsequent removal. 3. Endometrial biopsy with subsequent ablation. 4. Anterior cervical spine surgery. 5. Surgery for occluded internal jugular vein. MEDICATIONS: 1. Calcitriol 0.5 mcg p.o. daily. 2. Isosorbide mononitrate 30 mg p.o. daily. 3. Metoprolol 40 mg p.o. daily. 4. Potassium chloride 20 mEq p.o. b.i.d. 5. Sertraline 50 mg p.o. daily. 6. Sevelamer carbonate 800 mg p.o. b.i.d. 7. Amiodarone 200 mg p.o. b.i.d. 8. Amlodipine 5 mg p.o. daily. 9. Aspirin 81 mg p.o. daily. 10. Atorvastatin 40 mg p.o. at bedtime. 11. Hydralazine 100 mg p.o. t.i.d. 12. Lisinopril 20 mg p.o. daily. 13. EPO weekly. ALLERGIES: To IODINE. REVIEW OF SYSTEMS: Cardiovascular: Denies chest pain, denies syncope. Pulmonary: Denies shortness of breath, denies wheezing. Gastrointestinal: Abdomen endorses tenderness. Denies change in bowel habits. Extremities: Denies cyanosis. Denies lower extremity edema. Skin: Denies rashes, denies lesions. Neurological: Denies weakness, numbness. Psychiatric: Denies suicidal ideation or homic idal ideation. PHYSICAL EXAMINATION: VITAL SIGNS: Showed temperature of 97.4 degrees Fahrenheit, respiratory rate of 16, heart rate of 87 , blood pressure of 162/104, oxygen saturation 98% on room air, and weight of 84 kilograms. GENERAL: The patient is status post paracentesis and small bowel follow through at time of exam. No acute distress, alert and oriented x3. ENT: Enteric tube in place. Oropharynx clear. CARDIOVASCULAR: Regular rate and rhythm. No murmurs or gallops. RESPIRATORY: Clear to auscultation bilaterally, no adventitious sounds. ABDOMEN: Mildly tender to palpation in the epigastric and periumbilical regions. No guarding, no re bound tenderness, no distention. EXTREMITIES: Show no edema, equal movements bilaterally. SKIN: Shows no rashes or ulcers. NEUROLOGIC: Cranial nerves II through XII intact. PSYCHIATRIC: Mood and affect are appropriate. SIGNIFICANT LABORATORY DATA AND IMAGING: White blood cell count of 8.5, hemoglobin 12.9, hematocrit 40.3, platelets 250. Sodium 139, potassium 3.2, chloride 100, bicarbonate 28, BUN 23, creatinine 7.5 8, glucose 78, AST 13, ALT less than 7, alkaline phosphatase 102, calcium 8.4, total protein 6.3, alb umin 2.4, total bilirubin 0.4, PT is 14.2, PTT is 30.6 and INR is 1.1. Lactic acid is 1.9. Urinalys is is within normal limits. No abnormalities. Ultrasound guided paracentesis removed 1600 mL of blo cristina fluid, sent to lab. Chest x-ray in the ER showed possible right lower lobe infiltrate. CT of th e abdomen and pelvis shows mild dilation of small bowel loops, but no small bowel wall thickening; qu estionable internal hernia; questionable obstruction. ASSESSMENT AND PLAN: 1. Abdominal pain likely small-bowel obstruction versus spontaneous bacterial peritonitis. Surgery has been consulted at the ER and recommended switching antibiotics to cefotaxime. They have already ordered paracentesis with studies as well as a small bowel follow through. The patient is having nor mal bowel movements and is not distended at this time, so small-bowel obstruction was either partial or resolving. We will maintain on IV fluids with gentle hydration given her end-stage renal disease. Pain control with morphine. 2. End-stage renal disease, on hemodialysis, Friday, Friday and Friday: We will consult Dr. Flores to resume hemodialysis regimen. The patient does not missed any days of hemodialysis. Electrolytes appear stable except for minor hypokalemia. She does not appear fluid overloaded at this time. 3. Hypertension. We will continue medications. 4. Systolic congestive heart failure/nonischemic cardiomyopathy with an ejection fraction of 25%-30% . The patient was given a LifeVest upon discharge from last admission, which she wears intermittentl y at home. We will continue her medications and monitor her heart rate and rhythm. Strict I's and O 's with daily weights. 5. Hypokalemia. We will replace per Nephrology during hemodialysis. This history and physical exam was discussed with Dr. Izzy Hoffman. Symptomatic medications will be provided.
--- NOTE | 2018-01-09 10:13 | PRG ---
DATE OF SERVICE: 01/09/2018 SUBJECTIVE: Ms. Chavarria is a 52-year-old black female with ESRD - on maintenance hemodialysis and adm itted for nausea and vomiting. She was found to have a partial small-bowel obstruction. Conservativ e management was done. Her nausea and vomiting is much improved. NG tube has been removed. She als o underwent diagnosis and therapeutic paracentesis due to the incidental finding of ascites. CT scan of the abdomen shows a ? of cirrhosis. On close questioning with this patient she has had heavy alc ohol intake in the past. This morning she is feeling better. She is undergoing hemodialysis. I am at the bedside supervising her hemodialysis. PHYSICAL EXAMINATION: VITAL SIGNS: Blood pressure is 132/79, heart rate 81, respiratory rate 16, temperature 98.2, pulse o x 94%. GENERAL: Awake, alert, comfortable, not in distress. SKIN: Adequate turgor. HEENT: Pinkish conjunctivae. Anicteric sclerae. NECK: No neck mass, no carotid bruits, no JVD. CHEST: No deformities. LUNGS: Clear breath sounds. No wheezing, no crackles. HEART: Normal sinus rhythm. No murmur, no gallops or rubs. ABDOMEN: Globular, soft, nontender, no masses. EXTREMITIES: No edema, no deformities. MEDICATIONS: 01/09/2018 - Reviewed. LABORATORY: 01/08/2018 - Potassium 2.2, BUN 23, creatinine 7.58, hemoglobin 12.9. ASSESSMENT AND PLAN: 1. End-stage renal disease, stable. Tolerating current hemodialysis regimen. Fluid removal only as tolerated. 2. Nausea, vomiting - resolved. 3. Ascites. The patient is status post paracentesis. Awaiting cytology report of the ascitic fluid . For the moment continue supportive care.
--- NOTE | 2018-01-09 11:29 | EKG ---
Test Reason : Blood Pressure : / mmHG Vent. Rate : 085 BPM Atrial Rate : 085 BPM P-R Int : 000 ms QRS Dur : 082 ms QT Int : 404 ms P-R-T Axes : 000 -51 148 degrees QTc Int : 480 ms Sinus rhythm with short MD Left anterior fascicular block T wave abnormality, consider anterior ischemia Prolonged QT Abnormal ECG Confirmed by JEFFRY MORALES M.D. ([id number]), online content editor JENNIFER SOLOMON ([id number]) on 01/09/2018 11:28:46 AM Referred By: CARMEN Confirmed By:JEFFRY MORALES M.D.
--- NOTE | 2018-01-09 11:48 | PRG ---
DATE OF SERVICE: 01/09/2018 SUBJECTIVE: Ms. Chavarria is a 52-year-old woman with end-stage renal disease, dialysis dependent. The patient was admitted yesterday with abdominal pain and distention. I saw the patient in consultatio n to exclude small-bowel obstruction. Patient underwent a small bowel follow through which revealed no evidence of small-bowel obstruction. Overnight, the patient has had multiple bowel movements. Th is morning, she denies any abdominal pain. She denies any nausea. OBJECTIVE: VITAL SIGNS: Includes blood pressure 132/79, pulse 81, respiratory rate is 16, maximum temperature i n the last 24 hours is 98.7 degrees Fahrenheit, oxygen saturation 95% on room air. HEART: Reveals regular rate and rhythm. No murmurs or gallops auscultated. CHEST: Clear to auscultation bilaterally. Breathing regular and unlabored. ABDOMEN: Soft, nontender, nondistended. NEUROLOGIC: Examination reveals no focal deficits present. IMPRESSION: Resolved partial small-bowel obstruction. Suspect that this is likely spontaneous bacte rial peritonitis which is now resolving. PLAN: Initiate diet as tolerated. There is no acute surgical indication for this patient at this ti me.
[2018-01-09] MEDS: hydrALAZINE 25 MG TAB PO SCH ×3 (12:25→20:47)
[2018-01-09] MEDS: Calcitriol 0.25 MCG CAP PO SCH (12:26)
[2018-01-09] MEDS: Lisinopril 10 MG TAB PO SCH (12:26)
[2018-01-09] MEDS: cloNIDine 0.2 MG TAB PO SCH ×2 (12:29→20:48)
[2018-01-09] MEDS: Sevelamer Carbonate 800 MG TAB PO SCH ×2 (12:32→16:21)
[2018-01-09] MEDS: D5 NS w/ 40 mEq KCl 1,000 ML IV SCH (12:35)
[2018-01-09 13:15] LABS: #Basophils 0.1 thou/uL (0.0-0.2); #Eosinphils 1.3 thou/uL (0.0-0.7); #Lymphocytes 2.3 thou/uL (1.20-3.40); #Monocytes 0.9 thou/uL (0.11-0.59); #Neutrophils 4.8 thou/uL (1.40-6.50); %Basophils 0.8 % (0.0-1.0); %Eosinophils 14.2 % (0.0-10.0); %Monocytes 9.8 % (0.0-10.0); %Neutrophils 51.1 % (42.0-75.0); Hemoglobin 13.4 g/dL (12.0-16.0); Mean Corpuscular HGB CONC 30.7 g/dL (32.0-36.0); Mean Corpuscular Hemoglobin 31.7 pg (27.0-31.0); Mean Platelet Volume 8.6 fL (7.4-10.4); Platelet Count 275 thou/uL (130-400); RBC Distribution Width 17.8 % (11.5-14.5); Red Blood Cell (RBC) Count 4.22 mill/uL (4.20-5.40); White Blood Cell (WBC) Count 9.4 thou/uL (4.8-10.8)
[2018-01-09 13:29] LABS: Magnesium 1.7 mg/dL (1.6-2.6)
[2018-01-09 13:38] LABS: CKMB 0.9 ng/mL (0-6.6); Troponin I 0.293 ng/mL (< 0.028)
[2018-01-09] MEDS: cefTRIAXone\\ROCEPHIN 1 GM in Sodium Chloride 0.9% 100 ML IVPB SCH (15:06)
[2018-01-09] MEDS: Atorvastatin Calcium 40 MG TAB PO SCH (20:46)
--- NOTE | 2018-01-09 21:00 | CON ---
DATE OF CONSULTATION: 01/09/2018 REASON FOR CONSULTATION: SVT. PRIMARY SHIPMASTER: Kenyon Zheng M.D. HISTORY OF PRESENT ILLNESS: Ms. Chavarria is a very pleasant 52-year-old -[place] female who co mes to the hospital for abdominal pain, nausea, and vomiting. She is on hemodialysis Friday, , Friday for end-stage renal disease with Dr. Flores. She has been having this abdominal pain with na usea and vomiting for the last 2 days. She was admitted and during one of her vital sign checks, it was noted that her heart rate was 180, so a stat EKG was done and it showed an atrial tachycardia at 170 beats per minute. She was very symptomatic during the episode lightheaded. She has a recent new diagnosis of nonischemic dilated cardiomyopathy with an EF of 25%, as well as history of paroxysmal atrial fibrillation with strokes in the past. She is noncompliant, last time she was in October and sh e was discharged home with a LifeVest. She is not really using the LifeVest she has it at home. She has been followed up with Dr. Zheng, who is her primary life insurance agent. Currently, her abdominal ana n is better. She is back in normal rhythm and is not feeling any lightheadedness anymore. PAST MEDICAL HISTORY: 1. End-stage renal disease as above. 2. Cerebrovascular accident with mild residual left upper extremity numbness. 3. Hypertension. 4. Bipolar disorder. 5. Chronic systolic heart failure, EF of 25%, nonischemic. 6. Paroxysmal atrial fibrillation. 7. Gastroesophageal reflux disease. PAST SURGICAL HISTORY: 1. . 2. Peritoneal dialysis catheter placement and revision with subsequent removal. 3. Endometrial biopsy with subsequent ablation. 4. Anterior cervical spine surgery. 5. Recanalization of internal jugular vein. OUTPATIENT MEDICATIONS: Include, 1. Calcitriol. 2. Imdur 30 mg a day. 3. Metoprolol 40 mg daily. 4. Potassium chloride 20 mEq b.i.d. 5. Sertraline 50 mg a day. 6. Sevelamer. 7. Amiodarone 200 mg b.i.d. 8. Amlodipine 5 mg a day. 9. Aspirin 81 a day. 10. Atorvastatin 40 mg at bedtime. 11. Hydralazine 100 mg p.o. t.i.d. 12. Lisinopril 20 mg a day. 13. Erythropoietin weekly. ALLERGIES: IODINE FAMILY HISTORY: Noncontributory. SOCIAL HISTORY: No alcohol, tobacco or drugs. REVIEW OF SYSTEMS: A 12-point review of systems was done and is all negative unless listed in histor y of present illness. PHYSICAL EXAMINATION: VITAL SIGNS: Temperature 99.2, pulse 84, respiratory rate 16, satting 97% on room air, blood pressur e 129/72. GENERAL: Awake, alert, oriented x3, in no distress. HEENT: Normocephalic, atraumatic. NECK: Supple. LUNGS: Clear. CARDIOVASCULAR: S1, S2, no S3, S4, no murmurs. ABDOMEN: Soft, otherwise. EXTREMITIES: No edema. SKIN: Warm and dry. LABORATORY WORK: Reviewed. CBC, coags, and chemistries were reviewed. Potassium is 3.2 today. Tro ponin is 0.293. UA was unremarkable. Peritoneal fluid was cloudy, turbid, no growth so far. EKG was reviewed, atrial tachycardia, heart rate 170s, back to sinus rhythm, now on telemetry. ASSESSMENT AND PLAN: 1. Atrial tachycardia: She has been off of her amiodarone for the last few days. I doubt that this is related to that. She has also been having palpitations at home. We will plan on restarting her amiodarone 200 mg twice a day. I spoke with her about possibly an ablation and she would be interest ed in something like this, but she wants to do it as an outpatient. I also spoke with her about the necessity of doing an echocardiogram to reassess her LV function, possibly near the fibrillator. She agrees to this. We will get this done later today or tomorrow. 2. Ischemic dilated cardiomyopathy. Ejection fraction at 25%. She would be a candidate for an AICD if her EF remains reduced. 3. Noncompliance. 4. End-stage renal disease on hemodialysis. 5. Hypokalemia. This is most likely part of the reason why she is going into atrial tachycardia. W e have not seen any VT as she had on her last admission. Thank you for letting us to participate in the care of your patient. We will follow.
[2018-01-10 05:27] LABS: #Basophils 0.1 thou/uL (0.0-0.2); #Eosinphils 1.3 thou/uL (0.0-0.7); #Lymphocytes 1.8 thou/uL (1.20-3.40); #Monocytes 0.9 thou/uL (0.11-0.59); #Neutrophils 3.2 thou/uL (1.40-6.50); %Basophils 0.8 % (0.0-1.0); %Eosinophils 17.8 % (0.0-10.0); %Lymphocytes 25.1 % (21.0-51.0); %Monocytes 11.9 % (0.0-10.0); %Neutrophils 44.3 % (42.0-75.0); Hemoglobin 10.4 g/dL (12.0-16.0); Mean Corpuscular HGB CONC 31.8 g/dL (32.0-36.0); Mean Corpuscular Hemoglobin 32.6 pg (27.0-31.0); Platelet Count 173 thou/uL (130-400); RBC Distribution Width 18.1 % (11.5-14.5); Red Blood Cell (RBC) Count 3.19 mill/uL (4.20-5.40); White Blood Cell (WBC) Count 7.2 thou/uL (4.8-10.8)
[2018-01-10 05:32] LABS: Anion Gap 9 mmol/L (10-20); BUN (Urea Nitrogen) 15 mg/dL (9.8-20.1); Calc. Creatinine Clearance 14 mL/min (70-130); Calcium 7.6 mg/dL (7.8-10.44); Carbon Dioxide 26 mmol/L (22-29); Chloride 105 mmol/L (98-107); Estimated GFR-MDRD 9; Glucose 82 mg/dL (70-105); Potassium 3.2 mmol/L (3.5-5.1); Sodium 137 mmol/L (136-145)
--- NOTE | 2018-01-10 06:23 | PDOC.FM ---
- Subjective Subjective: No complaints this morning. Pt is doing well. Pt had a run of atrial tachycardia yesterday at 1700. Cardiology was consulted who recommended restarting amiodarone, which she has taken at home before (despite having an iodine allergy). No acute events on tele overnight. She was in NSR overnight in the 60-70s. - Objective MAR Reviewed: Yes Vital Signs & Weight: Vital Signs (12 hours) Temp Pulse Resp BP BP Pulse Ox 01/10/18 05:02 97.5 F L 60 18 109/70 100 01/10/18 00:00 98.1 F 68 16 120/74 99 01/09/18 20:48 101/69 01/09/18 20:47 84 101/69 01/09/18 20:00 99.1 F 66 18 101/69 99 Weight Weight 75.206 kg I&O: 01/08/18 01/09/18 01/10/18 06:59 06:59 06:59 Intake Total 100 630 Output Total 300 3000 Balance -200 -2370 Result Diagrams: 01/10/18 04:22 01/10/18 04:22 <Sallie Moya - Last Filed: 01/10/18 07:50> - Objective Vital Signs & Weight: Vital Signs (12 hours) Temp Pulse Resp BP Pulse Ox 01/10/18 05:02 97.5 F L 60 18 109/70 100 01/10/18 00:00 98.1 F 68 16 120/74 99 Weight Weight 165 lb 12.8 oz I&O: 01/09/18 01/10/18 01/11/18 06:59 06:59 06:59 Intake Total 100 630 Output Total 300 3000 Balance -200 -2370 Result Diagrams: 01/10/18 04:22 01/10/18 04:22 <Jose Sánchez - Last Filed: 01/10/18 09:26> Phys Exam - Physical Examination Constitutional: NAD HEENT: PERRLA, moist MMs Respiratory: no wheezing, no rales, clear to auscultation bilateral Cardiovascular: RRR 2/3 systolic murmur, s3 Gastrointestinal: soft, non-tender, no distention Musculoskeletal: no edema, pulses present Neurological: non-focal Psychiatric: normal affect, A&O x 3 Skin: no rash <Sallie Moya - Last Filed: 01/10/18 07:50> Dx/Plan (1) ESRD on hemodialysis Code(s): N18.6 - END STAGE RENAL DISEASE; Z99.2 - DEPENDENCE ON RENAL DIALYSIS Status: Acute (2) ESRD (end stage renal disease) on dialysis Code(s): N18.6 - END STAGE RENAL DISEASE; Z99.2 - DEPENDENCE ON RENAL DIALYSIS Status: Acute (3) SBO (small bowel obstruction) Code(s): K56.609 - UNSP INTESTNL OBST, UNSP TO PARTIAL VERSUS COMPLETE OBST Status: Acute (4) SBP (spontaneous bacterial peritonitis) Code(s): K65.2 - SPONTANEOUS BACTERIAL PERITONITIS Status: Acute (5) Systolic CHF Code(s): I50.20 - UNSPECIFIED SYSTOLIC (CONGESTIVE) HEART FAILURE Status: Chronic QualifierTitle: Heart failure chronicity: chronic Qualified Code(s): I50.22 - Chronic systolic (congestive) heart failure (6) Atrial fibrillation Code(s): I48.91 - UNSPECIFIED ATRIAL FIBRILLATION Status: Acute - Plan Plan: SBO: -small bowel follow through showed very mild partial SBO. pt had NGT removed yesterday due to discomfort. -pt has since had multiple well formed BMs and endorses having an appetite -advance diet this AM Atrial Tachycardia- -pt has a hx of pAFib, cardiology consulted and recommended restarting amiodarone 200mg BID and an echo, which is pending today -Restarted today, will continue to monitor on tele -Pt does have an iodine allergy (rash) but did not get a rash when she took amiodarone at home. SBP: - pt presented with worsening abdominal pain, nausea/vomiting, and inability to tolerate PO -initial evaluation in ED revealed moderate amount of ascites and concern for SBO -pt has ESRD and was previously on PD with history of fungal infection and therefore transitioned to HD -pt endorses missing her Friday dialysis session this week -general surgery consulted by ED, recommendations greatly appreciated -IR performed paracentesis on 01/08 and removed 1600cc of fluid -initial fluid analysis shows WBC 497 with 18% (87) PMNs, not consistent with SBP. Gram stain and culture do not suggest SBP and will dc ceftriaxone today. ESRD on HD -HD MWF -nephrology on board, recommendations greatly appreciated sCHF -TTE this year showed EF 25-30% -pt discharged from last hospitalization with lis boyd that she is intermittently compliant with -no evidence of CHF exacerbation at this time -continue home medications and continue to monitor HTN -continue hydralazine and clonidine <Sallie Moya - Last Filed: 01/10/18 07:50> Attending Addendum - Attending Addendum Date/Time: 01/10/18923 I personally evaluated the patient and discussed the management with Dr. Ortez. I agree with the History, Examination, Assessment and Plan documented above with any addition or exceptions noted below. monitors labs. Continue Hemodialysis as per renal services.On amiodarone per cardiology. <Jose Sánchez - Last Filed: 01/10/18 09:26>
[2018-01-10] MEDS ORDERED: Potassium Chloride 20 MEQ TAB PO SCH (06:30)
[2018-01-10 07:59] LABS: Troponin I 0.204 ng/mL (< 0.028)
[2018-01-10] MEDS: Sevelamer Carbonate 800 MG TAB PO SCH (08:59)
[2018-01-10] MEDS: hydrALAZINE 25 MG TAB PO SCH ×2 (08:59→14:23)
[2018-01-10] MEDS: Lisinopril 10 MG TAB PO SCH (09:00)
[2018-01-10] MEDS: cloNIDine 0.2 MG TAB PO SCH (09:00)
[2018-01-10] MEDS: Calcitriol 0.25 MCG CAP PO SCH (09:00)
[2018-01-10] MEDS ORDERED: Amiodarone 200 MG TAB PO SCH (09:00)
--- NOTE | 2018-01-10 12:00 | PRG ---
DATE OF SERVICE: 01/10/2018 SERVICE: Renal Medicine. SUBJECTIVE: Ms. Chavarria is a 52-year-old black female with ESRD and being followed by the Renal Servi ce for her maintenance hemodialysis. Please note, yesterday she developed an SVT. Cardiology evalua latoya this patient. Conservative management was recommended. Also recommendation for possible AICD pl acement in the near future. Ablation was discussed with the patient and she would like to do it as an outpatient. No other compl aints today. She is requesting to go home. I did tell her from renal point of view, she can go, but this needs to be cleared by her primary care doctors. No other complaints. PHYSICAL EXAMINATION: VITAL SIGNS: Blood pressure is 121/78, heart rate 52, respiratory rate 16, temperature 98, pulse ox 97%. GENERAL: Noted to be awake, alert, comfortable, not in distress. SKIN: Adequate turgor. HEENT: She has pinkish conjunctivae, anicteric sclerae. NECK: No neck mass, no carotid bruits, no JVD. CHEST: No deformities. LUNGS: Clear breath sounds. HEART: Normal sinus rhythm. No murmur, no gallops, no rubs. ABDOMEN: Globular, soft, nontender, no masses. EXTREMITIES: No edema, no deformities. MEDICATIONS: Of 01/10/2018 was reviewed. LABORATORY DATA: Of 01/10/2018, white count 7.2, hemoglobin 10.4. Sodium 137, potassium 3.2, chlori de 105, carbon dioxide 26, BUN 15, creatinine 5.78, calcium 7.6. ASSESSMENT AND PLAN: 1. End-stage renal disease, stable. Received hemodialysis yesterday and tolerated said treatment. 2. Hypokalemia. I encourage the patient to increase her p.o. intake and potassium intake from the d iet. 3. Borderline anemia. Continue to observe. She does receive Epogen at the outpatient dialysis unit . 4. Supraventricular tachycardia - stable. Cardiology is following. Overall, agree with current management.
--- NOTE | 2018-01-10 13:15 | PRG ---
DATE OF SERVICE: 01/10/2018 SUBJECTIVE: This is a 52-year-old female with end-stage renal disease that was admitted for abdomina l pain and distention. Our team was consulted secondary to the concerns for small-bowel obstruction. The patient underwent a small bowel follow through which showed no evidence of bowel obstruction. She has had multiple bowel movements and continues to pass flatus. She is tolerating a general diet as of last night. Upon my evaluation, the patient vocalized no complaint. OBJECTIVE: VITAL SIGNS: Temperature 98.0, pulse 52, respirations 16, O2 sat 97% on room air, and blood pressure 121/78. GENERAL: Well-developed female in no acute distress, resting in bed. PULMONARY: Normal work of breathing. Symmetric rise. CARDIOVASCULAR: Regular rate and rhythm. GASTROINTESTINAL: Soft, nontender, nondistended, bowel sounds are positive. EXTREMITIES: Positive. NEUROLOGIC: No focal deficit noted. ASSESSMENT: Resolved partial small-bowel obstruction versus ileus. PLAN: The patient is tolerating a general diet and there is no acute surgical intervention. Surgery will sign off at this time. Please call with any concerns. The patient was discussed with vidya arellano
[2018-01-10] MEDS: cefTRIAXone\\ROCEPHIN 1 GM in Sodium Chloride 0.9% 100 ML IVPB SCH (14:22)
[2018-01-10 15:56] VITALS: BP 102/66; TEMP 98.2
--- NOTE | 2018-01-10 19:45 | PDOC.CTH ---
Cardiology Progress Note - Subjective She is doing well. She denies any palpitations, no chest pain. - Objective Vital Signs Temp Pulse Resp BP BP Pulse Ox 01/10/18 15:54 98.2 F 76 20 102/66 98 01/10/18 14:23 65 116/75 01/10/18 12:00 98.8 F 58 L 14 108/60 99 01/10/18 08:00 98.0 F 52 L 16 121/78 97 Weight 165 lb 12.8 oz 01/09/18 01/10/18 01/11/18 06:59 06:59 06:59 Intake Total 100 630 Output Total 300 3000 Balance -200 -2370 - Physical Examination General/Neuro: alert & oriented x3, NAD Neck: no JVD present Lungs: CTA, unlabored respirations Heart: RRR Abdomen: NT/ND Extremities: other: (no edema.) - Telemetry Telemetry Rhythm: NSR - Labs Result Diagrams: 01/10/18 04:22 01/10/18 04:22 Troponin/CKMB CK-MB (CK-2) 0.9 ng/mL (0-6.6) 01/09/18 13:03 Troponin I 0.204 ng/mL (< 0.028) H 01/10/18 07:38 - Assessment/Plan 1. SVT 2. Dilated CM 3. ESRD 4. Hypokalemia PLAN: - She is very adamant that she wants to have this SVT worked up as an outpatient. - Her echo shows improvement in her EF and no longer is she a candidate for an AICD. - She can return her Lifevest to [facility] - She may be discharged with follow up with Dr. Rizo and Dr. Billy. - Will sign off. Please call with any questions.
--- NOTE | 2018-01-13 18:17 | EKG ---
Test Reason : EKG # 1 Blood Pressure : / mmHG Vent. Rate : 175 BPM Atrial Rate : 187 BPM P-R Int : 000 ms QRS Dur : 072 ms QT Int : 268 ms P-R-T Axes : 000 -28 156 degrees QTc Int : 457 ms Abnormal ECG When compared with ECG of 08-JAN-2018 07:00, T wave inversion no longer evident in Anterior leads Inverted T waves have replaced nonspecific T wave abnormality in Lateral leads Confirmed by Mara CARUSO ([id number]) on 01/13/2018 6:17:16 PM Referred By: FRANCISCO JAVIER Confirmed By:Mara CARUSO
--- NOTE | 2018-01-13 18:18 | EKG ---
Test Reason : EKG # 2 Blood Pressure : / mmHG Vent. Rate : 092 BPM Atrial Rate : 092 BPM P-R Int : 000 ms QRS Dur : 076 ms QT Int : 348 ms P-R-T Axes : 000 -35 087 degrees QTc Int : 430 ms Sinus rhythm with short OH with Premature atrial complexes with Abberant conduction Left axis deviation Abnormal ECG When compared with ECG of 09-JAN-2018 12:39, (Unconfirmed) Previous ECG has undetermined rhythm, needs review T wave inversion less evident in Lateral leads Confirmed by Mara CARUSO ([id number]) on 01/13/2018 6:17:29 PM Referred By: FRANCISCO JAVIER Confirmed By:Mara CARUSO
== END 2018-01-10 16:49 | disposition home or self-care (01) | DRG 388 ==
LOC: ERS 06:09 → T4-A 11:23 → 2NO 01-09 16:04
PROVIDERS: ADMIT Family Medicine; ATTEND Family Medicine
PROC: 0W9G3ZX Drainage of Peritoneal Cavity, Percutaneous Approach, Diagnostic (ICD-10-PCS; principal; 2018-01-08)
PROC: 5A1D70Z Performance of Urinary Filtration, Intermittent, Less than 6 Hours Per Day (ICD-10-PCS; 2018-01-09)
DX: K56.600 Partial intestinal obstruction, unspecified as to cause (principal); K65.2 Spontaneous bacterial peritonitis; N18.6 End stage renal disease; I13.2 Hypertensive heart and chronic kidney disease with heart failure and with stage 5 chronic kidney disease, or end stage renal disease; I50.22 Chronic systolic (congestive) heart failure; I42.9 Cardiomyopathy, unspecified; I47.1 Supraventricular tachycardia; R18.8 Other ascites; R22.2 Localized swelling, mass and lump, trunk; I48.0 Paroxysmal atrial fibrillation; I69.398 Other sequelae of cerebral infarction; F31.9 Bipolar disorder, unspecified; K21.9 Gastro-esophageal reflux disease without esophagitis; D63.1 Anemia in chronic kidney disease; E87.6 Hypokalemia; B96.89 Other specified bacterial agents as the cause of diseases classified elsewhere; K80.80 Other cholelithiasis without obstruction; Z99.2 Dependence on renal dialysis; Z91.19 Patient's noncompliance with other medical treatment and regimen; Z79.01 Long term (current) use of anticoagulants
CPT/HCPCS: 36415; 49083; 71045; 71046; 74176; 74250; 80048; 80053; 81003; 81015; 82553; 82945; 83605; 83615; 83690; 83735; 84100; 84157; 84484; 85025; 85060; 85610; 85730; 87040; 87070; 87086; 87205; 89051; 90935; 93005; 93010; 93306; 96365; 96366; 96375; A4216; G0257; J0696; J2270; J2405; J2765; J7050; Q0162

== ENCOUNTER 2018-01-24 00:04 | Observation (INO) | payer MEDICARE, MEDICAID ==
[2018-01-24 02:43] LABS: #Basophils 0.1 thou/uL (0.0-0.2); #Eosinphils 0.5 thou/uL (0.0-0.7); #Lymphocytes 1.4 thou/uL (1.20-3.40); #Monocytes 0.7 thou/uL (0.11-0.59); #Neutrophils 2.6 thou/uL (1.40-6.50); %Basophils 1.7 % (0.0-1.0); %Eosinophils 8.8 % (0.0-10.0); %Lymphocytes 26.4 % (21.0-51.0); %Monocytes 13.1 % (0.0-10.0); Mean Corpuscular HGB CONC 34.2 g/dL (32.0-36.0); Mean Corpuscular Hemoglobin 33.3 pg (27.0-31.0); Mean Corpuscular Volume 97.4 fl (81.0-99.0); Platelet Count 157 thou/uL (130-400); RBC Distribution Width 17.2 % (11.5-14.5); White Blood Cell (WBC) Count 5.2 thou/uL (4.8-10.8)
[2018-01-24 02:48] LABS: INR-International Normal Ratio 1.1; PTT 29.1 SEC (22.9-36.1); Prothrombin Time 14.2 SEC (12.0-14.7)
[2018-01-24 03:09] LABS: ALT (SGPT) Less than 7 U/L (8-55); AST (SGOT) 17 U/L (5-34); Albumin 2.1 g/dL (3.5-5.0); Alkaline Phosphatase 110 U/L (40-150); Anion Gap 16 mmol/L (10-20); BUN (Urea Nitrogen) 38 mg/dL (9.8-20.1); Bilirubin, Total 0.4 mg/dL (0.2-1.2); Calc. Creatinine Clearance 0 mL/min (70-130); Calcium 7.7 mg/dL (7.8-10.44); Carbon Dioxide 21 mmol/L (22-29); Chloride 99 mmol/L (98-107); Estimated GFR-MDRD 6; Globulin 3.4 g/dL (2.4-3.5); Glucose 104 mg/dL (70-105); Magnesium 1.8 mg/dL (1.6-2.6); Potassium 4.6 mmol/L (3.5-5.1); Protein, Total 5.5 g/dL (6.0-8.3); Sodium 131 mmol/L (136-145)
[2018-01-24] MEDS ORDERED: Ondansetron HCl/PF 4 MG/2 ML Vial IVP PRN (04:38)
[2018-01-24] MEDS ORDERED: Ondansetron ODT 4 MG TAB SL PRN (04:38)
[2018-01-24] MEDS ORDERED: Acetaminophen 325 MG TAB PO PRN ×2 (04:38→06:37)
[2018-01-24 04:57] VITALS: BMI 29.7
[2018-01-24 04:58] VITALS: TEMP 97.9
[2018-01-24] MEDS ORDERED: Bisacodyl 5 MG TAB PO PRN (06:37)
[2018-01-24] MEDS ORDERED: Acetaminophen 650 MG Suppository PR PRN (06:37)
--- NOTE | 2018-01-24 07:17 | HP ---
PRIMARY CARE PROVIDER: None. CHIEF COMPLAINT: Malfunctioning dialysis catheter. HISTORY OF PRESENT ILLNESS: Ms. Chavarria is a pleasant 52-year-old lady who was seen at [facility] on 01/24/2018. She was hospitalized here from 01/08/2018-01/10/2018 under the ca re of [facility] for partial small-bowel obstruction and atrial tachycardia. She reports that she went for dialysis yesterday. She has a dialysis catheter over her right lower e xtremity. She reports that regularly dialyzed for 1 or 1-1/2 hours, because the dialysis catheter wa s not functioning properly. She therefore came to the emergency room. She denies any chest pain, shortness of breath, fevers or chills. She denies any nausea or vomiting. REVIEW OF SYSTEMS: All other systems reviewed and found to be negative. 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 PAST SURGICAL HISTORY: with vertical skin incision, peritoneal dialysis catheter placement and revision with subsequent removal, endometrial biopsy with subsequent ablation, anterior cervical spine surgery, surgery for occluded internal jugular vein, right femoral vein angiodynamics cuffed t unneled hemodialysis catheter, left arm primary fistula with thrombectomy of the basilic vein. FAMILY HISTORY: No family history of premature coronary artery disease. ALLERGIES: IODINE. CURRENT MEDICATIONS: Amiodarone 200 mg 2 times a day, Lipitor 40 mg at bedtime, clonidine 0.2 mg 2 t imes a day, hydralazine 100 mg 3 times a day, lisinopril 10 mg daily, pantoprazole 40 mg daily, and s ertraline 50 mg daily. SOCIAL HISTORY: The patient denies any tobacco use, alcohol use or recreational drug use. PHYSICAL EXAMINATION: GENERAL: Ms. Chavarria is awake and alert, not in acute distress. VITAL SIGNS: Blood pressure is 120/75, pulse is 52, she is breathing at rate of 18, and saturating 1 00% on room air. She is afebrile. EYES: No scleral icterus. No conjunctival pallor. ENT: Moist mucosal membranes, no oropharyngeal erythema or exudates. NECK: Supple, nontender, normal range of movement. Trachea is midline. RESPIRATORY: Accessory muscles of breathing are not active. Chest wall movements are symmetric bila terally. LUNGS: Clear to auscultation without wheeze, rhonchi or crepitations. CARDIOVASCULAR: S1 and S2 are heard, bradycardic and regular. Peripheral pulses palpable. No carot id bruit, no pericardial rub. ABDOMEN: Soft, nontender, bowel sounds are heard, no hepatomegaly, no splenomegaly. NEUROLOGIC: Cranial nerves II through XII intact. Deep tendon reflexes are 2+. LYMPHATIC: No cervical lymphadenopathy. MUSCULOSKELETAL: Power is 5/5 in all 4 extremities. She has a dialysis catheter over the right lowe r extremity. SKIN: No rashes or subcutaneous nodules. PSYCHIATRIC: Normal mood, normal affect, patient is oriented to person and place, not to time. LABORATORY DATA: Ms. Chavarria labs and investigations were reviewed. I reviewed her electrocardiogram , which shows sinus bradycardia, no ST changes to suggest an acute coronary syndrome. I also reviewe d her chest x-ray, which does not show any pulmonary infiltrates. She has normal white count, normoc ytic anemia with hemoglobin 10, normal platelet count, INR 1.1, hyponatremia with sodium 131, normal potassium, elevated blood urea nitrogen of 38, elevated creatinine 8.95, decreased albumin of 2.1, ot herwise unremarkable liver profile and normal magnesium. ASSESSMENT AND PLAN: Ms. Chavarria is a pleasant 52-year-old lady who was seen at [facility] on 01/24/2018. Her problem list includes: 1. Malfunctioning dialysis catheter: Ms. Chavarria is presenting with a malfunctioning dialysis cathet er. She will be admitted to the hospital on observation status for further management. Her case has been discussed by the emergency room physician with her technical analyst. We will await recommendations . 2. Hyponatremia: Mild, likely asymptomatic. 3. End-stage renal disease on dialysis: Maintenance dialysis per Nephrology Service. She had a zandra ncated dialysis session yesterday, because of problem with dialysis catheter. 4. Paroxysmal atrial fibrillation: The patient is currently in sinus rhythm, we will continue her h ome medications. 5. Gastroesophageal reflux disease. Continue PPI. 6. Hypertension: Monitor vital signs, titrate antihypertensives as needed. Many thanks for allowing me to participate in your patient's care. Please feel free to contact me wi th any questions or concerns. LEVEL OF RISK: High. LEVEL OF COMPLEXITY: High.
[2018-01-24] MEDS ORDERED: Lisinopril 10 MG TAB PO SCH (09:00)
[2018-01-24] MEDS ORDERED: Amiodarone 200 MG TAB PO SCH (09:00)
[2018-01-24] MEDS ORDERED: cloNIDine 0.2 MG TAB PO SCH (09:00)
--- NOTE | 2018-01-24 09:06 | RAD ---
PORTABLE CHEST: Date: 01/24/18 HISTORY: Chest pain. COMPARISON: 01/08/18. FINDINGS: Heart size is enlarged. Mediastinal structures appear unremarkable. Lungs are clear of infiltrates. IMPRESSION: Marked cardiomegaly. POS: [facility]
[2018-01-24] MEDS: hydrALAZINE 25 MG TAB PO SCH ×2 (09:11→15:30)
[2018-01-24 09:20] VITALS: BP 120/75
[2018-01-24] MEDS ORDERED: Lidocaine 1% (PF) 30 ML VIAL ONE (09:54)
[2018-01-24] MEDS ORDERED: Epoetin (ESRD) 20,000 UNITS/ML SC SCH (11:00)
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
[2018-01-24] MEDS ORDERED: traMADol HCl 50 MG TAB PO PRN (14:08)
--- NOTE | 2018-01-24 14:39 | OP ---
DATE OF PROCEDURE: 01/24/2018 PREOPERATIVE DIAGNOSIS: Acute on chronic renal failure. POSTOPERATIVE DIAGNOSIS: Acute on chronic renal failure. PROCEDURES PERFORMED: Placement of left femoral vein Trialysis catheter. INDICATIONS FOR PROCEDURE: A 52-year-old woman with chronic renal failure, dialysis dependent. The patient presented with failed dialysis access. I was asked to place a temporary dialysis access to f acilitate hemodialysis. DESCRIPTION OF PROCEDURE: Informed consent obtained from the patient who was placed in supine positi on. The left groin was sterilely prepped and draped in usual fashion. The left femoral artery was p alpated in the usual anatomic location. The skin was then anesthetized following which the left femo ral vein was cannulated with an 18 gauge introducer needle medial to the palpated artery. Dark venou s blood was returned. A guidewire was passed through the needle and advanced into the left femoral v ein without resistance. The needle was withdrawn over the guidewire. A stab incision was made adjac ent to the guidewire using an 11 scalpel. Dilator was passed over the wire dilating subcutaneous tis sues. The dilator was removed and a triple lumen Trialysis catheter was advanced over the guidewire and placed to the left femoral vein without resistance. The guidewire was removed. Dark venous bloo d was freely aspirated from all 3 ports which were individually flushed first with saline and then he pelon. Catheter secured to the left groin using 3-0 nylon suture at 2 points. Sterile dressings wer e applied. The patient tolerated the procedure without any apparent complication, remained hemodynam ically stable following completion of the procedure.
[2018-01-24] MEDS: HYDROcodone/Acetaminophen 5/325 mg Tablet PO SCH ×2 (15:34→15:53)
[2018-01-24] MEDS ORDERED: Atorvastatin Calcium 40 MG TAB PO SCH (21:00)
--- NOTE | 2018-01-25 12:34 | DIS ---
DATE OF ADMISSION: 01/24/2018 DATE OF DISCHARGE: 01/24/2018 The patient left against medical advice on 01/24/2018. PRIMARY CARE PROVIDER: None. CONSULTATIONS DURING THIS HOSPITALIZATION: Nephrology, Dr. Flores; General Surgery, Dr. Daigle. HOSPITAL COURSE: Ms. Cahvarria is a pleasant 52-year-old lady who was admitted to [facility] on 01/24/2018 for a nonfunctioning dialysis catheter. Please refer to my history and ph ysical note dated 01/24/2018 for further details. She was seen by General Surgery Service and had pl acement of left femoral vein Trialysis catheter. She underwent hemodialysis on 01/24/2018. Followin g hemodialysis, the patient left the hospital against medical advice.
== END 2018-01-24 19:50 | disposition left against medical advice (07) ==
LOC: ERS 00:04 → T4-A 04:22
PROVIDERS: ADMIT Internal Medicine Infectious Disease; ATTEND Internal Medicine Infectious Disease
PROC: 06HY33Z Insertion of Infusion Device into Lower Vein, Percutaneous Approach (ICD-10-PCS; principal; 2018-01-24)
DX: T82.41XA Breakdown (mechanical) of vascular dialysis catheter, initial encounter (principal); N17.9 Acute kidney failure, unspecified; I12.0 Hypertensive chronic kidney disease with stage 5 chronic kidney disease or end stage renal disease; N18.6 End stage renal disease; E87.1 Hypo-osmolality and hyponatremia; I48.0 Paroxysmal atrial fibrillation; K21.9 Gastro-esophageal reflux disease without esophagitis; F31.9 Bipolar disorder, unspecified; D64.9 Anemia, unspecified; Z91.041 Radiographic dye allergy status; Z79.899 Other long term (current) drug therapy; Z99.2 Dependence on renal dialysis
CPT/HCPCS: 36569; 71045; 80053; 83735; 85025; 85610; 85730; 93005; 99285; C1752; G0378; 36415; 90935; G0257; J1642; J2001; Q4081

== ENCOUNTER 2018-02-03 10:49 | Day surgery (SDC) | payer MEDICARE, MEDICAID ==
[2018-02-02 13:39] VITALS: BMI 29.4
[2018-02-03] MEDS ORDERED: Propofol 500 MG/50 ML VIAL ONE (11:37)
[2018-02-03] MEDS ORDERED: Ketamine 50 MG/ML VIAL ONE (11:37)
[2018-02-03] MEDS ORDERED: Midazolam HCl 2 mg/2 ml Vial ONE ×2 (11:37→11:50)
[2018-02-03] MEDS ORDERED: Fentanyl 100 MCG/2 ML VIAL ONE ×2 (11:37→12:00)
[2018-02-03] MEDS ORDERED: CEFAZOLIN/Water 2 GM/20 ML SYRINGE ONE (11:44)
[2018-02-03] MEDS ORDERED: Ioversol 68 % 50 ML VIAL ONE (11:48)
[2018-02-03] MEDS ORDERED: Lidocaine 2% 10 ML INJ ONE (11:48)
[2018-02-03] MEDS ORDERED: Heparin 5,000 UNITS/ML VIAL ONE (11:48)
[2018-02-03] MEDS ORDERED: Bupivacaine HCl 0.5%/Epinephrine 1:200,000/PF 30 ml Vial ONE ×2 (11:48→12:29)
[2018-02-03] MEDS ORDERED: Protamine Sulfate 50 MG/5 ML VIAL ONE (11:48)
[2018-02-03 12:02] LABS: #Basophils 0.1 thou/uL (0.0-0.2); #Eosinphils 0.8 thou/uL (0.0-0.7); #Lymphocytes 1.7 thou/uL (1.20-3.40); #Monocytes 0.7 thou/uL (0.11-0.59); #Neutrophils 2.6 thou/uL (1.40-6.50); %Basophils 1.3 % (0.0-1.0); %Eosinophils 13.1 % (0.0-10.0); %Monocytes 11.6 % (0.0-10.0); Hemoglobin 9.4 g/dL (12.0-16.0); Mean Corpuscular HGB CONC 33.2 g/dL (32.0-36.0); Mean Corpuscular Hemoglobin 31.7 pg (27.0-31.0); Mean Corpuscular Volume 95.4 fL (78.0-98.0); Mean Platelet Volume 8.6 fL (7.4-10.4); Platelet Count 203 thou/uL (130-400); Red Blood Cell (RBC) Count 2.98 mill/uL (4.20-5.40); White Blood Cell (WBC) Count 5.9 thou/uL (4.8-10.8)
[2018-02-03 12:28] LABS: Anion Gap 10 mmol/L (10-20); BUN (Urea Nitrogen) 20 mg/dL (9.8-20.1); Calc. Creatinine Clearance 16 mL/min (70-130); Calcium 8.1 mg/dL (7.8-10.44); Carbon Dioxide 30 mmol/L (22-29); Chloride 97 mmol/L (98-107); Estimated GFR-MDRD 11; Glucose 84 mg/dL (70-105); Potassium 4.4 mmol/L (3.5-5.1); Sodium 133 mmol/L (136-145)
[2018-02-03] MEDS ORDERED: PROPOFOL 200 MG/20 ML VIAL ONE (13:23)
[2018-02-03] MEDS ORDERED: ePHEDrine/0.9% NaCl/PF SYRINGE 50 mg/10 ml ONE (13:23)
[2018-02-03] MEDS ORDERED: Ondansetron HCl/PF 4 MG/2 ML Vial ONE (13:23)
[2018-02-03] MEDS ORDERED: Heparin 10,000 UNITS/ 10 ML VIAL ONE ×3 (13:23→15:44)
--- NOTE | 2018-02-03 14:29 | OP ---
DATE OF PROCEDURE: 02/03/2018 PREOPERATIVE DIAGNOSIS: End-stage renal disease, thrombosed fistula, left arm. Patient refused acce ss fistula attempt at right arm. POSTOPERATIVE DIAGNOSIS: End-stage renal disease, thrombosed fistula, left arm. Patient refused acc ess fistula attempt at right arm. PROCEDURE: Exploration of fistula, proximal volar forearm noting veins to be fibrotic, thrombosed. Left upper arm dialysis graft tapered #4T07 PTFE graft, brachial artery above the antecubital fossa, axillary vein, both of which were good caliber. SURGEON: Alan Rivera M.D. ANESTHESIA: Regional TIVA, LMA, local 0.5% Marcaine with epinephrine, 30 mL, mixed with 2% Xylocaine , 10 mL. PROCEDURE IN DETAIL: Patient was taken to the operating room where under regional anesthesia, left u pper extremity was prepped with ChloraPrep, draped in routine fashion. Local anesthetic infiltrated into the skin and subcutaneous tissue about the operative sites due to the patient's pain even with a block. Proximal volar forearm incision made through the old scar carried down through the skin and subcutaneous tissue and the previously placed fistula vein was fibrotic and thought not worth. Attem pts at salvage, subcutaneous tissues approximated with 3-0 Monocryl, skin with subdermal 4-0 Monocryl . Longitudinal skin incision made over the brachial artery above the antecubital fossa and in the le ft axilla and both carried down through skin and subcutaneous tissue and deep fascia, dissecting the brachial artery and axillary vein respectively surround the brachial artery with a blue loop and the axillary vein with Flores yellow loops. Selene-Wick tunneler was used to create a tunnel to accommodat e the graft and the tunneler was used to tunnel the graft, placing the 4 mm end over the artery. Pat ient was given 6000 units heparin intravenously. After adequate circulation time, the brachial arter y was clamped proximally and distally. Vascular clamp and longitudinal arteriotomy made sharply and elongated with Flores scissors and a 4-mm end of the graft tailored for a Cobra head anastomosis, end graft to side brachial artery with continuous suture of 6-0 Prolene for the anastomosis, vascular cla mps were released noting good flow in the graft. Clamp placed across the graft. Good hemostasis not ed. Axillary vein controlled with Flores vessel loops. Longitudinal venotomy made for a 3 cm anastom osis using stay sutures of 6-0 Prolene to hold the vein open for visualization. Graft likewise accom modated for a Cobra head anastomosis and end graft to side axillary vein anastomosis secured with con tinuous suture of 6-0 Prolene. After completion of the anastomosis, arterial inflow was released and then venous outflow released and good hemostasis noted. The patient given 25 mg of protamine by Ane sthesia. Surgicel applied to the wounds. Good hemostasis assured. Subcutaneous tissues approximate d with 3-0 Monocryl, skin with subdermal 4-0 Monocryl, and DermaGlue applied.
== END 2018-02-03 17:33 | disposition home or self-care (01) ==
LOC: SDC 10:49
PROVIDERS: ATTEND Specialist
PROC: 03180JD Bypass Left Brachial Artery to Upper Arm Vein with Synthetic Substitute, Open Approach (ICD-10-PCS; principal; 2018-02-03)
DX: T82.868A Thrombosis due to vascular prosthetic devices, implants and grafts, initial encounter (principal); I12.0 Hypertensive chronic kidney disease with stage 5 chronic kidney disease or end stage renal disease; N18.6 End stage renal disease; K21.9 Gastro-esophageal reflux disease without esophagitis; Z98.890 Other specified postprocedural states; Z87.891 Personal history of nicotine dependence; Z91.041 Radiographic dye allergy status; Z79.899 Other long term (current) drug therapy
CPT/HCPCS: 36830; 80048; 85025; L8670; J0670; J1644; J2250; J2704; J2720; J3010; Q9967

== ENCOUNTER 2018-03-30 04:37 | Inpatient (IN) | payer MEDICARE, MEDICAID ==
[2018-03-30] MEDS ORDERED: Ondansetron HCl/PF 4 MG/2 ML Vial ONE (05:06)
[2018-03-30 05:53] LABS: #Basophils 0.1 thou/uL (0.0-0.2); #Eosinphils 0.2 thou/uL (0.0-0.7); #Lymphocytes 2.3 thou/uL (1.20-3.40); #Monocytes 0.7 thou/uL (0.11-0.59); #Neutrophils 4.5 thou/uL (1.40-6.50); %Basophils 0.8 % (0.0-1.0); %Eosinophils 2.4 % (0.0-10.0); %Lymphocytes 29.7 % (21.0-51.0); %Monocytes 9.3 % (0.0-10.0); %Neutrophils 57.8 % (42.0-75.0); Hemoglobin 8.6 g/dL (12.0-16.0); Mean Corpuscular Hemoglobin 33.1 pg (27.0-31.0); Mean Platelet Volume 7.3 fL (7.4-10.4); Platelet Count 303 thou/uL (130-400); RBC Distribution Width 17.2 % (11.5-14.5); White Blood Cell (WBC) Count 7.8 thou/uL (4.8-10.8)
[2018-03-30] MEDS ORDERED: Morphine 4 MG/ML VIAL ONE (06:06)
[2018-03-30 06:19] LABS: ALT (SGPT) 9 U/L (8-55); AST (SGOT) 23 U/L (5-34); Albumin 1.9 g/dL (3.5-5.0); Alkaline Phosphatase 146 U/L (40-150); Anion Gap 13 mmol/L (10-20); BUN (Urea Nitrogen) 23 mg/dL (9.8-20.1); Bilirubin, Total 0.3 mg/dL (0.2-1.2); Calc. Creatinine Clearance 0 mL/min (70-130); Calcium 7.6 mg/dL (7.8-10.44); Carbon Dioxide 29 mmol/L (22-29); Chloride 96 mmol/L (98-107); Estimated GFR-MDRD 10; Globulin 4.1 g/dL (2.4-3.5); Glucose 67 mg/dL (70-105); Lipase 8 U/L (8-78); Potassium 3.8 mmol/L (3.5-5.1); Sodium 134 mmol/L (136-145)
--- NOTE | 2018-03-30 09:15 | CT ---
PRELIMINARY REPORT/[facility]/EMERGENTY AFTER-HOURS PROCEDURE Addendum created by Santana Schmitz MD on 03/30/2018 6:26 AM Central Time ( & Marie) Findings were dis cussed with GISSEL HEMPHILL at 03/30/2018 6:24 AM CDT. Initial Report created on 03/30/2018 6:17 AM Ethan tral Time (US & Marie) CT Abdomen and Pelvis Without Intravenous Contrast EXAM DATE/TIME: Exam ordered 03/30/2018 5:52 AM CLINICAL HISTORY: 53 years old, female; Pain; Abdominal pain; Generalized; Patient HX: Patient presents for evaluation of abdominal pain TECHNIQUE: Axial computed tomography images of the abdomen and pelvis without intravenous contrast. Coronal reformatted images were created and reviewed. COMPARISON: US Gallbladder RUQ 2018-03-13 05:40 FINDINGS: Lung bases: There is a pulmonary parenchymal calcification consistent with remote granulomatous organ ism exposure. ABDOMEN: Liver: There is liver nodularity compatible with cirrhosis. Gallbladder and bile ducts: There has been a cholecystectomy. No ductal dilation. Pancreas: The pancreas appears normal. No ductal dilation. Spleen: The spleen is normal. Adrenals: Normal. No mass. Kidneys and ureters: The bilateral kidneys are atrophic. No obstructing stones. No hydronephrosis. Stomach and bowel: The stomach is normal. The colon is normal. No obstruction. No mucosal thickening. PELVIS: Appendix: A normal appendix is identified. Bladder: Collapsed. Reproductive: The uterus is normal. ABDOMEN and PELVIS: Intraperitoneal space: There is somewhat atypical marked anterior intraperitoneal ascites with well c ircumscribed rim and without significant retroperitoneal ascites. There is trace fluid in the pelvis. No free air. Bones/joints: No acute fracture. No dislocation. Soft tissues: There is 4.3 x 1.8 x 2.0 cm RIGHT lower quadrant subcutaneous density possibly represen ting hematoma from prior paracentesis. There is mild soft tissue anasarca. Vasculature: Normal. No abdominal aortic aneurysm. Lymph nodes: Normal. No enlarged lymph nodes. IMPRESSION: 1. There is somewhat atypical marked anterior intraperitoneal ascites with well-circumscribed rim and without significant retroperitoneal ascites. Correlate for possible peritonitis/abscess. 2. There is 4.3 x 1.8 x 2.0 cm RIGHT lower quadrant subcutaneous density possibly representing hemato ma from prior paracentesis. Thank you for allowing us to participate in the care of your patient. Dictated and Authenticated by: Santana Schmitz MD 03/30/2018 6:17 AM Central Time ([place] & Marie) FINAL REPORT CT ABDOMEN AND PELVIS WITHOUT CONTRAST: Date: 03/30/18 FINDINGS/IMPRESSION: I agree with the preliminary report given by Slick. POS: OFF
[2018-03-30] MEDS ORDERED: Morphine 4 MG/ML VIAL SLOW IVP PRN (09:38)
[2018-03-30 10:04] LABS: Troponin I 0.104 ng/mL (< 0.028)
[2018-03-30] MEDS ORDERED: Ondansetron ODT 4 MG TAB PO PRN (11:02)
[2018-03-30] MEDS ORDERED: Ondansetron HCl/PF 4 MG/2 ML Vial IVP PRN (11:02)
[2018-03-30] MEDS ORDERED: Acetaminophen 500 MG TAB PO PRN (11:02)
--- NOTE | 2018-03-30 12:54 | HP ---
DATE OF ADMISSION: 03/30/2018 PRIMARY CARE PHYSICIAN: Leonard moeller. PRIMARY CONCIERGE RECEPTIONIST: Dr. Flores. CHIEF COMPLAINT: Abdominal pain. HISTORY OF PRESENT ILLNESS: This is a 53-year-old -[place] female, who presents with increas ing abdominal pain, distention, bloating, which has been progressive over the last 1-2 weeks. The pa tient states the pain began to escalate around 2300 hours on 03/29/2018, making it difficult for her to sleep. The patient's history is significant for a recent laparoscopic cholecystectomy performed o n 03/13/2018. The patient noted increasing abdominal girth, bloating, and pain since the completion of the procedure. The patient admits to decreased oral intake and states food does not taste right. The patient denied any specific vomiting or diarrhea, dysuria or documented fever. The patient itz ed any unilateral symptoms, chest pain, cough, or congestion. The patient's history is also signific ant for end-stage renal disease, receiving hemodialysis Friday, Friday, Friday, completing her mos t recent session within the last 3 days prior to this evaluation. The patient was formally treated w [facility] peritoneal dialysis, transitioning to hemodialysis in the last 4-5 months. The patient localizes the pain in the upper quadrants bilaterally as well as rating the pain as 10/10. The patient denied taking any specific remedies for her pain. In the emergency room, the patient underwent general get luation including CT imaging of the abdomen showing a large amount of ascites in the anterior abdomen with compression of the liver. The patient received IV morphine sulfate with associated hypotension as well as antiemetics and aspirin 162 mg. The patient was transferred to the medical floor for fur ther evaluation. PAST MEDICAL HISTORY: 1. End-stage renal disease with current hemodialysis Friday, Friday, and Friday. 2. History of partial bowel obstruction, 12/2017. 3. Atrial tachycardia. 4. Diastolic dysfunction with preserved ejection fraction of 50%-55%. 5. History of cerebrovascular accident with mild residual numbness of the left upper extremity. 6. Hypertension. 7. Bipolar disorder, type 1. 8. Nonischemic cardiomyopathy. 9. Gastroesophageal reflux. PAST SURGICAL HISTORY: 1. Status post section with vertical skin incision. 2. Status post peritoneal dialysis, catheter placement with revision and subsequent removal. 3. Status post endometrial biopsy with ablation. 4. Status post anterior cervical spine surgery. 5. Status post occlusion of the internal jugular vein. 6. Status post right femoral vein angio dynamics. 7. Status post cuffed hemodialysis catheter placement. 8. Status post left upper extremity primary arteriovenous fistula with thrombectomy of the basilic v ein. 9. Status post laparoscopic video-assisted cholecystectomy, 03/2018. CURRENT MEDICATIONS: 1. Amiodarone 200 mg p.o. b.i.d. 2. Lipitor 40 mg p.o. at bedtime. 3. Clonidine 0.2 mg p.o. b.i.d. 4. Hydralazine 100 mg p.o. t.i.d. 5. Lisinopril 10 mg p.o. daily. 6. Protonix 40 mg p.o. daily. 7. Sertraline 50 mg p.o. daily. 8. Enteric-coated aspirin 81 mg p.o. daily. ALLERGIES: IODINE. FAMILY HISTORY: Positive for hypertension. SOCIAL HISTORY: No current alcohol, tobacco, or illicit drug use. REVIEW OF SYSTEMS: The following complete review of systems was negative, unless otherwise mentioned in the HPI or below: Constitutional: Weight loss or gain, ability to conduct usual activities. Sk in: Rash, itching. Eyes: Double vision, pain. ENT/Mouth: Nose bleeding, neck stiffness, pain, te nderness. Cardiovascular: Palpitations, dyspnea on exertion, orthopnea. Respiratory: Shortness of breath, wheezing, cough, hemoptysis, fever, or night sweats. Gastrointestinal: Poor appetite, abdo aly pain, heartburn, nausea, vomiting, constipation, or diarrhea. Genitourinary: Urgency, frequen cy, dysuria, nocturia. Musculoskeletal: Pain, swelling. Neurologic/Psychiatric: Anxiety, depressi on. Allergy/Immunologic: Skin rash, bleeding tendency. Otherwise negative except as stated per HPI . PHYSICAL EXAMINATION: VITAL SIGNS: From the emergency department, blood pressure 111/85, pulse 83, respiratory rate 29, te mperature 98 degrees Fahrenheit, O2 saturation 100% on room air. GENERAL APPEARANCE: This is a 53-year-old -[place] female, alert and oriented x3, pleasant, responsive, in mild distress. HEENT EXAM: Pupils are equal, round, and reactive to light and accommodation. Extraocular muscles a re intact. No scleral icterus, no conjunctival injection. Nares patent. OP is clear. Teeth in jayda r repair. NECK: Supple, no cervical adenopathy, no thyromegaly, no carotid bruits, no JVD appreciated. Cervic al spine with full active and passive range of motion. No meningeal signs appreciated. CHEST: Diminished breath sounds in the bases bilaterally. No rhonchi. CARDIOVASCULAR EXAM: S1 and S2, without noted murmur, rub, or gallop. ABDOMEN: Distended with tenderness to palpation in the right and left upper quadrants. Positive flu id wave. Bowel sounds are positive in all 4 quadrants. Multiple postsurgical changes on the anterio r abdominal wall consistent with prior surgical history. No rebound or guarding appreciated. EXTREMITIES: Warm and dry with fair turgor. Minimal edema at the ankle region bilaterally. Pulses palpable distally at the dorsalis pedis, posterior tibial, and popliteal arteries bilaterally. Capil thai refill less than 2 seconds. NEUROLOGIC EXAM: Cranial nerves II-XII are grossly intact. No focal or lateralizing signs appreciat ed. PERTINENT LABORATORY AND X-RAY FINDINGS: Sodium 134, potassium 3.8, chloride 96, CO2 of 29, BUN 23, creatinine 5.29, estimated GFR of 10, glucose 67, calcium 7.6. LFTs within normal limits. Troponin I ranged between 0.100-0.104, albumin 1.9, lipase 8. CBC showed a white blood cell count of 7.8, hem oglobin 8.6, hematocrit 26, MCV 100, platelet count [address] of the abdomen and pelvis dated 03/30/2018 showed marked anterior intraperitoneal ascites with well circumscribed br im, without significant retroperitoneal ascites. A 4.3 x 1.8 x 2.0 cm right lower quadrant subcutane ous density. EKG dated 03/29/2018, by my interpretation, shows sinus mechanism with heart rate in th e 90s. Normal R-wave progression noted in the precordial leads. Normal axis. Left anterior fascicu lar block noted. No acute ST-T wave changes appreciated. ASSESSMENT AND PLAN: 1. Right and left upper quadrant abdominal pain. The patient will be admitted to the medical floor. The patient with significant amount of ascites on CT imaging. We will proceed with ultrasound-guid ed paracentesis for decompression and symptomatic relief. We will await fluid analysis. General yoly miroslava consult for further evaluation. Likely multifactorial ascites given patient's end-stage renal d isease, hypoalbuminemia, and recent postsurgical changes after cholecystectomy. Pain control with To radol 15 mg IV q.6 hours. Continue general supportive measures. 2. End-stage renal disease with hemodialysis. We will consult Nephrology service for further evalua tion and scheduling for maintenance hemodialysis. 3. Chronic macrocytic anemia secondary to chronic kidney disease. Stable currently. We will contin ue to trend hemoglobin. No current evidence of active blood loss. Repeat CBC in the a.m. 4. Hypotension. Suspect iatrogenic after treatment with morphine sulfate. Avoid narcotic medicatio ns. Hold all antihypertensive medications. Serial blood pressure monitoring. 5. Status post laparoscopic cholecystectomy. Continue general pain control measures. General surge ry consult for evaluation. HIDA scan pending. 6. Prophylaxis. Sequential compression devices while in bed. Pepcid 20 mg p.o. b.i.d. 7. Code status is FULL. Surrogate medical decision maker not identified.
--- NOTE | 2018-03-30 13:00 | CON ---
DATE OF CONSULTATION: 03/30/2018 REASON FOR CONSULTATION: Abdominal pain. HISTORY OF PRESENT ILLNESS: Ms. Chavarria is a 53-year-old woman with multiple medical issues who under went a laparoscopic cholecystectomy by Dr. Rivera earlier this month about 2 weeks ago. She states t hat last night, she suddenly began to have epigastric pain similar to her gallbladder pain. It did n ot go away and she had some nausea, so she came to the emergency room. Her lab work was unremarkable , but she was in quite a bit of discomfort and a CT showed an encapsulated fluid collection. This wa s present in December, but the capsule appeared somewhat thicker and there was a concern for peritonitis. The patient denies any previous abdominal pain, nausea or vomiting since recovering from her recent surgery. She is on chronic dialysis Friday, Friday and Friday and has been compliant with that. She denies any jaundice or icterus, any fevers, chills or diaphoresis. She denies any chest pain or shortness of breath associated with the pain, although when the pain was severe, it did hurt to take a deep breath. PAST MEDICAL HISTORY: End-stage renal failure, history of heart failure, although her last echo show ed a normal ejection fraction, hypertension, SVT. PAST SURGICAL HISTORY: , ORIF of a cervical spine fracture, tubal ligation, multiple dialys is catheters and access procedures for dialysis, currently with a functional left-sided access, which has had to undergo revision to maintain patency. SOCIAL HISTORY: She does still chew tobacco daily, but does not drink or use illicit drugs. FAMILY HISTORY: Noncontributory. ALLERGIES: She has a reported allergy to IODINE. OUTPATIENT MEDICATIONS: Include atorvastatin, clonidine, hydralazine, lisinopril, calcitriol, Renvel a, Sevelamer, pantoprazole. PHYSICAL EXAMINATION: VITAL SIGNS: The patient is afebrile with normal vital signs. Although her blood pressure is runnin g low at 88/54, she is not lightheaded or dizzy and her heart rate is only 71 and she is saturating a t 100%. GENERAL: Reveals a pleasant woman, in no acute distress. HEENT: Unremarkable. NECK: Supple without lymphadenopathy or thyroid nodules. She has a healed anterior cervical scar. HEART: Regular in its rate and rhythm without murmurs, rubs or gallops. LUNGS: Clear to auscultation bilaterally. ABDOMEN: Soft and nondistended. She is tender to palpation in the epigastrium, but does not exhibit rigidity, rebound or guarding. She is mildly tender to palpation elsewhere. No palpable masses or hernias. EXTREMITIES: Warm and well perfused. She does have right greater than left ankle edema. Her left u pper arm access has a good thrill. NEUROLOGIC: No focal deficits. PSYCHIATRIC: Alert, oriented and appropriate. LABORATORY DATA: White count is normal at 7.8, hematocrit chronically low at 26, platelet count 303, 000. Electrolytes are unremarkable. BUN and creatinine are 23 and 5.29. Troponins have been mildly elevated at 0.1 and 0.104. LFTs and lipase are both normal. CT images are reviewed and I agree wit h the written report. ASSESSMENT AND PLAN: Recurrent epigastric pain similar to her gallbladder pain 2 weeks after laparos copic cholecystectomy. The cholecystectomy was made difficult by chronic encapsulation of her abdomi nal organs due to infected peritoneal dialysis catheter, but there is no free air in the fluid collec tions. It could be that the fluid was contaminated during her laparoscopic cholecystectomy and that she now has peritonitis within these fluid collections. I think a paracentesis is indicated for Gram stain and culture. It is also possible that she has a bile leak or retained stone. Although her LF Ts are normal and her bile duct does not look dilated on CT, I recommend a HIDA scan to evaluate for these 2 problems. I will follow with the Medicine Team. Dr. Rivera will be back tomorrow and I will let him know that she has been admitted. Currently, she is on Pepcid for gastrointestinal prophylax is, but no antibiotics, which seems reasonable pending cultures.
--- NOTE | 2018-03-30 13:13 | NM ---
NUCLEAR MEDICINE HIDA SCAN: Date: 03/30/18 HISTORY: Epigastric pain. Status post cholecystectomy. Evaluate for leak or obstruction. COMPARISON: None. TECHNIQUE: Patient administered 5 mCi of technetium-99m mebrofenin intravenously. FINDINGS: There is uptake of the radiotracer by the hepatic parenchyma. There is passage of radiotracer from th e common bile duct into the small bowel loops. No obvious scintigraphic evidence of a leak. IMPRESSION: No definite scintigraphic evidence of bile leak or obstruction. POS: GI
[2018-03-30] MEDS: Ketorolac Tromethamine 30 MG/ML VIAL IVP SCH ×3 (14:07→23:28)
[2018-03-30 14:16] LABS: INR-International Normal Ratio 1.1; Prothrombin Time 14.3 SEC (12.0-14.7)
--- NOTE | 2018-03-30 14:38 | ULT ---
PROCEDURE: ULTRASOUND GUIDED DIAGNOSTIC ABDOMINAL PARACENTESIS. INDICATION: Ascites with sepsis. TECHNIQUE: Six cc of bloody ascitic fluid was removed from the right upper quadrant under ultrasound guidance th rough a 22-gauge spinal needle. The sample was sent to the laboratory for appropriate cultures and s ensitivity. FINDINGS: Four-quadrant ultrasound showed a small amount of ascites. There is a pocket of fluid in the right u pper quadrant just beneath the liver margin which is chosen for puncture. There is linear location s een within this fluid collection. Local anesthesia was administered under ultrasound guidance with L idocaine and bicarb. A 22-gauge spinal needle was used to enter the fluid collection under ultrasoun d guidance. Ultrasound confirmed needle tip within the fluid collection. A syringe was attached and approximately 6 cc of dark bloody ascitic fluid was aspirated. The sample was sent to the laborator y for appropriate cultures and sensitivities. The patient tolerated the procedure well and there were no problems or complications. POS: [facility]
[2018-03-30] MEDS ORDERED: Epoetin (ESRD) 20,000 UNITS/ML SC SCH (16:30)
--- NOTE | 2018-03-30 19:46 | CON ---
HISTORY OF PRESENT ILLNESS: Ms. Chavarria is a 53-year-old black female with ESRD - on maintenance hemo dialysis and admitted for abdominal pain. According to the patient, she was having epigastric pain s marko yesterday. Due to the persistent abdominal pain, she went to the ER. She is now admitted for f urther evaluation. Of interest, this patient has not truly have undergone a laparoscopic cholecystec flores. We are being consulted for a maintenance hemodialysis. I did examine the patient. I feel michael t we can wait until tomorrow for her dialysis. She tells me that abdominal pain is actually slightly improved today. REVIEW OF SYSTEMS: Decreased appetite, decreased energy level, loss of taste in her tongue. No ches t pain, no shortness of breath, no nausea, no vomiting. Denies any leg edema. No diarrhea or consti pation, no headache, no diplopia, no fever or chills, no hematochezia, no melena, no hematemesis, no sore throat, no diplopia. MEDICATIONS: Amiodarone 200 mg p.o. b.i.d., Lipitor 40 mg at bedtime, Ecotrin 81 mg every day, sertr felix 50 mg daily, Protonix 40 mg daily, lisinopril 10 mg once a day, hydralazine 100 mg p.o. t.i.d., clonidine 0.2 mg p.o. b.i.d., Lipitor 40 mg at bedtime. PAST MEDICAL HISTORY: 1. ESRD - maintenance hemodialysis Friday, Friday, and Friday. 2. Nonischemic cardiomyopathy. 3. Bipolar disorder. 4. Hypertension. 5. Status post CVA. 6. Diastolic dysfunction. 7. Status post CHF. 8. Atrial tachycardia. 9. Partial bowel obstruction. 10. GERD. PAST SURGICAL HISTORY: 1. Status post AV fistula placement. 2. Status post laparoscopic cholecystectomy. 3. Status post cuffed hemodialysis catheter placement. 4. Status post right femoral vein under angiodynamics. 5. Status post section. 6. Status post PD catheter placement with subsequent removal. 7. Status post endometrial biopsy with ablation. 8. Status post cervical spine surgery. ALLERGIES: IODINE. TRAUMA: None. IMMUNIZATIONS: Up to date. HOSPITALIZATIONS: Please see past medical history. SOCIAL HISTORY: The patient is single, lives in [place]. 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 No IV drug abuse. Currently, no smoking, alcohol rarely. No IV drug abuse. She lives with one of her children. FAMILY HISTORY: No family history of ESRD. PHYSICAL EXAMINATION: VITAL SIGNS: Blood pressure is 107/70, heart rate 80. GENERAL: Awake, alert, comfortable, not in overt distress. SKIN: Adequate turgor. HEENT: Pinkish conjunctivae, anicteric sclerae. NECK: No neck mass, no carotid bruits, no JVD. CHEST: No deformities. LUNGS: Clear breath sounds, no wheezing, no crackles. HEART: Normal sinus rhythm. No murmur, no gallops or rubs. ABDOMEN: Globular, soft, nontender. No masses. EXTREMITIES: No edema, no deformities. LABORATORY DATA: 03/30/2018, White count 7.8, hemoglobin 8.6, hematocrit 26.1. Sodium 134, potassiu m 3.8, chloride 96, carbon dioxide 29, BUN 23, creatinine 5.29, glucose 67, calcium 7.6. On 03/30/20 18, CT scan of the abdomen and pelvis, there is a anterior intraperitoneal ascites, was circums cribed I think ? of peritonitis/abscess, hematoma right upper quadrant area. Hepatobiliary scan, no definite scintigraphic evidence of bile leak or obstruction. 03/30/2018, the patient underwent ultrasound guided diagnostic abdominal paracentesis - 6 mL of blood y ascitic fluid was removed. ASSESSMENT AND PLAN: 1. Right upper quadrant pain, being ruled out for any peritonitis. Ascitic fluid was aspirated via ultrasound earlier. Please note she has undergone laparoscopic cholecystectomy a few weeks back. Cu rrently, patient is being managed supportively. PRN pain medication as needed. 2. End-stage renal disease, stable. No indication for any emergent hemodialysis. I have scheduled this patient for dialysis tomorrow. We will keep her current 3 times a week hemodialysis regimen. R luis of the last Kt/V suggests she is adequately dialyzed with the current dialysis regimen. 3. Anemia - Epogen 7500 units subcutaneously every week has been started.
[2018-03-30] MEDS: Amiodarone 200 MG TAB PO SCH (20:59)
[2018-03-30] MEDS ORDERED: Famotidine 20 MG TAB PO SCH (21:00)
[2018-03-31 04:56] LABS: ALT (SGPT) 15 U/L (8-55); AST (SGOT) 45 U/L (5-34); Albumin 1.7 g/dL (3.5-5.0); Alkaline Phosphatase 160 U/L (40-150); Anion Gap 13 mmol/L (10-20); BUN (Urea Nitrogen) 28 mg/dL (9.8-20.1); Bilirubin, Total 0.3 mg/dL (0.2-1.2); Calc. Creatinine Clearance 13 mL/min (70-130); Calcium 7.5 mg/dL (7.8-10.44); Carbon Dioxide 29 mmol/L (22-29); Chloride 96 mmol/L (98-107); Estimated GFR-MDRD 9; Globulin 4.1 g/dL (2.4-3.5); Glucose 83 mg/dL (70-105); Potassium 4.2 mmol/L (3.5-5.1); Protein, Total 5.8 g/dL (6.0-8.3); Sodium 134 mmol/L (136-145)
[2018-03-31 05:08] LABS: Band 17 % (5-11); Eosinophils 1 % (0-10); Hemoglobin 8.5 g/dL (12.0-16.0); Lymphocytes 10 % (21-51); MDiff Complete? YES; Mean Corpuscular HGB CONC 32.8 g/dL (32.0-36.0); Mean Corpuscular Hemoglobin 33.1 pg (27.0-31.0); Mean Platelet Volume 8.2 fL (7.4-10.4); Monocytes 1 % (0-10); Neutrophil 70 % (42-75); Platelet Count 265 thou/uL (130-400); RBC Distribution Width 16.9 % (11.5-14.5); Red Blood Cell (RBC) Count 2.56 mill/uL (4.20-5.40); White Blood Cell (WBC) Count 14.4 thou/uL (4.8-10.8)
[2018-03-31] MEDS: Ketorolac Tromethamine 30 MG/ML VIAL IVP SCH ×3 (06:30→18:13)
[2018-03-31] MEDS: Amiodarone 200 MG TAB PO SCH ×2 (08:08→20:38)
[2018-03-31] MEDS ORDERED: Famotidine 20 MG TAB PO SCH (09:42)
--- NOTE | 2018-03-31 10:06 | PRG ---
DATE OF SERVICE: 03/31/2018 SUBJECTIVE: Ms. Chavarria is a 53-year-old black female with ESRD and being followed up by the [facility]al [facility] for her maintenance hemodialysis. I am currently dialyzing the patient. I am at the bedside s upervising her dialysis. Using no heparin with dialysis. She was initially admitted for abdominal p ain. The concern was whether she may have some peritonitis. A sample of her ascitic fluid was done yesterday. The results showed, so far negative for any white cells or organisms. Her abdominal pain is actually improved today. PHYSICAL EXAMINATION: VITAL SIGNS: Blood pressure is 95/59-102/70, heart rate 60, respiratory rate 12, temperature 97.9, p ulse ox 100%. GENERAL: Noted to be awake, alert, comfortable, not in distress SKIN: Adequate turgor. HEENT: Pinkish conjunctivae, anicteric sclerae. NECK: No neck mass, no carotid bruits, no JVD. CHEST: No deformities. LUNGS: Clear breath sounds. No wheezing, no crackles. HEART: Normal sinus rhythm. No murmur, no gallops or rubs. ABDOMEN: Globular, soft, nontender, no masses. EXTREMITIES: No edema, no deformities. MEDICATIONS: 03/31/2018 - Reviewed. LABORATORIES: 03/31/2018 - White count 14.4, hemoglobin 8.5. Sodium 134, potassium 4.2, chloride 96 , carbon dioxide 29, BUN 28, creatinine 6, calcium is 7.5. AST 45, ALT 15, albumin 1.7. ASSESSMENT AND PLAN: 1. End-stage renal disease, stable. Tolerating current hemodialysis regimen. Fluid removal only as tolerated by the patient. In the past, she has had a history of excess volume and has received extr a dialysis. 2. Abdominal pain spontaneously, resolved. Ascitic fluid is noted to be negative. 3. Anemia, continuing weekly Epogen. 4. Hypoalbuminemia. Start Nepro 1 can b.i.d. The patient has been counseled regarding protein inta ke.
--- NOTE | 2018-03-31 18:20 | PDOC.PN ---
- Subjective Encounter Start Date: 03/31/18 Encounter Start Time: 18:05 Subjective: f/u for abd pain and ascites s/p small volume paracentesis with negative -: ascitic cx. HD performed today without difficulty. Overall feels better. - Objective Resuscitation Status: Resuscitation Status FULL:Full Resuscitation MAR Reviewed: Yes Vital Signs & Weight: Vital Signs (12 hours) Temp Pulse Resp BP BP BP Pulse Ox 03/31/18 16:30 98.0 F 87 16 91/59 L 99 03/31/18 11:42 98.0 F 61 12 163/78 H 97 03/31/18 08:13 97.9 F 60 12 95/59 L 100 03/31/18 08:00 97.9 F 60 12 100 Weight Admit Weight 170 lb 8 oz Weight 170 lb 8 oz I&O: 03/30/18 03/31/18 04/01/18 06:59 06:59 06:59 Intake Total 500 320 Balance 500 320 Result Diagrams: 03/31/18 03:53 03/31/18 03:53 Additional Labs: Microbiology 03/30/18 13:10 Ascites Fluid Bacterial Culture - Preliminary Radiology Reviewed by me: Yes (HIDA scan - negative) Phys Exam - Physical Examination Constitutional: NAD HEENT: PERRLA, sclera anicteric, oral pharynx no lesions Neck: no nodes, no JVD, supple, full ROM Respiratory: no wheezing, no rales, no rhonchi, clear to auscultation bilateral S1, S2 Cardiovascular: RRR, no significant murmur, no rub, gallop mild distention and TTP in upper quadrants Gastrointestinal: positive bowel sounds RUE AV fistula in place Musculoskeletal: no edema, pulses present Neurological: normal sensation, moves all 4 limbs Psychiatric: normal affect, A&O x 3 Skin: no rash, normal turgor, cap refill <2 seconds Dx/Plan (1) Abdominal pain Code(s): R10.9 - UNSPECIFIED ABDOMINAL PAIN Status: Acute Qualifiers: Abdominal location: epigastric Qualified Code(s): R10.13 - Epigastric pain Comment: Improved, suspect due to fluctuating ascites, supportive mgmt, maintenance HD (2) ESRD (end stage renal disease) on dialysis Code(s): N18.6 - END STAGE RENAL DISEASE; Z99.2 - DEPENDENCE ON RENAL DIALYSIS Status: Chronic Comment: HD per Renal service (3) Chronic anemia Code(s): D64.9 - ANEMIA, UNSPECIFIED Status: Chronic Comment: Stable currently, CBC monitoring, no evidence of active blood loss (4) Hypotension Status: Acute Comment: Labile, continue to monitor BP trend, limit antihypertensives (5) Hyponatremia Code(s): E87.1 - HYPO-OSMOLALITY AND HYPONATREMIA Status: Chronic Comment: Chronic, serial Na+ - Plan PT/OT, director of social work, out of bed/ambulate, DVT proph w/SCDs Stable overall -: D/C Toradol -: HD per Renal service -: Await final ascitic fluid cx -: AM lab: BMP, CBC * Likely home in am
[2018-04-01] MEDS ORDERED: Calcium Carbonate 500 MG ChewTAB PO PRN (00:07)
[2018-04-01] MEDS: Simethicone Chewable 80 MG TAB PO PRN ×2 (00:25→05:51)
[2018-04-01] MEDS: Ketorolac Tromethamine 30 MG/ML VIAL IVP SCH ×4 (00:52→18:01)
[2018-04-01 04:38] LABS: Anion Gap 11 mmol/L (10-20); BUN (Urea Nitrogen) 15 mg/dL (9.8-20.1); Calc. Creatinine Clearance 21 mL/min (70-130); Calcium 7.5 mg/dL (7.8-10.44); Carbon Dioxide 30 mmol/L (22-29); Chloride 99 mmol/L (98-107); Estimated GFR-MDRD 15; Glucose 106 mg/dL (70-105); Potassium 3.6 mmol/L (3.5-5.1); Sodium 136 mmol/L (136-145)
[2018-04-01] MEDS: Amiodarone 200 MG TAB PO SCH ×2 (08:36→22:12)
[2018-04-01] MEDS ORDERED: Bisacodyl 10 MG SUPP PR SCH (09:00)
--- NOTE | 2018-04-01 14:23 | PDOC.PN ---
- Subjective Encounter Start Date: 04/01/18 Encounter Start Time: 08:00 Subjective: c/o abd fullness, has not had bm since admission -: no chest pain or palp or cough - Objective Resuscitation Status: Resuscitation Status FULL:Full Resuscitation MAR Reviewed: Yes Vital Signs & Weight: Vital Signs (12 hours) Temp Pulse Resp BP Pulse Ox 04/01/18 08:48 98.0 F 70 20 116/74 99 04/01/18 08:00 98.0 F 70 20 99 Weight Admit Weight 170 lb 8 oz Weight 170 lb 8 oz I&O: 03/31/18 04/01/18 04/02/18 06:59 06:59 06:59 Intake Total 500 620 480 Balance 500 620 480 Result Diagrams: 03/31/18 03:53 04/01/18 03:57 Phys Exam - Physical Examination HEENT: PERRLA, moist MMs Neck: no JVD, supple Respiratory: no wheezing, no rales Cardiovascular: RRR, no significant murmur Gastrointestinal: soft, no distention, positive bowel sounds Musculoskeletal: no edema, pulses present Neurological: non-focal, moves all 4 limbs Psychiatric: normal affect, A&O x 3 Dx/Plan (1) Abdominal pain Code(s): R10.9 - UNSPECIFIED ABDOMINAL PAIN Status: Acute Qualifiers: Abdominal location: epigastric Qualified Code(s): R10.13 - Epigastric pain (2) Hypotension Status: Resolved Comment: Labile, continue to monitor BP trend, limit antihypertensives (3) ESRD on hemodialysis Code(s): N18.6 - END STAGE RENAL DISEASE; Z99.2 - DEPENDENCE ON RENAL DIALYSIS Status: Acute (4) Bipolar disorder in remission Code(s): F31.70 - BIPOLAR DISORD, CURRENTLY IN REMIS, MOST RECENT EPISODE UNSP Status: Chronic (5) Chronic anemia Code(s): D64.9 - ANEMIA, UNSPECIFIED Status: Chronic Comment: Stable currently, CBC monitoring, no evidence of active blood loss (6) Hypertension Code(s): I10 - ESSENTIAL (PRIMARY) HYPERTENSION Status: Chronic Qualifiers: Hypertension type: essential hypertension - Plan hemostable -: multiple w/u for abd pain are -ve -: dulcolax suppository, to amb in hallway -: dc plan this afternoon home -: to f/u with as adv, PCP in 1 week. * .
[2018-04-01] MEDS ORDERED: Magnesium Citrate 300 ML BOT PO SCH (15:45)
--- NOTE | 2018-04-01 17:09 | PRG ---
DATE OF SERVICE: 04/01/2018 SUBJECTIVE: Manuela Chavarria is doing well today. She complains of some mild abdominal pain. She is t rying to have a bowel movement. The patient has membranous abdominal cavity due to cirrhosis and pas t peritonitis from peritoneal dialysis catheter. She is status post cholecystectomy. She has a like ly fluid collection around the liver. Radiology recently percutaneously drained only 6 mL of this. More could be drained; however, the patient's abdomen is relatively soft with minimal tenderness and she feels somewhat better. There is no complication from the surgery. From my standpoint, the patie nt will be discharged home at any time. She has a fistula in her left upper arm. She complains of p aresthesias in left fingers that have been present chronically. These involve the thumb, index, midd le and ring finger. She has good palpable radial pulse. This is a neuropathic problem and she could be referred to outpatient Neurology for nerve conduction studies, but more than likely she could be treated with gabapentin. At this point, I will see her as needed. Please call us if necessary.
[2018-04-01] MEDS ORDERED: Digoxin 0.5 MG/2 ML AMP SLOW IVP SCH (19:00)
[2018-04-02] MEDS: Ketorolac Tromethamine 30 MG/ML VIAL IVP SCH ×3 (01:43→13:28)
[2018-04-02] MEDS ORDERED: Digoxin 0.5 MG/2 ML AMP SLOW IVP SCH ×2 (03:00→08:15)
[2018-04-02] MEDS ORDERED: Sodium Chloride 0.9% 1,000 ML IV SCH (08:15)
[2018-04-02] MEDS: Amiodarone 200 MG TAB PO SCH (08:44)
[2018-04-02] MEDS ORDERED: cloNIDine 0.2 MG TAB PO SCH (09:00)
[2018-04-02] MEDS ORDERED: Gabapentin 100 MG CAP PO SCH (09:00)
[2018-04-02] MEDS ORDERED: Polyethylene Glycol 3350 17 GM Packet PO SCH (09:00)
--- NOTE | 2018-04-02 09:58 | PRG ---
DATE OF SERVICE: 04/02/2018. SUBJECTIVE: Ms. Chavarria is a 53-year-old black female followed up for her maintenance hemodialysis. She underwent hemodialysis yesterday. During the said dialysis, she developed SVT. This was noted to be transient and she reverted back. Review of her medications suggest that she was not able to ta ke her antiarrhythmic meds due to low blood pressure. This morning, she voices no new complaints. Denies any chest pain or shortness of breath. OBJECTIVE: VITAL SIGNS: Blood pressure is 122/69 with a heart rate of 65, respiratory rate 16, temperature 98.1 , pulse ox is 97%. GENERAL: Noted to be awake, alert, comfortable, not in distress SKIN: Adequate turgor. HEENT: Slightly pale conjunctivae, anicteric sclerae. NECK: No neck mass, no carotid bruits, no JVD. CHEST: No deformities. LUNGS: Clear breath sounds. HEART: Normal sinus rhythm. No murmur, no gallops, no rubs. ABDOMEN: Globular, soft, nontender, no masses. EXTREMITIES: No edema, no deformities. MEDICATIONS: 04/02/2018 - Reviewed. LABORATORY: 03/31/2018 - Hemoglobin 8.5. 04/01/2018 - BUN is 15, creatinine 3.82, potassium 3.6, calcium 9.5. Sodium 136, chloride 99, carbon dioxide 30. ASSESSMENT AND PLAN: 1. Status post supraventricular tachycardia - currently in normal sinus rhythm. We will continue cu rrent dose of her medications - patient is on amiodarone at 200 mg p.o. b.i.d. She also will continu e to take the clonidine 2. Anemia, on weekly Epogen. 3. End-stage renal disease, stable. Tolerated hemodialysis yesterday. Fluid removal was taken out and fluid removal was then subsequently adjusted.
--- NOTE | 2018-04-02 10:59 | PDOC.PN ---
- Subjective Encounter Start Date: 04/02/18 Encounter Start Time: 09:40 Subjective: no c/o palpitations or chest pain -: feels better, is ambulating in room - Objective Resuscitation Status: Resuscitation Status FULL:Full Resuscitation MAR Reviewed: Yes Vital Signs & Weight: Vital Signs (12 hours) Temp Pulse Resp BP Pulse Ox 04/02/18 07:40 98.1 F 65 16 97 04/02/18 07:36 98.1 F 65 16 122/69 97 04/02/18 04:26 98.6 F 131 H 15 114/70 99 04/02/18 03:27 149 H Weight Admit Weight 170 lb 8 oz Weight 155 lb 14.4 oz I&O: 04/01/18 04/02/18 04/03/18 06:59 06:59 06:59 Intake Total 620 1680 Output Total 1400 Balance 620 280 Result Diagrams: 03/31/18 03:53 04/01/18 03:57 Phys Exam - Physical Examination HEENT: PERRLA, moist MMs Neck: no JVD, supple Respiratory: no wheezing, no rales Cardiovascular: RRR, no significant murmur Gastrointestinal: soft, non-tender, positive bowel sounds Musculoskeletal: no edema, pulses present Neurological: non-focal, moves all 4 limbs Psychiatric: normal affect, A&O x 3 Dx/Plan (1) Abdominal pain Code(s): R10.9 - UNSPECIFIED ABDOMINAL PAIN Status: Acute Qualifiers: Abdominal location: epigastric Qualified Code(s): R10.13 - Epigastric pain (2) Hypotension Status: Resolved (3) ESRD on hemodialysis Code(s): N18.6 - END STAGE RENAL DISEASE; Z99.2 - DEPENDENCE ON RENAL DIALYSIS Status: Chronic (4) Bipolar disorder in remission Code(s): F31.70 - BIPOLAR DISORD, CURRENTLY IN REMIS, MOST RECENT EPISODE UNSP Status: Chronic (5) Chronic anemia Code(s): D64.9 - ANEMIA, UNSPECIFIED Status: Chronic Comment: Stable currently, CBC monitoring, no evidence of active blood loss (6) Hypertension Code(s): I10 - ESSENTIAL (PRIMARY) HYPERTENSION Status: Chronic Qualifiers: Hypertension type: essential hypertension (7) SVT (supraventricular tachycardia) Code(s): I47.1 - SUPRAVENTRICULAR TACHYCARDIA Status: Acute - Plan had episodic svt/?sinus tach overnight -: will give 1 liter NS, restart clonidine -: is on amiodarone, recieved 1 dose digoxin early this am around 3 -: may dc home this afternoon -: cardio consult if svt recurs prior to discharge * . Review of Systems - Medications/Allergies Allergies/Adverse Reactions: Allergies Allergy/AdvReac Type Severity Reaction Status Date / Time iodine Allergy Intermediate Rash Verified 03/13/18 11:22 Medications: Current Medications Acetaminophen (Tylenol) 1,000 mg PO Q6H PRN PRN Reason: Headache/Fever or Mild Pain Last Admin: 03/31/18 14:19 Dose: 1,000 mg Amiodarone HCl (Cordarone) 200 mg PO BID [facility] Last Admin: 04/02/18 08:44 Dose: 200 mg Aspirin (Aspirin Chewable) 81 mg PO DAILY [facility] Last Admin: 04/02/18 08:44 Dose: 81 mg Atorvastatin Calcium (Lipitor) 40 mg PO [facility] Calcium Carbonate (Tums) 1,000 mg PO Q4H PRN PRN Reason: Heartburn or Indigestion Clonidine (Catapres) 0.2 mg PO BID [facility] Last Admin: 04/02/18 08:44 Dose: 0.2 mg Epoetin Jelani (Procrit) 7,500 units SC Q7D [facility] Last Admin: 03/30/18 19:11 Dose: 7,500 units Gabapentin (Neurontin) 100 mg PO DAILY [facility] Last Admin: 04/02/18 08:44 Dose: 100 mg Ketorolac Tromethamine (Toradol) 15 mg IVP Q6HR [facility] Stop: 04/04/18 12:01 Last Admin: 04/02/18 07:34 Dose: Not Given Ondansetron HCl (Zofran Odt) 4 mg PO Q6H PRN PRN Reason: Nausea/Vomiting Ondansetron HCl (Zofran) 4 mg IVP Q6H PRN PRN Reason: Nausea/Vomiting Polyethylene Glycol (Miralax) 17 gm PO DAILY [facility] Sertraline HCl (Zoloft) 50 mg PO DAILY [facility] Last Admin: 04/02/18 08:44 Dose: 50 mg Simethicone (Mylicon Chewable) 80 mg PO HS PRN PRN Reason: Gas Pain Last Admin: 04/01/18 05:51 Dose: 80 mg Sodium Chloride (Flush - Normal Saline) 10 ml IVF Q12HR [facility] Last Admin: 04/02/18 08:45 Dose: 10 ml Sodium Chloride (Flush - Normal Saline) 10 ml IVF PRN PRN PRN Reason: Saline Flush Last Admin: 04/02/18 03:28 Dose: 10 ml
[2018-04-02 12:26] VITALS: TEMP 97.9
[2018-04-02 14:44] VITALS: BMI 25.1
[2018-04-02 17:51] VITALS: BP 134/100
[2018-04-02] MEDS ORDERED: Atorvastatin Calcium 40 MG TAB PO SCH (21:00)
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
--- NOTE | 2018-04-03 15:12 | EKG ---
Test Reason : STAT Blood Pressure : / mmHG Vent. Rate : 144 BPM Atrial Rate : 144 BPM P-R Int : 000 ms QRS Dur : 076 ms QT Int : 314 ms P-R-T Axes : 000 -58 129 degrees QTc Int : 486 ms Supraventricular tachycardia Left axis deviation Possible Anterior infarct , age undetermined Abnormal ECG When compared with ECG of 30-MAR-2018 04:49, (Unconfirmed) Premature supraventricular complexes are no longer Present Vent. rate has increased BY 68 BPM Confirmed by VEENA FLORINA MD ([id number]) on 04/03/2018 3:12:07 PM Referred By: Confirmed By:VEENA FLORIAN MD
--- NOTE | 2018-04-04 15:11 | EKG ---
Test Reason : AB PAIN Blood Pressure : / mmHG Vent. Rate : 076 BPM Atrial Rate : 076 BPM P-R Int : 142 ms QRS Dur : 078 ms QT Int : 476 ms P-R-T Axes : 052 -45 085 degrees QTc Int : 535 ms Sinus rhythm with Premature supraventricular complexes Left anterior fascicular block Nonspecific T wave abnormality Prolonged QT Abnormal ECG Confirmed by BOSTON Joshi, GISSEL ([id number]), editorial director JENNIFER SOLOMON ([id number]) on 04/04/2018 3:11:24 PM Referred By: Confirmed By:GISSEL MEAD M.D.
== END 2018-04-02 17:37 | disposition home or self-care (01) | DRG 947 ==
LOC: ERS 04:37 → T4-B 06:57 → 2NO 04-01 19:18
PROVIDERS: ADMIT Hospitalist; ATTEND Hospitalist
PROC: 0W9G3ZX Drainage of Peritoneal Cavity, Percutaneous Approach, Diagnostic (ICD-10-PCS; principal; 2018-03-30)
PROC: 5A1D70Z Performance of Urinary Filtration, Intermittent, Less than 6 Hours Per Day (ICD-10-PCS; 2018-04-01)
DX: R18.8 Other ascites (principal); N18.6 End stage renal disease; I47.1 Supraventricular tachycardia; I13.2 Hypertensive heart and chronic kidney disease with heart failure and with stage 5 chronic kidney disease, or end stage renal disease; I50.32 Chronic diastolic (congestive) heart failure; E87.1 Hypo-osmolality and hyponatremia; R10.13 Epigastric pain; Z99.2 Dependence on renal dialysis; F31.9 Bipolar disorder, unspecified; I95.9 Hypotension, unspecified; Z79.82 Long term (current) use of aspirin; Z91.041 Radiographic dye allergy status; Z86.73 Personal history of transient ischemic attack (TIA), and cerebral infarction without residual deficits; K21.9 Gastro-esophageal reflux disease without esophagitis; Z90.49 Acquired absence of other specified parts of digestive tract; F17.220 Nicotine dependence, chewing tobacco, uncomplicated; D63.1 Anemia in chronic kidney disease; E88.09 Other disorders of plasma-protein metabolism, not elsewhere classified
CPT/HCPCS: 36415; 49083; 74176; 78226; 80048; 80053; 83690; 84484; 85007; 85025; 85027; 85610; 85730; 86850; 86900; 86901; 87070; 87205; 90935; 93005; 93010; 96374; 96375; A4216; A9537; G0257; J1160; J1885; J2270; J2405; Q0162; Q4081

== ENCOUNTER 2018-05-14 21:22 | Emergency (ER) | payer MEDICARE, MEDICAID ==
[2018-05-14 23:04] LABS: ALT (SGPT) 7 U/L (8-55); AST (SGOT) 18 U/L (5-34); Alkaline Phosphatase 130 U/L (40-150); Anion Gap 13 mmol/L (10-20); BUN (Urea Nitrogen) 22 mg/dL (9.8-20.1); Bilirubin, Total 0.3 mg/dL (0.2-1.2); Calc. Creatinine Clearance 0 mL/min (70-130); Calcium 8.1 mg/dL (7.8-10.44); Carbon Dioxide 31 mmol/L (22-29); Chloride 99 mmol/L (98-107); Estimated GFR-MDRD 13; Globulin 5.2 g/dL (2.4-3.5); Glucose 92 mg/dL (70-105); Potassium 3.2 mmol/L (3.5-5.1); Protein, Total 7.2 g/dL (6.0-8.3); Sodium 140 mmol/L (136-145)
--- NOTE | 2018-05-15 07:16 | ULT ---
ULTRASOUND WITH DOPPLER DUPLEX VENOUS LOWER EXTREMITY RIGHT: CPT: 63566 ICD-10-PCS: B54D INDICATION: Edema. TECHNIQUE: Color flow Doppler, spectral waveform analysis of pulsed Doppler, and stern-scale imaging with bernadette alfredo and augmentation, were used to evaluate the right common femoral, femoral, popliteal, posterior tibial, and superficial femoral, veins; and the proximal portions of the profunda femoral and greater saphenous, veins. FINDINGS: There is appropriate compressibility and flow within the imaged deep vein system of the visualized ri ght lower extremity without evidence of deep venous thrombosis. There is evidence of soft tissue carlos a. IMPRESSION: 1. No deep venous thrombosis of visualized right lower extremity. 2. Soft tissue edema. Correlate clinically. POS: GI
--- NOTE | 2018-05-15 07:18 | ULT ---
SOFT TISSUE ULTRASOUND OF RIGHT LOWER EXTREMITY WITH ARAUJO SCALE AND DOPPLER COLOR FLOW IMAGING INCLUD ING SPECTRAL ANALYSIS: Date: 05/14/18 INDICATION: Edema, rubor, erythema, and pain. FINDINGS: The regional soft tissues of the right lower extremity, of clinical concern, are interrogated with Gr ay scale and Doppler color flow imaging, as well as spectral analysis. There is prominence of regiona l lymph nodes of the right inguinal region. There is no localizable soft tissue fluid collection to i ndicate drainable abscess. There is soft tissue edema. IMPRESSION: Soft tissue edema and adenopathy. No drainable abscess identified. Correlate clinically. POS: GI
== END 2018-05-15 01:09 | disposition home or self-care (01) ==
LOC: ERS 21:22
DX: M79.89 Other specified soft tissue disorders (principal); I10 Essential (primary) hypertension; I25.2 Old myocardial infarction; Z86.73 Personal history of transient ischemic attack (TIA), and cerebral infarction without residual deficits; Z79.899 Other long term (current) drug therapy
CPT/HCPCS: 36415; 76999; 80053

== ENCOUNTER 2018-07-13 18:26 | Emergency (ER) | payer MEDICARE, MEDICAID ==
[2018-07-13 19:15] LABS: Anion Gap 11 mmol/L (10-20); BUN (Urea Nitrogen) 19 mg/dL (9.8-20.1); Calc. Creatinine Clearance 0 mL/min (70-130); Calcium 8.2 mg/dL (7.8-10.44); Carbon Dioxide 30 mmol/L (22-29); Chloride 98 mmol/L (98-107); Estimated GFR-MDRD 12; Glucose 95 mg/dL (70-105); Potassium 4.4 mmol/L (3.5-5.1); Sodium 135 mmol/L (136-145)
[2018-07-13] MEDS ORDERED: Metoclopramide HCl 10 MG/2 ML VIAL ONE (19:25)
[2018-07-13] MEDS ORDERED: Ketorolac Tromethamine 30 MG/ML VIAL ONE (19:25)
[2018-07-13] MEDS ORDERED: Dexamethasone 10 MG/ML VIAL ONE (19:27)
--- NOTE | 2018-07-13 20:44 | CT ---
CT BRAIN WITHOUT CONTRAST ENHANCEMENT: HISTORY: Headache. COMPARISON: 10/11/2017 FINDINGS: The ventricular and cisternal system is within normal limits. There are no signs of intracerebral he morrhage or extraaxial fluid collections. The mastoid air cells and visualized sinuses are clear. IMPRESSION: No acute intracranial abnormalities. POS: [facility]
== END 2018-07-13 20:02 | disposition home or self-care (01) ==
LOC: ERS 18:26
DX: R51 Headache (principal); I10 Essential (primary) hypertension; I25.2 Old myocardial infarction; F31.9 Bipolar disorder, unspecified; Z79.899 Other long term (current) drug therapy; Z86.73 Personal history of transient ischemic attack (TIA), and cerebral infarction without residual deficits
CPT/HCPCS: 36415; 70450; 80048; 93005; 96365; 96375; J1100; J1885; J2765

== ENCOUNTER 2018-07-21 23:06 | Emergency (ER) | payer MEDICARE, OTHER | END 2018-07-22 00:33 | disposition left against medical advice (07) | LOC: ERS 23:06 | DX: Z53.21 Procedure and treatment not carried out due to patient leaving prior to being seen by health care provider (principal) ==

== ENCOUNTER 2018-08-04 18:04 | Emergency (ER) | payer MEDICARE, OTHER ==
[2018-08-04 18:54] LABS: #Basophils 0.1 thou/uL (0.0-0.2); #Eosinphils 0.4 thou/uL (0.0-0.7); #Lymphocytes 2.2 thou/uL (1.20-3.40); #Monocytes 0.7 thou/uL (0.11-0.59); #Neutrophils 3.5 thou/uL (1.40-6.50); %Basophils 1.1 % (0.0-1.0); %Eosinophils 5.6 % (0.0-10.0); %Lymphocytes 32.2 % (21.0-51.0); %Monocytes 9.6 % (0.0-10.0); %Neutrophils 51.5 % (42.0-75.0); Hemoglobin 10.1 g/dL (12.0-16.0); Mean Corpuscular HGB CONC 32.2 g/dL (32.0-36.0); Mean Corpuscular Hemoglobin 30.4 pg (27.0-31.0); Mean Corpuscular Volume 94.6 fL (78.0-98.0); Platelet Count 210 thou/uL (130-400); RBC Distribution Width 18.5 % (11.5-14.5); Red Blood Cell (RBC) Count 3.31 mill/uL (4.20-5.40); White Blood Cell (WBC) Count 6.8 thou/uL (4.8-10.8)
[2018-08-04 19:13] LABS: ALT (SGPT) 7 U/L (8-55); AST (SGOT) 17 U/L (5-34); Albumin 2.4 g/dL (3.5-5.0); Alkaline Phosphatase 132 U/L (40-150); Anion Gap 16 mmol/L (10-20); BUN (Urea Nitrogen) 34 mg/dL (9.8-20.1); Bilirubin, Total 0.3 mg/dL (0.2-1.2); Calc. Creatinine Clearance 0 mL/min (70-130); Calcium 8.1 mg/dL (7.8-10.44); Carbon Dioxide 25 mmol/L (22-29); Chloride 102 mmol/L (98-107); Estimated GFR-MDRD 7; Globulin 4.6 g/dL (2.4-3.5); Glucose 97 mg/dL (70-105); Potassium 3.8 mmol/L (3.5-5.1); Sodium 139 mmol/L (136-145)
--- NOTE | 2018-08-04 21:50 | PRG ---
DATE OF SERVICE: 08/04/2018 Ms. Chavarria is a 53-year-old black female with known history of ESRD - on maintenance hemodialysis and presents today complaining of shortness of breath. She missed her Friday dialysis. She tells me that she has been having progressively worsening shortness of breath since early this morning. Due to the missed dialysis and possible volume overload, we will be doing an emergent dialysis with this patient for 2 hours. I will consider just doing an ultrafiltration so that she will tolerate the fluid removal tonight. REVIEW OF SYSTEMS: No chest pain. Positive for shortness of breath. No syncopal episode. No productive cough. No fever or chills. No dysuria. No urinary frequency. HOME MEDICATIONS: Based on the last medical records, 1. Clonidine 0.2 mg p.o. b.i.d. 2. Sertraline 50 mg daily. 3. Protonix 40 mg daily. 4. Aspirin 81 mg daily. 5. Amiodarone 200 mg p.o. b.i.d. ? PHYSICAL EXAMINATION: VITAL SIGNS: Blood pressure is 107/70 and heart rate 80. GENERAL: Noted to be awake, alert, comfortable, not in distress. SKIN: Adequate turgor. HEENT: She has pinkish conjunctivae. Anicteric sclerae. No neck mass. No carotid bruits. No JVD. CHEST: No deformities. LUNGS: Decreased breath sounds. HEART: Normal sinus rhythm. No murmurs, gallops or rubs. ABDOMEN: Globular, soft, and nontender. No masses. EXTREMITIES: Positive for right thigh edema. Lower leg, no edema. LABORATORY DATA: Laboratories of August 04, 2018, sodium 139, potassium 3.8, chloride 102, carbon dioxide 25, BUN 34, and creatinine 7.48. AST 17 and ALT 7. White count 6.8, hemoglobin 10.1, and hematocrit 31.3. ASSESSMENT AND PLAN: 1. Shortness of breath - progressive in nature, worsening during the last 12 hours. She is still mildly short of breath. On exam, she does not show overt congestive heart failure, but due to the missed dialysis, we will do a short 2-hour ultrafiltration tonight. We will attempt 2 to 3 L of fluid removal. 2. End-stage renal disease - continue current maintenance hemodialysis on Friday, Friday and Friday. I have advised the patient to report for a regular hemodialysis in a.m. at outpatient dialysis at [facility]. 3. Overall, I agree with current management. Agree with plan discharge after dialysis tonight. Job ID: [id number]
== END 2018-08-05 00:22 | disposition home or self-care (01) ==
LOC: ERS 18:04
DX: R51 Headache (principal); I12.0 Hypertensive chronic kidney disease with stage 5 chronic kidney disease or end stage renal disease; N18.6 End stage renal disease; F31.9 Bipolar disorder, unspecified; Z91.15 Patient's noncompliance with renal dialysis
CPT/HCPCS: 36415; 80053; 85025; 93005

== ENCOUNTER 2018-08-20 13:46 | Outpatient (CLI) | payer MEDICARE, MEDICAID ==
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
== END 2018-08-20 13:47 | disposition home or self-care (01) ==
LOC: WCC 13:46
PROVIDERS: ATTEND Family Medicine
DX: R60.0 Localized edema (principal); Z79.01 Long term (current) use of anticoagulants
CPT/HCPCS: 97139; 97602; G0463; 99203

== ENCOUNTER 2018-09-10 14:04 | Outpatient (CLI) | payer MEDICARE, MEDICAID | END 2018-09-10 14:05 | disposition home or self-care (01) | LOC: WCC 14:04 | PROVIDERS: ATTEND Family Medicine | DX: I89.0 Lymphedema, not elsewhere classified (principal) | CPT/HCPCS: 97139; G0463; 99211 ==

== ENCOUNTER 2018-10-30 15:17 | Emergency (ER) | payer MEDICARE, MEDICAID ==
[2018-10-30 15:37] LABS: #Basophils 0.1 thou/uL (0.0-0.2); #Eosinphils 0.6 thou/uL (0.0-0.7); #Lymphocytes 1.9 thou/uL (1.20-3.40); #Monocytes 0.6 thou/uL (0.11-0.59); #Neutrophils 3.4 thou/uL (1.40-6.50); %Basophils 0.8 % (0.0-1.0); %Eosinophils 8.8 % (0.0-10.0); %Lymphocytes 29.4 % (21.0-51.0); %Monocytes 8.9 % (0.0-10.0); %Neutrophils 52.1 % (42.0-75.0); Hemoglobin 9.7 g/dL (12.0-16.0); Mean Corpuscular HGB CONC 31.5 g/dL (32.0-36.0); Mean Corpuscular Hemoglobin 29.7 pg (27.0-31.0); Mean Corpuscular Volume 94.3 fL (78.0-98.0); Mean Platelet Volume 8.3 fL (7.4-10.4); Platelet Count 199 thou/uL (130-400); RBC Distribution Width 16.6 % (11.5-14.5); Red Blood Cell (RBC) Count 3.26 mill/uL (4.20-5.40); White Blood Cell (WBC) Count 6.6 thou/uL (4.8-10.8)
[2018-10-30 16:00] LABS: ALT (SGPT) 10 U/L (8-55); AST (SGOT) 22 U/L (5-34); Albumin 3.2 g/dL (3.5-5.0); Alkaline Phosphatase 194 U/L (40-150); Anion Gap 16 mmol/L (10-20); BUN (Urea Nitrogen) 24 mg/dL (9.8-20.1); Bilirubin, Total 0.4 mg/dL (0.2-1.2); Calc. Creatinine Clearance 0 mL/min (70-130); Calcium 8.4 mg/dL (7.8-10.44); Carbon Dioxide 30 mmol/L (22-29); Chloride 99 mmol/L (98-107); Estimated GFR-MDRD 12; Globulin 4.7 g/dL (2.4-3.5); Glucose 127 mg/dL (70-105); Potassium 3.5 mmol/L (3.5-5.1); Protein, Total 7.9 g/dL (6.0-8.3); Sodium 141 mmol/L (136-145)
--- NOTE | 2018-10-30 16:17 | RAD ---
PORTABLE CHEST 1 VIEW: Date: 10/30/18 Time: 1535 hours HISTORY: Chest pain. FINDINGS: Comparison made with exam of 03/13/18. The heart is enlarged. The aorta is tortuous. The lungs are expanded without focal areas of consolida tion, pneumothoraces, georgina pulmonary edema, or pleural effusions. There are postop changes in the ce rvical spine. IMPRESSION: No acute process. POS: C
[2018-10-30 16:24] LABS: CKMB 2.5 ng/mL (0-6.6)
== END 2018-10-30 18:00 | disposition home or self-care (01) ==
LOC: ERS 15:17
DX: R00.0 Tachycardia, unspecified (principal); I12.0 Hypertensive chronic kidney disease with stage 5 chronic kidney disease or end stage renal disease; N18.6 End stage renal disease; F31.9 Bipolar disorder, unspecified; Z79.899 Other long term (current) drug therapy; Z79.82 Long term (current) use of aspirin
CPT/HCPCS: 36415; 71045; 80053; 82553; 84484; 85025; 93005

== ENCOUNTER 2018-11-09 20:27 | Emergency (ER) | payer MEDICARE, MEDICAID ==
[2018-11-09] MEDS ORDERED: Ketorolac Tromethamine 30 MG/ML VIAL ONE (22:17)
== END 2018-11-09 22:40 | disposition home or self-care (01) ==
LOC: ERS 20:27
DX: L02.11 Cutaneous abscess of neck (principal); I12.0 Hypertensive chronic kidney disease with stage 5 chronic kidney disease or end stage renal disease; N18.6 End stage renal disease; Z99.2 Dependence on renal dialysis; F31.9 Bipolar disorder, unspecified; F17.220 Nicotine dependence, chewing tobacco, uncomplicated; Z79.899 Other long term (current) drug therapy; Z79.82 Long term (current) use of aspirin
CPT/HCPCS: 10061; 96372; J1885

== ENCOUNTER 2018-11-13 15:28 | Emergency (ER) | payer MEDICARE, MEDICAID | END 2018-11-13 16:30 | disposition home or self-care (01) | LOC: ERS 15:28 | DX: Z48.817 Encounter for surgical aftercare following surgery on the skin and subcutaneous tissue (principal); I12.0 Hypertensive chronic kidney disease with stage 5 chronic kidney disease or end stage renal disease; N18.6 End stage renal disease; F31.9 Bipolar disorder, unspecified; F17.220 Nicotine dependence, chewing tobacco, uncomplicated; Z79.82 Long term (current) use of aspirin; Z79.899 Other long term (current) drug therapy; Z79.891 Long term (current) use of opiate analgesic | CPT/HCPCS: 99282 ==

== ENCOUNTER 2018-12-11 04:17 | Inpatient (IN) | payer MEDICARE, MEDICAID ==
[2018-12-11] MEDS ORDERED: Fentanyl 100 MCG/2 ML VIAL ONE (04:45)
[2018-12-11] MEDS ORDERED: Metoclopramide HCl 10 MG/2 ML VIAL ONE (04:46)
[2018-12-11] MEDS ORDERED: Lorazepam 2 MG/ML VIAL ONE (05:26)
--- NOTE | 2018-12-11 06:16 | PDOC.FPRHP ---
- History of Present Illness Chief Complaint: Abdominal pain History of Present Illness: 53 yo F with PMH HTN and ESRD on HD presents with abdominal pain and is admitted for possible SBO. Pain began Friday after dialysis and continued to worsen. Seen in ED, told she had an SBO and left AMA. Returned quickly after d/ t pain. Associated with N/V, inability to tolerate PO intake. Had BM of two stones yesterday. Not passing flatus. Tries to make herself belch to relieve pressure. Denies fever/chills, CP, SOB. ED Course: Ativan, fentanyl, reglan, 1L - Allergies/Adverse Reactions Allergies Allergy/AdvReac Type Severity Reaction Status Date / Time iodine Allergy Intermediate Rash Verified 03/13/18 11:22 - Home Medications Medication Instructions Recorded Confirmed Type Atorvastatin Calcium [Lipitor] 40 mg PO HS #30 tab 09/15/17 03/30/18 Rx Pantoprazole Sodium 40 mg DAILY 10/12/17 03/30/18 History Sertraline HCl 50 mg PO DAILY 10/12/17 03/30/18 History cloNIDine [Catapres] 0.2 mg PO BID 01/08/18 03/30/18 History Amiodarone [Cordarone] 200 mg PO BID #60 tab 01/10/18 03/30/18 Rx Acetaminophen [Tylenol Extra 1,000 mg PO Q6H PRN tab 03/15/18 03/30/18 Rx Strength] Aspirin Chewable [Aspirin Chewable 81 mg PO DAILY 03/30/18 03/30/18 History Tablet] - History PMHx: HTN, ESRD on HD MWF, a fib, depression PSHx: x3, neck with screws, L arm fistula, cholecystectomy FHx: HTN Social: Chew tobacco x 40 years. Social alcohol, no drug use. - Review of Systems General: denies: fever/chills ENT: denies: nasal congestion Respiratory: denies: cough, shortness of breath Cardiovascular: denies: chest pain, palpitation, edema Gastrointestinal: reports: nausea, vomiting, constipation, abdominal pain Skin: denies: rashes, lesions Musculoskeletal: denies: pain, tenderness Neurological: denies: weakness Psychological: reports: depression - Vital signs BP: 174/114 HR: 86 RR: 18 Tmax: 98.6 Pox: 99% on RA Wt: 68 kg - Physical Exam Constitutional: NAD (resting comfortably in bed trying to sleep) HEENT: normocephalic and atraumatic, other (mucus membranes dry) Heart: RRR (trace edema BLE), normal S1/S2 (3/6 systolic murmur heard best at apex), pulses present, other Lungs: CTAB, no respiratory distress, good air movement Abdomen: bowel sounds present (TTP, distended, no guarding) Musculoskeletal: normal structure, normal tone Neurological: no focal deficit Skin: no rash/lesions, good turgor FMR H&P: A/P - Problem List (1) SBO (small bowel obstruction) Current Visit: Yes Status: Acute Code(s): K56.609 - UNSP INTESTNL OBST, UNSP TO PARTIAL VERSUS COMPLETE OBST (2) Atrial fibrillation Current Visit: Yes Status: Chronic Code(s): I48.91 - UNSPECIFIED ATRIAL FIBRILLATION (3) Chronic anemia Current Visit: Yes Status: Chronic Code(s): D64.9 - ANEMIA, UNSPECIFIED Comment: Stable currently, CBC monitoring, no evidence of active blood loss (4) ESRD on hemodialysis Current Visit: Yes Status: Chronic Code(s): N18.6 - END STAGE RENAL DISEASE ; Z99.2 - DEPENDENCE ON RENAL DIALYSIS (5) Hypertension Current Visit: Yes Status: Acute Code(s): I10 - ESSENTIAL (PRIMARY) HYPERTENSION Qualifiers: Hypertension type: essential hypertension Qualified Code(s): I10 - Essential (primary) hypertension - Plan 53 yo F with PMH HTN, a fib, ESRD on HD presents for abdominal pain is admitted with concern for SBO. Possible SBO - XR showed nonspecific large stool and cardiomegaly - CT showed air fluid and possible SBO - multiple abdominal surgeries - General surgery consulted from ED, appreciate recommendations - s/p 1 L in ED. LR @ 110 maintenance - fentanyl prn pain - NG to be place. Pt first refused in ED put nursing will try to place again ESRD on HD on MWF - Dr. Flores consulted from ED for HD today - continue home renvela HTN - continue home clonidine, hydralazine, amlodipine A fib - continue home amiodarone Chronic normocytic anemia - at baseline, 2/2 chronic disease Ppx: Heparin Diet: NPO PCP: [facility] Dispo: admit to medical inpatient Case discussed with Dr. Ramirez FMR H&P: Upper Level - Pertinent history 53 yo AAF with PMHx ESRD on MWF HD and HTN presents with abdominal pain since Friday. She initially left AMA from ER but returned because pain was substantial. Reports small BM yesterday but has otherwise not been passing flatus. Also has had n/v and not tolerating PO. - Pertinent findings VSS - hypertensive Gen: awake, alert, oriented HEENT: NCAT, MMM, conjunctiva non-injected CV: RRR, systolic murmur noted RESP: CTAB ABD: distended, tense, no guarding, bowel sounds hypoactive EXT: no edema - Plan Date/Time: 12/11/1816 53 yo F with PMHx HTN, a-fib, ESRD on HD presents with SBO 1. SBO - Risk factor includes multiple abdominal surgeries - Dr. Colindres consulted in ED - s/p 1 L in ED. LR @ 110 maintenance - Fentanyl PRN pain - NPO, discussed need for NG with patient 2. ESRD on HD on MWF - Dr. Flores consulted from ED for HD today 3. H/o hypothyroidism - Will check TSH Please see Dr. Pete's note for remainder of A/P I, Galilea Blevins MD, PGY-3, have evaluated this patient and agree with findings/ plan as outlined by pharmacy intern resident. Pertinent changes/additions are listed here.
[2018-12-11] MEDS ORDERED: Lidocaine Viscous Sol 2% 15 ml UD Cup ONE (06:34)
[2018-12-11] MEDS ORDERED: Benzocaine 20% Spray 60 ML CAN ONE (06:34)
--- NOTE | 2018-12-11 07:46 | RAD ---
Exam: Abdomen one view HISTORY: Nasogastric tube placement FINDINGS: There is cardiomegaly and pulmonary vascular congestion. Nasogastric tube terminates the left upper quadrant. Vascular stent projects over the left axilla IMPRESSION: Nasogastric tube, terminating in left upper quadrant
[2018-12-11] MEDS ORDERED: Acetaminophen 325 MG TAB PO PRN (08:01)
[2018-12-11] MEDS: Lactated Ringer's 1,000 ML IV SCH ×2 (09:18→17:03)
[2018-12-11] MEDS: Heparin 5,000 UNITS/ML VIAL SC SCH ×3 (10:10→22:11)
[2018-12-11] MEDS ORDERED: Fleet Enema 133 ML BOT PR SCH ×2 (13:30→23:59)
[2018-12-11] MEDS ORDERED: Ondansetron ODT 4 MG TAB PO PRN (13:49)
[2018-12-11] MEDS ORDERED: Ondansetron PF 4 MG/2 ML Vial IVP PRN (13:49)
[2018-12-11 13:53] VITALS: BMI 24.9
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
[2018-12-11] MEDS: Fentanyl 100 MCG/2 ML VIAL SLOW IVP PRN ×2 (17:41→22:09)
--- NOTE | 2018-12-11 19:01 | CON ---
DATE OF CONSULTATION: 12/11/2018 CONSULTING PHYSICIAN: Dr. Jose Angel Lofton. REASON FOR CONSULTATION: Possible bowel obstruction. HISTORY OF PRESENT ILLNESS: The patient is a 53-year-old black female. She has a history of end-stage renal disease, on hemodialysis. She underwent laparoscopic cholecystectomy last year per Dr. Rivera. She has a history of multiple peritoneal dialysis catheters and 3 previous sections. She presented to the emergency room last night complaining of abdominal pain and vomiting. She underwent evaluation including laboratory studies and CT scan. CT scan was read as being potentially consistent with a possible small bowel obstruction. There was noted to be some fluid within the peritoneal cavity as well. To my evaluation, the CT scan shows a large amount of stool with what may be contrast in the right colon and transverse colon. There was also stool within the rectum. While the small bowel is perhaps a little dilated, it is not dilated to the point that you expect with a small bowel obstruction. She has a large volume of gastric contents as well. She apparently left the emergency room after she was told she had a bowel obstruction, but returned later in the day and I was called about her early this morning. Nasogastric tube was placed here in the emergency room. About 350 mL of contents were returned. When I flushed her NG tube at bedside here, all that comes out is the clear fluid that I flushed. There are no refluxing biliary contents. PAST MEDICAL HISTORY: 1. End-stage renal disease. 2. History of heart failure with significant cardiomegaly. 3. Hypertension. 4. History of supraventricular tachycardia. PAST SURGICAL HISTORY: 1. section x3. 2. History of cervical spine fracture with surgery. 3. Tubal ligation. 4. Multiple hemodialysis and peritoneal dialysis catheters. 5. Left arm AV fistula which is working currently. ALLERGIES: IODINE. MEDICATIONS: Include atorvastatin, pantoprazole, Zoloft, clonidine, amiodarone, aspirin. PERSONAL AND SOCIAL HISTORY: She is single and has 4 children. She lives in [place]. She denies having a primary care physician. 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 REVIEW OF SYSTEMS: Ten system review is otherwise negative. FAMILY HISTORY: Noncontributory. PHYSICAL EXAMINATION: VITAL SIGNS: She is afebrile. Vital signs are within normal limits except that she is hypertensive. GENERAL: She is a well-developed, well-nourished, black female, resting in bed with nasogastric tube in place. She is alert and oriented x3 and conversant. HEAD, EYES, EARS, NOSE, AND THROAT: Unremarkable. NECK: Supple without mass or tenderness. LUNGS: Clear to auscultation throughout. CARDIAC: Regular rate and rhythm. ABDOMEN: Soft, nontender, and nondistended. Bowel sounds are present, but somewhat hypoactive. EXTREMITIES: Unremarkable. LABORATORY DATA: Her CBC revealed a white blood cell count of 9, hemoglobin of 11.4 with an unremarkable differential. This is from 3 o'clock yesterday afternoon. Her metabolic panel reveals unremarkable electrolytes. Her chloride level is a little low at 95. Her alkaline phosphatase is elevated at 217. Other liver function tests are normal. Her lactate level was normal. ASSESSMENT: The patient with CT findings that are not typical with a small bowel obstruction. As mentioned, she has a large volume of stool within her colon. The small bowel is not particularly dilated and currently she has no biliary reflux into her stomach. I would recommend continuing nasogastric tube for 24 hours followed by a Gastrografin small-bowel follow-through in the morning. I have encouraged her to ambulate while she is here in the hospital. I will also give her some enemas to help take care of any constipation related issues that may be contributing. Dr. Bañuelos will be covering for me as of tomorrow. Job ID: [id number]
[2018-12-12] MEDS: Fentanyl 100 MCG/2 ML VIAL SLOW IVP PRN ×3 (01:20→14:55)
[2018-12-12] MEDS: Lactated Ringer's 1,000 ML IV SCH ×3 (03:40→14:56)
[2018-12-12] MEDS ORDERED: predniSONE 50 MG TAB PO PRN (06:07)
[2018-12-12] MEDS ORDERED: diphenhydrAMINE 12.5 MG/5 ML UDCUP PO PRN (06:08)
--- NOTE | 2018-12-12 07:03 | PDOC.FM ---
- Subjective Subjective: Pt reports 2 BM overnight w/ enemas given by nursing staff of hard stool. No longer having nausea. Abdominal pain moved from R-side of abdomen to left s/p BM 's. No other concerns/complaints. Seen by surgery yesterday w/ plan for small bowel follow-through later today s/p pre-medication 2/2 iodine allergy. Denies any nausea/vomitting/fever. - Objective MAR Reviewed: Yes Vital Signs & Weight: Vital Signs (12 hours) Temp Pulse Resp BP BP Pulse Ox 12/12/18 04:00 98.5 F 85 18 164/87 H 96 12/12/18 00:00 98.7 F 89 18 151/87 H 97 12/11/18 20:00 98.5 F 90 18 167/89 H 97 Weight Weight 70.023 kg I&O: 12/11/18 12/12/18 12/13/18 06:59 06:59 06:59 Intake Total 1065 Output Total 10 Balance 1055 Result Diagrams: 12/12/18 07:31 12/12/18 07:31 Phys Exam - Physical Examination Constitutional: NAD HEENT: PERRLA Respiratory: clear to auscultation bilateral Cardiovascular: RRR, no significant murmur Gastrointestinal: soft, no distention Mild tenderness L-side abdomen. Hypoactive bowel sounds Musculoskeletal: no edema Neurological: moves all 4 limbs Psychiatric: normal affect, A&O x 3 Dx/Plan (1) SBO (small bowel obstruction) Code(s): K56.609 - UNSP INTESTNL OBST, UNSP TO PARTIAL VERSUS COMPLETE OBST Status: Acute Plan: Pt w/ possible SBO Seen by surgery who thinks this is likely more related to constipation Pt's migration of abdominal pain after BM w/ enemas is consistent with this as well Minimal NG output of approx. 200 mL per nursing staff overnight of non-bilious fluid Nausea has resolved, will defer NG removal per surgery. Likely will need to stay in place until small bowel follow-through has been completed Abdomen relatively soft and pt w/o an acute abdomen requiring urgent surgical intervention at this time Will continue to monitor for hopefully resolution of pt's sxs s/p small bowel follow through later today She does have an iodine allergy and will be getting the pre-medication regimen per radiology request (2) ESRD on hemodialysis Code(s): N18.6 - END STAGE RENAL DISEASE; Z99.2 - DEPENDENCE ON RENAL DIALYSIS Status: Chronic Plan: Nephro on case for hemodialysis Appreciate reccomendations Addendum - Attending - Attending Attestation Date/Time: 12/12/18 1111 I personally evaluated the patient and discussed the management with Dr. Carver. I agree with the History, Examination, Assessment and Plan documented above with any addition or exceptions noted below. The patient is complaining of left sided abdominal pain. NG tube is in place. Will have small bowel imaging today. Appreciate surgery recs.
[2018-12-12] MEDS: Heparin 5,000 UNITS/ML VIAL SC SCH ×3 (07:30→21:20)
[2018-12-12 07:51] LABS: #Basophils 0.1 thou/uL (0.0-0.2); #Eosinphils 0.5 thou/uL (0.0-0.7); #Lymphocytes 2.4 thou/uL (1.20-3.40); #Monocytes 0.7 thou/uL (0.11-0.59); #Neutrophils 3.6 thou/uL (1.40-6.50); %Basophils 1.1 % (0.0-1.0); %Eosinophils 7.2 % (0.0-10.0); %Lymphocytes 32.8 % (21.0-51.0); %Monocytes 9.7 % (0.0-10.0); %Neutrophils 49.1 % (42.0-75.0); Hemoglobin 9.9 g/dL (12.0-16.0); Mean Corpuscular HGB CONC 32.6 g/dL (32.0-36.0); Mean Corpuscular Hemoglobin 31.3 pg (27.0-31.0); Mean Platelet Volume 8.3 fL (7.4-10.4); Platelet Count 197 thou/uL (130-400); RBC Distribution Width 16.6 % (11.5-14.5); Red Blood Cell (RBC) Count 3.15 mill/uL (4.20-5.40); White Blood Cell (WBC) Count 7.4 thou/uL (4.8-10.8)
[2018-12-12 08:12] LABS: Anion Gap 17 mmol/L (10-20); BUN (Urea Nitrogen) 12 mg/dL (9.8-20.1); Calc. Creatinine Clearance 17 mL/min (70-130); Calcium 9.3 mg/dL (7.8-10.44); Carbon Dioxide 27 mmol/L (22-29); Chloride 99 mmol/L (98-107); Estimated GFR-MDRD 13; Potassium 3.5 mmol/L (3.5-5.1); Sodium 139 mmol/L (136-145)
[2018-12-12 08:19] LABS: Glucose 51 mg/dL (70-105)
[2018-12-12] MEDS ORDERED: Dextrose 50% Abboject 50 ML SYRINGE ONE (08:21)
--- NOTE | 2018-12-12 11:16 | RAD ---
CT BRAIN: HISTORY: Head injury. FINDINGS: Noncontrast enhanced CT images of the brain obtained. Brain and bone windows obtained. CT images brain demonstrate mild cortical atrophy. No evidence of calvarial fracture seen. No evidenc e of intracranial masses, hemorrhages or strokes seen. IMPRESSION: Cortical atrophy and deep white matter ischemic changes. No acute intracranial pathology seen. Transcribed Date/Time: 12/12/2018 11:16 AM
--- NOTE | 2018-12-12 12:26 | PRG ---
DATE OF SERVICE: 12/12/2018 SUBJECTIVE: Ms. Chavarria is a 53-year-old black female with ESRD and followed up by the renal service for maintenance hemodialysis. She was admitted for abdominal pain and a presumptive small-bowel obstruction. GI Surgery has evaluated this patient. An NG tube was recommended. She was also given some laxatives due to possibility that she may just be constipated. She has also an NG tube. No other complaints today. She underwent dialysis without difficulty yesterday. OBJECTIVE: VITAL SIGNS: Blood pressure is 172/85, heart rate 85, respiratory rate 18, temperature 98, and pulse oximetry 96%. GENERAL: Awake, alert, comfortable, not in distress. SKIN: Adequate turgor. HEENT: She has slightly pale conjunctivae. Anicteric sclerae. NECK: No neck mass. No carotid bruits. No JVD. CHEST: No deformities. LUNGS: Clear breath sounds. HEART: Normal sinus rhythm. No murmurs, gallops, or rubs. ABDOMEN: Globular, soft, nontender. No masses. EXTREMITIES: No edema. No deformities. MEDICATIONS: Medications of December 12, 2018, were reviewed. LABORATORY DATA: Laboratories of December 12, 2018; sodium 139, potassium 3.5, chloride 99, carbon dioxide 27, BUN 12, creatinine 4.32, and calcium 9.3. TSH 3.1. White count 7.4 and hemoglobin 9.9. ASSESSMENT AND PLAN: 1. Anemia. Start Epogen 7500 units subcu every week. 2. End-stage renal disease, stable, tolerating maintenance hemodialysis. No indication for an emergent dialysis. She tolerated said treatment. Several liters of fluid was removed with the dialysis. 3. Small bowel obstruction, clinically improving. Surgery is following. 4. Agree with current management. Job ID: [id number]
--- NOTE | 2018-12-12 16:51 | PDOC.GSPN ---
Surgery Progress Note: Subj - Subjective Narrative: Patient admitted with possible bowel obstruction versus ileus. She had a small bowel follow through today which did not show any dilated loops of small bowel. There was delayed transit and contrast was not definitely seen on the right colon until the 4 hour film. She has a large amount of formed stool throughout the colon and I suspect that she has delayed transit due to her medical illnesses. When I saw the patient this afternoon she was comfortable with her NG clamped and was not having any nausea bloating or abdominal pain. She will require an aggressive stool regimen and possibly Reglan, but I don't see any evidence of a bowel obstruction and think we should be able to cautiously advance her diet. Surgery Progress Note: Obj - Vital signs Vital signs: Vital Signs - Most Recent Temp Pulse Resp BP Pulse Ox 98.0 F 85 18 172/85 H 96 12/12/18 08:00 12/12/18 08:00 12/12/18 08:00 12/12/18 08:00 12/12/18 08:00 Surgery Progress Note: Results - Labs Result Diagrams: 12/12/18 07:31 12/12/18 07:31 Lab results: Laboratory Results - last 24 hr 12/12/18 12/12/18 12/12/18 07:31 07:31 08:38 WBC 7.4 RBC 3.15 L Hgb 9.9 L Hct 30.2 L MCV 96.0 MCH 31.3 H MCHC 32.6 RDW 16.6 H Plt Count 197 MPV 8.3 Neutrophils % 49.1 Lymphocytes % 32.8 Monocytes % 9.7 Eosinophils % 7.2 Basophils % 1.1 H Neutrophils # 3.6 Lymphocytes # 2.4 Monocytes # 0.7 H Eosinophils # 0.5 Basophils # 0.1 Sodium 139 Potassium 3.5 Chloride 99 Carbon Dioxide 27 Anion Gap 17 BUN 12 Creatinine 4.32 H Estimated GFR (MDRD) 13 Glucose 51 L* POC Glucose 92 Calcium 9.3
[2018-12-12] MEDS ORDERED: MD-Gastroview 120 ML BOT ONE (16:55)
[2018-12-12] MEDS: Docusate 100 MG CAP PO SCH (21:19)
[2018-12-13] MEDS: Lactated Ringer's 1,000 ML IV SCH ×3 (00:03→21:58)
[2018-12-13] MEDS: Fentanyl 100 MCG/2 ML VIAL SLOW IVP PRN (02:04)
[2018-12-13 06:36] LABS: #Basophils 0.1 thou/uL (0.0-0.2); #Eosinphils 0.4 thou/uL (0.0-0.7); #Lymphocytes 3.1 thou/uL (1.20-3.40); #Monocytes 0.8 thou/uL (0.11-0.59); #Neutrophils 3.9 thou/uL (1.40-6.50); %Eosinophils 4.9 % (0.0-10.0); %Lymphocytes 37.8 % (21.0-51.0); %Monocytes 9.7 % (0.0-10.0); %Neutrophils 46.7 % (42.0-75.0); Hemoglobin 9.6 g/dL (12.0-16.0); Mean Corpuscular Hemoglobin 31.3 pg (27.0-31.0); Mean Corpuscular Volume 94.9 fL (78.0-98.0); Mean Platelet Volume 8.5 fL (7.4-10.4); Platelet Count 193 thou/uL (130-400); RBC Distribution Width 16.9 % (11.5-14.5); Red Blood Cell (RBC) Count 3.06 mill/uL (4.20-5.40); White Blood Cell (WBC) Count 8.3 thou/uL (4.8-10.8)
[2018-12-13 06:56] LABS: Anion Gap 12 mmol/L (10-20); BUN (Urea Nitrogen) 23 mg/dL (9.8-20.1); Calc. Creatinine Clearance 13 mL/min (70-130); Calcium 9.1 mg/dL (7.8-10.44); Carbon Dioxide 32 mmol/L (22-29); Chloride 96 mmol/L (98-107); Estimated GFR-MDRD 9; Glucose 84 mg/dL (70-105); Potassium 3.8 mmol/L (3.5-5.1); Sodium 136 mmol/L (136-145)
--- NOTE | 2018-12-13 08:42 | PDOC.FM ---
- Subjective Subjective: Pt reports she is feeling better today now that her NG tube has been removed and taking clears. No BM's yet this AM, but states it feels like she may have one. Denies any nausea/vomitting. - Objective MAR Reviewed: Yes Vital Signs & Weight: Vital Signs (12 hours) Temp Pulse Resp BP BP Pulse Ox 12/13/18 04:32 98.5 F 85 18 155/91 H 92 L 12/13/18 00:00 98.9 F 83 18 162/80 H 96 12/12/18 22:56 161/97 H 12/12/18 20:51 99.1 F 89 18 178/78 H 98 Weight Weight 70.023 kg I&O: 12/12/18 12/13/18 12/14/18 06:59 06:59 06:59 Intake Total 1065 2300 Output Total 290 Balance 775 2300 Result Diagrams: 12/13/18 06:15 12/13/18 06:15 Phys Exam - Physical Examination Constitutional: NAD HEENT: PERRLA, moist MMs Respiratory: clear to auscultation bilateral Cardiovascular: RRR, no significant murmur Gastrointestinal: soft, positive bowel sounds Slightly less tender r-side as compared to yesterday Neurological: moves all 4 limbs Dx/Plan (1) SBO (small bowel obstruction) Code(s): K56.609 - UNSP INTESTNL OBST, UNSP TO PARTIAL VERSUS COMPLETE OBST Status: Acute Plan: Small bowel follow-through neg for obstruction Likely 2/2 severe constipation Cont. w/ miralax and colace started by surgery w/ PRN enemas Pt has been getting fentanyl for pain control, will consider some of this being opiod induced and can add opiod constipation specific agent likely tomorrow if no positive bowel function is seen today (2) ESRD on hemodialysis Code(s): N18.6 - END STAGE RENAL DISEASE; Z99.2 - DEPENDENCE ON RENAL DIALYSIS Status: Chronic Plan: Nephro on case for hemodialysis Appreciate reccomendations Addendum - Attending - Attending Attestation Date/Time: 12/13/18 1212 I personally evaluated the patient and discussed the management with Dr. Carver. I agree with the History, Examination, Assessment and Plan documented above with any addition or exceptions noted below. The patient has not had a bowel movement. She has very active bowel sounds. Will adjust bowel regimen. Will try to back off pain meds.
[2018-12-13] MEDS ORDERED: hydrALAZINE 25 MG TAB PO SCH (09:00)
[2018-12-13] MEDS: hydrALAZINE 25 MG TAB PO SCH ×3 (09:06→21:51)
[2018-12-13] MEDS: Heparin 5,000 UNITS/ML VIAL SC SCH ×3 (09:07→21:53)
[2018-12-13] MEDS: cloNIDine 0.2 MG TAB PO SCH ×2 (09:07→21:52)
[2018-12-13] MEDS: Polyethylene Glycol 3350 17 GM Packet PO SCH (09:07)
[2018-12-13] MEDS: Amiodarone 200 MG TAB PO SCH ×2 (09:07→21:52)
[2018-12-13] MEDS: Docusate 100 MG CAP PO SCH ×2 (09:07→21:52)
[2018-12-13] MEDS ORDERED: Epoetin (ESRD) 20,000 UNITS/ML SC SCH (11:00)
--- NOTE | 2018-12-13 11:09 | PRG ---
DATE OF SERVICE: 12/13/2018 SUBJECTIVE: Ms. Chavarria is a 53-year-old black female with ESRD and followed up by the renal service for maintenance hemodialysis. Her regular dialysis is Friday, Friday, and Friday. She underwent dialysis Friday without any difficulty. She was initially admitted for ? Of a small bowel obstruction. Surgery has evaluated the patient. The feeling is that she does not have any mechanical obstruction, but more functional. A small-bowel follow-through was done, which showed a large amount of formed stools. There was a delayed transit and it showed no evidence of dilated loops of small bowel. Currently, she is on clear liquid and slowly advancing the diet. She has been started on Reglan. No complaints of chest pain or shortness of breath. OBJECTIVE: VITAL SIGNS: Blood pressure 154/91, heart rate 91, respiratory rate 18, temperature 98.7, and pulse ox 92% on room air. GENERAL: Awake, alert, comfortable, not in distress. SKIN: Adequate turgor. HEENT: She has a slightly pale conjunctivae. Anicteric sclerae. NECK: No neck mass. No carotid bruits. No JVD. CHEST: No deformities. LUNGS: Clear breath sounds. HEART: Normal sinus rhythm. No murmur or gallops. No rubs. ABDOMEN: Globular, soft, and nontender. No masses. EXTREMITIES: No edema. MEDICATIONS: Medications of 12/13/2018 were reviewed. LABORATORY DATA: 12/13/2018: White count 8.3 and hemoglobin 9.6. Sodium 136, potassium 3.8, chloride 96, carbon dioxide 32, BUN 23, creatinine 5.72, glucose 84, and calcium 9.1. ASSESSMENT AND PLAN: 1. Abdominal pain, no evidence of mechanical obstruction. Small-bowel follow-through showed transit of contrast, but at a slower phase. The feeling is that the obstruction may be functional in nature. She has been started on Reglan. Surgery is following. 2. Anemia. Start Epogen 7500 units subcutaneous every week. 3. End-stage renal disease, stable. We will continue current Friday, Friday, and Friday dialysis. No indication for an emergent hemodialysis today. Job ID: [id number]
[2018-12-13] MEDS ORDERED: EPOETIN ALFA-EPBX (ESRD) 4,000 UNIT/ML VIAL SC SCH (11:30)
[2018-12-13] MEDS: Dicyclomine 20 MG TAB PO SCH ×3 (11:36→21:52)
[2018-12-13] MEDS ORDERED: EPOETIN ALFA-EPBX (ESRD) 10,000 UNIT/ML VIAL SC SCH (12:00)
--- NOTE | 2018-12-13 12:24 | RAD ---
EXAM: XR Abdomen 2 View PROVIDED CLINICAL HISTORY: Abdominal pain COMPARISON: 12/11/2018 FINDINGS: Contrast material is present throughout the colon. Conspicuous fecal retention compatible with consti pation. Abdominal bowel gas pattern is nonspecific. No evidence for pneumoperitoneum. Curvilinear densities within the left upper quadrant may reflect material retained within the stomach but is inco mpletely characterized on the basis of this study. IMPRESSION: 1. Nonspecific bowel gas pattern. 2. Contrast material within the left upper quadrant, not conforming to the expected distribution of s mall bowel or colon. This could reflect material within the stomach although retention at this point after small bowel follow-through would be unusual. Extravasated contrast material could be cons idered. CT may be useful for further evaluation.
--- NOTE | 2018-12-13 15:47 | PDOC.GSPN ---
Surgery Progress Note: Subj - Subjective Narrative: The patient has slow transit through the small intestine yesterday on her Gastrografin small bowel follow-through but no definite obstruction seen. Her nurse documented 2 bowel movements but the patient tells me she did not have a bowel movement yesterday or today. This would be extremely unusual after Gastrografin enema and would likely be an indicator of severe colonic atony. She has some mild tenderness in the left lateral abdomen but no rigidity rebound or guarding. I ordered an abdominal x-ray series was did show a large amount of retained Gastrografin in the colon with balls of formed stool visible. There is some contrast in the left upper quadrant which I believe is still in the stomach, representing gastroparesis. Patient will require aggressive medical management of her severe constipation and poor bowel function. I ordered enemas to try to clear some of the formed stool from the colon and she will need to go home on a bowel regimen. Surgery Progress Note: Obj - Vital signs Vital signs: Vital Signs - Most Recent Temp Pulse Resp BP Pulse Ox 98.2 F 77 18 130/88 96 12/13/18 12:00 12/13/18 12:00 12/13/18 12:00 12/13/18 12:00 12/13/18 12:00 Surgery Progress Note: Results - Labs Result Diagrams: 12/13/18 06:15 12/13/18 06:15 Lab results: Laboratory Results - last 24 hr 12/13/18 12/13/18 12/13/18 04:28 06:15 06:15 WBC 8.3 RBC 3.06 L Hgb 9.6 L Hct 29.0 L MCV 94.9 MCH 31.3 H MCHC 33.0 RDW 16.9 H Plt Count 193 MPV 8.5 Neutrophils % 46.7 Lymphocytes % 37.8 Monocytes % 9.7 Eosinophils % 4.9 Basophils % 1.0 Neutrophils # 3.9 Lymphocytes # 3.1 Monocytes # 0.8 H Eosinophils # 0.4 Basophils # 0.1 Sodium 136 Potassium 3.8 Chloride 96 L Carbon Dioxide 32 H Anion Gap 12 BUN 23 H Creatinine 5.72 H Estimated GFR (MDRD) 9 Glucose 84 POC Glucose 96 Calcium 9.1 12/13/18 11:15 WBC RBC Hgb Hct MCV MCH MCHC RDW Plt Count MPV Neutrophils % Lymphocytes % Monocytes % Eosinophils % Basophils % Neutrophils # Lymphocytes # Monocytes # Eosinophils # Basophils # Sodium Potassium Chloride Carbon Dioxide Anion Gap BUN Creatinine Estimated GFR (MDRD) Glucose POC Glucose 87 Calcium
[2018-12-13] MEDS ORDERED: Fleet Enema 133 ML BOT PR SCH (16:00)
[2018-12-13] MEDS: Sevelamer Carbonate 800 MG TAB PO SCH (17:04)
[2018-12-13] MEDS: Metoclopramide HCl 10 MG TAB PO SCH (21:52)
[2018-12-14] MEDS: Lactated Ringer's 1,000 ML IV SCH (03:43)
[2018-12-14 06:28] LABS: #Basophils 0.1 thou/uL (0.0-0.2); #Eosinphils 0.5 thou/uL (0.0-0.7); #Lymphocytes 2.6 thou/uL (1.20-3.40); #Monocytes 0.4 thou/uL (0.11-0.59); #Neutrophils 2.2 thou/uL (1.40-6.50); %Basophils 1.9 % (0.0-1.0); %Eosinophils 8.2 % (0.0-10.0); %Lymphocytes 44.9 % (21.0-51.0); %Monocytes 7.3 % (0.0-10.0); %Neutrophils 37.8 % (42.0-75.0); Hemoglobin 9.4 g/dL (12.0-16.0); Mean Corpuscular HGB CONC 31.8 g/dL (32.0-36.0); Mean Corpuscular Hemoglobin 30.4 pg (27.0-31.0); Mean Corpuscular Volume 95.8 fL (78.0-98.0); Mean Platelet Volume 8.6 fL (7.4-10.4); Platelet Count 175 thou/uL (130-400); RBC Distribution Width 16.8 % (11.5-14.5); Red Blood Cell (RBC) Count 3.08 mill/uL (4.20-5.40); White Blood Cell (WBC) Count 5.8 thou/uL (4.8-10.8)
[2018-12-14 06:51] LABS: Anion Gap 15 mmol/L (10-20); BUN (Urea Nitrogen) 27 mg/dL (9.8-20.1); Calc. Creatinine Clearance 10 mL/min (70-130); Calcium 9.3 mg/dL (7.8-10.44); Carbon Dioxide 27 mmol/L (22-29); Chloride 98 mmol/L (98-107); Estimated GFR-MDRD 7; Glucose 71 mg/dL (70-105); Potassium 4.4 mmol/L (3.5-5.1); Sodium 136 mmol/L (136-145)
--- NOTE | 2018-12-14 07:45 | RAD ---
Small bowel follow-through. HISTORY: Bowel obstruction. Gastrografin was given through the patient's NG tube. Overhead images obtained. There is marked delayed transit of the Gastrografin through the small bowel. It takes approximately 4 hours for the Gastrografin to reach the ascending patient is colon. Patient is severely Constipated with a large amount of stool in the ascending colon. No definite evidence of bowel obstruction seen i n the small bowel. No dilated loops of small bowel seen. Impression: Delayed transit of Gastrografin through the small bowel but no definite evidence of small bowel dilat ation or air-fluid levels seen. POS: GI
[2018-12-14] MEDS: Heparin 5,000 UNITS/ML VIAL SC SCH ×3 (08:18→20:36)
[2018-12-14] MEDS: Polyethylene Glycol 3350 17 GM Packet PO SCH (08:18)
[2018-12-14] MEDS: Amiodarone 200 MG TAB PO SCH ×2 (08:19→20:34)
[2018-12-14] MEDS: cloNIDine 0.2 MG TAB PO SCH ×2 (08:19→20:34)
[2018-12-14] MEDS: Dicyclomine 20 MG TAB PO SCH ×4 (08:19→20:36)
[2018-12-14] MEDS: hydrALAZINE 25 MG TAB PO SCH ×3 (08:19→20:35)
[2018-12-14] MEDS: Sevelamer Carbonate 800 MG TAB PO SCH ×2 (08:19→18:31)
[2018-12-14] MEDS: Metoclopramide HCl 10 MG TAB PO SCH ×2 (08:20→20:35)
[2018-12-14] MEDS: Docusate 100 MG CAP PO SCH ×2 (08:20→20:35)
--- NOTE | 2018-12-14 09:26 | PDOC.FM ---
- Subjective Subjective: TROY overnight. Pt reports she has had 2 BM. She rpeorts she is feeling much better and ready to go home. Denies NV, tolerating liquids, denies diarrhea/ cosntipation. Mild abd tenderness. - Objective MAR Reviewed: Yes Vital Signs & Weight: Vital Signs (12 hours) Temp Pulse Resp BP BP Pulse Ox 12/14/18 08:19 78 152/104 H 12/14/18 08:00 98.5 F 78 20 123/79 97 12/14/18 00:00 131/81 12/13/18 21:52 152/104 H 12/13/18 21:51 80 152/104 H Weight Weight 70.023 kg I&O: 12/13/18 12/14/18 12/15/18 06:59 06:59 06:59 Intake Total 2300 1820 Balance 2300 1820 Result Diagrams: 12/14/18 05:10 12/14/18 05:10 Phys Exam - Physical Examination Constitutional: NAD HEENT: PERRLA, sclera anicteric Neck: no nodes, no JVD Respiratory: no wheezing, no rales, no rhonchi, clear to auscultation bilateral Cardiovascular: RRR, no significant murmur Gastrointestinal: soft, positive bowel sounds mild distension and sluggish bs, mild TTP diffuse Musculoskeletal: no edema, pulses present Neurological: non-focal, moves all 4 limbs Dx/Plan (1) SBO (small bowel obstruction) Code(s): K56.609 - UNSP INTESTNL OBST, UNSP TO PARTIAL VERSUS COMPLETE OBST Status: Acute (2) ESRD (end stage renal disease) on dialysis Code(s): N18.6 - END STAGE RENAL DISEASE; Z99.2 - DEPENDENCE ON RENAL DIALYSIS Status: Chronic - Plan Plan: 1) Small bowel follow-through neg for obstruction although did show some remnant gastrogaffin possible component of gastroparesis Likely 2/2 severe constipation Cont. w/ miralax and colace started by surgery w/ PRN enemas overall improved from yesterday and 2 BM await surgery recs, if tolerating PO and cont BM, consider dc 2) ESRD on dialysis - mephro recs - cont dialysis
--- NOTE | 2018-12-14 10:27 | PRG ---
DATE OF SERVICE: 12/14/2018 SUBJECTIVE: Ms. Chavarria is a 53-year-old black female with ESRD and followed up by the [facility] for her maintenance hemodialysis. She came in with abdominal pain with a ? of nonmechanical small bowel obstruction. She was also found to be severely constipated. She is now on laxative and having regular bowel movement. Her diet is being advanced. OBJECTIVE: VITAL SIGNS: Blood pressure 152/104 before BP medications, heart rate 78, respiratory rate 20, temperature 98.5, and pulse ox 97%. GENERAL: Awake, alert, comfortable, not in distress. SKIN: Adequate turgor. HEENT: She has a slightly pale conjunctivae. Anicteric sclerae. NECK: No neck mass. No carotid bruits. No JVD. CHEST: No deformities. LUNGS: Clear breath sounds. HEART: Normal sinus rhythm. No murmur. No gallops. No rubs. ABDOMEN: Globular, soft, nontender. No masses. EXTREMITIES: No edema. No deformities. MEDICATIONS: Medications of December 14, 2018, were reviewed. LABORATORY DATA: Laboratories of December 14, 2018, white count 5.8, hemoglobin 9.4. Sodium 136, potassium 4.4, chloride 98, carbon dioxide 27, BUN 27, creatinine 7.1, glucose 71, and calcium 9.3. ASSESSMENT AND PLAN: 1. End-stage renal disease, stable. We will continue current maintenance hemodialysis on Friday, Friday, and Friday. Fluid removal as tolerated. No changes with the current dialysis bath. 2. Small bowel obstruction-functional in nature-no mechanical obstruction of small bowel obstruction. The patient is severely constipated/obstipated and it may caused her GI symptoms. 3. Anemia. Continuing weekly Epogen. Overall agree with current management. Job ID: [id number]
--- NOTE | 2018-12-14 12:35 | PRG ---
DATE OF SERVICE: 12/14/2018 SUBJECTIVE: Ms. Chavarria was admitted with a small-bowel obstruction. This has since resolved with conservative management, not requiring surgery. We will await final input from the surgery team as she is likely ready to be discharged in a day or 2. She is tolerating at least a clear to full liquid diet. Job ID: [id number]
[2018-12-14] MEDS ORDERED: Sevelamer Carbonate 800 MG TAB PO SCH (20:45)
[2018-12-15 06:41] LABS: #Basophils 0.1 thou/uL (0.0-0.2); #Eosinphils 0.4 thou/uL (0.0-0.7); #Lymphocytes 2.1 thou/uL (1.20-3.40); #Monocytes 0.5 thou/uL (0.11-0.59); #Neutrophils 1.8 thou/uL (1.40-6.50); %Basophils 1.4 % (0.0-1.0); %Eosinophils 8.8 % (0.0-10.0); %Lymphocytes 42.8 % (21.0-51.0); %Monocytes 10.3 % (0.0-10.0); %Neutrophils 36.8 % (42.0-75.0); Hemoglobin 8.9 g/dL (12.0-16.0); Mean Corpuscular Volume 96.8 fL (78.0-98.0); Mean Platelet Volume 8.4 fL (7.4-10.4); Platelet Count 143 thou/uL (130-400); RBC Distribution Width 16.4 % (11.5-14.5); Red Blood Cell (RBC) Count 2.86 mill/uL (4.20-5.40)
[2018-12-15 06:53] LABS: Anion Gap 12 mmol/L (10-20); BUN (Urea Nitrogen) 13 mg/dL (9.8-20.1); Calc. Creatinine Clearance 16 mL/min (70-130); Calcium 8.8 mg/dL (7.8-10.44); Carbon Dioxide 29 mmol/L (22-29); Chloride 99 mmol/L (98-107); Estimated GFR-MDRD 13; Glucose 95 mg/dL (70-105); Potassium 3.8 mmol/L (3.5-5.1); Sodium 136 mmol/L (136-145)
[2018-12-15 08:05] VITALS: TEMP 98.2
--- NOTE | 2018-12-15 09:20 | PDOC.FM ---
- Subjective Subjective: TROY overnight. Pt reports bm last night and relief of abdominal dicomfort. She is tolerating PO and does not have any associated NV. - Objective Vital Signs & Weight: Vital Signs (12 hours) Temp Pulse Resp BP Pulse Ox 12/15/18 08:00 98.2 F 68 18 127/79 96 Weight Weight 70.023 kg I&O: 12/14/18 12/15/18 12/16/18 06:59 06:59 06:59 Intake Total 1820 240 Balance 1820 240 Result Diagrams: 12/15/18 06:18 12/15/18 06:18 Phys Exam - Physical Examination Constitutional: NAD HEENT: PERRLA, moist MMs Neck: no nodes Respiratory: no wheezing, no rales, no rhonchi, clear to auscultation bilateral Cardiovascular: RRR, no significant murmur, no rub Gastrointestinal: soft, non-tender, no distention, positive bowel sounds Musculoskeletal: no edema, pulses present Neurological: non-focal, moves all 4 limbs Psychiatric: normal affect Skin: no rash Dx/Plan (1) SBO (small bowel obstruction) Code(s): K56.609 - UNSP INTESTNL OBST, UNSP TO PARTIAL VERSUS COMPLETE OBST Status: Resolved (2) ESRD (end stage renal disease) on dialysis Code(s): N18.6 - END STAGE RENAL DISEASE; Z99.2 - DEPENDENCE ON RENAL DIALYSIS Status: Chronic - Plan Plan: 1) SBO: resolved - BS X4 WNL - BM last night, tolerating PO passing flatus - plan to DC to home with close OP f/u and cont current bowel regimen 2) ESRD on dialysis - DC to home and cont current dialysis regimen Dispo: stable for discharge. SBO has resolved with current bowel regimen. Medications sne to pharmacy. Pt to cont and f/u OP closely.
[2018-12-15] MEDS: Polyethylene Glycol 3350 17 GM Packet PO SCH (10:05)
[2018-12-15] MEDS: Dicyclomine 20 MG TAB PO SCH (10:06)
[2018-12-15] MEDS: Docusate 100 MG CAP PO SCH (10:06)
[2018-12-15] MEDS: Metoclopramide HCl 10 MG TAB PO SCH (10:06)
[2018-12-15] MEDS: Sevelamer Carbonate 800 MG TAB PO SCH (10:06)
[2018-12-15] MEDS: Heparin 5,000 UNITS/ML VIAL SC SCH (10:07)
--- NOTE | 2018-12-15 10:08 | PRG ---
DATE OF SERVICE: 12/15/2018 SUBJECTIVE: Ms. Chavarria is hospital day #5 following her admission for a possible small-bowel obstruction. Her CT scan did not look like an obstruction and obstruction was ruled out when she had her small-bowel follow-through on the following day. Her nasogastric tube was removed. She was started on a liquid diet, which she has tolerated. She is on MiraLAX and she tells me she is having bowel movements. She denies abdominal pain or vomiting. I am somewhat surprised that she is still here as I thought she was going to be discharged yesterday. There is clearly no evidence of any obstructive issues or indications for surgical intervention. She appears to just had bad constipation and for this, she needs to stay on MiraLAX. OBJECTIVE: VITAL SIGNS: She is afebrile. Vital signs are normal. LUNGS: Clear to auscultation. ABDOMEN: Soft and nontender with normoactive bowel sounds. LABORATORY DATA: Her labs from today show a persistently normal white blood cell count and persistent anemia with a hemoglobin of 8.9. ASSESSMENT: The patient with no evidence of bowel obstruction. I suspect all of her problems were related to her constipation. Recommend continued use of MiraLAX at the time of discharge. She has no indications for surgical evaluation or intervention. I will see her in the future as needed. She may be discharged today. Job ID: [id number]
[2018-12-15] MEDS: Amiodarone 200 MG TAB PO SCH (10:09)
--- NOTE | 2018-12-15 10:18 | PRG ---
DATE OF SERVICE: 12/15/2018 SUBJECTIVE: Ms. Chavarria is a 53-year-old black female, who was admitted for nausea and vomiting and abdominal discomfort. She was noted to be obstipated. No evidence of mechanical small-bowel obstruction. She is tolerating p.o. This morning, she voices no new complaints. No chest pain or shortness of breath. She did undergo dialysis yesterday without any difficulty. OBJECTIVE: VITAL SIGNS: Blood pressure is 127/79, heart rate 68, respiratory rate 18, temperature 98.2, and pulse ox 96%. GENERAL: Noted to be awake, alert, comfortable, not in distress. SKIN: Adequate turgor. HEENT: Pinkish conjunctivae. Anicteric sclerae. NECK: No neck mass. No carotid bruits. No JVD. CHEST: No deformities. LUNGS: Clear breath sounds. No wheezing. No crackles. HEART: Normal sinus rhythm. No murmur. No gallops. No rubs. ABDOMEN: Globular, soft, nontender. No masses. EXTREMITIES: No edema. No deformities. MEDICATIONS: Medications of December 15, 2018, reviewed. LABORATORY DATA: Laboratories of December 15, 2018; white count 5, hemoglobin 8.9. Sodium 136, potassium 3.8, chloride 99, carbon dioxide 29, BUN 13, creatinine 4.39, glucose 95, calcium 8.8. ASSESSMENT AND PLAN: 1. Anemia, on weekly Epogen. Continue current said regimen. 2. End-stage renal disease, stable, tolerating current hemodialysis regimen. Continue Friday, Friday, and Friday dialysis. 3. Obstipation/nausea, vomiting, clinically resolved. 4. The patient has no evidence of mechanical small-bowel obstruction. Overall, agree with current management. Agree with planned discharge. Job ID: [id number]
[2018-12-15] MEDS: cloNIDine 0.2 MG TAB PO SCH (11:22)
[2018-12-15] MEDS: hydrALAZINE 25 MG TAB PO SCH (11:22)
[2018-12-15 11:23] VITALS: BP 108/70
--- NOTE | 2018-12-15 15:18 | PRG ---
DATE OF SERVICE: 12/15/2018 Ms. Chavarria looks and feels much better. She is having bowel movements, tolerating a normal diet, and is anxious to go home. She will be discharged later today. Job ID: [id number]
== END 2018-12-15 11:54 | disposition home or self-care (01) | DRG 391 ==
LOC: ERS 04:17 → ERHOLD 06:32 → T4-B 13:29
PROVIDERS: ADMIT Family Medicine; ATTEND Family Medicine
DX: K59.00 Constipation, unspecified (principal); N18.6 End stage renal disease; I13.2 Hypertensive heart and chronic kidney disease with heart failure and with stage 5 chronic kidney disease, or end stage renal disease; I50.30 Unspecified diastolic (congestive) heart failure; K31.84 Gastroparesis; I48.91 Unspecified atrial fibrillation; F17.220 Nicotine dependence, chewing tobacco, uncomplicated; D64.9 Anemia, unspecified; E03.9 Hypothyroidism, unspecified; F31.9 Bipolar disorder, unspecified; Z91.041 Radiographic dye allergy status; Z79.899 Other long term (current) drug therapy; Z90.49 Acquired absence of other specified parts of digestive tract; Z99.2 Dependence on renal dialysis; Z98.51 Tubal ligation status; Z79.82 Long term (current) use of aspirin
CPT/HCPCS: 36415; 36416; 74018; 74019; 74022; 74176; 74250; 80048; 80053; 83605; 83690; 84443; 85025; 90935; 96374; 96375; G0257; J1644; J2060; J2765; J3010; J8597; Q5105; Q9963

== ENCOUNTER 2019-04-13 11:49 | Outpatient (CLI) | payer MEDICARE, MEDICAID ==
--- NOTE | 2019-04-13 12:52 | RAD ---
Frontal and lateral imaging of the right femur: 04/13/2019 COMPARISON: None HISTORY: Pain FINDINGS: There is mild lateral acetabular osteophyte formation on the right. There is no displaced f racture or evidence of dislocation. Partially visualized knee demonstrates medial and lateral compartment narrowing as well as patellofemoral joint space narrowing and a moderate associated knee joint effusion. There is a suggestion of irregularity involving the posterior cortex of the patella, particularly inferiorly, for which erosive change cannot be excluded. IMPRESSION: Multicompartment degenerative change involving the right knee with an associated knee krista nt effusion. There is mild irregularity involving the posterior aspect of the patella which could signify erosion or could be projectional in nature. Recommend dedicated imaging of the right knee to exclude an inflammatory/infectious or erosive process. Mild degenerative change of the right hip. No acute fracture. CODE T
== END 2019-04-13 11:50 | disposition home or self-care (01) ==
LOC: BICRAD 11:49
PROVIDERS: ATTEND Internal Medicine Nephrology
DX: M79.651 Pain in right thigh (principal); M16.11 Unilateral primary osteoarthritis, right hip

== ENCOUNTER 2019-04-20 06:54 | Emergency (ER) | payer MEDICARE, MEDICAID ==
--- NOTE | 2019-04-20 08:32 | ULT ---
US Venous Doppler Rt Unilat History: Right lower extremity pain Comparison: Venous Doppler 2018 Findings: Real-time grayscale and color evaluation of the right lower extremity venous system was per formed. The common femoral, femoral, proximal portions greater saphenous and deep femoral veins as well as the popliteal and posterior tibial veins were interrogated. Normal flow, augmentation, and compression. Moderate-sized popliteal cyst. Impression: No deep venous thrombosis.
== END 2019-04-20 08:48 | disposition home or self-care (01) ==
LOC: ERS 06:54
DX: M79.651 Pain in right thigh (principal); I12.0 Hypertensive chronic kidney disease with stage 5 chronic kidney disease or end stage renal disease; N18.6 End stage renal disease; F17.220 Nicotine dependence, chewing tobacco, uncomplicated; Z79.899 Other long term (current) drug therapy

== ENCOUNTER 2019-04-22 19:23 | Emergency (ER) | payer MEDICARE, MEDICAID ==
[2019-04-22] MEDS ORDERED: HYDROcodone/Acetaminophen 5/325 mg Tablet ONE (20:21)
== END 2019-04-22 20:31 | disposition home or self-care (01) ==
LOC: ERS 19:23
DX: M79.651 Pain in right thigh (principal); I12.0 Hypertensive chronic kidney disease with stage 5 chronic kidney disease or end stage renal disease; N18.6 End stage renal disease; F31.9 Bipolar disorder, unspecified; F17.220 Nicotine dependence, chewing tobacco, uncomplicated; Z79.899 Other long term (current) drug therapy; Z79.82 Long term (current) use of aspirin; Z99.2 Dependence on renal dialysis
CPT/HCPCS: 99283

== ENCOUNTER 2019-06-13 19:09 | Emergency (ER) | payer MEDICARE, MEDICAID ==
[2019-06-13 19:49] LABS: #Basophils 0.1 thou/uL (0.0-0.2); #Eosinphils 0.3 thou/uL (0.0-0.7); #Lymphocytes 2.5 thou/uL (1.20-3.40); #Monocytes 0.5 thou/uL (0.11-0.59); #Neutrophils 2.5 thou/uL (1.40-6.50); %Basophils 1.7 % (0.0-1.0); %Lymphocytes 42.6 % (21.0-51.0); %Monocytes 8.5 % (0.0-10.0); %Neutrophils 42.3 % (42.0-75.0); Hemoglobin 13.4 g/dL (12.0-16.0); Mean Corpuscular HGB CONC 31.3 g/dL (32.0-36.0); Mean Corpuscular Hemoglobin 30.9 pg (27.0-31.0); Mean Corpuscular Volume 98.7 fL (78.0-98.0); Mean Platelet Volume 8.2 fL (7.4-10.4); Platelet Count 181 thou/uL (130-400); RBC Distribution Width 16.8 % (11.5-14.5); Red Blood Cell (RBC) Count 4.34 mill/uL (4.20-5.40)
[2019-06-13 20:07] LABS: ALT (SGPT) 11 U/L (8-55); AST (SGOT) 17 U/L (5-34); Albumin 3.8 g/dL (3.5-5.0); Alkaline Phosphatase 236 U/L (40-110); Anion Gap 25 mmol/L (10-20); BUN (Urea Nitrogen) 71 mg/dL (9.8-20.1); Bilirubin, Total 0.6 mg/dL (0.2-1.2); Calc. Creatinine Clearance 0 mL/min (70-130); Calcium 8.7 mg/dL (7.8-10.44); Carbon Dioxide 22 mmol/L (22-29); Chloride 101 mmol/L (98-107); Estimated GFR-MDRD 4; Globulin 4.6 g/dL (2.4-3.5); Glucose 82 mg/dL (70-105); Potassium 5.2 mmol/L (3.5-5.1); Protein, Total 8.4 g/dL (6.0-8.3); Sodium 143 mmol/L (136-145)
== END 2019-06-13 20:35 | disposition home or self-care (01) ==
LOC: ERS 19:09
DX: I12.0 Hypertensive chronic kidney disease with stage 5 chronic kidney disease or end stage renal disease (principal); N18.6 End stage renal disease; F17.220 Nicotine dependence, chewing tobacco, uncomplicated; F31.9 Bipolar disorder, unspecified
CPT/HCPCS: 36415; 80053; 85025; 93005

== ENCOUNTER 2019-06-26 17:43 | Observation (INO) | payer MEDICARE, MEDICAID ==
[2019-06-26 18:28] LABS: #Basophils 0.2 thou/uL (0.0-0.2); #Eosinphils 0.5 thou/uL (0.0-0.7); #Lymphocytes 4.2 thou/uL (1.20-3.40); #Monocytes 0.9 thou/uL (0.11-0.59); %Basophils 1.8 % (0.0-1.0); %Eosinophils 4.9 % (0.0-10.0); %Lymphocytes 43.2 % (21.0-51.0); %Monocytes 9.2 % (0.0-10.0); %Neutrophils 40.9 % (42.0-75.0); Hemoglobin 15.6 g/dL (12.0-16.0); Mean Corpuscular HGB CONC 32.5 g/dL (32.0-36.0); Mean Corpuscular Volume 98.5 fL (78.0-98.0); Mean Platelet Volume 8.2 fL (7.4-10.4); Platelet Count 218 thou/uL (130-400); RBC Distribution Width 16.3 % (11.5-14.5); Red Blood Cell (RBC) Count 4.86 mill/uL (4.20-5.40); White Blood Cell (WBC) Count 9.7 thou/uL (4.8-10.8)
[2019-06-26 18:50] LABS: ALT (SGPT) 10 U/L (8-55); AST (SGOT) 14 U/L (5-34); Albumin 4.1 g/dL (3.5-5.0); Alkaline Phosphatase 228 U/L (40-110); Anion Gap 21 mmol/L (10-20); BUN (Urea Nitrogen) 37 mg/dL (9.8-20.1); Bilirubin, Total 0.4 mg/dL (0.2-1.2); Calc. Creatinine Clearance 0 mL/min (70-130); Calcium 9.3 mg/dL (7.8-10.44); Carbon Dioxide 30 mmol/L (22-29); Chloride 92 mmol/L (98-107); Estimated GFR-MDRD 7; Globulin 4.6 g/dL (2.4-3.5); Magnesium 2.3 mg/dL (1.6-2.6); Potassium 3.6 mmol/L (3.5-5.1); Protein, Total 8.7 g/dL (6.0-8.3); Sodium 139 mmol/L (136-145)
[2019-06-26 18:54] LABS: Glucose 54 mg/dL (70-105)
--- NOTE | 2019-06-26 19:51 | CT ---
CT BRAIN WITHOUT CONTRAST: HISTORY: Headache, dizziness, weakness FINDINGS: There is an old the small infarct in the white matter of the right frontal lobe. No evidence of acute infarct, hemorrhage, midline shift or abnormal extra-axial fluid collections is seen. The ventricular size is appropriate and the basilar cisterns are patent. The bony calvarium is intact. Th e visualized paranasal sinuses and mastoid air cells are well aerated. IMPRESSION: No CT evidence of acute intracranial process.
[2019-06-26] MEDS ORDERED: Acetaminophen 500 MG TAB ONE (22:08)
--- NOTE | 2019-06-27 00:52 | PDOC.FPRHP ---
- History of Present Illness Chief Complaint: Headache, Low BP History of Present Illness: Patient is a 54 yo female who presents with complaint of headache, lightheaded, dizziness. She was found to have a BP of 71/46 and glucose 54. Patient states she had dialysis completed with Dr. Flores yesterday. Shortly after this she was found to have a low BP and Dr. Flores told her to stop taking her Rx for Clonidine , Atenolol, and HCTZ. Patient says she forgot and she did take a HCTZ of unknown dose this AM. Patient says for past several dialysis appointments she has had low BP. Patient states she has felt bad since her dialysis yesterday, and she has been nauseous with no appetite. She has had very little solid or liquid intake in past 48 hours. Patient was given a 750ml bolus NS earlier in the ED and 1000 mg Tylenol. She currently says that her headache is somewhat improved and she now does not have lightheaded or dizziness sensation. ED Course: Given bolus in [address] Flores, received 750 ml total. Given 1 g Tylenol for Headache. Provided with soda and chips for low glucose. - Allergies/Adverse Reactions Allergies Allergy/AdvReac Type Severity Reaction Status Date / Time iodine Allergy Intermediate Rash Verified 06/27/19 01:28 - Home Medications Medication Instructions Recorded Confirmed Type Pantoprazole Sodium 40 mg PO DAILY 10/12/17 06/27/19 History Aspirin Chewable [Aspirin Chewable 81 mg PO DAILY 03/30/18 06/27/19 History Tablet] Sevelamer Carbonate [Renvela] 800 mg PO BID-WM #60 tab 12/15/18 06/27/19 Rx Polyethylene Glycol 3350 [Miralax] 17 gm PO PRN PRN 06/27/19 06/27/19 History - History PMHx: ESRD, Knee OA, Afib, Pseudogout, Hx of CVA, HTN PSHx: C section x3, Cervical MSK surgery, Cholecystectomy FHx: unknown Social: Denies EtOH use (former EtOH abuse, quit 2008). Denies tobacco or other drug use. - Review of Systems General: reports: weight/appetite/sleep changes, fatigue. denies: fever/chills Eyes: denies: vision changes ENT: denies: nasal congestion Respiratory: denies: cough, congestion, shortness of breath Cardiovascular: denies: chest pain, palpitation, edema Gastrointestinal: reports: nausea. denies: vomiting, diarrhea, constipation, abdominal pain Genitourinary: denies: dysuria Skin: denies: rashes, lesions Musculoskeletal: denies: pain, tenderness, swelling Neurological: reports: weakness. denies: numbness - Vital signs BP: 75/49 (MAP 57) HR: 79 RR: 17 Tmax: 98.4F Pox: 98%% on RA Wt: 73 kg - Physical Exam Constitutional: NAD, awake, alert and oriented, well developed HEENT: normocephalic and atraumatic, EOMI, conjunctiva clear, grossly normal vision, grossly normal hearing, MMM Neck: supple, FROM, no JVD Heart: RRR, normal S1/S2, no murmurs/rubs/gallops, pulses present, no edema Lungs: CTAB, no respiratory distress, good air movement, no rales/rhonchi, no wheezing Abdomen: soft, non-tender, bowel sounds present, no masses/distention Musculoskeletal: normal structure, normal tone, ROM grossly normal Neurological: no focal deficit, normal sensation Skin: no rash/lesions, good turgor Heme/Lymphatic: no unusual bruising or bleeding Psychiatric: normal mood and affect, intact recent and remote memory FMR H&P: Results - Labs Result Diagrams: 06/27/19 01:48 06/26/19 18:15 Lab results: WBC 9.7 thou/uL (4.8-10.8) 06/26/19 18:15 Hgb 15.6 g/dL (12.0-16.0) 06/26/19 18:15 Hct 47.9 % (36.0-47.0) H 06/26/19 18:15 MCV 98.5 fL (78.0-98.0) H 06/26/19 18:15 Plt Count 218 thou/uL (130-400) 06/26/19 18:15 Neutrophils % 40.9 % (42.0-75.0) L 06/26/19 18:15 Sodium 139 mmol/L (136-145) 06/26/19 18:15 Potassium 3.6 mmol/L (3.5-5.1) 06/26/19 18:15 Chloride 92 mmol/L (98-107) L 06/26/19 18:15 Carbon Dioxide 30 mmol/L (22-29) H 06/26/19 18:15 BUN 37 mg/dL (9.8-20.1) H 06/26/19 18:15 Creatinine 7.80 mg/dL (0.6-1.1) H 06/26/19 18:15 Glucose 54 mg/dL (70-105) L* 06/26/19 18:15 Calcium 9.3 mg/dL (7.8-10.44) 06/26/19 18:15 Total Bilirubin 0.4 mg/dL (0.2-1.2) 06/26/19 18:15 AST 14 U/L (5-34) 06/26/19 18:15 ALT 10 U/L (8-55) 06/26/19 18:15 Alkaline Phosphatase 228 U/L (40-110) H 06/26/19 18:15 Serum Total Protein 8.7 g/dL (6.0-8.3) H 06/26/19 18:15 Albumin 4.1 g/dL (3.5-5.0) 06/26/19 18:15 FMR H&P: A/P - Problem List (1) ESRD on hemodialysis Current Visit: No Status: Chronic Code(s): N18.6 - END STAGE RENAL DISEASE; Z99.2 - DEPENDENCE ON RENAL DIALYSIS (2) Hypoglycemia Current Visit: No Status: Resolved Code(s): E16.2 - HYPOGLYCEMIA, UNSPECIFIED (3) Hypotension Current Visit: No Status: Resolved Qualifiers: Hypotension type: unspecified hypotension type Qualified Code(s): I95.9 - Hypotension, unspecified - Plan 54 yo female with complaint of headache and dizziness is admitted for symptomatic hypotension & hypoglycemia: #Hypotension, symptomatic -systolic 70s/diastolic 40s for most of ED BP checks -Per pt, Dr. Flores began holding all BP meds on 06/25 -will place on maintenance IVF NS @ 125 ml/hr -Dr. Flores recommended IVF bolus in 250 ml increments #Hypoglycemia -admission 54, given soda, sandwich & chips in ED -will recheck glucose #ESRD on HD -receives hemodialysis on MWF -followed by Dr. Flores, Nephrology who was informed by ED physician #Hx of HTN -hold all home BP meds including Clonidine, Atenolol, HCTZ #Hx of Afib -takes Amiodarone 200 home med -currently in normal sinus rhythm Diet: Renal high protein VTE: SCDs only Code status: FULL Dispo: Stable, admit to obs on telemetry. Continue to monitor BP and give fluids prn. Anticipate LOS <48 hrs. FMR H&P: Upper Level - Pertinent history 54 yo F here with complaint of headache and dizziness. Pt has hx of ESRD and has HD on MWF. Yesterday 3L were pull off at HD. She noticed a BURDEN that started yesterday and she became dizzy this morning. Due persistently low BP in outpatient setting, she had multiple meds stopped on Friday by Dr Flores, however she forgot and took her HCTZ this morning. In the ER she was found to have persistent BP in the 70-[address] Flores was consulted from the ER where he asked that she be bolused in 250 mL increments. She was given a total of 750 mL in the ER with modest improvement in BP. It was also noted that her blood glucose was 54. Pt states that because she was feeling bad she hadnt eaten in 24 hours. PMHx ESRD Knee OA Afib Pseudogout Hx of CVA HTN Surgical Hx C section x3 Cervical MSK surgery Cholecystectomy Social Hx Social etoh No smoking or drugs Chews tobacco - Pertinent findings See internet marketing analyst note for full ROS, PE, vitals, and labs ROS General denies fever or chills CV Complains of BURDEN and dizziness. Denies CP or palpitations Resp Denies SOB or cough GI Denies n/v/d/c or abdominal pain denies increased frequency or dysuria Neuro denies numbness or weakness PE General A&O x4, no acute distress HEENT NCAT CV RRR, Resp CTA Abd No TTP, no distension, normal BS Extremities No edema Neuro no focal deficits, CN II-XII intact - Plan Date/Time: 06/27/192 Jefe, Harpal Fontana DO, have evaluated this patient and agree with findings/plan as outlined by internet marketing analyst resident. Pertinent changes/additions are listed here. 1.Symptomatic hypotension -It appears that pt is volume down following HD. Will continue with IVF and monitor pressure on tele obs. 2.Hypoglycemia -Due to poor PO intake. Pt was eating in the ED. Recheck glucose when she gets to the floor 3.ESRD -Consult Dr Flores 4.HTN -Hold home meds 5.Hx of Afib -Currently in NSR PPx SCD Diet High Protein Code Full
[2019-06-27] MEDS ORDERED: Ondansetron ODT 4 MG TAB PO PRN (01:23)
[2019-06-27] MEDS ORDERED: Calcium Carbonate 500 MG ChewTAB PO PRN (01:23)
[2019-06-27 01:45] VITALS: BMI 26.9
[2019-06-27] MEDS: Sodium Chloride 0.9% 1,000 ML IV SCH ×2 (01:56→11:22)
[2019-06-27 01:59] LABS: #Basophils 0.1 thou/uL (0.0-0.2); #Eosinphils 0.5 thou/uL (0.0-0.7); #Lymphocytes 4.1 thou/uL (1.20-3.40); #Neutrophils 3.2 thou/uL (1.40-6.50); %Basophils 1.3 % (0.0-1.0); %Eosinophils 5.3 % (0.0-10.0); %Monocytes 11.3 % (0.0-10.0); Hemoglobin 13.8 g/dL (12.0-16.0); Mean Corpuscular Hemoglobin 31.5 pg (27.0-31.0); Mean Corpuscular Volume 98.6 fL (78.0-98.0); Mean Platelet Volume 8.5 fL (7.4-10.4); Platelet Count 196 thou/uL (130-400); RBC Distribution Width 16.1 % (11.5-14.5); Red Blood Cell (RBC) Count 4.39 mill/uL (4.20-5.40); White Blood Cell (WBC) Count 8.9 thou/uL (4.8-10.8)
[2019-06-27 02:06] LABS: Glucose Accucheck Confirmation 80 mg/dl (70-105)
[2019-06-27 02:18] LABS: ALT (SGPT) 9 U/L (8-55); AST (SGOT) 13 U/L (5-34); Albumin 3.6 g/dL (3.5-5.0); Alkaline Phosphatase 217 U/L (40-110); Anion Gap 20 mmol/L (10-20); BUN (Urea Nitrogen) 42 mg/dL (9.8-20.1); Bilirubin, Total 0.4 mg/dL (0.2-1.2); Calc. Creatinine Clearance 9 mL/min (70-130); Calcium 8.3 mg/dL (7.8-10.44); Carbon Dioxide 26 mmol/L (22-29); Chloride 98 mmol/L (98-107); Estimated GFR-MDRD 6; Globulin 4.1 g/dL (2.4-3.5); Glucose 82 mg/dL (70-105); Potassium 4.1 mmol/L (3.5-5.1); Protein, Total 7.7 g/dL (6.0-8.3); Sodium 140 mmol/L (136-145)
[2019-06-27] MEDS ORDERED: Polyethylene Glycol 3350 17 GM Packet PO PRN (02:22)
[2019-06-27] MEDS: Acetaminophen 325 MG TAB PO PRN ×2 (02:37→09:03)
[2019-06-27] MEDS ORDERED: Sodium Chloride 0.9% 500 ML IV SCH ×2 (03:45→05:30)
[2019-06-27] MEDS ORDERED: Sodium Chloride 0.9% 1,000 ML IV SCH ×2 (05:30→07:00)
[2019-06-27] MEDS: Midodrine HCl 5 MG TAB PO SCH ×2 (06:06→15:12)
[2019-06-27] MEDS ORDERED: Sevelamer Carbonate 800 MG TAB PO SCH (08:00)
[2019-06-27] MEDS ORDERED: Aspirin Chewable 81 MG TAB PO SCH (09:00)
--- NOTE | 2019-06-27 11:24 | HP ---
Please see the note from Dr. Aguilar for which I agree from today and then also the history and physical from Dr. Garrett, for which I agree. HISTORY OF PRESENT ILLNESS: The patient was admitted after low blood pressure 71/46 after potentially getting overly diuresed on a Friday, Friday, Friday schedule hemodialysis. [place] lightheaded and low blood pressure, went to the emergency room because of the low blood pressure and was admitted. Was supposed to stop all of her blood pressure medicines, but she continued the hydrochlorothiazide and after taking is when her blood pressure crashed. Put on IV fluids, admitted her, and her blood pressure now is completely normal. Really her only complaint is some right forearm problems where the IV is. No chest pain. No shortness of breath. No syncope. No near syncope. She already is feeling better. ALLERGIES: ALL PER THE RESIDENTS' HISTORY AND PHYSICAL, FOR WHICH I AGREE. HOME MEDICATIONS: All per the residents' history and physical, for which I agree. PAST MEDICAL HISTORY: All per the residents' history and physical, for which I agree. PAST SURGICAL HISTORY: All per the residents' history and physical, for which I agree. FAMILY HISTORY: All per the residents' history and physical, for which I agree. SOCIAL HISTORY: All per the residents' history and physical, for which I agree. REVIEW OF SYSTEMS: All per the residents' history and physical, for which I agree. PHYSICAL EXAMINATION: VITAL SIGNS: Afebrile, no apparent distress. Blood pressure looks fine now with systolic in the 90s. HEENT: Otherwise, ENT is within normal limits. CHEST: Clear. CARDIOVASCULAR: Regular rate and rhythm. EXTREMITIES: Show no edema. The right forearm really was normal. I do not appreciate any major swelling or . Maybe little bit of tenderness around the IV site. NEUROLOGICAL: It was fine. Good pulses. ASSESSMENT AND PLAN: 1. Hypotension, likely from over-diuresis and too aggressive blood pressure management. Plan is to continue midodrine and off all three of her blood pressure pills and will follow up for blood pressure checks and hemodialysis tomorrow, but should be able to go home. 2. End-stage renal disease. We will continue same dialysis Friday, Friday, Friday and obviously will need to watch blood pressure closely. 3. History of hypertension, . 4. Atrial fibrillation, but should be able to go home now that she is totally stable. Job ID: [id number]
[2019-06-27 11:39] VITALS: TEMP 98.4
[2019-06-27 12:59] VITALS: BP 103/65
--- NOTE | 2019-07-01 14:47 | DIS ---
DATE OF ADMISSION: 06/26/2019 DATE OF DISCHARGE: 06/27/2019 ADMITTING ATTENDING: Jose Beckwith MD DISCHARGE ATTENDING: Jose Beckwith MD RESIDENT: Triston Aguilar DO CONSULTS: None. PROCEDURES: Brain CT on 06/26/2019, showing no CT evidence of acute intracranial process. PRIMARY DIAGNOSES: Hypotension secondary to hypovolemia from hemodialysis, hypoglycemia secondary to likely acute malnutrition. SECONDARY DIAGNOSES: Hypertension, atrial fibrillation, end-stage renal disease on hemodialysis Friday, Friday, Friday. DISCHARGE MEDICATIONS: 1. Midodrine 5 mg p.o. q.8 hours. 2. Aspirin 81 mg p.o. daily. 3. Pantoprazole 40 mg p.o. daily. 4. MiraLAX 1 packet p.o. daily p.r.n. constipation. 5. Renvela 800 mg p.o. b.i.d. with meals. DISCONTINUED MEDICATIONS: 1. Hydrochlorothiazide. 2. Atenolol. 3. Clonidine. BRIEF HISTORY OF PRESENT ILLNESS/HOSPITAL COURSE: This is a 54-year-old female with past medical history as above, who presented to the ER complaining of headache, dizziness, lightheadedness. She is found to have a BP of 71/46, glucose of 54. The patient reports having dialysis the day before and was found to have low blood pressures. She was told by Dr. Flores and stop taking all of her blood pressure medications; however, she reports taking hydrochlorothiazide thinking it would help her blood pressure. In the ER, the patient was given 750 mL bolus followed by 1000 mg of Tylenol. At the end of her hospital stay, the patient received a total of 3500 mL. At one point, the patient's blood pressure was dipping into the 60 systolic. There was concern for needing higher level of care. The patient was started on midodrine and the patient's blood pressure firmed up. The patient did not need to be transferred to the MICU. The patient's BP remained elevated with systolics of 100 prior to discharge and was sent home. The patient did complain of a pain in her right arm likely with infusion of her normal saline versus chronic pain. The patient requesting further medication for this pain concern for drug-seeking. Pain was not out of proportion. Pain was not worrisome. The patient was discharged with this pain. DISPOSITION: Stable. DISCHARGE INSTRUCTIONS: 1. Location: Home. 2. Diet: Heart healthy and renal. 3. Activity: As tolerated. 4. Follow up with Dr. Flores as instructed as well as [facility], her PCP. Job ID: [id number]
== END 2019-06-27 14:50 | disposition home or self-care (01) ==
LOC: ERS 17:43 → 2SW 23:30
PROVIDERS: ADMIT Family Medicine; ATTEND Family Medicine
DX: E86.1 Hypovolemia (principal); I95.9 Hypotension, unspecified; E16.2 Hypoglycemia, unspecified; I12.0 Hypertensive chronic kidney disease with stage 5 chronic kidney disease or end stage renal disease; N18.6 End stage renal disease; I48.91 Unspecified atrial fibrillation; M17.9 Osteoarthritis of knee, unspecified; F10.11 Alcohol abuse, in remission; F31.9 Bipolar disorder, unspecified; F17.220 Nicotine dependence, chewing tobacco, uncomplicated; Z86.73 Personal history of transient ischemic attack (TIA), and cerebral infarction without residual deficits; Z79.82 Long term (current) use of aspirin; Z79.899 Other long term (current) drug therapy; Z91.041 Radiographic dye allergy status; Z99.2 Dependence on renal dialysis; Y84.1 Kidney dialysis as the cause of abnormal reaction of the patient, or of later complication, without mention of misadventure at the time of the procedure
CPT/HCPCS: 70450; 80053 ×2; 82947; 82962; 83735; 85025 ×2; 86850; 86900; 86901; 87040; 93005; 96360; 96361 ×2; 99285; G0378 ×3; 36415; 36416

== ENCOUNTER 2020-03-02 10:38 | Outpatient (CLI) | payer MEDICARE, MEDICAID ==
--- NOTE | 2020-03-02 11:53 | RAD ---
EXAM: 3 views of the right knee HISTORY: Knee pain for 2 months COMPARISON: None FINDINGS: No knee effusion is seen. There is no evidence of acute fracture or dislocation. Mild trico mpartmental degenerative changes are seen. No soft tissue swelling is present. IMPRESSION: Mild right knee osteoarthritis without evidence of acute osseous abnormality.
--- NOTE | 2020-03-02 12:05 | RAD ---
LEFT KNEE 3 VIEWS: Date: 03/02/2020 HISTORY: Bilateral knee pain. FINDINGS/IMPRESSION: Mild degenerative changes are present. No fracture, dislocation, or bony destruction is identified. POS: OFF
== END 2020-03-02 10:39 | disposition home or self-care (01) ==
LOC: BICRAD 10:38
PROVIDERS: ATTEND Internal Medicine Nephrology
DX: M25.561 Pain in right knee (principal); M25.562 Pain in left knee; G89.29 Other chronic pain; M17.0 Bilateral primary osteoarthritis of knee

== ENCOUNTER 2021-04-02 11:38 | Emergency (ER) | payer MEDICARE, MEDICAID ==
[2021-04-02 14:54] LABS: #Basophils 0.1 thou/uL (0.0-0.2); #Eosinphils 0.2 thou/uL (0.0-0.7); #Lymphocytes 2.1 thou/uL (1.20-3.40); #Monocytes 0.6 thou/uL (0.11-0.59); #Neutrophils 4.8 thou/uL (1.40-6.50); %Basophils 0.7 % (0.0-1.0); %Eosinophils 2.5 % (0.0-10.0); %Lymphocytes 27.5 % (21.0-51.0); %Monocytes 7.6 % (0.0-10.0); %Neutrophils 61.7 % (42.0-75.0); Hemoglobin 14.4 g/dL (12.0-16.0); Mean Corpuscular Hemoglobin 30.3 pg (27.0-31.0); Mean Corpuscular Volume 94.7 fL (78.0-98.0); Mean Platelet Volume 8.3 fL (7.4-10.4); Platelet Count 167 thou/uL (130-400); RBC Distribution Width 15.6 % (11.5-14.5); Red Blood Cell (RBC) Count 4.76 mill/uL (4.20-5.40); White Blood Cell (WBC) Count 7.7 thou/uL (4.8-10.8)
[2021-04-02 15:16] LABS: ALT (SGPT) 8 U/L (8-55); AST (SGOT) 9 U/L (5-34); Albumin 3.7 g/dL (3.5-5.0); Alkaline Phosphatase 240 U/L (40-110); Anion Gap 22 mmol/L (10-20); BUN (Urea Nitrogen) 75 mg/dL (9.8-20.1); Bilirubin, Total 0.6 mg/dL (0.2-1.2); Calc. Creatinine Clearance 0 mL/min (70-130); Calcium 8.4 mg/dL (7.8-10.44); Carbon Dioxide 19 mmol/L (22-29); Chloride 100 mmol/L (98-107); Globulin 4.1 g/dL (2.4-3.5); Glucose 108 mg/dL (70-105); Potassium 5.8 mmol/L (3.5-5.1); Protein, Total 7.8 g/dL (6.0-8.3); Sodium 135 mmol/L (136-145)
[2021-04-02 15:34] LABS: HBSAg Index 0.19 S/CO (0-0.99); Hep B Surf Ag Non-Reactive S/CO (NonReactive)
== END 2021-04-02 18:58 | disposition home or self-care (01) ==
LOC: ERS 11:38
DX: R06.00 Dyspnea, unspecified (principal); I12.0 Hypertensive chronic kidney disease with stage 5 chronic kidney disease or end stage renal disease; N18.6 End stage renal disease; Z99.2 Dependence on renal dialysis; F17.200 Nicotine dependence, unspecified, uncomplicated
CPT/HCPCS: 80053; 85025; 87340; 90935; 99283; G0257

== ENCOUNTER 2021-10-08 20:40 | Emergency (ER) | payer MEDICARE, OTHER | END 2021-10-08 21:19 | disposition home or self-care (01) | LOC: ERS 20:40 | DX: L73.1 Pseudofolliculitis barbae (principal); I12.0 Hypertensive chronic kidney disease with stage 5 chronic kidney disease or end stage renal disease; N18.6 End stage renal disease; Z99.2 Dependence on renal dialysis; F17.200 Nicotine dependence, unspecified, uncomplicated; Z79.82 Long term (current) use of aspirin; Z79.899 Other long term (current) drug therapy | CPT/HCPCS: 99282 ==

== ENCOUNTER 2022-03-14 10:19 | Outpatient (CLI) | payer OTHER | END 2022-03-14 10:20 | disposition home or self-care (01) | LOC: BICRAD 10:19 | PROVIDERS: ATTEND Internal Medicine Nephrology | DX: M25.561 Pain in right knee (principal); M17.11 Unilateral primary osteoarthritis, right knee ==

== ENCOUNTER 2022-07-03 15:35 | Emergency (ER) | payer OTHER | END 2022-07-03 16:58 | disposition home or self-care (01) | LOC: ERS 15:35 | DX: T81.30XA Disruption of wound, unspecified, initial encounter (principal); I12.0 Hypertensive chronic kidney disease with stage 5 chronic kidney disease or end stage renal disease; N18.6 End stage renal disease; F17.200 Nicotine dependence, unspecified, uncomplicated; Z99.2 Dependence on renal dialysis | CPT/HCPCS: 99283 ==

== ENCOUNTER 2022-07-10 12:31 | Emergency (ER) | payer OTHER | END 2022-07-10 14:13 | disposition home or self-care (01) | LOC: ERS 12:31 | DX: H53.8 Other visual disturbances (principal); T81.30XA Disruption of wound, unspecified, initial encounter; I12.0 Hypertensive chronic kidney disease with stage 5 chronic kidney disease or end stage renal disease; N18.6 End stage renal disease; F17.200 Nicotine dependence, unspecified, uncomplicated; Z99.2 Dependence on renal dialysis ==

== ENCOUNTER 2022-07-20 14:34 | Emergency (ER) | payer OTHER ==
[~2022-07-20 14:34] MED LIST changes: -Bupivacaine HCl 0.5%/Epinephrine 1:200,000/PF 30 ml Vial ONE; -Fentanyl 100 MCG/2 ML VIAL ONE; +Iopamidol-370 76% 500 ML 1 ML ONE; -Midazolam HCl 2 mg/2 ml Vial ONE; -Propofol 500 MG/50 ML VIAL ONE
[2022-07-20] MEDS ORDERED: Atropine Sulfate 1 mg/10 ml Syringe ONE (15:46)
[2022-07-20] MEDS ORDERED: Calcium Gluc 4.6 MEQ/10 ML (100 MG/ML) ONE (15:48)
[2022-07-20 16:01] LABS: Actual Bicarbonate (HCO3v) 36 mEq/L (22-28); Base Excess 9.5 mEq/L (-2.0 to +3.0); Calcium, Ionized (venous) 1.07 mmol/L (1.16-1.32); Chloride (VBG) 96 mmol/L (98-106); Hemoglobin (Hb) 10.6 g/dL (11.7-16.0); Potassium (VBG) 4.22 mmol/L (3.70-5.30); Sodium 138.7 mmol/L (133-146); pH (venous) 7.42 (7.32-7.43)
[2022-07-20 16:05] LABS: #Lymphocytes 1.8 thou/uL (1.20-3.40); #Monocytes 1.2 thou/uL (0.11-0.59); #Neutrophils 11.2 thou/uL (1.40-6.50); %Basophils 0.3 % (0.0-1.0); %Eosinophils 0.3 % (0.0-10.0); %Lymphocytes 12.4 % (21.0-51.0); %Monocytes 8.6 % (0.0-10.0); %Neutrophils 78.4 % (42.0-75.0); Mean Corpuscular HGB CONC 30.7 g/dL (32.0-36.0); Mean Corpuscular Hemoglobin 29.9 pg (27.0-31.0); Mean Corpuscular Volume 97.5 fl (78.0-98.0); Mean Platelet Volume 8.8 fL (7.4-10.4); Platelet Count 199 10x3/uL (130-400); RBC Distribution Width 16.1 % (11.5-14.5); White Blood Cell (WBC) Count 14.2 10x3/uL (4.8-10.8)
[2022-07-20 16:33] LABS: INR-International Normal Ratio 1.2; Prothrombin Time 15.6 sec (12.0-14.7)
[2022-07-20 16:34] LABS: PTT 35.8 sec (22.9-36.1)
[2022-07-20 16:42] LABS: ALT (SGPT) 17 U/L (8-55); AST (SGOT) 42 U/L (5-34); Albumin 2.6 g/dL (3.5-5.0); Alcohol Less than 10 mg/dL (Less than 10); Alkaline Phosphatase 152 U/L (40-110); Anion Gap 16 mmol/L (10-20); BUN (Urea Nitrogen) 32 mg/dL (9.8-20.1); Bilirubin, Total 0.4 mg/dL (0.2-1.2); Calc. Creatinine Clearance 0 mL/min (70-130); Calcium 8.4 mg/dL (7.8-10.44); Carbon Dioxide 32 mmol/L (22-29); Chloride 95 mmol/L (98-107); Estimated GFR 5; Globulin 5.4 g/dL (2.4-3.5); Glucose 87 mg/dL (70-105); Lipase 24 U/L (8-78); Magnesium 2.1 mg/dL (1.6-2.6); Potassium 4.2 mmol/L (3.5-5.1); Salicylate Less than 8.0 mg/dL (15.0-30.0); Sodium 139 mmol/L (136-145)
[2022-07-20 17:00] LABS: Acetaminophen Less than 10.0 mcg/mL (10.0-30.0)
[2022-07-20] MEDS ORDERED: Enoxaparin Sodium 100 MG/ML SYRINGE ONE (17:36)
[2022-07-20] MEDS ORDERED: Aspirin Chewable 81 MG TAB ONE (17:36)
== END 2022-07-20 18:52 | disposition short-term general hospital (02) ==
LOC: ERS 14:34
DX: R00.1 Bradycardia, unspecified (principal); R57.0 Cardiogenic shock; I95.9 Hypotension, unspecified; I21.4 Non-ST elevation (NSTEMI) myocardial infarction; I10 Essential (primary) hypertension; N18.6 End stage renal disease; F17.200 Nicotine dependence, unspecified, uncomplicated; Z99.2 Dependence on renal dialysis
CPT/HCPCS: 36415; 74177; 80053; 80307; 82553; 82805; 83605; 83690; 83735; 83880; 84439; 84443; 84484; 85025; 85610; 85730; 86850; 86900; 86901; 87040; 93005; 94760; J0461; J0610; J1650

== ENCOUNTER 2022-08-25 15:29 | Inpatient (IN) | payer OTHER ==
[2022-08-25] MEDS ORDERED: NOREPINEPHRINE 8 MG/250 ML-D5W 250 ML ONE (15:59)
[2022-08-25 16:07] LABS: Hemoglobin 10.3 g/dL (12.0-16.0); Mean Corpuscular HGB CONC 32.9 g/dL (32.0-36.0); Mean Corpuscular Hemoglobin 30.8 pg (27.0-31.0); Mean Corpuscular Volume 93.7 fl (78.0-98.0); Mean Platelet Volume 9.3 fL (7.4-10.4); Platelet Count 219 10x3/uL (130-400); RBC Distribution Width 18.1 % (11.5-14.5); Red Blood Cell (RBC) Count 3.33 mill/uL (4.20-5.40); White Blood Cell (WBC) Count 18.3 10x3/uL (4.8-10.8)
[2022-08-25 16:16] LABS: INR-International Normal Ratio 1.3; PTT 32.9 sec (22.9-36.1); Prothrombin Time 16.3 sec (12.0-14.7)
[2022-08-25 16:26] LABS: Actual Bicarbonate (HCO3v) 25 mEq/L (22-28); Base Excess 1.8 mEq/L (-2.0 to +3.0); Calcium, Ionized (venous) 0.93 mmol/L (1.16-1.32); Chloride (VBG) 101 mmol/L (98-106); Hemoglobin (Hb) 9.7 g/dL (11.7-16.0); Sodium 133.5 mmol/L (133-146)
[2022-08-25 16:27] LABS: Lymphocytes 12 % (21-51); MDiff Complete? YES; Monocytes 3 % (0-10); Neutrophil 85 % (42-75); Platelet Morphology Comment Appears Adequate; Target Cells SLIGHT = 2-5 cells (100X) (0-1/hpf)
[2022-08-25 16:32] LABS: ALT (SGPT) 11 U/L (8-55); AST (SGOT) 30 U/L (5-34); Albumin 2.2 g/dL (3.5-5.0); Alkaline Phosphatase 241 U/L (40-110); Anion Gap 22 mmol/L (10-20); BUN (Urea Nitrogen) 50 mg/dL (9.8-20.1); Bilirubin, Total 0.6 mg/dL (0.2-1.2); Calc. Creatinine Clearance 0 mL/min (70-130); Calcium 8.2 mg/dL (7.8-10.44); Carbon Dioxide 22 mmol/L (22-29); Chloride 96 mmol/L (98-107); Estimated GFR 4; Globulin 4.8 g/dL (2.4-3.5); Glucose 34 mg/dL (70-105); Lipase 24 U/L (8-78); Potassium 5.2 mmol/L (3.5-5.1); Sodium 135 mmol/L (136-145)
[2022-08-25] MEDS ORDERED: Cefepime 2 GM VIAL ONE (16:32)
[2022-08-25] MEDS ORDERED: Vancomycin 1 GM/200 ML (FROZEN) BAG ONE (16:33)
[2022-08-25] MEDS ORDERED: Dextrose 50% Abboject 50 ML SYRINGE ONE (16:33)
[2022-08-25] MEDS ORDERED: Midodrine HCl 5 MG TAB PO SCH (17:45)
[2022-08-25] MEDS ORDERED: Sodium Chloride 0.9% 500 ML IV SCH (19:15)
[2022-08-25] MEDS ORDERED: Vancomycin HCl 500 MG in Sodium Chloride 0.9% 100 ML IVPB SCH (21:00)
[2022-08-25] MEDS ORDERED: Vancomycin Diaylsis Sliding Scale (Wt 71-99) FS SCH (21:00)
[2022-08-25] MEDS: Apixaban 2.5 MG TAB PO SCH (21:23)
[2022-08-25] MEDS: NOREPINEPHRINE 8 MG/250 ML-D5W 250 ML IVPB SCH (21:24)
[2022-08-25] MEDS: EPOETIN ALFA-EPBX (ESRD) 10,000 UNIT/ML VIAL SC SCH (21:30)
[2022-08-26] MEDS: NOREPINEPHRINE 8 MG/250 ML-D5W 250 ML IVPB SCH ×4 (04:07→20:53)
[2022-08-26 04:58] LABS: ALT (SGPT) 10 U/L (8-55); AST (SGOT) 12 U/L (5-34); Albumin 2.2 g/dL (3.5-5.0); Alkaline Phosphatase 225 U/L (40-110); Anion Gap 19 mmol/L (10-20); BUN (Urea Nitrogen) 51 mg/dL (9.8-20.1); Bilirubin, Total 0.6 mg/dL (0.2-1.2); Calc. Creatinine Clearance 7 mL/min (70-130); Carbon Dioxide 22 mmol/L (22-29); Chloride 97 mmol/L (98-107); Estimated GFR 4; Globulin 4.2 g/dL (2.4-3.5); Glucose 84 mg/dL (70-105); Potassium 3.9 mmol/L (3.5-5.1); Protein, Total 6.4 g/dL (6.0-8.3); Sodium 134 mmol/L (136-145)
[2022-08-26] MEDS: Midodrine HCl 5 MG TAB PO SCH ×4 (05:10→21:10)
[2022-08-26 05:28] LABS: Hemoglobin 9.8 g/dL (12.0-16.0); Mean Corpuscular HGB CONC 32.3 g/dL (32.0-36.0); Mean Corpuscular Hemoglobin 30.1 pg (27.0-31.0); Mean Corpuscular Volume 93.2 fl (78.0-98.0); Mean Platelet Volume 8.7 fL (7.4-10.4); Platelet Count 224 10x3/uL (130-400); RBC Distribution Width 18.5 % (11.5-14.5); Red Blood Cell (RBC) Count 3.27 mill/uL (4.20-5.40); White Blood Cell (WBC) Count 21.7 10x3/uL (4.8-10.8)
[2022-08-26 05:31] LABS: Lymphocytes 13 % (21-51); MDiff Complete? YES; Monocytes 4 % (0-10); Myelocyte 1 % (0-0); Neutrophil 82 % (42-75); Target Cells MODERATE= 6-15 cells (100X) (0-1/hpf)
[2022-08-26 07:33] LABS: Vancomycin, Random 25.1 ug/mL (See Comment)
[2022-08-26] MEDS: Apixaban 2.5 MG TAB PO SCH (08:54)
[2022-08-26] MEDS ORDERED: HOLD VANCOMYCIN FOR LEVEL >25 IVP SCH (10:30)
[2022-08-26] MEDS: Albumin 25% 25 GM/100 ML BOT IVPB SCH ×3 (11:20→23:03)
[2022-08-26] MEDS: Dextrose 5 %-0.45 % NaCl 1,000 ML IV SCH ×2 (12:29→21:10)
[2022-08-26] MEDS: Acetaminophen 325 MG TAB PO PRN (12:31)
[2022-08-26] MEDS: Ondansetron PF 4 MG/2 ML Vial IVP PRN (15:38)
[2022-08-26] MEDS: Acetaminophen/Codeine 30-300mg Tablet PO PRN (17:38)
[2022-08-26] MEDS: Cefepime 0.5 GM, Admixture Fee 1 EACH in Sodium Chloride 0.9% 100 ML IVPB SCH (17:42)
[2022-08-26] MEDS ORDERED: Heparin 10,000 UNITS/ 10 ML VIAL SLOW IVP SCH (19:30)
[2022-08-26] MEDS ORDERED: Heparin 25,000 units/D5W 500 ML IV SCH (19:30)
[2022-08-26] MEDS ORDERED: Apixaban 5 MG TAB PO SCH (21:00)
[2022-08-27] MEDS: NOREPINEPHRINE 8 MG/250 ML-D5W 250 ML IVPB SCH (00:32)
[2022-08-27 02:42] LABS: PTT Greater than 250.0 sec (22.9-36.1)
[2022-08-27] MEDS: Acetaminophen/Codeine 30-300mg Tablet PO PRN ×2 (05:09→15:36)
[2022-08-27] MEDS: Midodrine HCl 5 MG TAB PO SCH ×3 (05:12→21:15)
[2022-08-27] MEDS: Albumin 25% 25 GM/100 ML BOT IVPB SCH (05:12)
[2022-08-27] MEDS: Dextrose 5 %-0.45 % NaCl 1,000 ML IV SCH ×2 (05:13→16:41)
[2022-08-27 05:17] LABS: PTT Greater than 250.0 sec (22.9-36.1)
[2022-08-27 05:18] VITALS: BMI 28.6
[2022-08-27] MEDS ORDERED: Lidocaine 1% w/Epinephrine 1:100K 20 ML VIAL IJ SCH (06:30)
[2022-08-27 06:54] LABS: Anion Gap 19 mmol/L (10-20); BUN (Urea Nitrogen) 41 mg/dL (9.8-20.1); Calc. Creatinine Clearance 9 mL/min (70-130); Calcium 8.3 mg/dL (7.8-10.44); Carbon Dioxide 20 mmol/L (22-29); Chloride 96 mmol/L (98-107); Estimated GFR 5; Glucose 91 mg/dL (70-105); Potassium 3.4 mmol/L (3.5-5.1); Sodium 132 mmol/L (136-145)
[2022-08-27 07:52] LABS: #Eosinphils 0.1 thou/uL (0.0-0.7); #Lymphocytes 2.2 thou/uL (1.20-3.40); #Monocytes 1.1 thou/uL (0.11-0.59); #Neutrophils 8.7 thou/uL (1.40-6.50); %Basophils 0.1 % (0.0-1.0); %Eosinophils 0.6 % (0.0-10.0); %Lymphocytes 18.5 % (21.0-51.0); %Monocytes 8.7 % (0.0-10.0); %Neutrophils 72.1 % (42.0-75.0); Band 1 % (5-11); Hemoglobin 6.9 g/dL (12.0-16.0); Hypochromia SLIGHT = 6-15 cells (100X) (0-5/hpf); Lymphocytes 14 % (21-51); MDiff Complete? YES; Mean Corpuscular HGB CONC 32.3 g/dL (32.0-36.0); Mean Corpuscular Hemoglobin 30.2 pg (27.0-31.0); Mean Corpuscular Volume 93.5 fl (78.0-98.0); Mean Platelet Volume 8.9 fL (7.4-10.4); Monocytes 6 % (0-10); Myelocyte 1 % (0-0); Neutrophil 78 % (42-75); Nucleated RBC 1 % (0); Platelet Count 103 10x3/uL (130-400); Platelet Morphology Comment Appears Decreased; Polychromasia MODERATE = 3-4 cells (100X) (0-2/hpf); RBC Distribution Width 17.9 % (11.5-14.5); Red Blood Cell (RBC) Count 2.29 mill/uL (4.20-5.40); Stomatocytes SLIGHT = 2-5 cells (100X) (0-1/hpf); Target Cells MODERATE= 6-15 cells (100X) (0-1/hpf); White Blood Cell (WBC) Count 12.1 10x3/uL (4.8-10.8)
[2022-08-27] MEDS ORDERED: Morphine 4 MG/ML VIAL SLOW IVP PRN (08:24)
[2022-08-27] MEDS: Cyclobenzaprine 10 MG TAB PO PRN (09:34)
[2022-08-27] MEDS ORDERED: Vancomycin HCl 750 MG in Sodium Chloride 0.9% 250 ML 250 ML IVPB SCH (17:00)
[2022-08-27 18:27] LABS: PTT Greater than 250.0 sec (22.9-36.1)
[2022-08-27] MEDS: Cefepime 0.5 GM, Admixture Fee 1 EACH in Sodium Chloride 0.9% 100 ML IVPB SCH (18:30)
[2022-08-28 01:20] LABS: SARS-CoV-2 NAA Rapid Test Not Detected (NotDetected)
[2022-08-28] MEDS: Dextrose 5 %-0.45 % NaCl 1,000 ML IV SCH ×3 (03:44→16:46)
[2022-08-28 05:10] LABS: #Monocytes 0.9 thou/uL (0.11-0.59); #Neutrophils 11.3 thou/uL (1.40-6.50); %Basophils 0.1 % (0.0-1.0); %Eosinophils 0.2 % (0.0-10.0); %Lymphocytes 14.1 % (21.0-51.0); %Monocytes 6.6 % (0.0-10.0); Hemoglobin 8.4 g/dL (12.0-16.0); Mean Corpuscular HGB CONC 35.1 g/dL (32.0-36.0); Mean Corpuscular Hemoglobin 33.5 pg (27.0-31.0); Mean Corpuscular Volume 95.2 fl (78.0-98.0); Platelet Count 102 10x3/uL (130-400); RBC Distribution Width 17.5 % (11.5-14.5); Red Blood Cell (RBC) Count 2.52 mill/uL (4.20-5.40); White Blood Cell (WBC) Count 14.3 10x3/uL (4.8-10.8)
[2022-08-28] MEDS: Midodrine HCl 5 MG TAB PO SCH ×3 (05:19→20:01)
[2022-08-28 05:26] LABS: Anion Gap 15 mmol/L (10-20); BUN (Urea Nitrogen) 40 mg/dL (9.8-20.1); Calc. Creatinine Clearance 9 mL/min (70-130); Calcium 8.1 mg/dL (7.8-10.44); Carbon Dioxide 20 mmol/L (22-29); Chloride 95 mmol/L (98-107); Estimated GFR 5; Glucose 90 mg/dL (70-105); Potassium 3.3 mmol/L (3.5-5.1); Sodium 127 mmol/L (136-145)
[2022-08-28 08:40] LABS: Vancomycin, Random 15.7 ug/mL (See Comment)
[2022-08-28] MEDS: Acetaminophen/Codeine 30-300mg Tablet PO PRN (14:55)
[2022-08-28] MEDS: Cyclobenzaprine 10 MG TAB PO PRN (14:55)
[2022-08-28] MEDS: Cefepime 0.5 GM, Admixture Fee 1 EACH in Sodium Chloride 0.9% 100 ML IVPB SCH (16:45)
[2022-08-28] MEDS ORDERED: Vancomycin HCl 750 MG in Sodium Chloride 0.9% 250 ML 250 ML IVPB SCH (17:00)
[2022-08-28] MEDS ORDERED: Sodium Chloride 0.9% 500 ML IV SCH (20:00)
[2022-08-28] MEDS: predniSONE 50 MG TAB PO SCH (20:01)
[2022-08-29] MEDS: predniSONE 50 MG TAB PO SCH ×2 (03:03→07:55)
[2022-08-29 05:00] LABS: Hemoglobin 8.5 g/dL (12.0-16.0); Mean Corpuscular HGB CONC 32.4 g/dL (32.0-36.0); Mean Corpuscular Volume 95.6 fl (78.0-98.0); Mean Platelet Volume 9.3 fL (7.4-10.4); Platelet Count 115 10x3/uL (130-400); RBC Distribution Width 18.1 % (11.5-14.5); Red Blood Cell (RBC) Count 2.73 mill/uL (4.20-5.40); White Blood Cell (WBC) Count 9.3 10x3/uL (4.8-10.8)
[2022-08-29 05:17] LABS: Anion Gap 15 mmol/L (10-20); BUN (Urea Nitrogen) 20 mg/dL (9.8-20.1); Calc. Creatinine Clearance 15 mL/min (70-130); Calcium 8.1 mg/dL (7.8-10.44); Carbon Dioxide 21 mmol/L (22-29); Chloride 99 mmol/L (98-107); Estimated GFR 9; Glucose 86 mg/dL (70-105); Potassium 3.9 mmol/L (3.5-5.1); Sodium 131 mmol/L (136-145)
[2022-08-29] MEDS: Midodrine HCl 5 MG TAB PO SCH ×3 (05:47→21:28)
[2022-08-29 06:16] LABS: Anisocytosis MODERATE=16-30 cells (100X) (0-5/hpf); Band 2 % (5-11); Lymphocytes 3 % (21-51); MDiff Complete? YES; Monocytes 2 % (0-10); Neutrophil 93 % (42-75); Poikilocytosis SLIGHT = 6-15 cells (100X) (0-5/hpf); Target Cells MODERATE= 6-15 cells (100X) (0-1/hpf)
[2022-08-29] MEDS ORDERED: diphenhydrAMINE 50 MG CAP PO SCH (09:00)
[2022-08-29] MEDS ORDERED: Sterile Water 10 ML VIAL IVP SCH (09:00)
[2022-08-29] MEDS ORDERED: Activase 2 MG VIAL FS SCH (09:00)
[2022-08-29] MEDS ORDERED: Bupivacaine HCl 0.5%/Epinephrine 1:200,000/PF 30 ml Vial ONE (13:00)
[2022-08-29] MEDS ORDERED: Heparin 10,000 UNITS/ 10 ML VIAL ONE (13:00)
[2022-08-29] MEDS ORDERED: Lidocaine 2% PF 5 ML VIAL ONE (13:00)
[2022-08-29] MEDS ORDERED: Lidocaine 1% w/Epinephrine 1:100K 20 ML VIAL FS SCH (15:00)
[2022-08-29] MEDS ORDERED: Iopamidol 300 61% 50 ML VIAL FS ONE (15:33)
[2022-08-29] MEDS: Dextrose 5 %-0.45 % NaCl 1,000 ML IV SCH (15:36)
[2022-08-29] MEDS: Cefepime 0.5 GM, Admixture Fee 1 EACH in Sodium Chloride 0.9% 100 ML IVPB SCH (18:30)
[2022-08-30 04:27] LABS: #Lymphocytes 1.4 thou/uL (1.20-3.40); #Monocytes 0.6 thou/uL (0.11-0.59); #Neutrophils 6.8 thou/uL (1.40-6.50); %Eosinophils 0.2 % (0.0-10.0); %Lymphocytes 15.3 % (21.0-51.0); %Monocytes 6.9 % (0.0-10.0); %Neutrophils 77.6 % (42.0-75.0); Hemoglobin 8.3 g/dL (12.0-16.0); Mean Corpuscular HGB CONC 33.2 g/dL (32.0-36.0); Mean Corpuscular Hemoglobin 31.8 pg (27.0-31.0); Mean Corpuscular Volume 95.9 fl (78.0-98.0); Mean Platelet Volume 8.6 fL (7.4-10.4); Platelet Count 135 10x3/uL (130-400); RBC Distribution Width 18.1 % (11.5-14.5); Red Blood Cell (RBC) Count 2.61 mill/uL (4.20-5.40); White Blood Cell (WBC) Count 8.8 10x3/uL (4.8-10.8)
[2022-08-30 04:55] LABS: Anion Gap 14 mmol/L (10-20); BUN (Urea Nitrogen) 26 mg/dL (9.8-20.1); Calc. Creatinine Clearance 15 mL/min (70-130); Calcium 8.8 mg/dL (7.8-10.44); Carbon Dioxide 22 mmol/L (22-29); Chloride 98 mmol/L (98-107); Estimated GFR 8; Glucose 107 mg/dL (70-105); Magnesium 1.7 mg/dL (1.6-2.6); Potassium 4.1 mmol/L (3.5-5.1); Sodium 130 mmol/L (136-145)
[2022-08-30] MEDS: Midodrine HCl 5 MG TAB PO SCH ×3 (06:26→21:46)
[2022-08-30] MEDS ORDERED: Heparin 10,000 UNITS/ 10 ML VIAL ONE (08:58)
[2022-08-30] MEDS ORDERED: Apixaban 5 MG TAB PO SCH ×3 (12:00→21:00)
[2022-08-30] MEDS: Dextrose 5 %-0.45 % NaCl 1,000 ML IV SCH (12:46)
[2022-08-30] MEDS: Apixaban 5 MG TAB PO SCH (21:46)
[2022-08-31] MEDS: Dextrose 5 %-0.45 % NaCl 1,000 ML IV SCH (04:14)
[2022-08-31] MEDS ORDERED: diphenhydrAMINE 25 MG CAP PO SCH (04:45)
[2022-08-31] MEDS: Midodrine HCl 5 MG TAB PO SCH ×3 (04:47→21:17)
[2022-08-31] MEDS: Apixaban 5 MG TAB PO SCH (09:18)
[2022-08-31] MEDS ORDERED: Heparin 25,000 units/D5W 500 ML IV SCH (10:30)
[2022-08-31] MEDS: Albumin 25% 25 GM/100 ML BOT IVPB SCH ×2 (13:34→19:25)
[2022-08-31] MEDS: Acetaminophen/Codeine 30-300mg Tablet PO PRN (21:22)
[2022-08-31] MEDS: Heparin 25,000 units/D5W 500 ML IV SCH (22:17)
[2022-08-31 22:29] LABS: Hemoglobin 6.9 g/dL (12.0-16.0); Platelet Count 116 10x3/uL (130-400)
[2022-09-01] MEDS: Albumin 25% 25 GM/100 ML BOT IVPB SCH ×2 (00:44→05:41)
[2022-09-01] MEDS: Dextrose 5 %-0.45 % NaCl 1,000 ML IV SCH ×2 (00:44→20:35)
[2022-09-01 05:04] LABS: #Eosinphils 0.1 thou/uL (0.0-0.7); #Lymphocytes 2.5 thou/uL (1.20-3.40); #Monocytes 0.8 thou/uL (0.11-0.59); #Neutrophils 4.7 thou/uL (1.40-6.50); %Eosinophils 1.1 % (0.0-10.0); %Lymphocytes 30.5 % (21.0-51.0); %Monocytes 9.9 % (0.0-10.0); %Neutrophils 58.5 % (42.0-75.0); Hemoglobin 6.1 g/dL (12.0-16.0); Mean Corpuscular HGB CONC 34.1 g/dL (32.0-36.0); Mean Corpuscular Hemoglobin 33.5 pg (27.0-31.0); Mean Corpuscular Volume 98.2 fl (78.0-98.0); Mean Platelet Volume 8.5 fL (7.4-10.4); Platelet Count 99 10x3/uL (130-400); RBC Distribution Width 19.2 % (11.5-14.5); Red Blood Cell (RBC) Count 1.81 mill/uL (4.20-5.40); White Blood Cell (WBC) Count 8.1 10x3/uL (4.8-10.8)
[2022-09-01 05:24] LABS: BUN (Urea Nitrogen) 26 mg/dL (9.8-20.1); Calc. Creatinine Clearance 18 mL/min (70-130); Calcium 8.8 mg/dL (7.8-10.44); Carbon Dioxide 24 mmol/L (22-29); Estimated GFR 11; Glucose 70 mg/dL (70-105)
[2022-09-01 05:28] LABS: PTT 244.8 sec (22.9-36.1)
[2022-09-01 05:34] LABS: Anion Gap 14 mmol/L (10-20); Chloride 97 mmol/L (98-107); Potassium 3.4 mmol/L (3.5-5.1); Sodium 131 mmol/L (136-145)
[2022-09-01] MEDS: Midodrine HCl 5 MG TAB PO SCH ×3 (05:40→20:35)
[2022-09-01 14:14] LABS: PTT 217.4 sec (22.9-36.1)
[2022-09-01 18:36] LABS: Hemoglobin 6.2 g/dL (12.0-16.0)
[2022-09-01] MEDS: EPOETIN ALFA-EPBX (ESRD) 10,000 UNIT/ML VIAL SC SCH (20:35)
[2022-09-01] MEDS: Ondansetron PF 4 MG/2 ML Vial IVP PRN (22:21)
[2022-09-01 22:49] LABS: Platelet Count 120 10x3/uL (130-400)
[2022-09-02] MEDS: Heparin 25,000 units/D5W 500 ML IV SCH (02:57)
[2022-09-02 04:48] LABS: Anion Gap 16 mmol/L (10-20); BUN (Urea Nitrogen) 32 mg/dL (9.8-20.1); Calc. Creatinine Clearance 15 mL/min (70-130); Calcium 8.3 mg/dL (7.8-10.44); Carbon Dioxide 23 mmol/L (22-29); Chloride 95 mmol/L (98-107); Estimated GFR 9; Glucose 129 mg/dL (70-105); Potassium 3.5 mmol/L (3.5-5.1); Sodium 130 mmol/L (136-145)
[2022-09-02] MEDS: Midodrine HCl 5 MG TAB PO SCH ×3 (05:01→21:24)
[2022-09-02 05:08] LABS: PTT Greater than 250.0 sec (22.9-36.1)
[2022-09-02 05:12] LABS: Band 1 % (5-11); Eosinophils 2 % (0-10); Hemoglobin 7.4 g/dL (12.0-16.0); Hypochromia SLIGHT = 6-15 cells (100X) (0-5/hpf); Lymphocytes 33 % (21-51); MDiff Complete? YES; Mean Corpuscular Hemoglobin 30.7 pg (27.0-31.0); Mean Platelet Volume 9.6 fL (7.4-10.4); Monocytes 12 % (0-10); Neutrophil 49 % (42-75); Platelet Count 100 10x3/uL (130-400); Platelet Morphology Comment Appears Decreased; RBC Distribution Width 22.3 % (11.5-14.5); Reactive Lymphocytes 3 % (0-10); Target Cells SLIGHT = 2-5 cells (100X) (0-1/hpf); White Blood Cell (WBC) Count 10.9 10x3/uL (4.8-10.8)
[2022-09-02] MEDS ORDERED: Heparin 10,000 UNITS/ 10 ML VIAL SLOW IVP SCH (09:00)
[2022-09-02 14:13] LABS: PTT Greater than 250.0 sec (22.9-36.1)
[2022-09-02] MEDS ORDERED: predniSONE 50 MG TAB PO SCH (19:00)
[2022-09-03] MEDS ORDERED: predniSONE 50 MG TAB PO SCH ×2 (01:00→07:00)
[2022-09-03 05:28] LABS: Anion Gap 12 mmol/L (10-20); BUN (Urea Nitrogen) 35 mg/dL (9.8-20.1); Calc. Creatinine Clearance 13 mL/min (70-130); Calcium 8.2 mg/dL (7.8-10.44); Carbon Dioxide 25 mmol/L (22-29); Chloride 94 mmol/L (98-107); Estimated GFR 8; Glucose 160 mg/dL (70-105); Potassium 3.8 mmol/L (3.5-5.1); Sodium 127 mmol/L (136-145)
[2022-09-03 05:41] LABS: Anisocytosis SLIGHT = 6-15 cells (100X) (0-5/hpf); Band 1 % (5-11); Hemoglobin 7.9 g/dL (12.0-16.0); Lymphocytes 7 % (21-51); MDiff Complete? YES; Mean Corpuscular HGB CONC 32.7 g/dL (32.0-36.0); Mean Corpuscular Hemoglobin 30.9 pg (27.0-31.0); Mean Corpuscular Volume 94.4 fl (78.0-98.0); Mean Platelet Volume 9.5 fL (7.4-10.4); Monocytes 1 % (0-10); Neutrophil 91 % (42-75); Platelet Count 128 10x3/uL (130-400); Platelet Morphology Comment Appears Decreased; Polychromasia SLIGHT = 2-3 cells (100X) (0-2/hpf); RBC Distribution Width 23.7 % (11.5-14.5); Red Blood Cell (RBC) Count 2.57 mill/uL (4.20-5.40); Vacuoles SLIGHT; White Blood Cell (WBC) Count 10.6 10x3/uL (4.8-10.8)
[2022-09-03] MEDS: Midodrine HCl 5 MG TAB PO SCH ×3 (06:16→21:45)
[2022-09-03] MEDS: Heparin 25,000 units/D5W 500 ML IV SCH (06:22)
[2022-09-03] MEDS ORDERED: Lidocaine 1% PF 5 ML VIAL ONE (06:49)
[2022-09-03] MEDS ORDERED: Sodium Bicarbonate 2.5 MEQ/5 ML VIAL ONE (06:49)
[2022-09-03] MEDS ORDERED: diphenhydrAMINE 50 MG/ML VIAL ONE (06:59)
[2022-09-03] MEDS ORDERED: EPINEPHrine 1 MG/ML AMP ONE (06:59)
[2022-09-03] MEDS ORDERED: diphenhydrAMINE 25 MG CAP PO SCH (07:00)
[2022-09-03] MEDS ORDERED: Activase 2 MG VIAL CATH SCH (08:45)
[2022-09-03] MEDS ORDERED: Sterile Water 10 ML VIAL IVP SCH (08:45)
[2022-09-03] MEDS ORDERED: Iopamidol 300 61% 50 ML VIAL FS ONE (09:48)
[2022-09-03] MEDS ORDERED: CEFAZOLIN 2 GM in Sodium Chloride 0.9% 100 ML IVPB SCH (10:45)
[2022-09-03] MEDS ORDERED: Bupivacaine 0.25% HCL 30 ML VIAL ONE (13:37)
[2022-09-03] MEDS ORDERED: Fentanyl 100 MCG/2 ML VIAL ONE (13:42)
[2022-09-03] MEDS ORDERED: Bupivacaine 0.25% 10 ML VIAL ONE (13:55)
[2022-09-03] MEDS ORDERED: Bupivacaine 0.5% 10 ML VIAL ONE (13:55)
[2022-09-03] MEDS ORDERED: Bupivacaine PF 0.5% 30 ML VIAL ONE (14:02)
[2022-09-03] MEDS ORDERED: Midazolam HCl 2 mg/2 ml Vial ONE (14:31)
[2022-09-03] MEDS ORDERED: fentaNYL PF 100 MCG/2 ML SYRINGE ONE (14:31)
[2022-09-03] MEDS ORDERED: Heparin 5,000 UNITS/ML VIAL ONE (14:40)
[2022-09-03] MEDS ORDERED: Protamine Sulfate 50 MG/5 ML VIAL ONE (14:40)
[2022-09-03] MEDS ORDERED: Bupivacaine HCl 0.5%/Epinephrine 1:200,000/PF 30 ml Vial ONE (14:40)
[2022-09-03] MEDS ORDERED: Heparin 10,000 UNITS/ 10 ML VIAL ONE ×2 (14:40→16:34)
[2022-09-03] MEDS ORDERED: Lidocaine 2% PF 5 ML VIAL ONE (14:40)
[2022-09-03] MEDS ORDERED: Sodium Chloride 0.9% 100 ML ONE (14:58)
[2022-09-03] MEDS ORDERED: CEFAZOLIN 2 GM VIAL ONE (14:58)
[2022-09-03] MEDS ORDERED: Ondansetron HCl/PF 4 MG/2 ML Vial IVP PRN (17:19)
[2022-09-03] MEDS: Acetaminophen/Codeine 30-300mg Tablet PO PRN (21:44)
[2022-09-04] MEDS: Midodrine HCl 5 MG TAB PO SCH ×3 (06:25→20:16)
[2022-09-04 07:12] LABS: Hemoglobin 7.7 g/dL (12.0-16.0); Mean Corpuscular HGB CONC 33.3 g/dL (32.0-36.0); Mean Corpuscular Hemoglobin 32.2 pg (27.0-31.0); Mean Corpuscular Volume 96.8 fl (78.0-98.0); Mean Platelet Volume 9.1 fL (7.4-10.4); Platelet Count 160 10x3/uL (130-400); RBC Distribution Width 25.2 % (11.5-14.5); Red Blood Cell (RBC) Count 2.39 mill/uL (4.20-5.40)
[2022-09-04 07:33] LABS: Anion Gap 16 mmol/L (10-20); BUN (Urea Nitrogen) 46 mg/dL (9.8-20.1); Calc. Creatinine Clearance 12 mL/min (70-130); Calcium 8.7 mg/dL (7.8-10.44); Carbon Dioxide 22 mmol/L (22-29); Chloride 94 mmol/L (98-107); Estimated GFR 6; Glucose 98 mg/dL (70-105); Magnesium 1.8 mg/dL (1.6-2.6); Potassium 3.9 mmol/L (3.5-5.1); Sodium 128 mmol/L (136-145)
[2022-09-04] MEDS ORDERED: Heparin 10,000 UNITS/ 10 ML VIAL ONE (08:49)
[2022-09-04 09:30] LABS: Anisocytosis MODERATE=16-30 cells (100X) (0-5/hpf); Band 3 % (5-11); Hypochromia SLIGHT = 6-15 cells (100X) (0-5/hpf); Lymphocytes 10 % (21-51); MDiff Complete? YES; Monocytes 3 % (0-10); Neutrophil 84 % (42-75); Platelet Morphology Comment Appears Adequate; Polychromasia MODERATE = 3-4 cells (100X) (0-2/hpf); Target Cells SLIGHT = 2-5 cells (100X) (0-1/hpf)
[2022-09-04] MEDS: Apixaban 5 MG TAB PO SCH (20:16)
[2022-09-05] MEDS: Dextrose 50% Abboject 50 ML SYRINGE SLOW IVP PRN (00:28)
[2022-09-05] MEDS: Midodrine HCl 5 MG TAB PO SCH ×3 (04:40→21:08)
[2022-09-05 05:26] LABS: Anion Gap 14 mmol/L (10-20); BUN (Urea Nitrogen) 24 mg/dL (9.8-20.1); Calc. Creatinine Clearance 19 mL/min (70-130); Calcium 8.6 mg/dL (7.8-10.44); Carbon Dioxide 25 mmol/L (22-29); Chloride 99 mmol/L (98-107); Estimated GFR 11; Glucose 86 mg/dL (70-105); Potassium 3.9 mmol/L (3.5-5.1); Sodium 134 mmol/L (136-145)
[2022-09-05 05:45] LABS: #Lymphocytes 2.9 thou/uL (1.20-3.40); #Monocytes 1.6 thou/uL (0.11-0.59); #Neutrophils 8.4 thou/uL (1.40-6.50); %Basophils 0.2 % (0.0-1.0); %Eosinophils 0.3 % (0.0-10.0); %Lymphocytes 22.1 % (21.0-51.0); %Monocytes 12.1 % (0.0-10.0); %Neutrophils 65.3 % (42.0-75.0); Anisocytosis MODERATE=16-30 cells (100X) (0-5/hpf); Hemoglobin 7.8 g/dL (12.0-16.0); MDiff Complete? YES; Mean Corpuscular HGB CONC 32.7 g/dL (32.0-36.0); Mean Corpuscular Hemoglobin 32.5 pg (27.0-31.0); Mean Corpuscular Volume 99.4 fl (78.0-98.0); Mean Platelet Volume 8.2 fL (7.4-10.4); Platelet Count 137 10x3/uL (130-400); Platelet Morphology Comment Appears Adequate; Polychromasia SLIGHT = 2-3 cells (100X) (0-2/hpf); Target Cells SLIGHT = 2-5 cells (100X) (0-1/hpf); White Blood Cell (WBC) Count 12.9 10x3/uL (4.8-10.8)
[2022-09-05] MEDS: Apixaban 5 MG TAB PO SCH ×2 (09:06→21:08)
[2022-09-05] MEDS: Acetaminophen/Codeine 30-300mg Tablet PO PRN ×2 (13:32→21:08)
[2022-09-06] MEDS: Midodrine HCl 5 MG TAB PO SCH ×3 (05:03→13:29)
[2022-09-06 05:26] LABS: Hemoglobin 7.1 g/dL (12.0-16.0); Mean Corpuscular Hemoglobin 31.7 pg (27.0-31.0); Mean Corpuscular Volume 99.1 fl (78.0-98.0); Red Blood Cell (RBC) Count 2.22 mill/uL (4.20-5.40); White Blood Cell (WBC) Count 8.7 10x3/uL (4.8-10.8)
[2022-09-06 05:44] LABS: Anion Gap 13 mmol/L (10-20); BUN (Urea Nitrogen) 30 mg/dL (9.8-20.1); Calc. Creatinine Clearance 16 mL/min (70-130); Calcium 7.9 mg/dL (7.8-10.44); Carbon Dioxide 25 mmol/L (22-29); Chloride 97 mmol/L (98-107); Estimated GFR 9; Glucose 80 mg/dL (70-105); Potassium 3.9 mmol/L (3.5-5.1); Sodium 131 mmol/L (136-145)
[2022-09-06 05:50] LABS: #Eosinphils 0.1 thou/uL (0.0-0.7); #Lymphocytes 2.1 thou/uL (1.20-3.40); #Monocytes 0.5 thou/uL (0.11-0.59); %Basophils 0.3 % (0.0-1.0); %Eosinophils 0.6 % (0.0-10.0); %Lymphocytes 24.6 % (21.0-51.0); %Monocytes 5.1 % (0.0-10.0); %Neutrophils 69.3 % (42.0-75.0); Anisocytosis MODERATE=16-30 cells (100X) (0-5/hpf); MDiff Complete? YES; Macrocytosis SLIGHT = 6-15 cells (100X) (0-5/hpf); Mean Platelet Volume 8.5 fL (7.4-10.4); Platelet Count 99 10x3/uL (130-400); Platelet Morphology Comment Appears Decreased; Polychromasia SLIGHT = 2-3 cells (100X) (0-2/hpf)
[2022-09-06] MEDS: Acetaminophen/Codeine 30-300mg Tablet PO PRN ×3 (07:41→20:25)
[2022-09-06] MEDS: Apixaban 5 MG TAB PO SCH ×2 (07:42→20:26)
[2022-09-06] MEDS ORDERED: VANCOMYCIN 1.25 GM/250 ML BAG IVPB SCH (08:30)
[2022-09-06] MEDS ORDERED: VANCOMYCIN 1.25 GM/250 ML BAG 1.25 GM in Premix Bag 1 BAG IVPB SCH (09:00)
[2022-09-06] MEDS ORDERED: Albumin 25% 25 GM/100 ML BOT IVPB SCH (10:00)
[2022-09-06] MEDS ORDERED: Heparin 10,000 UNITS/ 10 ML VIAL ONE (12:28)
[2022-09-06] MEDS: Cyclobenzaprine 10 MG TAB PO PRN ×2 (13:29→21:42)
[2022-09-07] MEDS: Acetaminophen/Codeine 30-300mg Tablet PO PRN ×2 (00:08→09:02)
[2022-09-07 05:20] LABS: #Lymphocytes 2.6 thou/uL (1.20-3.40); #Monocytes 1.1 thou/uL (0.11-0.59); #Neutrophils 10.3 thou/uL (1.40-6.50); %Basophils 0.1 % (0.0-1.0); %Eosinophils 0.3 % (0.0-10.0); %Lymphocytes 18.7 % (21.0-51.0); %Monocytes 7.8 % (0.0-10.0); %Neutrophils 73.1 % (42.0-75.0); Hemoglobin 7.2 g/dL (12.0-16.0); Mean Corpuscular HGB CONC 32.1 g/dL (32.0-36.0); Mean Corpuscular Volume 96.7 fl (78.0-98.0); Mean Platelet Volume 8.7 fL (7.4-10.4); Platelet Count 70 10x3/uL (130-400); RBC Distribution Width 23.3 % (11.5-14.5); Red Blood Cell (RBC) Count 2.32 mill/uL (4.20-5.40); White Blood Cell (WBC) Count 14.1 10x3/uL (4.8-10.8)
[2022-09-07 05:37] LABS: Anion Gap 11 mmol/L (10-20); BUN (Urea Nitrogen) 16 mg/dL (9.8-20.1); Calc. Creatinine Clearance 28 mL/min (70-130); Calcium 7.6 mg/dL (7.8-10.44); Carbon Dioxide 27 mmol/L (22-29); Chloride 100 mmol/L (98-107); Estimated GFR 18; Glucose 74 mg/dL (70-105); Potassium 3.6 mmol/L (3.5-5.1); Sodium 134 mmol/L (136-145)
[2022-09-07] MEDS: Midodrine HCl 5 MG TAB PO SCH ×3 (06:09→22:05)
[2022-09-07] MEDS: Apixaban 5 MG TAB PO SCH ×2 (09:04→22:05)
[2022-09-07 11:27] LABS: Iron 39 ug/dL (50-170)
[2022-09-07] MEDS ORDERED: Albumin 25% 25 GM/100 ML BOT IVPB SCH (12:00)
[2022-09-07] MEDS ORDERED: Heparin 10,000 UNITS/ 10 ML VIAL ONE (12:35)
[2022-09-07 14:54] LABS: Iron Binding Capacity, Total 28 mcg/dL (265-497)
[2022-09-07] MEDS: Albumin 25% 25 GM/100 ML BOT IVPB SCH (17:30)
[2022-09-08] MEDS: Albumin 25% 25 GM/100 ML BOT IVPB SCH ×2 (00:31→06:53)
[2022-09-08] MEDS: Midodrine HCl 5 MG TAB PO SCH ×3 (06:53→20:57)
[2022-09-08 06:58] LABS: #Eosinphils 0.1 thou/uL (0.0-0.7); #Lymphocytes 1.8 thou/uL (1.20-3.40); #Monocytes 0.9 thou/uL (0.11-0.59); #Neutrophils 8.3 thou/uL (1.40-6.50); %Basophils 0.3 % (0.0-1.0); %Eosinophils 0.8 % (0.0-10.0); %Lymphocytes 16.2 % (21.0-51.0); %Monocytes 8.1 % (0.0-10.0); %Neutrophils 74.7 % (42.0-75.0); Hemoglobin 6.2 g/dL (12.0-16.0); Mean Corpuscular HGB CONC 31.6 g/dL (32.0-36.0); Mean Corpuscular Hemoglobin 30.9 pg (27.0-31.0); Mean Corpuscular Volume 97.5 fl (78.0-98.0); Mean Platelet Volume 8.4 fL (7.4-10.4); Platelet Count 68 10x3/uL (130-400); RBC Distribution Width 22.9 % (11.5-14.5); White Blood Cell (WBC) Count 11.2 10x3/uL (4.8-10.8)
[2022-09-08 07:15] LABS: Anion Gap 11 mmol/L (10-20); BUN (Urea Nitrogen) 25 mg/dL (9.8-20.1); Calc. Creatinine Clearance 22 mL/min (70-130); Calcium 8.2 mg/dL (7.8-10.44); Carbon Dioxide 28 mmol/L (22-29); Chloride 99 mmol/L (98-107); Estimated GFR 13; Glucose 63 mg/dL (70-105); Potassium 3.8 mmol/L (3.5-5.1); Sodium 134 mmol/L (136-145)
[2022-09-08] MEDS ORDERED: Albumin 25% 25 GM/100 ML BOT IVPB SCH (09:15)
[2022-09-08] MEDS ORDERED: Polyethylene Glycol 3350 17 GM Packet PO SCH (09:30)
[2022-09-08] MEDS: Ergocalciferol 1.25 MG(50,000 UNITS) CAP PO SCH (12:37)
[2022-09-08] MEDS: Acetaminophen/Codeine 30-300mg Tablet PO PRN (12:38)
[2022-09-08] MEDS ORDERED: Heparin 10,000 UNITS/ 10 ML VIAL ONE (12:38)
[2022-09-08 18:11] LABS: Glucose 69 mg/dL (70-105)
[2022-09-08] MEDS: Apixaban 5 MG TAB PO SCH (20:48)
[2022-09-08] MEDS: Senokot S 8.6-50 MG TAB PO SCH (20:48)
[2022-09-08] MEDS: Polyethylene Glycol 3350 17 GM Packet PO SCH (20:48)
[2022-09-08] MEDS ORDERED: Bisacodyl 10 MG SUPP PR SCH (21:00)
[2022-09-08 21:26] LABS: Glucose 83 mg/dL (70-105)
[2022-09-09 01:15] LABS: Glucose 65 mg/dL (70-105)
[2022-09-09] MEDS ORDERED: diphenhydrAMINE 25 MG CAP PO SCH (02:00)
[2022-09-09 04:47] LABS: Hemoglobin 8.2 g/dL (12.0-16.0); Mean Corpuscular HGB CONC 33.3 g/dL (32.0-36.0); Mean Corpuscular Hemoglobin 31.7 pg (27.0-31.0); Mean Corpuscular Volume 95.3 fl (78.0-98.0); Mean Platelet Volume 8.2 fL (7.4-10.4); Platelet Count 84 10x3/uL (130-400); RBC Distribution Width 21.4 % (11.5-14.5); Red Blood Cell (RBC) Count 2.57 mill/uL (4.20-5.40); White Blood Cell (WBC) Count 13.7 10x3/uL (4.8-10.8)
[2022-09-09 04:52] LABS: Anion Gap 13 mmol/L (10-20); BUN (Urea Nitrogen) 34 mg/dL (9.8-20.1); Calc. Creatinine Clearance 19 mL/min (70-130); Calcium 8.4 mg/dL (7.8-10.44); Carbon Dioxide 25 mmol/L (22-29); Chloride 101 mmol/L (98-107); Estimated GFR 11; Glucose 65 mg/dL (70-105); Potassium 3.8 mmol/L (3.5-5.1); Sodium 135 mmol/L (136-145)
[2022-09-09 05:14] LABS: #Eosinphils 0.1 thou/uL (0.0-0.7); #Lymphocytes 2.2 thou/uL (1.20-3.40); #Monocytes 0.9 thou/uL (0.11-0.59); #Neutrophils 10.4 thou/uL (1.40-6.50); %Basophils 0.3 % (0.0-1.0); %Eosinophils 0.7 % (0.0-10.0); %Lymphocytes 16.2 % (21.0-51.0); %Monocytes 6.7 % (0.0-10.0); %Neutrophils 76.2 % (42.0-75.0); Anisocytosis MODERATE=16-30 cells (100X) (0-5/hpf); MDiff Complete? YES; Platelet Morphology Comment Appears Decreased
[2022-09-09] MEDS: Midodrine HCl 5 MG TAB PO SCH ×3 (05:21→21:15)
[2022-09-09] MEDS: Polyethylene Glycol 3350 17 GM Packet PO SCH (09:29)
[2022-09-09] MEDS: Senokot S 8.6-50 MG TAB PO SCH (09:29)
[2022-09-09] MEDS: Apixaban 5 MG TAB PO SCH ×2 (09:36→21:15)
[2022-09-09] MEDS ORDERED: diphenhydrAMINE 25 MG CAP PO PRN (09:54)
[2022-09-09] MEDS ORDERED: Polyethylene Glycol 3350 17 GM Packet PO PRN (14:00)
[2022-09-09] MEDS: EPOETIN ALFA-EPBX (ESRD) 10,000 UNIT/ML VIAL SC SCH (14:39)
[2022-09-09] MEDS ORDERED: Heparin 10,000 UNITS/ 10 ML VIAL ONE (14:47)
[2022-09-10 04:51] LABS: Hemoglobin 8.4 g/dL (12.0-16.0); Mean Corpuscular HGB CONC 32.5 g/dL (32.0-36.0); Mean Corpuscular Hemoglobin 31.5 pg (27.0-31.0); Mean Platelet Volume 8.8 fL (7.4-10.4); Platelet Count 78 10x3/uL (130-400); RBC Distribution Width 21.2 % (11.5-14.5); Red Blood Cell (RBC) Count 2.66 mill/uL (4.20-5.40)
[2022-09-10 05:03] LABS: Anion Gap 11 mmol/L (10-20); BUN (Urea Nitrogen) 20 mg/dL (9.8-20.1); Calc. Creatinine Clearance 26 mL/min (70-130); Calcium 8.3 mg/dL (7.8-10.44); Carbon Dioxide 28 mmol/L (22-29); Chloride 102 mmol/L (98-107); Estimated GFR 16; Glucose 78 mg/dL (70-105); Potassium 3.7 mmol/L (3.5-5.1); Sodium 137 mmol/L (136-145)
[2022-09-10] MEDS: Midodrine HCl 5 MG TAB PO SCH ×3 (05:31→21:11)
[2022-09-10 05:49] LABS: #Eosinphils 0.1 thou/uL (0.0-0.7); #Lymphocytes 2.1 thou/uL (1.20-3.40); #Neutrophils 9.8 thou/uL (1.40-6.50); %Basophils 0.1 % (0.0-1.0); %Eosinophils 0.9 % (0.0-10.0); %Lymphocytes 16.1 % (21.0-51.0); %Monocytes 7.6 % (0.0-10.0); %Neutrophils 75.3 % (42.0-75.0); Anisocytosis SLIGHT = 6-15 cells (100X) (0-5/hpf); MDiff Complete? YES; Macrocytosis SLIGHT = 6-15 cells (100X) (0-5/hpf)
[2022-09-10] MEDS: Apixaban 5 MG TAB PO SCH ×2 (09:24→21:11)
[2022-09-10 13:28] LABS: Glucose 74 mg/dL (70-105)
[2022-09-10 18:25] LABS: Glucose 71 mg/dL (70-105)
[2022-09-11 05:31] LABS: #Eosinphils 0.1 thou/uL (0.0-0.7); #Lymphocytes 2.6 thou/uL (1.20-3.40); #Monocytes 0.8 thou/uL (0.11-0.59); #Neutrophils 11.8 thou/uL (1.40-6.50); %Basophils 0.2 % (0.0-1.0); %Eosinophils 0.9 % (0.0-10.0); %Monocytes 5.4 % (0.0-10.0); %Neutrophils 76.5 % (42.0-75.0); Hemoglobin 8.3 g/dL (12.0-16.0); Mean Corpuscular HGB CONC 30.9 g/dL (32.0-36.0); Mean Corpuscular Hemoglobin 30.7 pg (27.0-31.0); Mean Corpuscular Volume 99.4 fl (78.0-98.0); Mean Platelet Volume 9.4 fL (7.4-10.4); Platelet Count 84 10x3/uL (130-400); RBC Distribution Width 20.8 % (11.5-14.5); White Blood Cell (WBC) Count 15.4 10x3/uL (4.8-10.8)
[2022-09-11 05:44] LABS: Anion Gap 13 mmol/L (10-20); BUN (Urea Nitrogen) 27 mg/dL (9.8-20.1); Calc. Creatinine Clearance 19 mL/min (70-130); Calcium 8.1 mg/dL (7.8-10.44); Carbon Dioxide 26 mmol/L (22-29); Chloride 100 mmol/L (98-107); Estimated GFR 12; Glucose 75 mg/dL (70-105); Potassium 3.6 mmol/L (3.5-5.1); Sodium 135 mmol/L (136-145)
[2022-09-11] MEDS: Midodrine HCl 5 MG TAB PO SCH ×3 (05:52→21:28)
[2022-09-11] MEDS ORDERED: Heparin 10,000 UNITS/ 10 ML VIAL ONE (08:11)
[2022-09-11] MEDS: EPOETIN ALFA-EPBX (ESRD) 10,000 UNIT/ML VIAL SC SCH (11:02)
[2022-09-11] MEDS: Apixaban 5 MG TAB PO SCH ×2 (11:02→21:28)
[2022-09-11] MEDS: Acetaminophen/Codeine 30-300mg Tablet PO PRN ×2 (15:24→21:28)
[2022-09-11] MEDS ORDERED: Apixaban 5 MG TAB PO SCH (21:00)
[2022-09-12] MEDS: Acetaminophen/Codeine 30-300mg Tablet PO PRN (03:55)
[2022-09-12 04:49] LABS: Anion Gap 11 mmol/L (10-20); BUN (Urea Nitrogen) 14 mg/dL (9.8-20.1); Calc. Creatinine Clearance 27 mL/min (70-130); Calcium 8.3 mg/dL (7.8-10.44); Carbon Dioxide 27 mmol/L (22-29); Chloride 100 mmol/L (98-107); Estimated GFR 18; Glucose 108 mg/dL (70-105); Potassium 3.4 mmol/L (3.5-5.1); Sodium 135 mmol/L (136-145)
[2022-09-12 05:12] LABS: Band 3 % (5-11); Hemoglobin 8.8 g/dL (12.0-16.0); Lymphocytes 10 % (21-51); MDiff Complete? YES; Mean Corpuscular HGB CONC 31.6 g/dL (32.0-36.0); Mean Corpuscular Hemoglobin 31.6 pg (27.0-31.0); Mean Platelet Volume 9.4 fL (7.4-10.4); Monocytes 7 % (0-10); Myelocyte 1 % (0-0); Neutrophil 78 % (42-75); Platelet Count 99 10x3/uL (130-400); Platelet Morphology Comment Appears Decreased; RBC Distribution Width 20.5 % (11.5-14.5); Reactive Lymphocytes 1 % (0-10); Red Blood Cell (RBC) Count 2.78 mill/uL (4.20-5.40); White Blood Cell (WBC) Count 15.6 10x3/uL (4.8-10.8)
[2022-09-12] MEDS: Midodrine HCl 5 MG TAB PO SCH ×3 (05:58→21:15)
[2022-09-12] MEDS: Apixaban 5 MG TAB PO SCH ×2 (09:26→21:15)
[2022-09-12] MEDS: Ondansetron PF 4 MG/2 ML Vial IVP PRN (21:51)
[2022-09-13 05:30] LABS: Band 1 % (5-11); Hemoglobin 8.9 g/dL (12.0-16.0); Lymphocytes 30 % (21-51); MDiff Complete? YES; Mean Corpuscular HGB CONC 31.6 g/dL (32.0-36.0); Mean Corpuscular Hemoglobin 31.9 pg (27.0-31.0); Mean Platelet Volume 8.9 fL (7.4-10.4); Monocytes 11 % (0-10); Neutrophil 56 % (42-75); Platelet Count 114 10x3/uL (130-400); Platelet Morphology Comment Appears Decreased; RBC Distribution Width 20.3 % (11.5-14.5); Reactive Lymphocytes 2 % (0-10); Red Blood Cell (RBC) Count 2.78 mill/uL (4.20-5.40); White Blood Cell (WBC) Count 14.1 10x3/uL (4.8-10.8)
[2022-09-13 05:31] LABS: Anion Gap 14 mmol/L (10-20); BUN (Urea Nitrogen) 21 mg/dL (9.8-20.1); Calc. Creatinine Clearance 19 mL/min (70-130); Calcium 8.3 mg/dL (7.8-10.44); Carbon Dioxide 25 mmol/L (22-29); Chloride 98 mmol/L (98-107); Estimated GFR 12; Glucose 85 mg/dL (70-105); Potassium 3.9 mmol/L (3.5-5.1); Sodium 133 mmol/L (136-145)
[2022-09-13] MEDS: Midodrine HCl 5 MG TAB PO SCH ×3 (06:12→21:37)
[2022-09-13] MEDS ORDERED: Heparin 10,000 UNITS/ 10 ML VIAL ONE (11:52)
[2022-09-13] MEDS: Apixaban 5 MG TAB PO SCH ×2 (14:08→21:37)
[2022-09-13] MEDS: EPOETIN ALFA-EPBX (ESRD) 10,000 UNIT/ML VIAL SC SCH (14:08)
[2022-09-14] MEDS ORDERED: Sodium Chloride 0.9% 250 ML IV SCH ×2 (00:45→02:00)
[2022-09-14] MEDS ORDERED: Sodium Chloride 0.9% 250 ML 250 ML IV SCH ×2 (01:00→02:15)
[2022-09-14] MEDS ORDERED: NOREPINEPHRINE 8 MG/250 ML-D5W 250 ML IVPB SCH (03:00)
[2022-09-14] MEDS: Midodrine HCl 5 MG TAB PO SCH ×3 (05:52→20:43)
[2022-09-14] MEDS: Apixaban 5 MG TAB PO SCH ×2 (10:45→20:43)
[2022-09-14 13:29] LABS: Glucose 72 mg/dL (70-105)
[2022-09-14 18:03] LABS: Glucose 107 mg/dL (70-105)
[2022-09-15] MEDS: Acetaminophen/Codeine 30-300mg Tablet PO PRN ×2 (06:43→11:49)
[2022-09-15] MEDS: Midodrine HCl 5 MG TAB PO SCH ×3 (06:45→21:34)
[2022-09-15] MEDS ORDERED: Cosyntropin 250 MCG VIAL SLOW IVP SCH (07:30)
[2022-09-15] MEDS: Apixaban 5 MG TAB PO SCH ×2 (09:48→21:34)
[2022-09-15] MEDS: Acetaminophen 325 MG TAB PO PRN (11:48)
[2022-09-15] MEDS: Ergocalciferol 1.25 MG(50,000 UNITS) CAP PO SCH (11:49)
[2022-09-15 11:58] LABS: Glucose 95 mg/dL (70-105)
[2022-09-15] MEDS ORDERED: Ibuprofen 100 MG/5 ML UDCUP PO PRN (13:35)
[2022-09-15] MEDS ORDERED: Sodium Chloride 0.9% 500 ML IV SCH (13:45)
[2022-09-15] MEDS ORDERED: Ibuprofen 100 MG/5 ML UDCUP PO SCH (14:01)
[2022-09-15] MEDS: Piperacillin/Tazobactam 2.25 GM in Sodium Chloride 0.9% 100 ML IVPB SCH ×2 (16:50→21:36)
[2022-09-15 18:29] LABS: Glucose 87 mg/dL (70-105)
[2022-09-15] MEDS: Cyclobenzaprine 10 MG TAB PO PRN (21:36)
[2022-09-15 22:11] LABS: Glucose 41 mg/dL (70-105)
[2022-09-16] MEDS ORDERED: Sodium Chloride 0.9% 250 ML IV SCH (00:15)
[2022-09-16 00:40] LABS: Glucose 127 mg/dL (70-105)
[2022-09-16 05:14] LABS: Anion Gap 13 mmol/L (10-20); BUN (Urea Nitrogen) 22 mg/dL (9.8-20.1); Calc. Creatinine Clearance 17 mL/min (70-130); Calcium 8.2 mg/dL (7.8-10.44); Carbon Dioxide 24 mmol/L (22-29); Chloride 100 mmol/L (98-107); Estimated GFR 11; Glucose 96 mg/dL (70-105); Glucose 97 mg/dL (70-105); Potassium 3.4 mmol/L (3.5-5.1); Sodium 134 mmol/L (136-145)
[2022-09-16] MEDS: Piperacillin/Tazobactam 2.25 GM in Sodium Chloride 0.9% 100 ML IVPB SCH ×3 (05:23→21:52)
[2022-09-16] MEDS: Midodrine HCl 5 MG TAB PO SCH ×3 (05:23→21:52)
[2022-09-16 05:49] LABS: Hemoglobin 8.8 g/dL (12.0-16.0); Mean Corpuscular HGB CONC 31.5 g/dL (32.0-36.0); Mean Corpuscular Hemoglobin 32.7 pg (27.0-31.0); Mean Platelet Volume 9.1 fL (7.4-10.4); Platelet Count 145 10x3/uL (130-400); Red Blood Cell (RBC) Count 2.69 mill/uL (4.20-5.40); White Blood Cell (WBC) Count 18.2 10x3/uL (4.8-10.8)
[2022-09-16 05:50] LABS: Anisocytosis MODERATE=16-30 cells (100X) (0-5/hpf); Band 10 % (5-11); Lymphocytes 13 % (21-51); MDiff Complete? YES; Macrocytosis MODERATE=16-30 cells (100X) (0-5/hpf); Monocytes 3 % (0-10); Neutrophil 73 % (42-75); Ovalocytes SLIGHT = 2-5 cells (100X) (0-1/hpf); Platelet Morphology Comment Appears Adequate; Target Cells SLIGHT = 2-5 cells (100X) (0-1/hpf)
[2022-09-16] MEDS: Apixaban 5 MG TAB PO SCH ×2 (08:28→21:52)
[2022-09-16] MEDS ORDERED: Albumin 25% 25 GM/100 ML BOT IVPB SCH (09:30)
[2022-09-16] MEDS ORDERED: Heparin 10,000 UNITS/ 10 ML VIAL ONE (10:07)
[2022-09-16 12:21] LABS: Glucose 85 mg/dL (70-105)
[2022-09-16] MEDS ORDERED: Fluconazole 100 MG TAB PO SCH (12:30)
[2022-09-16] MEDS: EPOETIN ALFA-EPBX (ESRD) 10,000 UNIT/ML VIAL SC SCH (14:05)
[2022-09-16 18:20] LABS: Glucose 92 mg/dL (70-105)
[2022-09-16 20:19] LABS: Glucose 94 mg/dL (70-105)
[2022-09-17 00:59] LABS: Glucose 68 mg/dL (70-105)
[2022-09-17 05:00] LABS: Glucose 75 mg/dL (70-105)
[2022-09-17 05:04] LABS: Anion Gap 12 mmol/L (10-20); BUN (Urea Nitrogen) 23 mg/dL (9.8-20.1); Calc. Creatinine Clearance 18 mL/min (70-130); Calcium 8.2 mg/dL (7.8-10.44); Carbon Dioxide 27 mmol/L (22-29); Chloride 99 mmol/L (98-107); Estimated GFR 11; Glucose 76 mg/dL (70-105); Potassium 3.5 mmol/L (3.5-5.1); Sodium 134 mmol/L (136-145)
[2022-09-17 05:10] LABS: Band 28 % (5-11); Eosinophils 1 % (0-10); Hemoglobin 7.5 g/dL (12.0-16.0); Hypochromia SLIGHT = 6-15 cells (100X) (0-5/hpf); Lymphocytes 3 % (21-51); MDiff Complete? YES; Macrocytosis SLIGHT = 6-15 cells (100X) (0-5/hpf); Mean Corpuscular HGB CONC 31.8 g/dL (32.0-36.0); Mean Corpuscular Hemoglobin 32.7 pg (27.0-31.0); Mean Platelet Volume 9.1 fL (7.4-10.4); Monocytes 4 % (0-10); Neutrophil 64 % (42-75); Platelet Count 147 10x3/uL (130-400); Platelet Morphology Comment Appears Adequate; Red Blood Cell (RBC) Count 2.29 mill/uL (4.20-5.40); Target Cells SLIGHT = 2-5 cells (100X) (0-1/hpf); White Blood Cell (WBC) Count 14.9 10x3/uL (4.8-10.8)
[2022-09-17] MEDS: Midodrine HCl 5 MG TAB PO SCH ×3 (05:47→21:30)
[2022-09-17] MEDS: Piperacillin/Tazobactam 2.25 GM in Sodium Chloride 0.9% 100 ML IVPB SCH ×2 (05:47→18:35)
[2022-09-17] MEDS: Digoxin 0.25 MG TAB PO SCH ×3 (10:07→21:30)
[2022-09-17] MEDS: Apixaban 5 MG TAB PO SCH ×2 (10:10→21:30)
[2022-09-17] MEDS: Fluconazole 100 MG TAB PO SCH (10:11)
[2022-09-18] MEDS: Acetaminophen/Codeine 30-300mg Tablet PO PRN ×3 (00:26→20:01)
[2022-09-18] MEDS: Piperacillin/Tazobactam 2.25 GM in Sodium Chloride 0.9% 100 ML IVPB SCH (05:18)
[2022-09-18] MEDS: Midodrine HCl 5 MG TAB PO SCH ×3 (05:18→22:55)
[2022-09-18] MEDS ORDERED: Digoxin 0.125 MG TAB PO SCH (09:00)
[2022-09-18] MEDS ORDERED: Albumin 25% 25 GM/100 ML BOT IVPB PRN (09:51)
[2022-09-18] MEDS ORDERED: Heparin 10,000 UNITS/ 10 ML VIAL ONE (13:57)
[2022-09-18] MEDS: Fluconazole 100 MG TAB PO SCH (14:09)
[2022-09-18] MEDS: EPOETIN ALFA-EPBX (ESRD) 10,000 UNIT/ML VIAL SC SCH (14:09)
[2022-09-18] MEDS: Apixaban 5 MG TAB PO SCH ×2 (14:09→20:01)
[2022-09-18] MEDS: Triple Antibiotic Ointment 15 GM TUBE TOP SCH (14:10)
[2022-09-18] MEDS: Piperacillin/Tazobactam 3.375 GM in Sodium Chloride 0.9% 100 ML IVPB SCH (17:30)
[2022-09-18] MEDS: Cyclobenzaprine 10 MG TAB PO PRN (20:01)
[2022-09-19] MEDS: Midodrine HCl 5 MG TAB PO SCH ×3 (05:05→21:17)
[2022-09-19] MEDS: Piperacillin/Tazobactam 3.375 GM in Sodium Chloride 0.9% 100 ML IVPB SCH ×2 (05:05→17:55)
[2022-09-19 06:18] LABS: Anion Gap 13 mmol/L (10-20); BUN (Urea Nitrogen) 18 mg/dL (9.8-20.1); Calc. Creatinine Clearance 22 mL/min (70-130); Calcium 8.4 mg/dL (7.8-10.44); Carbon Dioxide 26 mmol/L (22-29); Chloride 100 mmol/L (98-107); Estimated GFR 14; Glucose 67 mg/dL (70-105); Sodium 135 mmol/L (136-145)
[2022-09-19 06:34] LABS: Band 9 % (5-11); Hemoglobin 7.5 g/dL (12.0-16.0); Hypochromia SLIGHT = 6-15 cells (100X) (0-5/hpf); Lymphocytes 28 % (21-51); MDiff Complete? YES; Macrocytosis SLIGHT = 6-15 cells (100X) (0-5/hpf); Mean Corpuscular HGB CONC 32.9 g/dL (32.0-36.0); Mean Corpuscular Hemoglobin 34.3 pg (27.0-31.0); Mean Platelet Volume 9.2 fL (7.4-10.4); Monocytes 16 % (0-10); Neutrophil 47 % (42-75); Platelet Count 168 10x3/uL (130-400); Platelet Morphology Comment Appears Adequate; RBC Distribution Width 20.2 % (11.5-14.5); Red Blood Cell (RBC) Count 2.17 mill/uL (4.20-5.40); Target Cells SLIGHT = 2-5 cells (100X) (0-1/hpf); White Blood Cell (WBC) Count 10.2 10x3/uL (4.8-10.8)
[2022-09-19] MEDS: Dextrose 5%-Lactated Ringers 1,000 ML IV SCH (07:21)
[2022-09-19] MEDS: Apixaban 5 MG TAB PO SCH (08:58)
[2022-09-19] MEDS: Fluconazole 100 MG TAB PO SCH (08:58)
[2022-09-19] MEDS: Triple Antibiotic Ointment 15 GM TUBE TOP SCH (08:59)
[2022-09-19] MEDS ORDERED: Lidocaine 1% (PF) 30 ML VIAL ONE (11:22)
[2022-09-19] MEDS ORDERED: diphenhydrAMINE 50 MG/ML VIAL ONE (11:22)
[2022-09-19] MEDS ORDERED: Hydrocortisone Sod Succ/PF 100 mg/2 ml Vial ONE (11:22)
[2022-09-19] MEDS ORDERED: Iopamidol 370 76% 100 ML VIAL ONE (14:29)
[2022-09-19] MEDS: Acetaminophen 325 MG TAB PO PRN (17:20)
[2022-09-19] MEDS: Acetaminophen/Codeine 30-300mg Tablet PO PRN (21:17)
[2022-09-20] MEDS: Dextrose 5%-Lactated Ringers 1,000 ML IV SCH (02:12)
[2022-09-20] MEDS: Acetaminophen/Codeine 30-300mg Tablet PO PRN (02:12)
[2022-09-20] MEDS: Midodrine HCl 5 MG TAB PO SCH ×4 (05:12→20:58)
[2022-09-20] MEDS: Piperacillin/Tazobactam 3.375 GM in Sodium Chloride 0.9% 100 ML IVPB SCH ×2 (05:12→17:19)
[2022-09-20 05:45] LABS: Mean Corpuscular HGB CONC 31.4 g/dL (32.0-36.0); Mean Corpuscular Hemoglobin 32.9 pg (27.0-31.0); Mean Platelet Volume 9.1 fL (7.4-10.4); Platelet Count 205 10x3/uL (130-400); RBC Distribution Width 20.3 % (11.5-14.5); Red Blood Cell (RBC) Count 2.42 mill/uL (4.20-5.40); White Blood Cell (WBC) Count 10.6 10x3/uL (4.8-10.8)
[2022-09-20 06:01] LABS: Anion Gap 14 mmol/L (10-20); BUN (Urea Nitrogen) 20 mg/dL (9.8-20.1); Calc. Creatinine Clearance 20 mL/min (70-130); Calcium 8.6 mg/dL (7.8-10.44); Carbon Dioxide 25 mmol/L (22-29); Chloride 100 mmol/L (98-107); Estimated GFR 12; Glucose 99 mg/dL (70-105); Potassium 4.6 mmol/L (3.5-5.1); Sodium 134 mmol/L (136-145)
[2022-09-20 06:38] LABS: Anisocytosis MODERATE=16-30 cells (100X) (0-5/hpf); Band 1 % (5-11); Hypochromia MODERATE=16-30 cells (100X) (0-5/hpf); Lymphocytes 21 % (21-51); MDiff Complete? YES; Monocytes 5 % (0-10); Neutrophil 73 % (42-75); Platelet Morphology Comment Appears Adequate; Polychromasia SLIGHT = 2-3 cells (100X) (0-2/hpf); Stomatocytes MODERATE= 6-15 cells (100X) (0-1/hpf); Target Cells SLIGHT = 2-5 cells (100X) (0-1/hpf)
[2022-09-20] MEDS ORDERED: fentaNYL PF 100 MCG/2 ML SYRINGE ONE (07:41)
[2022-09-20] MEDS ORDERED: Midazolam HCl 2 mg/2 ml Vial ONE (07:41)
[2022-09-20] MEDS ORDERED: Norepinephrine 4 MG/4 ML VIAL ONE ×2 (07:59→08:33)
[2022-09-20] MEDS ORDERED: Glycopyrrolate 0.2 MG/ML 5 ML SYRINGE ONE (08:00)
[2022-09-20] MEDS ORDERED: PHENYLEPHRINE-NS 100 MCG/ML 10 ML SYRINGE ONE (08:00)
[2022-09-20] MEDS ORDERED: Ondansetron PF 4 MG/2 ML Vial ONE (08:00)
[2022-09-20] MEDS: EPOETIN ALFA-EPBX (ESRD) 10,000 UNIT/ML VIAL SC SCH (09:00)
[2022-09-20] MEDS: Triple Antibiotic Ointment 15 GM TUBE TOP SCH (09:00)
[2022-09-20] MEDS: Fluconazole 100 MG TAB PO SCH (09:00)
[2022-09-20] MEDS ORDERED: Phenylephrine 10 MG/ML VIAL ONE (09:35)
[2022-09-20] MEDS ORDERED: Iopamidol 15 ML ONE (10:16)
[2022-09-20] MEDS ORDERED: Fentanyl 100 MCG/2 ML VIAL ONE (11:01)
[2022-09-20] MEDS ORDERED: Ondansetron HCl/PF 4 MG/2 ML Vial IVP PRN (11:04)
[2022-09-20] MEDS ORDERED: Midodrine HCl 5 MG TAB PO SCH (23:59)
[2022-09-21] MEDS: Dextrose 5%-Lactated Ringers 1,000 ML IV SCH ×2 (02:23→21:55)
[2022-09-21] MEDS: Piperacillin/Tazobactam 3.375 GM in Sodium Chloride 0.9% 100 ML IVPB SCH ×2 (05:34→18:22)
[2022-09-21] MEDS: Midodrine HCl 5 MG TAB PO SCH ×3 (05:34→21:55)
[2022-09-21 06:03] LABS: Hemoglobin 6.3 g/dL (12.0-16.0); Mean Corpuscular HGB CONC 31.1 g/dL (32.0-36.0); Mean Platelet Volume 9.3 fL (7.4-10.4); Platelet Count 195 10x3/uL (130-400); RBC Distribution Width 20.8 % (11.5-14.5); Red Blood Cell (RBC) Count 1.91 mill/uL (4.20-5.40); White Blood Cell (WBC) Count 10.8 10x3/uL (4.8-10.8)
[2022-09-21 06:28] LABS: Anion Gap 16 mmol/L (10-20); Anisocytosis SLIGHT = 6-15 cells (100X) (0-5/hpf); BUN (Urea Nitrogen) 24 mg/dL (9.8-20.1); Band 2 % (5-11); Calc. Creatinine Clearance 18 mL/min (70-130); Calcium 8.6 mg/dL (7.8-10.44); Carbon Dioxide 23 mmol/L (22-29); Chloride 101 mmol/L (98-107); Eosinophils 1 % (0-10); Estimated GFR 11; Glucose 77 mg/dL (70-105); Lymphocytes 28 % (21-51); MDiff Complete? YES; Macrocytosis SLIGHT = 6-15 cells (100X) (0-5/hpf); Metamyelocyte 1 % (0-0); Monocytes 9 % (0-10); Neutrophil 59 % (42-75); Potassium 4.6 mmol/L (3.5-5.1); Sodium 135 mmol/L (136-145); Target Cells MODERATE= 6-15 cells (100X) (0-1/hpf)
[2022-09-21] MEDS: Triple Antibiotic Ointment 15 GM TUBE TOP SCH (09:14)
[2022-09-21] MEDS: Fluconazole 100 MG TAB PO SCH (09:14)
[2022-09-21] MEDS ORDERED: Albumin 25% 25 GM/100 ML BOT IVPB SCH (10:30)
[2022-09-21] MEDS ORDERED: Heparin 10,000 UNITS/ 10 ML VIAL ONE (13:42)
[2022-09-22] MEDS: Piperacillin/Tazobactam 3.375 GM in Sodium Chloride 0.9% 100 ML IVPB SCH ×2 (04:47→17:03)
[2022-09-22] MEDS: Midodrine HCl 5 MG TAB PO SCH ×3 (04:48→20:35)
[2022-09-22] MEDS: Ondansetron PF 4 MG/2 ML Vial IVP PRN (04:49)
[2022-09-22 06:32] LABS: Hemoglobin 7.1 g/dL (12.0-16.0); Mean Corpuscular HGB CONC 32.5 g/dL (32.0-36.0); Mean Corpuscular Hemoglobin 32.8 pg (27.0-31.0); Mean Platelet Volume 9.4 fL (7.4-10.4); Platelet Count 175 10x3/uL (130-400); RBC Distribution Width 19.9 % (11.5-14.5); Red Blood Cell (RBC) Count 2.16 mill/uL (4.20-5.40); White Blood Cell (WBC) Count 6.5 10x3/uL (4.8-10.8)
[2022-09-22 06:43] LABS: Anion Gap 13 mmol/L (10-20); BUN (Urea Nitrogen) 13 mg/dL (9.8-20.1); Calc. Creatinine Clearance 28 mL/min (70-130); Calcium 8.8 mg/dL (7.8-10.44); Carbon Dioxide 27 mmol/L (22-29); Chloride 103 mmol/L (98-107); Estimated GFR 19; Glucose 64 mg/dL (70-105); Potassium 4.2 mmol/L (3.5-5.1); Sodium 139 mmol/L (136-145)
[2022-09-22 08:23] LABS: Anisocytosis SLIGHT = 6-15 cells (100X) (0-5/hpf); Band 11 % (5-11); Eosinophils 1 % (0-10); Hypochromia SLIGHT = 6-15 cells (100X) (0-5/hpf); Lymphocytes 28 % (21-51); MDiff Complete? YES; Macrocytosis SLIGHT = 6-15 cells (100X) (0-5/hpf); Metamyelocyte 1 % (0-0); Monocytes 11 % (0-10); Neutrophil 43 % (42-75); Nucleated RBC 1 % (0); Platelet Morphology Comment Appears Adequate; Polychromasia MODERATE = 3-4 cells (100X) (0-2/hpf); Reactive Lymphocytes 5 % (0-10); Stomatocytes SLIGHT = 2-5 cells (100X) (0-1/hpf); Target Cells MODERATE= 6-15 cells (100X) (0-1/hpf)
[2022-09-22] MEDS ORDERED: Midodrine HCl 5 MG TAB PO SCH (08:45)
[2022-09-22] MEDS: Ergocalciferol 1.25 MG(50,000 UNITS) CAP PO SCH (09:03)
[2022-09-22] MEDS: Fluconazole 100 MG TAB PO SCH (09:04)
[2022-09-22] MEDS ORDERED: Triple Antibiotic Ointment 30 GM TUBE TOP SCH (13:15)
[2022-09-22] MEDS: Triple Antibiotic Ointment 15 GM TUBE TOP SCH (13:27)
[2022-09-22] MEDS: Dextrose 5%-Lactated Ringers 1,000 ML IV SCH (16:55)
[2022-09-23 06:01] LABS: Hemoglobin 8.9 g/dL (12.0-16.0); Mean Corpuscular HGB CONC 32.8 g/dL (32.0-36.0); Mean Corpuscular Hemoglobin 31.5 pg (27.0-31.0); Mean Corpuscular Volume 95.9 fl (78.0-98.0); Mean Platelet Volume 9.2 fL (7.4-10.4); Platelet Count 177 10x3/uL (130-400); Red Blood Cell (RBC) Count 2.82 mill/uL (4.20-5.40); White Blood Cell (WBC) Count 7.7 10x3/uL (4.8-10.8)
[2022-09-23 06:21] LABS: #Lymphocytes 2.2 thou/uL (1.20-3.40); #Neutrophils 4.4 thou/uL (1.40-6.50); %Basophils 0.5 % (0.0-1.0); %Eosinophils 0.6 % (0.0-10.0); %Monocytes 13.5 % (0.0-10.0); %Neutrophils 57.3 % (42.0-75.0); Anisocytosis SLIGHT = 6-15 cells (100X) (0-5/hpf); MDiff Complete? YES; Macrocytosis SLIGHT = 6-15 cells (100X) (0-5/hpf); Target Cells SLIGHT = 2-5 cells (100X) (0-1/hpf)
[2022-09-23 06:38] LABS: Anion Gap 13 mmol/L (10-20); BUN (Urea Nitrogen) 15 mg/dL (9.8-20.1); Calc. Creatinine Clearance 24 mL/min (70-130); Calcium 8.7 mg/dL (7.8-10.44); Carbon Dioxide 25 mmol/L (22-29); Chloride 104 mmol/L (98-107); Estimated GFR 15; Glucose 74 mg/dL (70-105); Potassium 4.4 mmol/L (3.5-5.1); Sodium 138 mmol/L (136-145)
[2022-09-23] MEDS ORDERED: Heparin 10,000 UNITS/ 10 ML VIAL ONE (08:29)
[2022-09-23] MEDS: Midodrine HCl 5 MG TAB PO SCH ×2 (08:46→14:09)
[2022-09-23] MEDS: Triple Antibiotic Ointment 30 GM TUBE TOP SCH (08:48)
[2022-09-23] MEDS: Fluconazole 100 MG TAB PO SCH (08:55)
[2022-09-23] MEDS ORDERED: Apixaban 5 MG TAB PO SCH ×3 (11:00→21:00)
[2022-09-23] MEDS: Piperacillin/Tazobactam 3.375 GM in Sodium Chloride 0.9% 100 ML IVPB SCH ×2 (14:08→20:09)
[2022-09-23] MEDS: EPOETIN ALFA-EPBX (ESRD) 10,000 UNIT/ML VIAL SC SCH (14:09)
[2022-09-23] MEDS: Dextrose 5%-Lactated Ringers 1,000 ML IV SCH ×2 (14:10→22:58)
[2022-09-23] MEDS: Acetaminophen/Codeine 30-300mg Tablet PO PRN (16:47)
[2022-09-23] MEDS: Albumin 25% 25 GM/100 ML BOT IVPB SCH ×2 (18:38→23:49)
[2022-09-24] MEDS: Midodrine HCl 5 MG TAB PO SCH ×4 (00:41→21:39)
[2022-09-24] MEDS: Dextrose 50% Abboject 50 ML SYRINGE SLOW IVP PRN (04:30)
[2022-09-24] MEDS: Albumin 25% 25 GM/100 ML BOT IVPB SCH ×3 (04:50→18:33)
[2022-09-24] MEDS: Piperacillin/Tazobactam 3.375 GM in Sodium Chloride 0.9% 100 ML IVPB SCH ×2 (05:11→18:33)
[2022-09-24 05:12] LABS: Anion Gap 13 mmol/L (10-20); BUN (Urea Nitrogen) 9 mg/dL (9.8-20.1); Calc. Creatinine Clearance 31 mL/min (70-130); Calcium 8.6 mg/dL (7.8-10.44); Carbon Dioxide 26 mmol/L (22-29); Chloride 102 mmol/L (98-107); Estimated GFR 21; Glucose 218 mg/dL (70-105); Potassium 3.7 mmol/L (3.5-5.1); Sodium 137 mmol/L (136-145)
[2022-09-24] MEDS: Dextrose 5%-Lactated Ringers 1,000 ML IV SCH (05:12)
[2022-09-24 05:22] LABS: Hemoglobin 7.3 g/dL (12.0-16.0); Mean Corpuscular HGB CONC 31.8 g/dL (32.0-36.0); Mean Corpuscular Volume 97.3 fl (78.0-98.0); Mean Platelet Volume 9.2 fL (7.4-10.4); Platelet Count 133 10x3/uL (130-400); RBC Distribution Width 20.4 % (11.5-14.5); Red Blood Cell (RBC) Count 2.36 mill/uL (4.20-5.40); White Blood Cell (WBC) Count 10.3 10x3/uL (4.8-10.8)
[2022-09-24 05:44] LABS: #Lymphocytes 2.1 thou/uL (1.20-3.40); #Neutrophils 7.2 thou/uL (1.40-6.50); %Basophils 0.2 % (0.0-1.0); %Eosinophils 0.3 % (0.0-10.0); %Lymphocytes 20.2 % (21.0-51.0); %Monocytes 10.1 % (0.0-10.0); %Neutrophils 69.2 % (42.0-75.0); MDiff Complete? YES
[2022-09-24 05:45] LABS: Anisocytosis SLIGHT = 6-15 cells (100X) (0-5/hpf); Band 1 % (5-11); Eosinophils 1 % (0-10); Hypochromia MODERATE=16-30 cells (100X) (0-5/hpf); Lymphocytes 23 % (21-51); Monocytes 3 % (0-10); Neutrophil 71 % (42-75); Platelet Morphology Comment Appears Adequate; Polychromasia SLIGHT = 2-3 cells (100X) (0-2/hpf); Stomatocytes SLIGHT = 2-5 cells (100X) (0-1/hpf); Vacuoles SLIGHT
[2022-09-24] MEDS: Fluconazole 100 MG TAB PO SCH (09:14)
[2022-09-24] MEDS: Triple Antibiotic Ointment 30 GM TUBE TOP SCH (09:15)
[2022-09-24] MEDS ORDERED: Acetaminophen 500 MG TAB PO SCH (21:15)
[2022-09-25] MEDS ORDERED: Lidocaine 1% w/Epinephrine 1:100K 20 ML VIAL ONE ×2 (05:53→05:55)
[2022-09-25] MEDS: Piperacillin/Tazobactam 3.375 GM in Sodium Chloride 0.9% 100 ML IVPB SCH (05:59)
[2022-09-25 06:47] LABS: #Monocytes 0.9 thou/uL (0.11-0.59); #Neutrophils 6.3 thou/uL (1.40-6.50); %Basophils 0.4 % (0.0-1.0); %Eosinophils 0.2 % (0.0-10.0); %Lymphocytes 21.4 % (21.0-51.0); %Monocytes 9.8 % (0.0-10.0); %Neutrophils 68.2 % (42.0-75.0); Hemoglobin 8.1 g/dL (12.0-16.0); Mean Corpuscular Hemoglobin 32.9 pg (27.0-31.0); Mean Corpuscular Volume 96.6 fl (78.0-98.0); Mean Platelet Volume 9.1 fL (7.4-10.4); Platelet Count 132 10x3/uL (130-400); RBC Distribution Width 18.6 % (11.5-14.5); Red Blood Cell (RBC) Count 2.47 mill/uL (4.20-5.40); White Blood Cell (WBC) Count 9.2 10x3/uL (4.8-10.8)
[2022-09-25 07:17] LABS: Anion Gap 17 mmol/L (10-20); BUN (Urea Nitrogen) 11 mg/dL (9.8-20.1); Calc. Creatinine Clearance 26 mL/min (70-130); Calcium 9.2 mg/dL (7.8-10.44); Carbon Dioxide 23 mmol/L (22-29); Chloride 103 mmol/L (98-107); Estimated GFR 17; Glucose 73 mg/dL (70-105); Magnesium 1.6 mg/dL (1.6-2.6); Potassium 3.9 mmol/L (3.5-5.1); Sodium 139 mmol/L (136-145)
[2022-09-25] MEDS: Midodrine HCl 5 MG TAB PO SCH ×2 (08:36→23:32)
[2022-09-25] MEDS ORDERED: Heparin 10,000 UNITS/ 10 ML VIAL ONE (08:49)
[2022-09-25] MEDS: Fluconazole 100 MG TAB PO SCH (09:36)
[2022-09-25] MEDS: Triple Antibiotic Ointment 30 GM TUBE TOP SCH (09:37)
[2022-09-25] MEDS ORDERED: Fentanyl 100 MCG/2 ML VIAL SLOW IVP SCH (21:51)
[2022-09-26] MEDS: Midodrine HCl 5 MG TAB PO SCH ×4 (06:24→20:39)
[2022-09-26 07:33] LABS: Hemoglobin 8.2 g/dL (12.0-16.0)
[2022-09-26] MEDS: EPOETIN ALFA-EPBX (ESRD) 10,000 UNIT/ML VIAL SC SCH (08:47)
[2022-09-26] MEDS: Dextrose 5%-Lactated Ringers 1,000 ML IV SCH ×2 (08:49→08:50)
[2022-09-26] MEDS: Apixaban 5 MG TAB PO SCH ×2 (11:27→20:38)
[2022-09-26] MEDS: Triple Antibiotic Ointment 30 GM TUBE TOP SCH (11:27)
[2022-09-26] MEDS: Dextrose 10% in Water 1,000 ML IV SCH ×3 (11:27→16:06)
[2022-09-26] MEDS: Fluconazole 100 MG TAB PO SCH (11:28)
[2022-09-26] MEDS: Fentanyl 100 MCG/2 ML VIAL SLOW IVP PRN (16:03)
[2022-09-27 06:42] LABS: Anion Gap 17 mmol/L (10-20); BUN (Urea Nitrogen) 7 mg/dL (9.8-20.1); Calc. Creatinine Clearance 30 mL/min (70-130); Calcium 8.9 mg/dL (7.8-10.44); Carbon Dioxide 23 mmol/L (22-29); Chloride 100 mmol/L (98-107); Estimated GFR 20; Glucose 99 mg/dL (70-105); Magnesium 1.6 mg/dL (1.6-2.6); Phosphorus 1.7 mg/dL (2.3-4.7); Potassium 3.6 mmol/L (3.5-5.1); Sodium 136 mmol/L (136-145)
[2022-09-27] MEDS ORDERED: Potassium Phosphate 22 MMOL in Sodium Chloride 0.9% 250 ML 250 ML IVPB SCH (07:30)
[2022-09-27] MEDS ORDERED: Magnesium 2 GM/50 ML(in water) 2 GM in Premix Bag 1 BAG IVPB SCH (07:45)
[2022-09-27] MEDS: Midodrine HCl 5 MG TAB PO SCH ×3 (07:51→20:21)
[2022-09-27] MEDS: Piperacillin/Tazobactam 3.375 GM in Sodium Chloride 0.9% 100 ML IVPB SCH (08:18)
[2022-09-27] MEDS: Fentanyl 100 MCG/2 ML VIAL SLOW IVP PRN ×2 (08:59→21:03)
[2022-09-27] MEDS: Apixaban 5 MG TAB PO SCH ×2 (09:15→20:20)
[2022-09-27] MEDS: Triple Antibiotic Ointment 30 GM TUBE TOP SCH (09:15)
[2022-09-27] MEDS: EPOETIN ALFA-EPBX (ESRD) 10,000 UNIT/ML VIAL SC SCH (11:56)
[2022-09-28] MEDS: Dextrose 10% in Water 1,000 ML IV SCH (06:29)
[2022-09-28] MEDS: Midodrine HCl 5 MG TAB PO SCH (06:30)
[2022-09-28 08:20] VITALS: BP 104/52; TEMP 98.2
[2022-09-28] MEDS: Apixaban 5 MG TAB PO SCH (08:33)
[2022-09-28] MEDS: Triple Antibiotic Ointment 30 GM TUBE TOP SCH (08:34)
== END 2022-09-28 11:02 | disposition hospice, home (50) | DRG 856 ==
LOC: ERS 15:29 → CCU 18:34 → 2NO 08-28 14:45 → MSONC 09-11 22:10 → 2NO 09-14 04:53 → CCU 09-23 18:58 → 2NO 09-23 19:02
PROVIDERS: ADMIT Internal Medicine; ATTEND Internal Medicine
PROC: 3E033XZ Introduction of Vasopressor into Peripheral Vein, Percutaneous Approach (ICD-10-PCS; 2022-08-25)
PROC: 3E03329 Introduction of Other Anti-infective into Peripheral Vein, Percutaneous Approach (ICD-10-PCS; principal; 2022-08-26)
PROC: 30233J1 Transfusion of Nonautologous Serum Albumin into Peripheral Vein, Percutaneous Approach (ICD-10-PCS; 2022-08-26)
PROC: 30233N1 Transfusion of Nonautologous Red Blood Cells into Peripheral Vein, Percutaneous Approach (ICD-10-PCS; 2022-08-27)
PROC: 5A1D70Z Performance of Urinary Filtration, Intermittent, Less than 6 Hours Per Day (ICD-10-PCS; 2022-08-28)
PROC: 03CY3ZZ Extirpation of Matter from Upper Artery, Percutaneous Approach (ICD-10-PCS; 2022-08-29)
PROC: 05CY3ZZ Extirpation of Matter from Upper Vein, Percutaneous Approach (ICD-10-PCS; 2022-08-29)
PROC: 0J980ZZ Drainage of Abdomen Subcutaneous Tissue and Fascia, Open Approach (ICD-10-PCS; 2022-08-29)
PROC: B51W1ZZ Fluoroscopy of Dialysis Shunt/Fistula using Low Osmolar Contrast (ICD-10-PCS; 2022-08-29)
PROC: 03170ZD Bypass Right Brachial Artery to Upper Arm Vein, Open Approach (ICD-10-PCS; 2022-09-03)
PROC: 0JH60XZ Insertion of Tunneled Vascular Access Device into Chest Subcutaneous Tissue and Fascia, Open Approach (ICD-10-PCS; 2022-09-03)
PROC: 02HV33Z Insertion of Infusion Device into Superior Vena Cava, Percutaneous Approach (ICD-10-PCS; 2022-09-03)
PROC: B5181ZA Fluoroscopy of Superior Vena Cava using Low Osmolar Contrast, Guidance (ICD-10-PCS; 2022-09-03)
PROC: 02HV33Z Insertion of Infusion Device into Superior Vena Cava, Percutaneous Approach (ICD-10-PCS; 2022-09-03)
PROC: B548ZZA Ultrasonography of Superior Vena Cava, Guidance (ICD-10-PCS; 2022-09-03)
PROC: 05CY3ZZ Extirpation of Matter from Upper Vein, Percutaneous Approach (ICD-10-PCS; 2022-09-09)
PROC: 0J980ZZ Drainage of Abdomen Subcutaneous Tissue and Fascia, Open Approach (ICD-10-PCS; 2022-09-15)
PROC: B4101ZZ Fluoroscopy of Abdominal Aorta using Low Osmolar Contrast (ICD-10-PCS; 2022-09-19)
PROC: B3111ZZ Fluoroscopy of Right Brachiocephalic-Subclavian Artery using Low Osmolar Contrast (ICD-10-PCS; 2022-09-19)
PROC: B31N1ZZ Fluoroscopy of Other Upper Arteries using Low Osmolar Contrast (ICD-10-PCS; 2022-09-19)
PROC: B3121ZZ Fluoroscopy of Left Subclavian Artery using Low Osmolar Contrast (ICD-10-PCS; 2022-09-19)
PROC: 031709D Bypass Right Brachial Artery to Upper Arm Vein with Autologous Venous Tissue, Open Approach (ICD-10-PCS; 2022-09-20)
PROC: 06BQ0ZZ Excision of Left Saphenous Vein, Open Approach (ICD-10-PCS; 2022-09-20)
DX: T81.41XA Infection following a procedure, superficial incisional surgical site, initial encounter (principal); A41.51 Sepsis due to Escherichia coli [E. coli]; Z66 Do not resuscitate; Z20.822 Contact with and (suspected) exposure to COVID-19; Z51.5 Encounter for palliative care; N18.6 End stage renal disease; R65.21 Severe sepsis with septic shock; T82.868A Thrombosis due to vascular prosthetic devices, implants and grafts, initial encounter; I51.81 Takotsubo syndrome; G93.49 Other encephalopathy; T81.31XA Disruption of external operation (surgical) wound, not elsewhere classified, initial encounter; I82.401 Acute embolism and thrombosis of unspecified deep veins of right lower extremity; I48.21 Permanent atrial fibrillation; I12.0 Hypertensive chronic kidney disease with stage 5 chronic kidney disease or end stage renal disease; T82.898A Other specified complication of vascular prosthetic devices, implants and grafts, initial encounter; Y83.2 Surgical operation with anastomosis, bypass or graft as the cause of abnormal reaction of the patient, or of later complication, without mention of misadventure at the time of the procedure; I95.89 Other hypotension; E16.2 Hypoglycemia, unspecified; F17.220 Nicotine dependence, chewing tobacco, uncomplicated; E87.5 Hyperkalemia; D63.1 Anemia in chronic kidney disease; I95.1 Orthostatic hypotension; E55.9 Vitamin D deficiency, unspecified; E87.6 Hypokalemia; E83.51 Hypocalcemia; E88.09 Other disorders of plasma-protein metabolism, not elsewhere classified; Z88.8 Allergy status to other drugs, medicaments and biological substances; Z99.2 Dependence on renal dialysis; Z79.899 Other long term (current) drug therapy; Z79.82 Long term (current) use of aspirin; Z95.828 Presence of other vascular implants and grafts
CPT/HCPCS: 36140; 36215; 36225; 36415; 36416; 36430; 36556; 36901; 36902; 71045; 74176; 75710; 80048; 80053; 80202; 80400; 82040; 82306; 82533; 82728; 82805; 82947; 83540; 83550; 83605; 83690; 83735; 84100; 85014; 85018; 85025; 85049; 85610; 85730; 86850; 86900; 86901; 87040; 87070; 87077; 87186; 87205; 87811; 90935; 93005; 93010; 93931; 93970; 94760; 96374; 96375; 97139; C1713; C1725; C1751; C1752; C1757; C1760; C1769; C1776; C1887; C1894; G0257; J0171; J0692; J0834; J1200; J1644; J1720; J2001; J2250; J2370; J2405; J2543; J2720; J3010; J3370; J3370-JW; J3475; J3490; J7030; J7042; J7050; J7512; J7999; L8670; P9016; P9047; Q5105; Q9967; S0020; U0002